=== PATIENT | female | born 1945 | race Caucasian/White ===

== ENCOUNTER 2016-03-22 19:02 | Observation (INO) ==
[2016-03-22] MEDS ORDERED: Aspirin 81 MG TAB.CHEW PO ONE (20:07)
--- NOTE | 2016-03-22 20:14 | Emergency Department Note ---
Disposition Clinical Impression: Unstable angina Disposition: Admitted As Inpatient Condition: Fair Chest Pain HPI - General Chief Complaint: ED Chest Pain Stated Complaint: CP/SOB Time Seen by Provider: 03/22/16 20:00 Source: patient Limitations: no limitations Vital Signs Reviewed: Yes Nursing Notes Reviewed: Yes - History of Present Illness HPI Narrative: Ms. Larkin, a 70yo female, presents from home by POV with chief complaint chest pain. History CAD status post PCTA with 3 stents. Onset 2 AM which woke her from sleep. Located retrosternal. Described as pressure with sharp pain radiating to her back, to her left shoulder, into her left jaw. Associated shortness of breath and nausea. Denies diaphoresis, weakness, numbness or tingling, abdominal pain. The symptoms have been intermittent throughout the day, and going. Improve not relieved with rest, worsened with light exertion. Patient states this feels very similar to her previous heart attacks which she states she has had at least 3. Patient did take 2 sublingual nitroglycerin at home, 5 minutes apart, and did not experience relief of her chest pain. PMH: CKD stage III, CAD status post stents (quantity 2 2010, quantity 1 2014), diabetes type 2, chronic hypertension, ALLISON. Tech Intern: Dr. Garcia. Severity scale (1-10): 5 - Related Data Home Medications Medication Instructions Recorded Confirmed Albuterol Sulfate [Proair 1 - 2 puff IH Q6H PRN 11/21/14 03/22/16 Respiclick] Loratadine [Claritin] 10 mg PO QAM PRN #0 11/21/14 03/22/16 Losartan [Cozaar] 25 mg PO QAM 11/21/14 03/22/16 Multivitamin [Multi-Day Vitamins] 1 tab PO QAM 11/21/14 03/22/16 Nitroglycerin [Nitrostat] 0.4 mg SL AD PRN #0 11/21/14 03/22/16 Aspirin 81 mg PO QAM 01/03/15 03/22/16 Cholecalciferol (Vitamin D3) 2,000 unit PO QAM 01/03/15 03/22/16 [Vitamin D3] Clopidogrel [Plavix] 75 mg PO QPM 01/03/15 03/22/16 Esomeprazole Magnesium [Nexium] 40 mg PO QAM 01/03/15 03/22/16 Metformin [Glucophage] 500 mg PO QAM 01/03/15 03/22/16 Vitamin E (Dl,Tocopheryl Acet) 400 unit PO QAM 01/03/15 03/22/16 [Vitamin E] Albuterol Neb [Proventil Neb] 2.5 mg IH Q4HR PRN 09/07/15 03/22/16 Isosorbide MONOnitrate [Isosorbide 120 mg PO DAILY 11/13/15 03/22/16 Mononitrate ER] Metoprolol [Lopressor] 25 mg PO BID 11/13/15 03/22/16 Fluticasone Propionate Nasal 50 mcg NS BID 12/03/15 03/22/16 [Flonase] Allergies Allergy/AdvReac Type Severity Reaction Status Date / Time acetaminophen Allergy See Verified 02/12/16 20:24 Comments clarithromycin Allergy See Verified 02/12/16 20:24 Comments Erythromycin Base Allergy See Verified 02/12/16 20:24 Comments hydrocodone [From Vicodin] Allergy See Verified 11/13/15 12:14 Comments morphine Allergy See Verified 02/12/16 20:24 Comments prednisone Allergy See Verified 02/12/16 20:24 Comments propoxyphene Allergy See Verified 02/12/16 20:24 Comments codeine AdvReac Anaphylaxis Verified 11/13/15 12:14 Sjtcmdk-Pps-Hco Reductase AdvReac Muscle Pain Verified 11/13/15 12:14 Inhibitor [Statins] All systems ED: reviewed and negative except as stated. Constitutional: Denies: fever, chills, weakness ENT ED: Reports: other (left jaw pain.) Cardiovascular: Reports: chest pain, dyspnea on exertion. Denies: palpitations , orthopnea, edema, syncope Respiratory: Denies: cough, wheezes Gastrointestinal: Reports: nausea. Denies: abdominal pain, vomiting, diarrhea, constipation, hematemesis, melena, hematochezia Musculoskeletal: Reports: back pain. Denies: neck pain Integumentary: Denies: rash Neurological: Reports: weakness. Denies: headache, numbness, paresthesias, confusion, vertigo Chest Pain PMH - Past Medical History Medical history: Reports: arthritis, asthma, coronary artery disease, diabetes, GERD, hyperlipidemia, hypertension, migraine, myocardial infarction, renal disease Surgical history: Reports: angioplasty/stent, appendectomy, cholecystectomy, hysterectomy Psychiatric history: Reports: no psych history Prior Cardiac Testing/Procedures: Stenting PRICING CLERK history: Reports: no PRICING CLERK history - Social History Smoking Status: Never smoker Alcohol use: Reports: none Drug use: Reports: none Physical Exam General: Patient is alert, oriented, and in no acute distress. HEENT: No facial asymmetry. Head is normocephalic and atraumatic. Trachea midline. Cardiovascular: Heart regular rate and rhythm without clicks, rubs, gallops, or murmurs. No JVD. PMI nondisplaced. Respiratory: Symmetric chest rise with good respiratory effort. Bilateral breath sounds are clear without wheezing, crackles, or rhonchi. Abdomen: Bowel sounds present normoactive x-4 quadrants. Abdomen is soft, nondistended, and nontender. No organomegaly noted. Neuro: Cranial nerves II through XII grossly intact.. Sensation light touch intact. Psych: Patient's affect is appropriate for situation. - General Limitations: no limitations General appearance: alert Course Course Narrative: Chart check shows cardiac history: Left heart catheter November 2015-LVEF 65%. Patent mid LAD and all my stents. Mid LAD 30% stenosis. Mid circumflex 30% stenosis. Also medical management recommended. Patient expresses mild symptom relief with sublingual nitroglycerin 3 every 5 minutes however her symptoms did persist. Laboratory unremarkable; specifically troponin negative at this time. Chest x- ray shows no acute cardiopulmonary abnormalities. We will recommend the patient be placed in observation for continued chest pain workup given her history, multiple comorbidities, and concerning story. Patient accepted to the floor on tele per Dr. Fierro. Vital Signs Temperature 98.1 F 03/22/16 19:03 Pulse Rate 83 03/22/16 19:03 Respiratory Rate 18 03/22/16 19:03 Blood Pressure 194/97 03/22/16 19:03 O2 Sat by Pulse Oximetry 95 03/22/16 19:03 Temperature 97.6 F 03/23/16 00:13 Pulse Rate 62 03/23/16 00:13 Respiratory Rate 16 03/23/16 00:13 Blood Pressure 154/85 03/23/16 00:13 O2 Sat by Pulse Oximetry 95 03/23/16 00:13 Oxygen Delivery Oxygen Delivery Room Air Chest Pain - Medical Records Medical records reviewed: Yes I reviewed the patient's medical records. - Lab Data Lab results reviewed: Yes I reviewed the patient's lab results. Result diagrams: 03/22/16 20:15 03/22/16 20:15 Lab Results 03/22/16 03/22/16 03/22/16 Range/Units 20:15 20:15 20:15 WBC 7.9 (4.3-11.1) K/mcL RBC 3.80 L (3.82-4.97) M/mcL Hgb 11.9 (11.5-15.4) g/dL Hct 36.5 (35.3-44.9) % MCV 96.1 (83.0-100.0) fL MCH 31.3 (28.0-33.3) pg MCHC 32.6 (31.6-35.5) g/dL RDW 12.5 (11.5-14.5) % Plt Count 232 (140-400) K/mcL MPV 11.5 (9.4-12.4) fL Immature Gran % 0.4 (0-4) % Seg Neutrophils % 63.1 % Lymphocytes % 23.2 % Monocytes % 8.9 % Eosinophils % 3.8 % Basophils % 0.6 % Neutrophils # 5.0 (1.6-8.9) K/mcL Lymphocytes # 1.8 (0.6-4.6) K/mcL Monocytes # 0.7 (0.0-1.3) K/mcL Eosinophils # 0.3 (0.0-0.6) K/mcL Basophils # 0.1 (0.0-0.2) K/mcL PT 11.5 (9.4-12.1) Seconds INR 1.1 APTT 33.4 (26.0-36.0) Seconds Sodium 143 (136-145) mEq/L Potassium 4.5 (3.5-4.5) mEq/L Chloride 111 H (98-109) mEq/L Carbon Dioxide 19 (19-29) mEq/L BUN 21 H (7-20) mg/dL Creatinine 1.02 (0.57-1.11) mg/dL Est GFR ( Amer) > 60 (> 60) Est GFR (Non-Af Amer) 53 L (> 60) BUN/Creatinine Ratio 21 (6-26) Glucose 134 H (70-99) mg/dL Calculated Osmolality 301 H (280-300) Calcium 9.7 (8.6-10.8) mg/dL Troponin I (0-0.03) ng/mL 03/22/16 Range/Units 20:15 WBC (4.3-11.1) K/mcL RBC (3.82-4.97) M/mcL Hgb (11.5-15.4) g/dL Hct (35.3-44.9) % MCV (83.0-100.0) fL MCH (28.0-33.3) pg MCHC (31.6-35.5) g/dL RDW (11.5-14.5) % Plt Count (140-400) K/mcL MPV (9.4-12.4) fL Immature Gran % (0-4) % Seg Neutrophils % % Lymphocytes % % Monocytes % % Eosinophils % % Basophils % % Neutrophils # (1.6-8.9) K/mcL Lymphocytes # (0.6-4.6) K/mcL Monocytes # (0.0-1.3) K/mcL Eosinophils # (0.0-0.6) K/mcL Basophils # (0.0-0.2) K/mcL PT (9.4-12.1) Seconds INR APTT (26.0-36.0) Seconds Sodium (136-145) mEq/L Potassium (3.5-4.5) mEq/L Chloride (98-109) mEq/L Carbon Dioxide (19-29) mEq/L BUN (7-20) mg/dL Creatinine (0.57-1.11) mg/dL Est GFR ( Amer) (> 60) Est GFR (Non-Af Amer) (> 60) BUN/Creatinine Ratio (6-26) Glucose (70-99) mg/dL Calculated Osmolality (280-300) Calcium (8.6-10.8) mg/dL Troponin I 0.01 (0-0.03) ng/mL - Radiology Data Radiology results reviewed: Yes I reviewed the patient's radiology results. - EKG Data EKG attestation: Yes I reviewed and interpreted this EKG. EKG results narrative: EKG dated 03/22/16 at 19:15 shows sinus rhythm with respiratory variation, rate 76. Normal intervals. Left axis. Nonspecific ST-T changes. Compared to previous dated 11/13/2015 at 10:10 showing no acute ischemic changes in comparison. Heart Score - Score History: Moderately Suspicious EKG: Normal Age: Greater than 65 Risk Factors: Equal/Greater than 3 risk factor or history of atherosclerotic disease Troponin: Less than normal limit HEART Score Total: 5 Attestation Statement - Attestation Attestation: I, Guilherme Hi MD, personally performed a history and physical exam of the patient and discussed their management with the resident. I reviewed the resident's note and agree with the documented findings, medical decision making , and plan of care. 70-year-old female with history of coronary artery disease and coronary artery stents presents to the emergency department with a complaint that she awoke at 2 AM this morning with substernal chest pain. Pain radiates to her back into the left side of her neck and her left jaw on the left shoulder and left arm. She complains of shortness of breath associated with the chest pain. Also some nausea and diaphoresis. No relief with nitroglycerin. Patient reports that she has had pain off and on all day today. On examination patient is a well-developed well-nourished elderly female in no acute distress. She is alert and oriented 3. There is no cyanosis or diaphoresis. Chest is nontender to palpation. Breath sounds clear and equal bilaterally. Heart regular rate and rhythm. Abdomen soft and nontender with normal bowel sounds. No acute changes on EKG. Chest x-ray negative. Labs reviewed. Troponin negative. The hospitalist, Dr. Fierro, was consulted and accepted admission of the patient.
[2016-03-22] MEDS: Nitroglycerin 0.4 MG TAB.SUBL SL ONE ×3 (20:18→20:41)
[2016-03-22 20:25] LABS: Basophils # 0.1 K/mcL (0.0-0.2); Basophils % 0.6 %; Eosinophils # 0.3 K/mcL (0.0-0.6); Eosinophils % 3.8 %; Hematocrit 36.5 % (35.3-44.9); Hemoglobin 11.9 g/dL (11.5-15.4); Immature Granulocytes % 0.4 % (0-4); Lymphocytes # 1.8 K/mcL (0.6-4.6); Lymphocytes % 23.2 %; Mean Corpuscular HGB Conc 32.6 g/dL (31.6-35.5); Mean Corpuscular Hemoglobin 31.3 pg (28.0-33.3); Mean Corpuscular Volume 96.1 fL (83.0-100.0); Mean Platelet Volume 11.5 fL (9.4-12.4); Monocytes # 0.7 K/mcL (0.0-1.3); Monocytes % 8.9 %; Platelet Count 232 K/mcL (140-400); Red Cell Distribution Width 12.5 % (11.5-14.5); Segmented Neutrophils % 63.1 %
[2016-03-22 20:30] LABS: INR 1.1; Prothrombin Time 11.5 Seconds (9.4-12.1)
[2016-03-22 20:32] LABS: Activated Partial Thrombo Time 33.4 Seconds (26.0-36.0)
[2016-03-22 20:37] LABS: BUN/Creatinine Ratio 21 (6-26); Blood Urea Nitrogen 21 mg/dL (7-20); Calcium 9.7 mg/dL (8.6-10.8); Carbon Dioxide 19 mEq/L (19-29); Chloride 111 mEq/L (98-109); Glucose 134 mg/dL (70-99); Osmolality,Calculated 301 (280-300); Potassium 4.5 mEq/L (3.5-4.5); Sodium 143 mEq/L (136-145); eGFR For African Americans > 60 (> 60); eGFR For Non-African Americans 53 (> 60)
[2016-03-22] MEDS ORDERED: *HR* HYDROmorphone (PF) 1 MG/ML SYRINGE IVP ONE (22:18)
[2016-03-22] MEDS ORDERED: GI Cocktail 40 ML EACH PO ONE (23:11)
[2016-03-23] MEDS ORDERED: Loratadine 10 MG TABLET PO PRN (00:30)
[2016-03-23] MEDS ORDERED: Albuterol 2.5 MG/3 ML NEBULIZER IH PRN (00:30)
[2016-03-23] MEDS ORDERED: Nitroglycerin 0.4 MG TAB.SUBL SL PRN ×2 (00:30→00:31)
[2016-03-23] MEDS ORDERED: *HR* Morphine 2 MG/ML SYRINGE IVP PRN (00:31)
[2016-03-23] MEDS ORDERED: *HR* Dextrose 50 % in Water (Syg) 50 ML SYRINGE IVP PRN (00:31)
[2016-03-23] MEDS ORDERED: Mag Hydrox/Al Hydrox/Simeth 30 ML UDC PO PRN (00:31)
[2016-03-23] MEDS ORDERED: Naloxone 0.4 MG/ML INJ IVP PRN (00:31)
[2016-03-23] MEDS ORDERED: Ibuprofen 400 MG TABLET PO PRN (00:31)
[2016-03-23] MEDS ORDERED: Dextrose Gel 15 GM PO PRN ×2 (00:31)
[2016-03-23] MEDS ORDERED: *HR* Promethazine 25 MG/ML VIAL IVP PRN (00:31)
[2016-03-23] MEDS ORDERED: D5% in Water 1,000 ML IV PRN (00:31)
[2016-03-23] MEDS ORDERED: *HR* OxyCODONE Immed Rel 5 MG TABLET PO PRN (00:31)
[2016-03-23] MEDS ORDERED: *HR* Metoprolol 5 MG/5 ML VIAL IVP PRN (00:31)
[2016-03-23] MEDS: 0.9 % Sodium Chloride 1,000 ML IVC SCH ×2 (01:06→19:47)
[2016-03-23 01:21] LABS: Chol/HDL Ratio 4.4 (0-4.9); Magnesium 1.5 mg/dL (1.6-2.6); Phosphorous 4.4 mg/dL (2.3-4.7)
--- NOTE | 2016-03-23 01:24 | Internal Med History&Physical ---
Date of Encounter: 03/23/16 Time of Encounter: 01:00 Assessment and Plan (1) Chest pain with moderate risk of acute coronary syndrome Current visit: Yes Status: Acute . (2) Acute chest wall pain Current visit: Yes Status: Acute . (3) History of PTCA Current visit: Yes Status: Chronic . (4) Type 2 diabetes mellitus Current visit: Yes Status: Chronic . 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 (6) Obesity (BMI 30-39.9) Current visit: Yes Status: Chronic . (7) Reactive airway disease Current visit: Yes Status: Chronic . Qualifiers: Asthma severity: unspecified severity Asthma complication type: uncomplicated Qualified Code(s): J45.909 - Unspecified asthma, uncomplicated (8) Chest pain, rule out acute myocardial infarction Current visit: Yes Status: Acute . (9) CAD (coronary artery disease) Current visit: Yes Status: Chronic . Qualifiers: Coronary Disease-Associated Artery/Lesion type: [place] artery [place] vs. transplanted heart: [place] heart Associated angina: angina presence unspecified Qualified Code(s): I25.10 - Atherosclerotic heart disease of [place] coronary artery without angina pectoris (10) Chronic kidney disease (CKD) stage G3a/A1, moderately decreased glomerular filtration rate (GFR) between 45-59 mL/min/1.73 square meter and albuminuria creatinine ratio less than 30 mg/g Current visit: Yes Status: Chronic . (11) GERD (gastroesophageal reflux disease) Current visit: Yes Status: Chronic . Qualifiers: Esophagitis presence: esophagitis presence not specified Qualified Code(s) : K21.9 - Gastro-esophageal reflux disease without esophagitis (12) Statin intolerance Current visit: Yes Status: Chronic . (13) Anxiety about health Current visit: Yes Status: Acute . (14) ALLISON (obstructive sleep apnea) Current visit: Yes Status: Chronic . (15) Noncompliance with CPAP treatment Current visit: Yes Status: Chronic . Internal Medicine - H&P: HPI Chief complaint: Chest pain Admitted From: Emergency Dept Plans for Post Hospital Care: Home History of present illness: Ms. Larkin is a 70 year old female with history significant for CAD/PTCAstents x3/AMI x3, reactive airway disease/asthma, ALLISON-CPAP noncompliant, hypertension, dyslipidemia, CKD III, type 2 diabetes mellitus, allergic rhinitis, GERD, osteoarthritis, osteopenia, vitamin D deficiency, migraine headaches, Raynaud's syndrome, LE venous insufficiency, psoriasis, basal cell carcinoma excisions, DM peripheral neuropathy, anemia, obesity, nonsmoker (Cardiac Catheterization Report: 12/03/2015----patent mid LAD and LEE stents. Stable coronary artery disease. Left ventricle is normal and has normal contractility with LVEF 65%. Recommendations for optimal medical therapy for patient's disease. Aggressive risk factor modification. Coronary dominance left. Lesion findings/interventions----left main coronary artery is angiographically free of disease. Left anterior descending artery notes proximal patent stents present from previous procedure. Mid LAD has patent stents present from previous procedure. 30% stenosis in the mid LAD. Lesion has a JESÚS flow of 3. Circumflex artery marginal has patent stents present from previous procedure. There is a 30% stenosis of the mid circumflex. Lesion has a JESÚS flow of 3. Right coronary artery is known to be non-dominant and occluded proximally.) The patient was visited and interviewed and examined. She is admitted to [facility] via the emergency department with reports of acute onset of chest pain and shortness of air. Patient reports awakening from a sound sleep at about 2 AM with retrosternal chest pain that she would read as a 5-6 out of 10 in severity. Sharp and pressure-like with radiation through to her back to her left shoulder or left jaw. This was associated with a feeling of shortness of air nausea. No diaphoresis no emesis. Denied any unilateral weakness physician deficit paresthesias numbness and headache. The symptoms seem to be intermittent throughout her day. Short-lived. But not completely relieved with rest. Worsened with light to moderate exertion. She recalls that this feels similar to her previous heart attacks (3). She took 2 sublingual nitroglycerin only 5 minutes apart. This did not resolve her chest discomfort. Denies any associated fevers chills or sweats. Denied any upper or lower respiratory complaints cough sputum production. Knowledge to her chronic anterior chest and abdominal tenderness residual from previous surgeries. Acknowledges well that the increased respiratory effort cough and movement would aggravate chest pain. Will audible wheezing apparent and no worse than baseline. She notes no significant change in her prescribed medications nor indiscretions. Admits to increase in personal and environmental stressors and concerns about her overall health. Due to persistent she presented to the emergency department for further evaluation. Findings in the ED: Temperature 98.1 pulse 66-83 respiration 18 BP 150-194/87- 97 O2 saturation 95-97% at room air. WBC 7.9 hemoglobin 11.9 platelets 232, 000. Differential normal. PT 11.5 INR 1.1 PTT 33.4. Metabolic panel normal except chloride 111 BUN 21 glucose 134 osmolality 301. Creatinine 1.02 GFR 53. Troponin 0.01. EKG sinus rhythm with respiratory variation. Rate 76. acute ischemic changes. Left axis deviation. Portable chest x-ray shows no acute or active cardiopulmonary process. Preliminary impression suggests acute chest pain syndrome typical and atypical features. This in the setting of a patient with known coronary artery disease status post PTCA with stent 3 and reported non-ST elevation myocardial infarctions 3. Recent left heart catheterization per 2016 was reviewed with patent stents with mild residual nonocclusive disease. Systemic inflammatory response syndrome nor sepsis criteria present at admission. No overt evidence of infection as a prelude to current symptoms. Given patient's significant comorbidities HEART score for cardiovascular risk of MACE equals 5 warranting further clinical investigation. Workup and treatments will proceed comprehensively. Cumulative laboratory and radiographic data base was reviewed, considered and discussed. Pertinent ancillary medical records including ECW and PCI documentation, when available was reviewed and considered. Given the patient's presenting concerns, past medical history, clinical findings and symptoms, she is admitted at this time will undergo further evaluation and disposition. Orders were written as per the computerized physician field recorder system.......................................................................... .................... Consultative opinions will be sought as clinical circumstances justify. Initial consultative opinion has been requested and cardiology. Pain management needs will be addressed. Laboratory and radiographic data base will be updated as appropriate. Studies include: coag profile, CPK, cardiac injury panel, BNP, metabolic and hematologic panel, magnesium, phosphorus, ionized calcium, thyroid panel, lipid profile, A1c, C-peptide, CRP, sedimentation rate, blood gas, lactic acid, UA, serologies, etc. Precautions: Aspiration, fall, delirium protocol/surveillance initiated. Telemetry with continuous hemodynamic monitoring and pulse oximetry initiated. Special studies: CT chest, chest x-ray, telemetry, EKG, echocardiogram. Pulmonary toilet: Incentive spirometry. When necessary aerosol bronchodilator, mucolytic, antitussive, Supplemental oxygen. Corticosteroid therapy when necessary. CPAP/BiPAP supplemental oxygen delivery when necessary. Aerosol Mucomyst therapy when necessary. Fluid and electrolyte repletion efforts will proceed. Careful attention to fluid balance and renal recovery will be emphasized. Avoidance of nephrotoxic exposure and adverse drug drug interaction in the setting of impaired renal function will be monitored closely. Acute coronary syndrome protocol/surveillance initiated. (Aspirin, beta yari , DMITRIY inhibitor. When necessary nitrates. When necessary morphine. Subcutaneous heparin/Lovenox. Patient reports statin intolerance. Fenofibrate will be substituted in this setting. We will also add Ranexa to current regimen. Recommendation for [place]-3 fatty acids ,as well as, consideration for Astemizole Trial to maximize lipid-lowering effort.) DVT and PUD prophylaxis initiated: PPI therapy, intermittent pneumatic cuffs/ TEDs. Subcutaneous heparin/Lovenox. Early ambulation will be encouraged. Immunization updates recommended. Influenza and pneumococcal vaccinations as part of ongoing preventative healthcare recommendations strongly recommended. Smoking cessation counseling briefly addressed. Patient is a nonsmoker. Advanced care directive discussion briefly addressed. Patient does not declare any healthcare restrictions at this time. Cardiovascular risk appraisal and cardiovascular risk reduction efforts will be emphasized. Physical and occupational therapy may be consulted to evaluate/assess patient's functional capacity and progress mobility if circumstances permit. Sliding scale and basal insulin coverage, ADA/cardiac dietary restraint and schedule an as-needed basis fingerstick glucose assessments were initiated. Oral hypoglycemic agents will be withheld during hospital course and reinstated if appropriate upon discharge. Nutrition/diabetes education counseling may be considered as circumstances permit. Outpatient medication schedules will be reviewed confirmed and facilitated as appropriate. Reconciliation of home treatments including adjustments, substitutions and reintroduction into the treatment regimen will address necessary maintenance therapies for chronic pre-existing medical conditions. Plan of care has been reviewed and discussed in detail with the patient. Questions addressed. Hospital course will depend upon collective clinical findings, treatment response and potential consultative interventions. Patient is at risk for further acute clinical decline and morbidity due to her advanced age, presenting chief complaints, clinical findings and comorbidities. Condition is serious. Prognosis is cautiously optimistic. CODE STATUS is full. Past Med Surg Social Fam HX - Past Medical History Source: old records reviewed Medical history: arthritis, asthma, cancer, COPD (ALLISON;nocturnal Cpap dependent) , coronary artery disease, diabetes, fibromyalgia, GERD, hyperlipidemia, hypertension, migraine, myocardial infarction, osteoporosis, renal disease, thyroid disease, venous stasis, other (Psoriasis. Diabetic peripheral neuropathy. Anemia. Her notes syndrome. Varicose veins. Impingement syndrome left shoulder.) Psychiatric history: no psych history - Past Surgical History Surgical History: angioplasty/stent, appendectomy, cancer surgery (Removal of several basal cell carcinomas.), cholecystectomy, hysterectomy, orthopedic, other (Ankle surgery. Left kidney cyst removal. Right carpal tunnel surgery x2.), other (Colectomy adenoidectomy.) - Social History Smoking Status: Never smoker Smokeless Tobacco Status: No Alcohol use: none Drug use: none Occupational status: retired Current living situation: Home - Independent () Activity Level: Independent ambulation, Mostly sedentary Recent Out of Country Travel Within the Last 8 Weeks: No Exposure or Possible Exposure to Illness During Travel: No - Family History Father Family Member Ethnicity: Non- Twin of Family Member: Yes, Fraternal Living Status: Hx Family Cardiac Disorders: Yes Hx Family Respiratory Disorders: No Hx Family Cancer: (Mother and father) Hx Family GI Disorders: No Hx Family Endocrine Disorder: No Hx Family Neuromuscular Disorders: No Hx Family Neurologic Disorders: No Hx Family HEENT Disorders: No Hx Family Autoimmune Disorders: No Mother Hx Family Cardiac Disorders: Yes Internal Medicine - H&P: Meds Albuterol Sulfate [Proair Respiclick] 1 - 2 puff IH Q6H PRN 11/21/14 [History] Loratadine [Claritin] 10 mg PO QAM PRN #0 11/21/14 [History] Losartan [Cozaar] 25 mg PO QAM 11/21/14 [History] Multivitamin [Multi-Day Vitamins] 1 tab PO QAM 11/21/14 [History] Nitroglycerin [Nitrostat] 0.4 mg SL AD PRN #0 11/21/14 [History] Aspirin 81 mg PO QAM 11/05/15 [History] Cholecalciferol (Vitamin D3) [Vitamin D3] 2,000 unit PO QPM 01/03/15 [History] Clopidogrel [Plavix] 75 mg PO QPM 01/03/15 [History] Esomeprazole Magnesium [Nexium] 40 mg PO QAM 01/03/15 [History] Metformin [Glucophage] 500 mg PO QPM 01/03/15 [History] Vitamin E (Dl,Tocopheryl Acet) [Vitamin E] 400 unit PO QAM 01/03/15 [History] Albuterol Neb [Proventil Neb] 2.5 mg IH Q4HR PRN 09/07/15 [History] Isosorbide MONOnitrate [Isosorbide Mononitrate ER] 120 mg PO DAILY 11/13/15 [ History] Metoprolol [Lopressor] 25 mg PO QPM 11/13/15 [History] Fluticasone Propionate Nasal [Flonase] 50 mcg NS BID 12/03/15 [History] Acetaminophen [Tylenol] 500 mg OP Q4HR PRN 03/23/16 [History] Allergies acetaminophen Allergy (Verified 02/12/16 20:24) See Comments clarithromycin Allergy (Verified 02/12/16 20:24) See Comments Erythromycin Base Allergy (Verified 02/12/16 20:24) See Comments hydrocodone [From Vicodin] Allergy (Verified 11/13/15 12:14) See Comments morphine Allergy (Verified 02/12/16 20:24) See Comments prednisone Allergy (Verified 02/12/16 20:24) See Comments propoxyphene Allergy (Verified 02/12/16 20:24) See Comments codeine Adverse Reaction (Verified 11/13/15 12:14) Anaphylaxis [id number] Reductase Inhibitor [Statins] Adverse Reaction (Verified 12:14) Muscle Pain All Systems PM: A 10-system review of systems was performed and is negative for pertinent findings except as documented above in the HPI. - Constitutional Constitutional: as per HPI, malaise, no chills, no fever(s), no night sweats - EENT Eyes: as per HPI, no change in vision, no discharge, no pain, no photophobia Ears: as per HPI, no ear discharge, no ear pain, no tinnitus Nose, mouth and throat: as per HPI, no dysphagia, no nasal discharge, no neck pain, no sore throat - Cardiovascular Cardiovascular ROS IM: as per HPI, chest pain, other, no diaphoresis, no dyspnea , no lightheadedness, no palpitations, no syncope - Respiratory Respiratory: as per HPI, no cough, no dyspnea, no wheezing, no excessive phlegm production - Gastrointestinal Gastrointestinal: as per HPI, no abdominal pain, no diarrhea, no hematemesis, no hematochezia, no melena, no nausea, no vomiting - Genitourinary Genitourinary: as per HPI, no change in urinary stream, no dysuria, no flank pain, no hematuria - Musculoskeletal Musculoskeletal ROS IM: as per HPI, no numbness, no tingling - Integumentary Integumentary IM: as per HPI, no rash, no unusual bruising - Neurological Neurological ROS: as per HPI, no confusion, no convulsions, no focal weakness, no numbness, no tingling, no tremor(s) - Psychiatric Psychiatric: as per HPI - Endocrine Endocrine IM: as per HPI - Hematologic/Lymphatic Hematologic/Lymphatic: as per HPI, no easy bruising - Allergic/Immunologic Allergic/Immunologic: as per HPI - Constitutional Vitals: Temp Pulse Resp BP Pulse Ox 97.6 F 62 16 154/85 95 03/23/16 00:13 03/23/16 00:13 03/23/16 00:13 03/23/16 00:13 03/23/16 00:13 General appearance: Present: cooperative, mild distress, A&O X 3, obese, answers questions appropriately - Head Head exam: Present: atraumatic, normal inspection, normocephalic - Eye Eye exam: Present: EOMI, PERRL, conjuntiva pink, sclera anicteric Pupils: Present: normal accommodation, PERRL - ENT ENT exam: Present: mucous membranes moist, normal external ear exam, normal oropharynx - Neck Neck exam general surgery: Present: full ROM, supple, trachea midline. Absent: lymphadenopathy, tenderness, nuchal rigidity, thyromegaly - Respiratory Respiratory exam: Present: chest wall tenderness, decreased breath sounds, CTAB. Absent: accessory muscle use, rales, rhonchi, wheezes - Cardiovascular Cardiovascular exam: Present: distant heart sounds, RRR, +S1, +S2. Absent: diastolic murmur, gallop, rubs, systolic murmur - GI/Abdominal GI/Abdominal exam: Present: diminished bowel sounds, soft, tenderness, no peritoneal signs. Absent: distended, guarding, rebound - Extremities Exam Extremities exam: Present: full ROM, warm, radial pulses palpable and symetrical. Absent: calf tenderness, cyanotic, pedal edema - Neurological Exam Neurological exam: Present: alert, CN II-XII intact, oriented X3, no focal deficits. Absent: pronater drift, facial droop, speech deficit - Psychiatric Psychiatric exam: Present: normal affect, normal mood - Skin Skin exam: Present: dry, intact, warm. Absent: petechiae, rash, urticaria, vesicles Internal Med - H&P Results - Labs CBC & Chem 7: 03/22/16 20:15 03/22/16 20:15 - Impressions Vital Signs Temp Pulse Resp BP Pulse Ox 03/23/16 00:13 97.6 F 62 16 154/85 95 03/22/16 23:48 16 156/80 03/22/16 23:42 156/80 03/22/16 23:40 64 16 95 03/22/16 23:08 66 16 156/71 95 03/22/16 22:09 66 18 151/87 97 03/22/16 21:10 66 16 147/87 96 03/22/16 20:40 88 16 137/69 98 03/22/16 20:32 76 18 152/83 96 03/22/16 20:19 86 16 136/84 98 03/22/16 19:16 79 16 141/88 96 03/22/16 19:03 98.1 F 83 18 194/97 95 Intake and Output 03/22/16 03/22/16 03/23/16 15:59 23:59 07:59 Other: Weight 82.554 kg 87.543 kg Blood Glucose* 121 Patient Weight 03/23/16 23:59 Weight 87.543 kg Short CBC 03/22/16 Range/Units 20:15 WBC 7.9 (4.3-11.1) K/mcL Hgb 11.9 (11.5-15.4) g/dL Hct 36.5 (35.3-44.9) % Plt Count 232 (140-400) K/mcL Neutrophils # 5.0 (1.6-8.9) K/mcL BMP 03/22/16 Range/Units 20:15 Sodium 143 (136-145) mEq/L Potassium 4.5 (3.5-4.5) mEq/L Chloride 111 H (98-109) mEq/L Carbon Dioxide 19 (19-29) mEq/L BUN 21 H (7-20) mg/dL Creatinine 1.02 (0.57-1.11) mg/dL Glucose 134 H (70-99) mg/dL Calcium 9.7 (8.6-10.8) mg/dL Cardiac Enzymes 03/22/16 Range/Units 20:15 Troponin I 0.01 (0-0.03) ng/mL Abnormal lab results RBC 3.80 M/mcL (3.82-4.97) L 03/22/16 20:15 Chloride 111 mEq/L (98-109) H 03/22/16 20:15 BUN 21 mg/dL (7-20) H 03/22/16 20:15 Est GFR (Non-Af Amer) 53 (> 60) L 03/22/16 20:15 Glucose 134 mg/dL (70-99) H 03/22/16 20:15 Calculated Osmolality 301 (280-300) H 03/22/16 20:15 Magnesium 1.5 mg/dL (1.6-2.6) L 03/23/16 00:58 HDL Cholesterol 27 mg/dL (40-59) L 03/23/16 00:58 Allergies Allergy/AdvReac Type Severity Reaction Status Date / Time acetaminophen Allergy See Verified 02/12/16 20:24 Comments clarithromycin Allergy See Verified 02/12/16 20:24 Comments Erythromycin Base Allergy See Verified 02/12/16 20:24 Comments hydrocodone [From Vicodin] Allergy See Verified 11/13/15 12:14 Comments morphine Allergy See Verified 02/12/16 20:24 Comments prednisone Allergy See Verified 02/12/16 20:24 Comments propoxyphene Allergy See Verified 02/12/16 20:24 Comments codeine AdvReac Anaphylaxis Verified 11/13/15 12:14 Iduxobk-Oui-Pqt Reductase AdvReac Muscle Pain Verified 11/13/15 12:14 Inhibitor [Statins] Laboratory Results WBC 7.9 K/mcL (4.3-11.1) 03/22/16 20:15 RBC 3.80 M/mcL (3.82-4.97) L 03/22/16 20:15 Hgb 11.9 g/dL (11.5-15.4) 03/22/16 20:15 Hct 36.5 % (35.3-44.9) 03/22/16 20:15 MCV 96.1 fL (83.0-100.0) 03/22/16 20:15 MCH 31.3 pg (28.0-33.3) 03/22/16 20:15 MCHC 32.6 g/dL (31.6-35.5) 03/22/16 20:15 RDW 12.5 % (11.5-14.5) 03/22/16 20:15 Plt Count 232 K/mcL (140-400) 03/22/16 20:15 MPV 11.5 fL (9.4-12.4) 03/22/16 20:15 Immature Gran % 0.4 % (0-4) 03/22/16 20:15 Seg Neutrophils % 63.1 % 03/22/16 20:15 Lymphocytes % 23.2 % 03/22/16 20:15 Monocytes % 8.9 % 03/22/16 20:15 Eosinophils % 3.8 % 03/22/16 20:15 Basophils % 0.6 % 03/22/16 20:15 Neutrophils # 5.0 K/mcL (1.6-8.9) 03/22/16 20:15 Lymphocytes # 1.8 K/mcL (0.6-4.6) 03/22/16 20:15 Monocytes # 0.7 K/mcL (0.0-1.3) 03/22/16 20:15 Eosinophils # 0.3 K/mcL (0.0-0.6) 03/22/16 20:15 Basophils # 0.1 K/mcL (0.0-0.2) 03/22/16 20:15 PT 11.5 Seconds (9.4-12.1) 03/22/16 20:15 INR 1.1 03/22/16 20:15 APTT 33.4 Seconds (26.0-36.0) 03/22/16 20:15 Sodium 143 mEq/L (136-145) 03/22/16 20:15 Potassium 4.5 mEq/L (3.5-4.5) 03/22/16 20:15 Chloride 111 mEq/L (98-109) H 03/22/16 20:15 Carbon Dioxide 19 mEq/L (19-29) 03/22/16 20:15 BUN 21 mg/dL (7-20) H 03/22/16 20:15 Creatinine 1.02 mg/dL (0.57-1.11) 03/22/16 20:15 Est GFR ( Amer) > 60 (> 60) 03/22/16 20:15 Est GFR (Non-Af Amer) 53 (> 60) L 03/22/16 20:15 BUN/Creatinine Ratio 21 (6-26) 03/22/16 20:15 Glucose 134 mg/dL (70-99) H 03/22/16 20:15 Calculated Osmolality 301 (280-300) H 03/22/16 20:15 Calcium 9.7 mg/dL (8.6-10.8) 03/22/16 20:15 Phosphorus 4.4 mg/dL (2.3-4.7) 03/23/16 00:58 Magnesium 1.5 mg/dL (1.6-2.6) L 03/23/16 00:58 Troponin I 0.01 ng/mL (0-0.03) 03/22/16 20:15 Triglycerides 119 mg/dL (< 150) 03/23/16 00:58 Cholesterol 119 mg/dL (< 200) 03/23/16 00:58 LDL Cholesterol, Calc 68 mg/dL (0-99) 03/23/16 00:58 VLDL Cholesterol, Calc 24 mg/dL (< 31) 03/23/16 00:58 HDL Cholesterol 27 mg/dL (40-59) L 03/23/16 00:58 Cholesterol/HDL Ratio 4.4 (0-4.9) 03/23/16 00:58 Impressions Chest X-Ray 03/22/16 20:08 IMPRESSION: No acute abnormality. D/ / Naga Marrufo MD / Naga Marrufo MD Interpreting Provider: Naga Marrufo MD
[2016-03-23 01:39] LABS: Hemoglobin A1C 5.6 %
[2016-03-23 01:41] LABS: Thyroid Stimulating Hormone 5.433 mcIU/mL (0.350-4.840)
[2016-03-23] MEDS ORDERED: Magnesium Sulfate 1 GM in D5% in Water 100 ML IVPB ONE (04:25)
[2016-03-23] MEDS: Ipratropium/Albuterol Neb 3 ML IH SCH ×4 (05:10→23:25)
[2016-03-23 05:20] LABS: Triiodothyronine (T3) Free 2.79 pg/mL (1.71-3.71)
--- NOTE | 2016-03-23 08:56 | Cardiology Consult Note ---
Date of Encounter: 03/23/16 Time of Encounter: 08:51 Assessment and Plan (1) Chest pain, rule out acute myocardial infarction Current Visit: Yes Status: Acute - Troponin negative (0.01, 0.00, 0.00) - Echo pending - Further recommendations following echo results - Recent [facility] 12/03/15 showed patent mid LAD/LEE stents with preserved EF of 60% - History of chronic chest pain on Imdur 120mg QD and Ranexa 500mg BID - Continue optimized medical therapy and symptomatic care with DAPT (aspirin/ plavix), Metoprolol, Cozar, Zocor, Imdur, Ranexa - Patient currently chest pain free (2) CAD (coronary artery disease) Current Visit: Yes Status: Chronic - Plan as above - Continue optimized medical therapy with DAPT (Aspirin/Plavix), BB, ARB - Continue symptomatic care with Imdur and Ranexa Qualifiers: Coronary Disease-Associated Artery/Lesion type: [place] artery [place] vs. transplanted heart: [place] heart Associated angina: angina presence unspecified Qualified Code(s): I25.10 - Atherosclerotic heart disease of [place] coronary artery without angina pectoris Discussion w patient/family: The assessment and plan as outlined above was discussed with the patient and/or family members who expressed understanding and agreement. All questions were answered. Thank you for involving us in the care of your patient. Please call with any questions. History of Present Illness Consult date: 03/23/16 Requesting physician: Raza Ling Consult reason: chest pain Chief complaint: chest pain History of present illness: Ms. Larkin is a 70 year old female who presented to the [facility] ED with the chief complaint of chest pain. She reports the pain woke up her from sleep 2 nights ago. She described it as an intermittent sharp, retrosternal pressure, radiating to her L shoulder, jaw, and back. Associated with shortness of breath , nausea. Does seem to be exertional and improves with rest. States she has a history of chronic angina and also has a h/o CAD with 3 stents with her pain feeling similar. Per ER reports, the patient took 2 SL NTG at home and it did not relive her pain. She states she also got very nauseated yesterday but could not vomit. Has a h/o reflux and states it could be related to that as well. No acute events overnight. Past Med Surg Social Fam HX - Past Medical History Medical history: arthritis, asthma, cancer, COPD ([place];nocturnal Cpap dependent) , coronary artery disease, diabetes, fibromyalgia, GERD, hyperlipidemia, hypertension, migraine, myocardial infarction, osteoporosis, renal disease, thyroid disease, venous stasis, other (Psoriasis. Diabetic peripheral neuropathy. Anemia. Her notes syndrome. Varicose veins. Impingement syndrome left shoulder.) Psychiatric history: no psych history - Past Surgical History Surgical History: angioplasty/stent, appendectomy, cancer surgery (Removal of several basal cell carcinomas.), cholecystectomy, hysterectomy, orthopedic, other (Ankle surgery. Left kidney cyst removal. Right carpal tunnel surgery x2.), other (Colectomy adenoidectomy.) - Social History Smoking Status: Never smoker Smokeless Tobacco Status: No Alcohol use: none Drug use: none - Family History Father Family Member Ethnicity: Non- Twin of Family Member: Yes, Fraternal Living Status: Hx Family Cardiac Disorders: Yes Hx Family Respiratory Disorders: No Hx Family Cancer: (Mother and father) Hx Family GI Disorders: No Hx Family Endocrine Disorder: No Hx Family Neuromuscular Disorders: No Hx Family Neurologic Disorders: No Hx Family HEENT Disorders: No Hx Family Autoimmune Disorders: No Mother Hx Family Cardiac Disorders: Yes Medications and Allergies Albuterol Sulfate [Proair Respiclick] 1 - 2 puff IH Q6H PRN 11/21/14 [History] Loratadine [Claritin] 10 mg PO QAM PRN #0 11/21/14 [History] Losartan [Cozaar] 25 mg PO QAM 11/21/14 [History] Multivitamin [Multi-Day Vitamins] 1 tab PO QAM 11/21/14 [History] Nitroglycerin [Nitrostat] 0.4 mg SL AD PRN #0 11/21/14 [History] Aspirin 81 mg PO QAM 01/03/15 [History] Cholecalciferol (Vitamin D3) [Vitamin D3] 2,000 unit PO QPM 01/03/15 [History] Clopidogrel [Plavix] 75 mg PO QPM 01/03/15 [History] Esomeprazole Magnesium [Nexium] 40 mg PO QAM 01/03/15 [History] Metformin [Glucophage] 500 mg PO QPM 01/03/15 [History] Vitamin E (Dl,Tocopheryl Acet) [Vitamin E] 400 unit PO QAM 01/03/15 [History] Albuterol Neb [Proventil Neb] 2.5 mg IH Q4HR PRN 09/07/15 [History] Isosorbide MONOnitrate [Isosorbide Mononitrate ER] 120 mg PO DAILY 11/13/15 [ History] Metoprolol [Lopressor] 25 mg PO QPM 11/13/15 [History] Fluticasone Propionate Nasal [Flonase] 50 mcg NS BID 12/03/15 [History] Acetaminophen [Tylenol] 500 mg OP Q4HR PRN 03/23/16 [History] Allergies acetaminophen Allergy (Verified 02/12/16 20:24) See Comments clarithromycin Allergy (Verified 02/12/16 20:24) See Comments Erythromycin Base Allergy (Verified 02/12/16 20:24) See Comments hydrocodone [From Vicodin] Allergy (Verified 11/13/15 12:14) See Comments morphine Allergy (Verified 02/12/16 20:24) See Comments prednisone Allergy (Verified 02/12/16 20:24) See Comments propoxyphene Allergy (Verified 02/12/16 20:24) See Comments codeine Adverse Reaction (Verified 11/13/15 12:14) Anaphylaxis Rdipuvv-Vvq-Ijb Reductase Inhibitor [Statins] Adverse Reaction (Verified 12:14) Muscle Pain All Systems Review: A 10-system review of systems was performed and is negative for pertinent findings except as documented above in the HPI. - Constitutional Constitutional: no chills, no fatigue, no fever(s), no headache(s), no malaise - EENT Eyes: no blurred vision - Cardiovascular Cardiovascular: chest pain at rest, chest pain with exertion, dyspnea on exertion, no diaphoresis, no dyspnea at rest, no irregular heart rhythm, no leg edema, no lightheadedness, no orthopnea, no palpitations, no syncope - Respiratory Respiratory: dyspnea, no cough - Gastrointestinal Gastrointestinal: nausea, no abdominal pain, no diarrhea - Genitourinary Genitourinary: no dysuria - Musculoskeletal Musculoskeletal: no abnormal gait, no back pain - Integumentary Integumentary: no rash - Neurological Neurological: no abnormal speech, no dizziness, no focal weakness, no loss of vision, no syncope - Hematological/Lymphatic Hematologic/Lymphatic: no easy bleeding, no easy bruising Physical Examination Vital Signs, Last 4 Hours Temp Pulse Resp BP Pulse Ox 03/23/16 07:11 97.9 F 65 15 133/72 92 L 03/23/16 05:10 16 98 General: Conversant, No Apparent Distress HEENT: Atraumatic, Normocephaly, Mucus Membranes Moist Neck: No JVD, Normal carotid pulses Cardiac: Reg Rate and Rhythm, Normal S1 and S2, No Murmur Lungs: Normal Breath Sounds, No Wheeze, Rales, Rhonchi Neuro: Alert and responsive, No focal deficits noted Abdomen: Soft, Non-Tender Skin: No rashes noted on visualized skin Musculoskeletal: No Chest Wall Tenderness Extremities: No Clubbing, No Cyanosis, No Edema (trace edema in LLE), Normal Pulses Results 03/22/16 20:15 03/22/16 20:15 Lab Results 03/23/16 03/23/16 03/23/16 00:58 00:58 00:58 Magnesium 1.5 L Troponin I 0.00 B-Natriuretic Peptide 125 H TSH 5.433 H 03/23/16 05:59 Magnesium Troponin I 0.00 B-Natriuretic Peptide TSH - Imaging and Cardiology Chest Xray: report reviewed, image reviewed Echo: pending - EKG Interpretation EKG results cardiology: other (unavailable) Consult Discharge Plan - Plan Referrals: Karen Perez CNP [Primary Care Provider] - 04/01/16 3:00 pm
[2016-03-23] MEDS ORDERED: Isosorbide MONOnitrate (24 HR) 60 MG TAB.ER.24H PO SCH (09:00)
[2016-03-23] MEDS ORDERED: Ranolazine 500 MG TAB.ER.12H PO SCH ×2 (09:00→21:00)
[2016-03-23] MEDS: Insulin LISPRO 300 UNITS/3 ML VIAL SQ SCH ×3 (09:41→17:56)
[2016-03-23] MEDS: Fenofibrate 54 MG TABLET PO SCH (09:41)
[2016-03-23] MEDS: Aspirin 81 MG TAB.CHEW PO SCH (09:41)
[2016-03-23] MEDS: Fluticasone Propionate Nasal 50 MCG/SPRAY BOTTLE NS SCH ×2 (09:43→19:52)
--- NOTE | 2016-03-23 13:10 | ECHO - Doppler Report ---
Echocardiogram Name: Elly Larkin Date of Study: 03/23/2016 Date: 1945 Ht: 62.0 in Medical Record#: [id number] Age: 70 Wt: 192.0 lb Gender: Female BSA: 1.88 Order #: [id number] Location: [facility] Room #: 3B55 Reading Physician: Jose Huggins DO, RAJAT, [place] Department Secretary: Melisa Jimenez RVT Ordering Physician: Raza Ling MD Primary Physician: Karen Perez CNP Indications: ACS Impressions: LVEF 60%. Normal LV chamber size, wall thickness and function. Mild left ventricular diastolic dysfunction. Normal right ventricular structure and function. Mild aortic regurgitation. No evidence of pulmonary hypertension. Left Ventricular Wall Motion: Rest Echo Findings All wall segments showed normal motion. Findings: Study Quality * Technically adequate exam. ECG Findings * Normal sinus rhythm. Left Ventricle * LVEF 60%. * Normal LV chamber size, wall thickness and function. * Mild left ventricular diastolic dysfunction. Right Ventricle * Normal right ventricular structure and function. Left Atrium * Moderately dilated left atrium. Right Atrium * Mildly dilated right atrium. Interatrial Septum * No evidence of PFO by color Doppler. Aortic Valve * Trileaflet aortic valve. * Mildly calcified aortic valve leaflets. * Mild aortic regurgitation. * No aortic stenosis. Mitral Valve * Mild mitral annular calcification * Trace mitral regurgitation. * No mitral stenosis. Tricuspid Valve * Normal tricuspid valve structure and function. * Trace tricuspid regurgitation. * No evidence of pulmonary hypertension. Pulmonic Valve * Pulmonic valve is not well visualized. * No pulmonic regurgitation. Aorta * Normally sized aortic root. Pericardium * The pericardium appears normal. IVC * Normal IVC dimensions and inspiratory collapse. Pulmonary Artery * Normal visualized portions of the main pulmonary artery. History Hypertension Diabetes Hypercholesteremia History of CAD/PTCA Myocardial Infarction Congestive Heart Failure 01/04/15 a Previous Echo was performed. Measurements: BP: 122/ 69 2D Normal Values RVIDd: 1.90 cm <2.7 cm IVSd: .90 cm 0.6 - 1.0 cm LVIDd: 5.30 cm 3.7 - 5.6 cm LVPWd: .80 cm 0.6 - 1.1 cm LVIDs: 4.20 cm 1.5 - 3.6 cm AO: 2.60 cm < 4.0 cm LA: 3.60 cm 2.0 - 4.0cm %FS: 20.80 cm >25 % LA volume: 65 Mitral Valve Peak E:.81 m/sec Peak A:.98 m/sec E/A Ratio:0.8 Peak E' Lat Asad:11 cm/s Peak E' Med Asad:7.6 cm/s E/E' Lat Ratio:7.4 E/E' Med Ratio:10.6 Aortic Valve AI pressure Half-time: 582.00 msec Tricuspid Valve TV Regurg Peak Grad: 5.00mmHg TV Regurg Peak Asad: 1.17m/sec Updated by Jose Huggins DO, FACAleah, ALETA, RO on 03/23/2016 1:03:35 PM electronically signed on 03/23/2016 1:04:24 PM with status of Final Wall Motion Sorto: 1=Normal, 2=Hypokinesis, 3=Akinesis, 4=Dyskinesis, 5=Aneurysmal, 6=Hyperkinetic, X=Not Visualized (Blank)=Missing
--- NOTE | 2016-03-23 14:07 | Event Note ---
Date of Encounter: 03/23/16 Time of Encounter: 14:04 - Cardiology Event Note Patient's echo returned. EF 60%, mild LV diastolic dysfunction, mild AR. Patient's Imdur was increased to 120mg BID from QD Patient does not take home Ranexa secondary to cost, will not Rx No significant changes on echo, no further cardiac testing necessary Should follow up with Dr. Garcia as an outpatient w/in 2 weeks of discharge Please call with any questions or concerns. Case discussed with my attending and Cardiology will sign-off
--- NOTE | 2016-03-23 14:42 | Discharge Summary ---
Date of Encounter: 03/23/16 Time of Encounter: 14:40 - Discharge Diagnosis (1) Chest pain with moderate risk of acute coronary syndrome Priority: Primary Status: Acute (2) CAD (coronary artery disease) Priority: Secondary Status: Chronic Qualifiers: Coronary Disease-Associated Artery/Lesion type: [place] artery [place] vs. transplanted heart: [place] heart Associated angina: angina presence unspecified Qualified Code(s): I25.10 - Atherosclerotic heart disease of [place] coronary artery without angina pectoris (3) Dyslipidemia Priority: Secondary Status: Chronic (4) History of PTCA Priority: Secondary Status: Chronic - Discharge Medications Prescriptions: Isosorbide MONOnitrate [Isosorbide Mononitrate ER] 120 mg PO BID #60 tab.er.24h Home Medications: Albuterol Sulfate [Proair Respiclick] 1 - 2 puff IH Q6H PRN 11/21/14 [History] Loratadine [Claritin] 10 mg PO QAM PRN #0 11/21/14 [History] Losartan [Cozaar] 25 mg PO QAM 11/21/14 [History] Multivitamin [Multi-Day Vitamins] 1 tab PO QAM 11/21/14 [History] Nitroglycerin [Nitrostat] 0.4 mg SL AD PRN #0 11/21/14 [History] Aspirin 81 mg PO QAM 01/03/15 [History] Cholecalciferol (Vitamin D3) [Vitamin D3] 2,000 unit PO QPM 01/03/15 [History] Clopidogrel [Plavix] 75 mg PO QPM 01/03/15 [History] Esomeprazole Magnesium [Nexium] 40 mg PO QAM 01/03/15 [History] Vitamin E (Dl,Tocopheryl Acet) [Vitamin E] 400 unit PO QAM 01/03/15 [History] Albuterol Neb [Proventil Neb] 2.5 mg IH Q4HR PRN 09/07/15 [History] Metoprolol [Lopressor] 25 mg PO QPM 11/13/15 [History] Fluticasone Propionate Nasal [Flonase] 50 mcg NS BID 12/03/15 [History] Acetaminophen [Tylenol] 500 mg OP Q4HR PRN 03/23/16 [History] Isosorbide MONOnitrate [Isosorbide Mononitrate ER] 120 mg PO BID #60 tab.er.24h 03/23/16 [Rx] Allergies/Adverse Reactions: Allergies acetaminophen Allergy (Verified 02/12/16 20:24) See Comments clarithromycin Allergy (Verified 02/12/16 20:24) See Comments Erythromycin Base Allergy (Verified 02/12/16 20:24) See Comments hydrocodone [From Vicodin] Allergy (Verified 11/13/15 12:14) See Comments morphine Allergy (Verified 02/12/16 20:24) See Comments prednisone Allergy (Verified 02/12/16 20:24) See Comments propoxyphene Allergy (Verified 02/12/16 20:24) See Comments codeine Adverse Reaction (Verified 11/13/15 12:14) Anaphylaxis Wukqkwk-Noa-Kfz Reductase Inhibitor [Statins] Adverse Reaction (Verified 12:14) Muscle Pain Procedures/tests Complete & Pending: Procedures Performed prior 72 hours Category Date Time Status ECG 12 lead ECG [ECG] Routine Y 03/23/16 00:34 Ordered ECG 12 lead ECG [ECG] Routine Y 03/24/16 07:00 Ordered EV echocardiogram Routine Y 03/23/16 00:34 Completed Date of admission: 03/22/16 23:28 Primary care physician: Karen Perez CNP Consults: 03/23/16 00:31 Consult to Heater Worker [CONS] Routine Comment: 03/23/16 00:34 Consult to Nurse Navigator [CONS] Routine Comment: Consult to Nurse Navigator [CONS] Routine Comment: 03/23/16 08:00 Consult to Cardiology [CONS] Routine Comment: Consulting Provider: Cardiology oRsanna Reason for Consult: ACS/unstable stable angina and with known CAD/PTCA stents 3. Cardiac catheterization early 2015 demonstrating mild residual disease. Multiple comorbidities. Please evaluate and advise. Time Notified: 04:28 Call Completed: No Discharging clinician: Gayla Rodriguez Anticipated date of discharge: 03/23/16 - Patient Status Disposition: Home, Self-Care Condition: Fair Functional capacity at discharge: independent ambulation Overall status at discharge: patient is back to baseline - Discharge Instructions Follow Up With: Karen Perez CNP [Primary Care Provider] - 04/01/16 3:00 pm - Diet and Activity Activity: resume usual activities as tolerated Diet: other (cardiac diet) Interval History: Ms. Larkin is a 70 year old female who presented to the [facility] ED with the chief complaint of chest pain. She reports the pain woke up her from sleep 2 nights ago. She described it as an intermittent sharp, retrosternal pressure, radiating to her L shoulder, jaw, and back. Associated with shortness of breath , nausea. Does seem to be exertional and improves with rest. States she has a history of chronic angina and also has a h/o CAD with 3 stents with her pain feeling similar. Per ER reports, the patient took 2 SL NTG at home and it did not relive her pain. She states she also got very nauseated yesterday but could not vomit. Has a h/o reflux and states it could be related to that as well. She was admitted for Atypical chest pain. No ECG changes. Troponins negative. EF 60%, mild LV diastolic dysfunction, mild AR. Cardiology was consulted. Patient's Imdur was increased to 120mg BID from QD Patient does not take home Ranexa secondary to cost, will not Rx No significant changes on echo, no further cardiac testing necessary Should follow up with Dr. Garcia as an outpatient w/in 2 weeks of discharge Continue aspirin, plavix, losartan, metoprolol. She cannot tolerate statins. Patient is discharged home today in stable condition. Hospital course: Ms. Larkin is a 70 year old female Time spent discussing smoking cessation with patient: more than 10 minutes - Time Spent with Patient Total time spent providing and/or coordinating discharge services: Greater than 30 minutes - Constitutional Vitals: Temp Pulse Resp BP Pulse Ox 97.6 F 86 15 149/78 91 L 03/23/16 11:48 03/23/16 11:48 03/23/16 11:48 03/23/16 11:48 03/23/16 11:48 General appearance: Present: cooperative, A&O X 3, no acute distress, obese, answers questions appropriately Exam: General: Conversant, No Apparent Distress HEENT: Atraumatic, Normocephaly, Mucus Membranes Moist Neck: No JVD, Normal carotid pulses Cardiac: Reg Rate and Rhythm, Normal S1 and S2, No Murmur Lungs: Normal Breath Sounds, No Wheeze, Rales, Rhonchi Neuro: Alert and responsive, No focal deficits noted Abdomen: Soft, Non-Tender Skin: No rashes noted on visualized skin Musculoskeletal: No Chest Wall Tenderness Extremities: No Clubbing, No Cyanosis, No Edema (trace edema in LLE), Normal Pulses
--- NOTE | 2016-03-23 17:39 | Electrocardiograph Report ---
[facility] Test Date: 2016-03-22 Pat Name: Elly Larkin Department: 105 Room: 3B55 Gender: F General Internal Medicine Doctor: PAYAM : 1945 Requested By: Frank Bertrand Order Number: [id number] Reading MD: Jose Huggins DO Measurements Intervals [place] Rate: 76 P: -5 OR: 155 QRS: -6 QRSD: 93 T: 20 QT: 351 QTc: 381 Interpretive Statements Sinus rhythm with sinus arrhythmia Electronically Signed On 03-23-16 17:38:16 EST by Jose Huggins DO
--- NOTE | 2016-03-23 17:43 | Electrocardiograph Report ---
[facility] Test Date: 2016-03-22 Pat Name: Elly Larkin Department: 103 Room: 3B55 Gender: F Pinmaker: ELIZABETH : 1945 Requested By: Guilherme Hi Order Number: [id number] Reading MD: Jose Huggins DO Measurements Intervals [place] Rate: 56 P: -3 SD: 167 QRS: -8 QRSD: 90 T: 18 QT: 389 QTc: 381 Interpretive Statements Sinus bradycardia Electronically Signed On 03-23-16 17:42:49 EST by Jose Huggins DO
[2016-03-23] MEDS ORDERED: Insulin LISPRO 300 UNITS/3 ML VIAL SQ SCH (21:00)
[2016-03-23] MEDS ORDERED: Insulin DETEMIR 100 UNIT/ML X5UNITS SQ SCH (21:00)
[2016-03-23] MEDS: Isosorbide MONOnitrate (24 HR) 60 MG TAB.ER.24H PO SCH (21:17)
[2016-03-24] MEDS: Ipratropium/Albuterol Neb 3 ML IH SCH (05:13)
[2016-03-24 07:50] VITALS: BP 154/84
[2016-03-24] MEDS: Insulin LISPRO 300 UNITS/3 ML VIAL SQ SCH (08:20)
[2016-03-24] MEDS: Fenofibrate 54 MG TABLET PO SCH (08:49)
[2016-03-24] MEDS: Aspirin 81 MG TAB.CHEW PO SCH (08:50)
[2016-03-24] MEDS: Fluticasone Propionate Nasal 50 MCG/SPRAY BOTTLE NS SCH (08:50)
[2016-03-24] MEDS: Isosorbide MONOnitrate (24 HR) 60 MG TAB.ER.24H PO SCH (08:50)
== END 2016-03-24 10:19 | disposition home or self-care (01) ==
LOC: EMEROO 19:02 → 3BNU 19:02 → SUATTDRO 23:28 → 3BNU 03-23 00:08
PROVIDERS: ADMIT Pediatrics; ATTEND Internal Medicine Endocrinology, Diabetes & Metabolism

== ENCOUNTER 2016-04-22 16:45 | Observation (INO) ==
--- NOTE | 2016-04-22 17:01 | Emergency Department Note ---
Disposition Clinical Impression: Chest pain, Syncope Disposition: Admitted As Inpatient Condition: Good Time of Disposition: 19:45 Chest Pain HPI - General Chief Complaint: ED Chest Pain Stated Complaint: chest pain Time Seen by Provider: 04/22/16 16:49 Source: patient, EMS Limitations: no limitations Vital Signs Reviewed: Yes Nursing Notes Reviewed: Yes - History of Present Illness HPI Narrative: Patient was walking around [facility] and began to have chest pain in the center of her chest. She states it radiated upper back and down to both her arms. She states she did have shortness of breath associated with this. There are no provoking or alleviating factors. She states she drove home and thinks she passed out her car while she was in her driveway. She then went inside and called 911. She states this has happened several times in her life with the last being about 2 weeks ago. Severity scale (1-10): 4 - Related Data Home Medications Medication Instructions Recorded Confirmed Albuterol Sulfate [Proair 1 - 2 puff IH Q6H PRN 11/21/14 03/23/16 Respiclick] Loratadine [Claritin] 10 mg PO QAM PRN #0 11/21/14 03/23/16 Losartan [Cozaar] 25 mg PO QAM 11/21/14 03/23/16 Multivitamin [Multi-Day Vitamins] 1 tab PO QAM 11/21/14 03/23/16 Nitroglycerin [Nitrostat] 0.4 mg SL AD PRN #0 11/21/14 03/23/16 Aspirin 81 mg PO QAM 01/03/15 03/23/16 Cholecalciferol (Vitamin D3) 2,000 unit PO QPM 01/03/15 03/23/16 [Vitamin D3] Clopidogrel [Plavix] 75 mg PO QPM 01/03/15 03/23/16 Esomeprazole Magnesium [Nexium] 40 mg PO QAM 01/03/15 03/23/16 Vitamin E (Dl,Tocopheryl Acet) 400 unit PO QAM 01/03/15 03/23/16 [Vitamin E] Albuterol Neb [Proventil Neb] 2.5 mg IH Q4HR PRN 09/07/15 03/23/16 Metoprolol [Lopressor] 25 mg PO QPM 09/14/16 01/23/17 Fluticasone Propionate Nasal 50 mcg NS BID 12/03/15 03/23/16 [Flonase] Acetaminophen [Tylenol] 500 mg OP Q4HR PRN 03/23/16 03/23/16 Isosorbide MONOnitrate [Isosorbide 120 mg PO QAM 04/22/16 04/22/16 Mononitrate ER] Metformin HCl [Metformin HCl ER] 500 mg PO QPM 04/22/16 04/22/16 Allergies Allergy/AdvReac Type Severity Reaction Status Date / Time acetaminophen Allergy See Verified 04/06/16 21:43 Comments clarithromycin Allergy See Verified 04/06/16 21:43 Comments Erythromycin Base Allergy See Verified 04/06/16 21:43 Comments hydrocodone [From Vicodin] Allergy See Verified 04/06/16 21:43 Comments morphine Allergy See Verified 04/06/16 21:43 Comments prednisone Allergy See Verified 04/06/16 21:43 Comments propoxyphene Allergy See Verified 04/06/16 21:43 Comments codeine AdvReac Anaphylaxis Verified 04/06/16 21:43 Amcjaix-Kld-Geu Reductase AdvReac Muscle Pain Verified 04/06/16 21:43 Inhibitor [Statins] Review of Systems: Patient denies any fevers or recent illnesses. She does report chest pain and shortness of breath that began today when she was walking around [facility]. She states this has eased off since then. She denies one episode of syncope while she was sitting in her car. She denies any headaches or blurry vision. She denies a cough. She denies any nausea vomiting or diarrhea. She denies any swelling or edema to her extremities. All systems ED: reviewed and negative except as stated. Chest Pain PMH - Past Medical History Medical history: Reports: arthritis, asthma, cancer, COPD, coronary artery disease, diabetes, fibromyalgia, GERD, hyperlipidemia, hypertension, migraine, myocardial infarction, osteoporosis, renal disease, thyroid disease, venous stasis, other Surgical history: Reports: angioplasty/stent, appendectomy, cancer surgery ( Removal of several basal cell carcinomas.), cholecystectomy, hysterectomy, orthopedic, other (Ankle surgery. Left kidney cyst removal. 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 Absent: scleral icterus - ENT ENT exam: normal exam, normal oropharynx, mucous membranes moist - Neck Neck exam: Present: normal inspection, full ROM, trachea midline - Chest Chest inspection: Present: normal inspection, symmetric chest wall rise. Absent : tenderness - Respiratory Respiratory exam: Present: normal lung sounds bilaterally. Absent: respiratory distress - Cardiovascular Cardiovascular exam: Present: regular rate, normal rhythm, normal heart sounds - Abdominal Exam Abdominal exam: Present: soft, Non-Tender, normal bowel sounds. Absent: tenderness, distention, guarding, rebound, rigidity, organomegaly - Extremities Exam Extremities exam: Present: normal inspection, full ROM, normal capillary refill. Absent: tenderness, pedal edema - Expanded Lower Extremity Exam Hip/Pelvis exam: Present: normal inspection, full ROM Upper leg exam: Present: normal inspection, full ROM Knee exam: Present: normal inspection, full ROM Lower leg exam: Present: normal inspection, full ROM Ankle exam: Present: normal inspection, full ROM Foot/toe exam: Present: normal inspection, full ROM Neurovascular/Tendon exam: Absent: motor deficit, sensory deficit, tendon deficit - Back Exam Back exam: Present: normal inspection, full ROM. Absent: tenderness, CVA tenderness (R), CVA tenderness (L) - Neurological Exam Neurological exam: Present: alert, oriented X3 - Psychiatric Psychiatric exam: Present: normal affect, normal mood - Skin Skin exam: Present: warm, dry, intact, normal color. Absent: rash, cyanosis Course Course Narrative: Patient was ambulating through [employer] today with her friend whenever she noticed a chest pressure. She states it radiated a bit of her neck. She had associated shortness of breath. She had to sit down. She states she then took her friend home and drove herself home. She states she passed out in her car in her driveway. After she woke up she went inside and called 911. She is complaining that the pain is pressure in the center of her chest. She denies any shortness of breath at this time. She does have a history of 2 stents placed. The last one was in 2014. She believes her last stress test was also in 2015. Labs were done and a chest x-ray was done on patient. Chest x-ray was normal. Her troponin was negative. We will admit patient due to her chest pain and syncope. - Consultations Consultation #1: Dr Monae accepted Pt in stable condition Time: 18:57 Vital Signs Temperature 98.3 F 04/22/16 16:53 Pulse Rate 90 04/22/16 16:53 Respiratory Rate 18 04/22/16 16:53 Blood Pressure 134/63 04/22/16 16:53 O2 Sat by Pulse Oximetry 94 L 04/22/16 16:53 Temperature 98.3 F 04/22/16 16:53 Pulse Rate 88 04/22/16 18:12 Respiratory Rate 16 04/22/16 18:12 Blood Pressure 142/98 04/22/16 18:12 O2 Sat by Pulse Oximetry 95 04/22/16 18:12 Oxygen Delivery Oxygen Delivery Room Air Chest Pain - Lab Data Result diagrams: 04/22/16 17:41 04/22/16 17:41 Lab Results 04/22/16 04/22/16 04/22/16 Range/Units 17:41 17:41 17:41 WBC 7.5 (4.3-11.1) K/mcL RBC 3.83 (3.82-4.97) M/mcL Hgb 11.9 (11.5-15.4) g/dL Hct 36.6 (35.3-44.9) % MCV 95.6 (83.0-100.0) fL MCH 31.1 (28.0-33.3) pg MCHC 32.5 (31.6-35.5) g/dL RDW 12.9 (11.5-14.5) % Plt Count 209 (140-400) K/mcL MPV 11.8 (9.4-12.4) fL Immature Gran % 0.1 (0-4) % Seg Neutrophils % 70.8 % Lymphocytes % 18.9 % Monocytes % 7.5 % Eosinophils % 2.3 % Basophils % 0.4 % Neutrophils # 5.3 (1.6-8.9) K/mcL Lymphocytes # 1.4 (0.6-4.6) K/mcL Monocytes # 0.6 (0.0-1.3) K/mcL Eosinophils # 0.2 (0.0-0.6) K/mcL Basophils # 0.0 (0.0-0.2) K/mcL PT 12.9 H (9.4-12.1) Seconds INR 1.2 APTT 33.2 (26.0-36.0) Seconds Sodium 142 (136-145) mEq/L Potassium 4.4 (3.5-4.5) mEq/L Chloride 111 H (98-109) mEq/L Carbon Dioxide 23 (19-29) mEq/L BUN 27 H (7-20) mg/dL Creatinine 1.38 H (0.57-1.11) mg/dL Est GFR ( Amer) 46 L (> 60) Est GFR (Non-Af Amer) 38 L (> 60) BUN/Creatinine Ratio 20 (6-26) Glucose 113 H (70-99) mg/dL Calculated Osmolality 300 (280-300) Calcium 9.5 (8.6-10.8) mg/dL Troponin I (0-0.03) ng/mL 04/22/16 Range/Units 17:41 WBC (4.3-11.1) K/mcL RBC (3.82-4.97) M/mcL Hgb (11.5-15.4) g/dL Hct (35.3-44.9) % MCV (83.0-100.0) fL MCH (28.0-33.3) pg MCHC (31.6-35.5) g/dL RDW (11.5-14.5) % Plt Count (140-400) K/mcL MPV (9.4-12.4) fL Immature Gran % (0-4) % Seg Neutrophils % % Lymphocytes % % Monocytes % % Eosinophils % % Basophils % % Neutrophils # (1.6-8.9) K/mcL Lymphocytes # (0.6-4.6) K/mcL Monocytes # (0.0-1.3) K/mcL Eosinophils # (0.0-0.6) K/mcL Basophils # (0.0-0.2) K/mcL PT (9.4-12.1) Seconds INR APTT (26.0-36.0) Seconds Sodium (136-145) mEq/L Potassium (3.5-4.5) mEq/L Chloride (98-109) mEq/L Carbon Dioxide (19-29) mEq/L BUN (7-20) mg/dL Creatinine (0.57-1.11) mg/dL Est GFR ( Amer) (> 60) Est GFR (Non-Af Amer) (> 60) BUN/Creatinine Ratio (6-26) Glucose (70-99) mg/dL Calculated Osmolality (280-300) Calcium (8.6-10.8) mg/dL Troponin I 0.00 (0-0.03) ng/mL - EKG Data EKG attestation: Yes I reviewed and interpreted this EKG. EKG results narrative: Normal sinus rhythm at a rate of 96. [place] interval is 142. Ferrous duration is 90. QT is 340. QTC is 393. No signs of acute ischemia and no significant changes from EKG dated 04/06/2016.
--- NOTE | 2016-04-22 17:26 | Emergency Department Note ---
Disposition Clinical Impression: Chest pain, Syncope Disposition: Admitted As Inpatient Condition: Good Chest Pain HPI - General Chief Complaint: ED Chest Pain Stated Complaint: chest pain Time Seen by Provider: 04/22/16 16:49 Source: patient, EMS Limitations: no limitations Vital Signs Reviewed: Yes Nursing Notes Reviewed: Yes - History of Present Illness Severity scale (1-10): 4 - Related Data Home Medications Medication Instructions Recorded Confirmed Albuterol Sulfate [Proair 1 - 2 puff IH Q6H PRN 11/21/14 04/22/16 Respiclick] Loratadine [Claritin] 10 mg PO QAM PRN #0 11/21/14 04/22/16 Losartan [Cozaar] 25 mg PO QAM 11/21/14 04/22/16 Multivitamin [Multi-Day Vitamins] 1 tab PO QAM 11/21/14 04/22/16 Nitroglycerin [Nitrostat] 0.4 mg SL Q5M PRN #0 11/21/14 04/22/16 Aspirin 81 mg PO QAM 01/03/15 04/22/16 Cholecalciferol (Vitamin D3) 2,000 unit PO QPM 01/03/15 04/22/16 [Vitamin D3] Clopidogrel [Plavix] 75 mg PO QPM 01/03/15 04/22/16 Esomeprazole Magnesium [Nexium] 40 mg PO QAM 01/03/15 04/22/16 Vitamin E (Dl,Tocopheryl Acet) 400 unit PO QAM 01/03/15 04/22/16 [Vitamin E] Albuterol Neb [Proventil Neb] 2.5 mg IH Q4HR PRN 09/07/15 04/22/16 Metoprolol [Lopressor] 25 mg PO QPM 11/13/15 04/22/16 Fluticasone Propionate Nasal 50 mcg NS BID PRN 12/03/15 04/22/16 [Flonase] Acetaminophen [Tylenol] 500 mg OP Q4HR PRN 03/23/16 04/22/16 Isosorbide MONOnitrate [Isosorbide 120 mg PO QAM 04/22/16 04/22/16 Mononitrate ER] Metformin HCl [Metformin HCl ER] 500 mg PO QPM 04/22/16 04/22/16 Allergies Allergy/AdvReac Type Severity Reaction Status Date / Time acetaminophen Allergy See Verified 04/06/16 21:43 Comments clarithromycin Allergy See Verified 04/06/16 21:43 Comments Erythromycin Base Allergy See Verified 04/06/16 21:43 Comments hydrocodone [From Vicodin] Allergy See Verified 04/06/16 21:43 Comments morphine Allergy See Verified 04/06/16 21:43 Comments prednisone Allergy See Verified 04/06/16 21:43 Comments propoxyphene Allergy See Verified 04/06/16 21:43 Comments codeine AdvReac Anaphylaxis Verified 04/06/16 21:43 Oduwqtu-Nkn-Stw Reductase AdvReac Muscle Pain Verified 04/06/16 21:43 Inhibitor [Statins] Chest Pain PMH - Past Medical History Medical history: Reports: arthritis, asthma, cancer, COPD, coronary artery disease, diabetes, fibromyalgia, GERD, hyperlipidemia, hypertension, migraine, myocardial infarction, osteoporosis, renal disease, thyroid disease, venous stasis, other Surgical history: Reports: angioplasty/stent, appendectomy, cancer surgery ( Removal of several basal cell carcinomas.), cholecystectomy, hysterectomy, orthopedic, other (Ankle surgery. Left kidney cyst removal. Right carpal tunnel surgery x2.), other (Colectomy adenoidectomy.) Psychiatric history: Reports: no psych history Prior Cardiac Testing/Procedures: Stenting VISUAL SPECIALIST history: Reports: no VISUAL SPECIALIST history - Social History Smoking Status: Never smoker Alcohol use: Reports: none Drug use: Reports: none Physical Exam - General Limitations: no limitations General appearance: alert Course Vital Signs Temperature 98.3 F 04/22/16 16:53 Pulse Rate 90 04/22/16 16:53 Respiratory Rate 18 04/22/16 16:53 Blood Pressure 134/63 04/22/16 16:53 O2 Sat by Pulse Oximetry 94 L 04/22/16 16:53 Temperature 98.1 F 04/22/16 20:29 Pulse Rate 85 04/22/16 20:29 Respiratory Rate 18 04/22/16 20:29 Blood Pressure 178/75 04/22/16 20:29 O2 Sat by Pulse Oximetry 95 04/22/16 20:29 Oxygen Delivery Oxygen Delivery Room Air Chest Pain - MDM Narrative Medical decision making narrative: I examined this patient and my medical decision-making was reviewed with the FISH LIVER SORTER/PA/Advanced Practice Nurse/Resident Physician. I agree with the documented findings, disposition and treatment plan as described except to the extent set forth below. This was evaluated by myself and by Dr. Fitzpatrick, I agree with her evaluation and management plan, supervised the care of the patient's stay. Patient was at the store today developed some chest pain. Drove her friend home than she says she passed out. She says she did not harm herself and she was sitting in her car was not running at the time. Denies any trauma should this happen to her before. Had pain in her shoulders and arms. Said a history of cardiac disease in the past with a stent. No history of aneurysm. Recommended a medical workup on her then reassess. She will most likely need admission. She is in agreement with plan. No chest pain this time. - Lab Data Result diagrams: 04/22/16 17:41 04/22/16 17:41 Lab Results 04/22/16 04/22/16 04/22/16 Range/Units 17:41 17:41 17:41 WBC 7.5 (4.3-11.1) K/mcL RBC 3.83 (3.82-4.97) M/mcL Hgb 11.9 (11.5-15.4) g/dL Hct 36.6 (35.3-44.9) % MCV 95.6 (83.0-100.0) fL MCH 31.1 (28.0-33.3) pg MCHC 32.5 (31.6-35.5) g/dL RDW 12.9 (11.5-14.5) % Plt Count 209 (140-400) K/mcL MPV 11.8 (9.4-12.4) fL Immature Gran % 0.1 (0-4) % Seg Neutrophils % 70.8 % Lymphocytes % 18.9 % Monocytes % 7.5 % Eosinophils % 2.3 % Basophils % 0.4 % Neutrophils # 5.3 (1.6-8.9) K/mcL Lymphocytes # 1.4 (0.6-4.6) K/mcL Monocytes # 0.6 (0.0-1.3) K/mcL Eosinophils # 0.2 (0.0-0.6) K/mcL Basophils # 0.0 (0.0-0.2) K/mcL PT 12.9 H (9.4-12.1) Seconds INR 1.2 APTT 33.2 (26.0-36.0) Seconds Sodium 142 (136-145) mEq/L Potassium 4.4 (3.5-4.5) mEq/L Chloride 111 H (98-109) mEq/L Carbon Dioxide 23 (19-29) mEq/L BUN 27 H (7-20) mg/dL Creatinine 1.38 H (0.57-1.11) mg/dL Est GFR ( Amer) 46 L (> 60) Est GFR (Non-Af Amer) 38 L (> 60) BUN/Creatinine Ratio 20 (6-26) Glucose 113 H (70-99) mg/dL Calculated Osmolality 300 (280-300) Calcium 9.5 (8.6-10.8) mg/dL Troponin I (0-0.03) ng/mL 04/22/16 Range/Units 17:41 WBC (4.3-11.1) K/mcL RBC (3.82-4.97) M/mcL Hgb (11.5-15.4) g/dL Hct (35.3-44.9) % MCV (83.0-100.0) fL MCH (28.0-33.3) pg MCHC (31.6-35.5) g/dL RDW (11.5-14.5) % Plt Count (140-400) K/mcL MPV (9.4-12.4) fL Immature Gran % (0-4) % Seg Neutrophils % % Lymphocytes % % Monocytes % % Eosinophils % % Basophils % % Neutrophils # (1.6-8.9) K/mcL Lymphocytes # (0.6-4.6) K/mcL Monocytes # (0.0-1.3) K/mcL Eosinophils # (0.0-0.6) K/mcL Basophils # (0.0-0.2) K/mcL PT (9.4-12.1) Seconds INR APTT (26.0-36.0) Seconds Sodium (136-145) mEq/L Potassium (3.5-4.5) mEq/L Chloride (98-109) mEq/L Carbon Dioxide (19-29) mEq/L BUN (7-20) mg/dL Creatinine (0.57-1.11) mg/dL Est GFR ( Amer) (> 60) Est GFR (Non-Af Amer) (> 60) BUN/Creatinine Ratio (6-26) Glucose (70-99) mg/dL Calculated Osmolality (280-300) Calcium (8.6-10.8) mg/dL Troponin I 0.00 (0-0.03) ng/mL
[2016-04-22] MEDS: Nitroglycerin 0.4 MG TAB.SUBL SL PRN ×3 (17:49→18:22)
[2016-04-22 18:02] LABS: Basophils % 0.4 %; Eosinophils # 0.2 K/mcL (0.0-0.6); Eosinophils % 2.3 %; Hematocrit 36.6 % (35.3-44.9); Hemoglobin 11.9 g/dL (11.5-15.4); Immature Granulocytes % 0.1 % (0-4); Lymphocytes # 1.4 K/mcL (0.6-4.6); Lymphocytes % 18.9 %; Mean Corpuscular HGB Conc 32.5 g/dL (31.6-35.5); Mean Corpuscular Hemoglobin 31.1 pg (28.0-33.3); Mean Corpuscular Volume 95.6 fL (83.0-100.0); Mean Platelet Volume 11.8 fL (9.4-12.4); Monocytes # 0.6 K/mcL (0.0-1.3); Monocytes % 7.5 %; Neutrophils # 5.3 K/mcL (1.6-8.9); Platelet Count 209 K/mcL (140-400); Red Blood Count 3.83 M/mcL (3.82-4.97); Red Cell Distribution Width 12.9 % (11.5-14.5); Segmented Neutrophils % 70.8 %
[2016-04-22 18:05] LABS: INR 1.2; Prothrombin Time 12.9 Seconds (9.4-12.1)
[2016-04-22 18:08] LABS: Activated Partial Thrombo Time 33.2 Seconds (26.0-36.0)
[2016-04-22 18:15] LABS: Calcium 9.5 mg/dL (8.6-10.8); Potassium 4.4 mEq/L (3.5-4.5)
--- NOTE | 2016-04-22 20:53 | Internal Med History&Physical ---
<Andrzej Gomez - Last Filed: 04/22/16 21:32> Date of Encounter: 04/22/16 Time of Encounter: 20:48 Assessment and Plan (1) Syncope Current visit: Yes Status: Acute This is a recurrent issue for her, and given her significant cardiac history, will need to work up cardiogenic causes She had previous Echocardiogram last month which only showed diastolic dysfunction Will obtain bilateral carotid ultrasounds and head CT as there are no studies in our system Obtain orthostatic vital signs Qualifiers: Qualified Code(s): R55 - Syncope and collapse (2) Chest pain Current visit: Yes Status: Acute She did present with chest pain that was similar to her previous NM Initial troponin negative, will trend x2 Continue on home ASA/Plavix s/p stent, and SL Nitro Qualifiers: Qualified Code(s): R07.9 - Chest pain, unspecified (3) CAD (coronary artery disease) Current visit: No Status: Chronic Will continue home ASA, Plavix, BB She has not been able to tolerate statins at home, but will obtain lipid panel in AM Qualifiers: Coronary Disease-Associated Artery/Lesion type: [place] artery [place] vs. transplanted heart: [place] heart Associated angina: angina presence unspecified Qualified Code(s): I25.10 - Atherosclerotic heart disease of [place] coronary artery without angina pectoris (4) Hypertension Current visit: No Status: Chronic Patient's blood pressure stable since admission Will continue home dose of Cozaar and Lopressor Qualifiers: Qualified Code(s): I10 - Essential (primary) hypertension (5) Non-insulin dependent type 2 diabetes mellitus Current visit: Yes Status: Chronic Hold home Metformin, A1c checked last month was 5.6 Start on low dose SSI ACHS accuchecks (6) Chronic kidney disease (CKD) stage G3a/A1, moderately decreased glomerular filtration rate (GFR) between 45-59 mL/min/1.73 square meter and albuminuria creatinine ratio less than 30 mg/g Current visit: No Status: Chronic She did present with Cr of 1.38, baseline around 1.1 Likely mild rise in Cr from dehydration/pre-renal Avoid nephrotoxic agents and monitor electrolytes (7) DVT prophylaxis Current visit: No Status: Acute Heparin 5000 units BID Internal Medicine - H&P: HPI Chief complaint: Chest pain, syncope Admitted From: Home Plans for Post Hospital Care: Home History of present illness: Ms. Larkin is a 70 year old female who presents to the emergency department after a syncopal episode along with chest pain. She states that she was at [facility] earlier today and felt chest pain in the middle of her chest that radiated to her arms and upper neck. She was with a friend and drove her home and when she arrived at her own driveway, she lost consciousness for what she thinks was 15-20 minutes. She admits being lightheaded and short of breath since she was at [facility], but denied hitting her head. When she regained consciousness, she denied any confusion, biting of tongue, incontinence. She does have a history of NM and has a history of 3 stents, last one being in 2014. She states the chest pain that she earlier was similar to when she had the NM. Patient also endorses prior syncopal episodes, last one being a month ago. Previously, she has not had any syncopal episodes for over a year , but admits to at least 10 episodes of syncope in her lifetime. She does live alone at home but states that she is independent and able to take care of herself. When she arrived at our emergency department, she received nitroglycerin which helped her headache and chest pain. She currently denies any shortness of breath, nausea, vomiting, diarrhea, constipation. Past Med Surg Social Fam HX - Past Medical History Medical history: arthritis, asthma, cancer, COPD, coronary artery disease, diabetes, fibromyalgia, GERD, hyperlipidemia, hypertension, migraine, myocardial infarction, osteoporosis, renal disease, thyroid disease, venous stasis, other Psychiatric history: no psych history - Past Surgical History Surgical History: angioplasty/stent, appendectomy, cancer surgery (Removal of several basal cell carcinomas.), cholecystectomy, hysterectomy, orthopedic, other (Ankle surgery. Left kidney cyst removal. Right carpal tunnel surgery x2.), other (Colectomy adenoidectomy.) - Social History Smoking Status: Never smoker Smokeless Tobacco Status: No Alcohol use: none Drug use: none - Family History Father Family Member Ethnicity: Non- Twin of Family Member: Yes, Fraternal Living Status: Hx Family Cardiac Disorders: Yes Hx Family Respiratory Disorders: No Hx Family Cancer: (Mother and father) Hx Family GI Disorders: No Hx Family Endocrine Disorder: No Hx Family Neuromuscular Disorders: No Hx Family Neurologic Disorders: No Hx Family HEENT Disorders: No Hx Family Autoimmune Disorders: No Mother Hx Family Cardiac Disorders: Yes Internal Medicine - H&P: Meds Albuterol Sulfate [Proair Respiclick] 1 - 2 puff IH Q6H PRN 11/21/14 [History] Loratadine [Claritin] 10 mg PO QAM PRN #0 11/21/14 [History] Losartan [Cozaar] 25 mg PO QAM 11/21/14 [History] Multivitamin [Multi-Day Vitamins] 1 tab PO QAM 11/21/14 [History] Nitroglycerin [Nitrostat] 0.4 mg SL Q5M PRN #0 11/21/14 [History] Aspirin 81 mg PO QAM 01/03/15 [History] Cholecalciferol (Vitamin D3) [Vitamin D3] 2,000 unit PO QPM 01/03/15 [History] Clopidogrel [Plavix] 75 mg PO QPM 01/03/15 [History] Esomeprazole Magnesium [Nexium] 40 mg PO QAM 01/03/15 [History] Vitamin E (Dl,Tocopheryl Acet) [Vitamin E] 400 unit PO QAM 01/03/15 [History] Albuterol Neb [Proventil Neb] 2.5 mg IH Q4HR PRN 09/07/15 [History] Metoprolol [Lopressor] 25 mg PO QPM 11/13/15 [History] Fluticasone Propionate Nasal [Flonase] 50 mcg NS BID PRN 12/03/15 [History] Acetaminophen [Tylenol] 500 mg OP Q4HR PRN 03/23/16 [History] Isosorbide MONOnitrate [Isosorbide Mononitrate ER] 120 mg PO QAM 04/22/16 [ History] Metformin HCl [Metformin HCl ER] 500 mg PO QPM 04/22/16 [History] Allergies acetaminophen Allergy (Verified 04/06/16 21:43) See Comments clarithromycin Allergy (Verified 04/06/16 21:43) See Comments Erythromycin Base Allergy (Verified 04/06/16 21:43) See Comments hydrocodone [From Vicodin] Allergy (Verified 04/06/16 21:43) See Comments morphine Allergy (Verified 04/06/16 21:43) See Comments prednisone Allergy (Verified 04/06/16 21:43) See Comments propoxyphene Allergy (Verified 04/06/16 21:43) See Comments codeine Adverse Reaction (Verified 04/06/16 21:43) Anaphylaxis Uxdsopu-Xlw-Biq Reductase Inhibitor [Statins] Adverse Reaction (Verified 21:43) Muscle Pain All Systems PM: A 10-system review of systems was performed and is negative for pertinent findings except as documented above in the HPI. - Constitutional Constitutional: falls, no chills, no fever(s), no night sweats - EENT Eyes: no change in vision, no discharge, no pain, no photophobia Ears: no ear discharge, no ear pain, no tinnitus Nose, mouth and throat: no dysphagia, no nasal discharge, no neck pain, no sore throat - Cardiovascular Cardiovascular ROS IM: chest pain, dyspnea, syncope, no diaphoresis, no lightheadedness, no palpitations - Respiratory Respiratory: cough, no dyspnea, no wheezing, no excessive phlegm production - Gastrointestinal Gastrointestinal: no abdominal pain, no diarrhea, no hematemesis, no hematochezia, no melena, no nausea, no vomiting - Genitourinary Genitourinary: no change in urinary stream, no dysuria, no flank pain, no hematuria - Musculoskeletal Musculoskeletal ROS IM: no numbness, no tingling - Integumentary Integumentary IM: no rash, no unusual bruising - Neurological Neurological ROS: headache(s), no confusion, no convulsions, no focal weakness, no numbness, no tingling, no tremor(s) - Hematologic/Lymphatic Hematologic/Lymphatic: no easy bruising - Constitutional Vitals: Temp Pulse Resp BP Pulse Ox 98.1 F 85 18 178/75 95 04/22/16 20:29 04/22/16 20:29 04/22/16 20:29 04/22/16 20:29 04/22/16 20:29 General appearance: Present: cooperative, pleasant, no acute distress, answers questions appropriately - Head Head exam: Present: atraumatic, normocephalic - Eye Eye exam: Present: PERRL, conjuntiva pink, sclera anicteric - Neck Neck exam general surgery: Present: supple, trachea midline. Absent: lymphadenopathy - Respiratory Respiratory exam: Present: CTAB. Absent: accessory muscle use, rales, rhonchi, wheezes - Cardiovascular Cardiovascular exam: Present: RRR, +S1, +S2. Absent: diastolic murmur, gallop, rubs, systolic murmur - GI/Abdominal GI/Abdominal exam: Present: normal bowel sounds, soft, no peritoneal signs. Absent: distended, tenderness - Extremities Exam Extremities exam: Present: warm, radial pulses palpable and symetrical. Absent : calf tenderness, cyanotic, pedal edema - Neurological Exam Neurological exam: Present: alert, no focal deficits. Absent: facial droop, speech deficit - Skin Skin exam: Present: dry, intact Internal Med - H&P Results - Labs CBC & Chem 7: 04/22/16 17:41 04/22/16 17:41 <GaviotaFernandodaniel Hanson - Last Filed: 04/23/16 00:53> Date of Encounter: 04/22/16 Internal Medicine - H&P: HPI History of present illness: Ms. Larkin is a 70 year old female All Systems PM: A 10-system review of systems was performed and is negative for pertinent findings except as documented above in the HPI. - Constitutional Vitals: Temp Pulse Resp BP Pulse Ox 98.1 F 85 18 178/75 95 04/22/16 20:29 04/22/16 20:29 04/22/16 20:29 04/22/16 20:29 04/22/16 20:29 Internal Med - H&P Results - Labs CBC & Chem 7: 04/22/16 17:41 04/22/16 17:41 - Attending Attestation I performed a history and physical examination of the patient and discussed his management with the resident (Dr. Gomez). I reviewed the residents note and agree with the documented findings and plan of care, with additions as below. 70 Y/F with history of coronary artery disease s/p coronary stents; cardiac catheter in November 2015 showed patent stents. Prior history of fall syncope apparently had cardiac/vascular sonographer for a month and she does not know the result of the test. She reports aching chest pain in the upper chest with radiation to the neck, while she was in the [employer]. She continued to have the pain and drove home, where she thinks she passed out for about 15-20 min. She was briefly confused afterwards. No incontinence. She was holding the keys and did not drop them. O/E: AAOx3; systolic murmur present. No gross localizing deficits. No chest wall tenderness. EKG: SR, no acute ischemic changes. Labs reviewed. CXR: No acute findings in the chest. A/P: - Syncope: Possibly cardiogenic. Unlikely vasovagal, due to the duration of LOC. However, she has some elevation of creatinine, which could indicate volume depletion. Will check orthostatic vitals, urinalysis, CT head. 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 - Chest pain: EKG is non-acute. Initial troponin is negative. monitor and storage bin tender , trend troponins. Cardiology consultation.
[2016-04-22] MEDS ORDERED: D5% in Water 1,000 ML IV PRN (21:20)
[2016-04-22] MEDS ORDERED: Ondansetron ODT 4 MG TAB.RAPDIS SL PRN (21:20)
[2016-04-22] MEDS ORDERED: Naloxone 0.4 MG/ML INJ IVP PRN (21:20)
[2016-04-22] MEDS ORDERED: Dextrose Gel 15 GM PO PRN ×2 (21:20)
[2016-04-22] MEDS ORDERED: *HR* Dextrose 50 % in Water (Syg) 50 ML SYRINGE IVP PRN (21:20)
[2016-04-22] MEDS ORDERED: Nitroglycerin 0.4 MG TAB.SUBL SL PRN (21:27)
[2016-04-22] MEDS ORDERED: Fluticasone Propionate Nasal 50 MCG/SPRAY BOTTLE NS PRN (21:27)
[2016-04-22] MEDS ORDERED: Albuterol 2.5 MG/3 ML NEBULIZER IH PRN (21:27)
[2016-04-22] MEDS: *HR* Morphine 2 MG/ML SYRINGE IVP PRN (23:28)
[2016-04-23 00:30] LABS: Bilirubin,Urine Negative (Negative); Blood,Urine Negative (Negative); Clarity,Urine Clear (Clear); Color,Urine Yellow (Yellow); Glucose,Urine (UA) Normal (Normal); Ketones,Urine Negative (Negative); Leukocyte Esterase,Urine Small (Negative); Nitrite,Urine Negative (Negative); PH,Urine 5.5 pH Units (5.0-8.0); Protein,Urine Negative (Neg-Trace); Urobilinogen,Urine Normal (Normal)
[2016-04-23 00:48] LABS: Bacteria,Urine None Seen per hpf (None-Few); Hyaline Casts,Urine None Seen per lpf (None-Few); Squamous Epithelial Cell,Urine Many per lpf (None-Few)
[2016-04-23 02:40] LABS: Albumin 3.2 g/dL (3.5-5.0); Albumin/Globulin Ratio 1.2 (1.1-2.2); Bilirubin,Total 0.3 mg/dL (0.2-1.2); Calcium 9.2 mg/dL (8.6-10.8); Chol/HDL Ratio 5.7 (0-4.9); Globulin 2.7 g/dL (2.4-3.5); Potassium 4.3 mEq/L (3.5-4.5); Total Protein 5.9 g/dL (6.0-8.3)
[2016-04-23] MEDS ORDERED: Acetaminophen 325 MG TABLET PO ONE (02:48)
[2016-04-23 05:03] LABS: Basophils % 0.5 %; Eosinophils # 0.2 K/mcL (0.0-0.6); Eosinophils % 2.8 %; Hematocrit 34.6 % (35.3-44.9); Hemoglobin 11.5 g/dL (11.5-15.4); Immature Granulocytes % 0.4 % (0-4); Immature Platelets 6.3 % (1.1-6.1); Lymphocytes % 26.9 %; Mean Corpuscular HGB Conc 33.2 g/dL (31.6-35.5); Mean Corpuscular Hemoglobin 31.6 pg (28.0-33.3); Mean Corpuscular Volume 95.1 fL (83.0-100.0); Mean Platelet Volume 11.4 fL (9.4-12.4); Monocytes # 0.8 K/mcL (0.0-1.3); Monocytes % 10.4 %; Neutrophils # 4.4 K/mcL (1.6-8.9); Platelet Count 190 K/mcL (140-400); Red Blood Count 3.64 M/mcL (3.82-4.97); Red Cell Distribution Width 12.8 % (11.5-14.5)
[2016-04-23] MEDS ORDERED: Acetaminophen 325 MG TABLET PO PRN (05:39)
[2016-04-23] MEDS ORDERED: *HR* Heparin 5,000 UNIT/ML VIAL SQ SCH (06:00)
[2016-04-23] MEDS: Insulin LISPRO 300 UNITS/3 ML VIAL SQ SCH ×3 (07:54→17:33)
[2016-04-23] MEDS ORDERED: Isosorbide MONOnitrate (24 HR) 60 MG TAB.ER.24H PO SCH (09:00)
[2016-04-23] MEDS ORDERED: Aspirin 81 MG TAB.CHEW PO SCH (09:00)
[2016-04-23] MEDS: *HR* Morphine 2 MG/ML SYRINGE IVP PRN (10:17)
[2016-04-23] MEDS: Nitroglycerin 0.4 MG TAB.SUBL SL PRN ×2 (10:34→10:40)
[2016-04-23 15:25] VITALS: BP 124/79
--- NOTE | 2016-04-23 15:42 | Discharge Summary ---
Date of Encounter: 04/23/16 Time of Encounter: 09:30 - Discharge Diagnosis (1) Chest pain Priority: Primary Status: Resolved Comments: patient initially endorsed chest pain while admitted, but denied chest pain at time of discharge. Troponins negative 3. Chest x-ray unremarkable. Pain is worsened with movement. Patient stating she had the flu last week and stated she did a lot of vomiting. Chest pain consistent with musculoskeletal etiology. ACS ruled out. (2) Syncope Priority: Primary Status: Acute Comments: likely vasovagal versus fear-medicated. Patient stating there are two pitbulls that have been loose in her neighborhood and states she is extremely afraid of them. Syncopal workup unremarkable. Follow-up outpatient Qualifiers: Qualified Code(s): R55 - Syncope and collapse (3) Anxiety about health Priority: Secondary Status: Chronic (4) CHF (congestive heart failure) Priority: Secondary Status: Chronic Comments: No acute exacerbation. Patient denied shortness of breath above her norm. Euvolemic on examination. Follow-up outpatient. Qualifiers: Congestive heart failure type: diastolic Congestive heart failure chronicity: chronic Qualified Code(s): I50.32 - Chronic diastolic (congestive ) heart failure (5) DVT prophylaxis Priority: Primary Status: Acute Comments: Subcutaneous heparin while admitted (6) CAD (coronary artery disease) Priority: Secondary Status: Chronic Qualifiers: Coronary Disease-Associated Artery/Lesion type: [place] artery [place] vs. transplanted heart: [place] heart Associated angina: angina presence unspecified Qualified Code(s): I25.10 - Atherosclerotic heart disease of [place] coronary artery without angina pectoris (7) Chronic kidney disease (CKD) stage G3a/A1, moderately decreased glomerular filtration rate (GFR) between 45-59 mL/min/1.73 square meter and albuminuria creatinine ratio less than 30 mg/g Priority: Secondary Status: Chronic Comments: Stable and consistent with her baseline (8) Dyslipidemia Priority: Secondary Status: Chronic Comments: Lipid panel unremarkable, patient has a history of intolerance to statins. Follow up outpatient. Recommended low-cholesterol diet. (9) GERD (gastroesophageal reflux disease) Priority: Secondary Status: Chronic Comments: denied current symptoms Qualifiers: Esophagitis presence: esophagitis presence not specified Qualified Code(s) : K21.9 - Gastro-esophageal reflux disease without esophagitis (10) History of PTCA Priority: Secondary Status: Chronic Comments: Continue aspirin and Plavix (11) Hypertension Priority: Secondary Status: Chronic Comments: Controlled, recommended continued follow-up outpatient. (12) ALLISON (obstructive sleep apnea) Priority: Secondary Status: Chronic (13) Noncompliance with CPAP treatment Priority: Secondary Status: Chronic (14) Obesity (BMI 30-39.9) Priority: Secondary Status: Chronic (15) Type 2 diabetes mellitus Priority: Secondary Status: Chronic Comments: Controlled, A1c last month was 5.6%. 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 terminal makeup operator insulin use: without senior care use Qualified Code( s): E11.8 - Type 2 diabetes mellitus with unspecified complications - Discharge Medications Home Medications: Albuterol Sulfate [Proair Respiclick] 1 - 2 puff IH Q6H PRN 11/21/14 [History] Loratadine [Claritin] 10 mg PO QAM PRN #0 11/21/14 [History] Losartan [Cozaar] 25 mg PO QAM 11/21/14 [History] Multivitamin [Multi-Day Vitamins] 1 tab PO QAM 11/21/14 [History] Nitroglycerin [Nitrostat] 0.4 mg SL Q5M PRN #0 11/21/14 [History] Aspirin 81 mg PO QAM 01/03/15 [History] Cholecalciferol (Vitamin D3) [Vitamin D3] 2,000 unit PO QPM 01/03/15 [History] Clopidogrel [Plavix] 75 mg PO QPM 01/03/15 [History] Esomeprazole Magnesium [Nexium] 40 mg PO QAM 01/03/15 [History] Vitamin E (Dl,Tocopheryl Acet) [Vitamin E] 400 unit PO QAM 01/03/15 [History] Albuterol Neb [Proventil Neb] 2.5 mg IH Q4HR PRN 09/07/15 [History] Metoprolol [Lopressor] 25 mg PO QPM 11/13/15 [History] Fluticasone Propionate Nasal [Flonase] 50 mcg NS BID PRN 12/03/15 [History] Acetaminophen [Tylenol] 500 mg OP Q4HR PRN 03/23/16 [History] Isosorbide MONOnitrate [Isosorbide Mononitrate ER] 120 mg PO QAM 04/22/16 [ History] Metformin HCl [Metformin HCl ER] 500 mg PO QPM 04/22/16 [History] Allergies/Adverse Reactions: Allergies acetaminophen Allergy (Verified 04/06/16 21:43) See Comments clarithromycin Allergy (Verified 04/06/16 21:43) See Comments Erythromycin Base Allergy (Verified 04/06/16 21:43) See Comments hydrocodone [From Vicodin] Allergy (Verified 04/06/16 21:43) See Comments morphine Allergy (Verified 04/06/16 21:43) See Comments prednisone Allergy (Verified 04/06/16 21:43) See Comments propoxyphene Allergy (Verified 04/06/16 21:43) See Comments codeine Adverse Reaction (Verified 04/06/16 21:43) Anaphylaxis Ivbplve-Ifm-Xwk Reductase Inhibitor [Statins] Adverse Reaction (Verified 21:43) Muscle Pain Procedures/tests Complete & Pending: Procedures Performed prior 72 hours Category Date Time Status CT head/brain wo con [CT] Routine Cat Scan 04/22/16 21:30 Completed EV carotid duplex imaging BI Routine Y 04/23/16 21:30 Completed Date of admission: 04/22/16 19:42 Primary care physician: Karen Perez CNP Consults: 04/22/16 21:24 Consult to Occupational Therapy [CONS] Routine Comment: Evaluate, develop and implement POC Consult to Physical Therapy [CONS] Routine Comment: Evaluate, develop and implement POC Consult to Striker Out [CONS] Routine Reason for SW Consult: patient lives alone, has frequent falls, possible HH/ rehab Discharging clinician: Tracy Sloan Anticipated date of discharge: 04/23/16 (no needs per OT/PT) - Patient Status Disposition: Home, Self-Care Condition: Good Functional capacity at discharge: independent ambulation Overall status at discharge: patient is back to baseline - Discharge Instructions Follow Up With: Karen Perez CNP [Primary Care Provider] - 05/01/16 3:00 pm Additional Instructions: Follow-up with primary care provider as scheduled - Diet and Activity Activity: increase activity as tolerated Diet: diabetic diet, low fat, low cholesterol, low salt diet Hospital course: Ms. Larkin is a 70 year old female with past medical history of CAD status post stent 3, COPD, diabetes, fibromyalgia, GERD, hypertension, hyperlipidemia, migraines, chronic kidney disease. Patient presented to the emergency department chief complaint syncopal episode. Patient states she was walking at [facility] when she started to feel chest pain in the middle of her chest that radiated to her arms and her upper neck. She then states she continued to shop and dropped her and her friend home. She states that when she arrived in her own driveway that when she went to get out of the car she states she lost consciousness and states she thinks that she was unconscious for 15-20 minutes. Patient endorsed lightheadedness and shortness of breath that started with the onset of her chest pain. Patient denied any injuries or hitting her head. She denied any shaking, confusion, tongue biting, incontinence. Patient stating that she has had syncopal episodes in the past with the most recent one being one month ago. Workup at that time was also reportedly negative. Workup in the emergency department unremarkable. Chest x-ray negative. Head CT negative. Patient was admitted to the hospitalist service for further evaluation and management. Echocardiogram from last month unremarkable with ejection fraction of 60% and mild diastolic dysfunction. Patient is euvolemic on examination denied shortness of breath above her normal throughout this admission. Troponin is negative. Urinalysis mildly abnormal however likely a contamination and the patient denied dysuria. Carotid ultrasound results pending at time of discharge, recommend follow-up outpatient for results. She was evaluated by occupational and physical therapy both of whom surmised she had no needs. Patient stating that she had the flu last week and stated that she was vomiting quite a bit which is consistent with musculoskeletal etiology and soreness in her chest. She states that her chest pain was worsened with movement. ACS ruled out. Patient denied chest pain at time of discharge. Patient also stating she had increased anxiety over the past week because she states that there are 2 large pitbulls loose in her neighborhood. She tolerated a regular diet while admitted. She was discharged home in stable condition with close outpatient follow-up recommended. ITS Impressions Chest X-Ray 04/22/16 16:57 IMPRESSION: No acute findings in the chest. D/ / Carlos Gutierrez MD / Carlos Gutierrez MD Interpreting Provider: Carlos Gutierrez MD Head CT 04/22/16 21:30 IMPRESSION: Small vessel chronic ischemic changes with no acute hemorrhage or definite evidence for acute ischemia. D/ / Yaakov Ambriz MD / Yaakov Ambriz MD Interpreting Provider: Yaakov Ambriz MD Echocardiogram impressions from 03/23/16: LVEF 60%. Normal LV chamber size, wall thickness and function. Mild left ventricular diastolic dysfunction. Normal right ventricular structure and function. Mild aortic regurgitation. No evidence of pulmonary hypertension. - Time Spent with Patient Total time spent providing and/or coordinating discharge services: - Constitutional Vitals: Temp Pulse Resp BP Pulse Ox 98.1 F 78 15 124/79 96 04/23/16 15:22 04/23/16 15:22 04/23/16 15:22 04/23/16 15:22 04/23/16 15:22 General appearance: Present: cooperative, A&O X 3, pleasant, no acute distress, answers questions appropriately - Head Head exam: Present: atraumatic, normocephalic - Eye Eye exam: Present: PERRL, conjuntiva pink, sclera anicteric Pupils: Present: PERRL - Neck Neck exam general surgery: Present: supple, trachea midline. Absent: lymphadenopathy - Respiratory Respiratory exam: Present: CTAB. Absent: accessory muscle use, rales, respiratory distress, rhonchi, wheezes - Cardiovascular Cardiovascular exam: Present: RRR, +S1, +S2. Absent: diastolic murmur, gallop, rubs, systolic murmur - GI/Abdominal GI/Abdominal exam: Present: normal bowel sounds, soft, no peritoneal signs. Absent: distended, tenderness - Extremities Exam Extremities exam: Present: warm, radial pulses palpable and symetrical. Absent : calf tenderness, cyanotic, pedal edema - Neurological Exam Neurological exam: Present: alert, CN II-XII intact, normal gait, oriented X3, no focal deficits, strengths equal and symetr throughout. Absent: pronater drift, facial droop, speech deficit - Skin Skin exam: Present: dry, intact, normal color, warm
--- NOTE | 2016-04-23 18:47 | Electrocardiograph Report ---
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
--- NOTE | 2016-04-23 19:02 | Electrocardiograph Report ---
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
[2016-04-23] MEDS ORDERED: Insulin LISPRO 300 UNITS/3 ML VIAL SQ SCH (21:00)
--- NOTE | 2016-04-23 22:53 | Carotid Imaging Report ---
Carotid Duplex Patient Name:Elly Larkin Order Number:[id number] Procedure Date:04/23/2016 Date:5Age:70 yrs Gender:Female Lt BP:160 / 86 mmHg Rt.BP:148 / 84 mmHgHeart Rate: Location:[facility] Room #: 3B44 Paper Machine Back Tender:Tara Tracy, RVT Referring MD:Andrzej Gomez DO single spindle screw machine operator:Karen Perez, SYSTEMS INTEGRATOR Reading MD:Mariano Valerio MD , FACS Primary Indications:Syncope Impressions: Findings: Bilateral carotid system are essentially normal. Recommendations: After imaging the patient returned to their room. Test completed on 04/23/2016 at 7:45:00 am. Findings Carotid Duplex: [place] scale imaging combined with Doppler flow analysis suggests normal findings bilaterally. Prior Study: No prior study available for comparison. Carotid Results Right PSV EDV Assessment Proximal CCA 67 11 Mid CCA 62 14 Distal CCA 46 9 Bifurcation 44 9 Proximal ICA 44 14 Mid ICA 62 22 Distal ICA 63 23 ECA 94 9 Vertebral Artery 53 16 Left PSV EDV Assessment Proximal CCA 64 15 Mid CCA 55 15 Distal CCA 57 13 Bifurcation 59 15 Proximal ICA 45 16 Mid ICA 75 20 Distal ICA 60 16 ECA 71 8 Vertebral Artery 55 20 Ratio's Right ICA/CCA Ratio: 0.70 ICA/CCA Values: 44/62 Left ICA/CCA Ratio: 0.81 ICA/CCA Values: 45/55 Updated by Mariano Valerio MD, FACS on 04/23/2016 10:46:22 PM Mariano Valerio MD electronically signed on 04/23/2016 10:47:01 PM with status of Final
--- NOTE | 2016-04-24 14:06 | Event Note ---
Date of Encounter: 04/24/16 Time of Encounter: 14:05 Carotid ultrasound unremarkable. Urine culture revealing gram-negative rods but only 50,000 CFU's which is consistent with contamination. Typically greater than 100,000 CFU's would be indicative of a UTI. No further follow-up or antibiotics are indicated at this time.
== END 2016-04-23 18:05 | disposition home or self-care (01) ==
LOC: EMEROO 16:45 → 3BNU 16:45
PROVIDERS: ADMIT Internal Medicine; ATTEND Nurse Practitioner Family

== ENCOUNTER 2016-07-05 23:12 | Observation (INO) ==
--- NOTE | 2016-07-06 00:09 | Emergency Department Note ---
Disposition Clinical Impression: Chest pain Qualifiers: Chest pain type: unspecified Qualified Code(s): R07.9 - Chest pain, unspecified Disposition: Admitted As Inpatient Condition: Good Time of Disposition: 01:11 Chest Pain HPI - General Chief Complaint: ED Chest Pain Stated Complaint: chest pain Time Seen by Provider: 07/06/16 00:04 Source: patient Mode of arrival: ambulatory Limitations: no limitations Vital Signs Reviewed: Yes Nursing Notes Reviewed: Yes - History of Present Illness HPI Narrative: 71-year-old female with past history of CHF and CAD status post stents in the remote past presents with retrosternal chest pressure that radiated to her right neck and was associated with shortness of breath. She denies associated diaphoresis or vomiting. She states that symptoms improved partially with rest. She did take 2 nitroglycerin tablets without improvement of her symptoms. She also took an extra 3 baby aspirin in addition to the 2 that she took this morning. She states that she had exactly the same symptoms yesterday , but those symptoms remitted after 2 nitroglycerin tablets that she did not come in for evaluation. Patient states that the pain is currently a 5 out of 10 and was an 8 out of 10 at its worst. Severity scale (1-10): 5 - Related Data Home Medications Medication Instructions Recorded Confirmed Albuterol Sulfate [Proair 1 - 2 puff IH Q6H PRN 11/21/14 04/22/16 Respiclick] Loratadine [Claritin] 10 mg PO QAM PRN #0 11/21/14 04/22/16 Losartan [Cozaar] 25 mg PO QAM 11/21/14 04/22/16 Multivitamin [Multi-Day Vitamins] 1 tab PO QAM 11/21/14 04/22/16 Nitroglycerin [Nitrostat] 0.4 mg SL Q5M PRN #0 11/21/14 04/22/16 Aspirin 81 mg PO QAM 01/03/15 04/22/16 Cholecalciferol (Vitamin D3) 2,000 unit PO QPM 01/03/15 04/22/16 [Vitamin D3] Clopidogrel [Plavix] 75 mg PO QPM 01/03/15 04/22/16 Esomeprazole Magnesium [Nexium] 40 mg PO QAM 01/03/15 04/22/16 Vitamin E (Dl,Tocopheryl Acet) 400 unit PO QAM 01/03/15 04/22/16 [Vitamin E] Albuterol Neb [Proventil Neb] 2.5 mg IH Q4HR PRN 09/07/15 04/22/16 Metoprolol [Lopressor] 25 mg PO QPM 11/13/15 04/22/16 Fluticasone Propionate Nasal 50 mcg NS BID PRN 12/03/15 04/22/16 [Flonase] Acetaminophen [Tylenol] 500 mg OP Q4HR PRN 03/23/16 04/22/16 Isosorbide MONOnitrate [Isosorbide 120 mg PO QAM 04/22/16 04/22/16 Mononitrate ER] Metformin HCl [Metformin HCl ER] 500 mg PO QPM 04/22/16 04/22/16 Allergies Allergy/AdvReac Type Severity Reaction Status Date / Time clarithromycin Allergy See Verified 07/06/16 00:06 Comments Erythromycin Base Allergy See Verified 07/06/16 00:06 Comments hydrocodone [From Vicodin] Allergy See Verified 07/06/16 00:06 Comments morphine Allergy See Verified 07/06/16 00:06 Comments prednisone Allergy See Verified 07/06/16 00:06 Comments propoxyphene Allergy See Verified 07/06/16 00:06 Comments codeine AdvReac Anaphylaxis Verified 07/06/16 00:06 Souaujk-Ufx-Fag Reductase AdvReac Muscle Pain Verified 07/06/16 00:06 Inhibitor [Statins] All systems ED: reviewed and negative except as stated. Chest Pain PMH - Past Medical History Medical history: Reports: arthritis, asthma, cancer, COPD, coronary artery disease, diabetes, fibromyalgia, GERD, hyperlipidemia, hypertension, migraine, myocardial infarction, osteoporosis, renal disease, thyroid disease, venous stasis, other Surgical history: Reports: angioplasty/stent, appendectomy, cancer surgery, cholecystectomy, hysterectomy, orthopedic, other, other Psychiatric history: Reports: no psych history Prior Cardiac Testing/Procedures: Stenting FISH PEDDLER history: Reports: no FISH PEDDLER history - Social History Smoking Status: Never smoker Alcohol use: Reports: none Drug use: Reports: none Physical Exam - Head Head exam: atraumatic, normocephalic, normal inspection - Eye Eye exam: Present: normal appearance, PERRL, EOMI - ENT ENT exam: normal exam, normal oropharynx, mucous membranes moist - Neck Neck exam: Present: normal inspection, full ROM, trachea midline - Chest Chest inspection: Present: normal inspection, symmetric chest wall rise. No chest wall tenderness or rash. - Respiratory Respiratory exam: Clear to auscultation bilaterally without wheezes rales or rhonchi Cardiovascular Cardiovascular exam: Present: regular rate, normal rhythm, normal heart sounds - Abdominal Exam Abdominal exam: Present: soft, Non-Tender. Absent: tenderness, distention, guarding, rebound, rigidity - Extremities Exam Extremities exam: Present: normal inspection, full ROM - Expanded Lower Extremity Exam Hip/Pelvis exam: Present: normal inspection, full ROM - Back Exam Back exam: Present: normal inspection, full ROM. Absent: tenderness, CVA tenderness (R), CVA tenderness (L) - Neurological Exam Neurological exam: Present: alert, oriented X3, CN II-XII intact - Psychiatric Psychiatric exam: Present: normal affect, normal mood - Skin Skin exam: Present: warm, dry, intact, normal color - General Limitations: no limitations General appearance: alert Course - Reevaluation(s) Reevaluation #1: He nearly resolved after additional nitroglycerin here. Troponin is negative. EKG is stable. Accepted by hospitalist Dr. Moore for repeat troponins and possible further evaluation in the morning. Time: 01:09 Vital Signs Temperature 97.9 F 07/05/16 23:23 Pulse Rate 75 07/05/16 23:23 Respiratory Rate 16 07/05/16 23:23 Blood Pressure 147/96 07/05/16 23:23 O2 Sat by Pulse Oximetry 95 07/05/16 23:23 Temperature 97.9 F 07/05/16 23:23 Pulse Rate 72 07/06/16 01:00 Respiratory Rate 20 07/06/16 01:00 Blood Pressure 134/92 07/06/16 01:00 O2 Sat by Pulse Oximetry 97 07/06/16 01:00 Oxygen Delivery Oxygen Delivery Room Air Chest Pain - Lab Data Result diagrams: 07/06/16 00:08 07/06/16 00:08 - EKG Data EKG attestation: Yes I reviewed and interpreted this EKG. EKG results narrative: Normal sinus rhythm at 67 with normal axis and intervals. No ST elevation or depression. Anterior T-wave inversions are present. No change when compared with 04/22/2016. Attestation Statement - Attestation Attestation: I, Ryan Kirby, examined this patient and my medical decision-making was reviewed with the PRODUCTION WEIGHER/PA/Advanced Practice Nurse/Resident Physician. I agree with the documented findings, disposition and treatment plan as described except to the extent set forth below. 71-year-old female presents with concerns of chest pain. Patient states that her pain has been intermittent and worsening over the past few days. Patient states that she used nitroglycerin which improved her pain yesterday however the pain did not go away completely today. Patient has a history of cardiac disease with [address] Most recent heart catheterization was within the past year and showed a partial blockage that is being medically managed. Patient follows Dr. Garcia for cardiology. Patient pain improved with administration of nitroglycerin in the emergency department. Initial troponin is negative. EKG shows sinus rhythm with rate of 67 without evidence of STEMI. Patient is comfortable with plan for admission to the hospital for further care and evaluation of her chest pain.
[2016-07-06 00:31] LABS: Basophils % 0.3 %; Eosinophils # 0.3 K/mcL (0.0-0.6); Eosinophils % 4.9 %; Hematocrit 39.8 % (35.3-44.9); Hemoglobin 12.9 g/dL (11.5-15.4); Immature Granulocytes % 0.3 % (0-4); Lymphocytes # 1.7 K/mcL (0.6-4.6); Lymphocytes % 24.2 %; Mean Corpuscular HGB Conc 32.4 g/dL (31.6-35.5); Mean Corpuscular Hemoglobin 30.4 pg (28.0-33.3); Mean Corpuscular Volume 93.6 fL (83.0-100.0); Mean Platelet Volume 11.7 fL (9.4-12.4); Monocytes # 0.7 K/mcL (0.0-1.3); Monocytes % 9.9 %; Neutrophils # 4.2 K/mcL (1.6-8.9); Platelet Count 184 K/mcL (140-400); Red Blood Count 4.25 M/mcL (3.82-4.97); Segmented Neutrophils % 60.4 %
[2016-07-06 00:37] LABS: INR 1.1; Prothrombin Time 11.5 Seconds (9.4-12.1)
[2016-07-06 00:39] LABS: Activated Partial Thrombo Time 28.3 Seconds (26.0-36.0)
[2016-07-06] MEDS: Nitroglycerin 0.4 MG TAB.SUBL SL PRN ×3 (00:42→00:54)
[2016-07-06 00:57] LABS: Calcium 9.6 mg/dL (8.6-10.8); Potassium 5.6 mEq/L (3.5-4.5)
--- NOTE | 2016-07-06 01:41 | Internal Med History&Physical ---
Date of Encounter: 07/06/16 Time of Encounter: 01:38 Assessment and Plan (1) Chest pain Current visit: Yes Status: Acute Patient has history of coronary artery disease with multiple stents in the past. Left heart catheterization in November 2015 revealed patent stents. Patient was recently in the hospital in April 2016 due to chest pain and was evaluated by cardiology. The dose of her MDR was increased and she was recommended to follow-up with her primary perinatal educator as an outpatient. However, she has not been able to follow-up with her primary perinatal educator as he is out on sick leave and hence, the patient will not be able to see her primary perinatal educator until July. Patient had an episode of chest pain Wednesday evening that resolved with nitroglycerin that happened at rest. She started having another episode Wednesday night that occurred after activity that has not resolved with nitroglycerin. Patient reports compliance with her medications. Patient will be placed under observation on telemetry. Her cardiac enzymes will be cycled. Depending on her progress, we will consider cardiology consultation in the morning. If her chest pain is resolved and cardiac enzymes are negative, likely discharge with outpatient follow-up with cardiology (however, patient cannot see her perinatal educator until July) Qualifiers: Chest pain type: precordial pain Qualified Code(s): R07.2 - Precordial pain (2) CAD (coronary artery disease) Current visit: Yes Status: Chronic Patient has coronary artery disease with patent stents on November 2015 left heart catheterization. Continue aspirin, Plavix, beta yari. Patient has allergy to statins and hence, cannot take the same. Patient unable to take ranolazine as she cannot afford it. Continue Imdur 120 mg by mouth daily Qualifiers: Coronary Disease-Associated Artery/Lesion type: [place] artery [place] vs. transplanted heart: [place] heart Associated angina: with unspecified angina Qualified Code(s): I25.119 - Atherosclerotic heart disease of [place] coronary artery with unspecified angina pectoris (3) Diabetes Current visit: Yes Status: Chronic Continue home dose of metformin. Sliding scale insulin. Stable renal function at her baseline. Qualifiers: Diabetes mellitus type: type 2 Diabetes mellitus complication status: with kidney complications Diabetes mellitus complication detail: with chronic kidney disease Diabetes mellitus long-term insulin use: without roasterman use Chronic kidney disease stage: stage 3 (moderate) Qualified Code(s): E11.22 - Type 2 diabetes mellitus with diabetic chronic kidney disease; N18.3 - Chronic kidney disease, stage 3 (moderate) (4) GERD (gastroesophageal reflux disease) Current visit: No Status: Chronic PPI at home dose Qualifiers: Esophagitis presence: esophagitis presence not specified Qualified Code(s) : K21.9 - Gastro-esophageal reflux disease without esophagitis (5) Hypertension Current visit: Yes Status: Chronic Controlled blood pressure. Continue current home medications. Qualifiers: Hypertension type: essential hypertension Qualified Code(s): I10 - Essential (primary) hypertension (6) Obesity (BMI 30-39.9) Current visit: No Status: Chronic Internal Medicine - H&P: HPI Chief complaint: Chest pain Admitted From: Emergency Dept Plans for Post Hospital Care: Home History of present illness: Ms. Larkin is a 71 year old female with a past medical history of coronary artery disease status post multiple stents who presented to the emergency room due to chest pain. Patient states that she had chest pain Wednesday night which happened at rest. She took aspirin and nitroglycerin tablets under chest pain was relieved. She went to sleep. On Wednesday evening, she states that she does a lot of physical activity that included putting out the trash, walking her dog. After she returned home, she started having chest pain which was 6/10 intensity in the middle of the chest radiating to her back which was aggravated with activity and relieved with rest. This is associated with feeling lightheaded and some nausea. She denies any shortness of breath, palpitations, vomiting, abdominal pain, diarrhea or constipation. This episode did not relieve with baby aspirin or nitroglycerin. Hence, the patient presented to the emergency department. The patient had a left heart catheterization performed in November 2015 which revealed patent stents. She presented to the emergency department in April 2016 due to chest pain and was admitted for the same. She was evaluated by cardiology and her dose of Imdur was increased. The patient is not taking Ranexa as she is not able to afford it. She was supposed to see her perinatal educator last week. However, her perinatal educator is away on sick leave and hence, the patient cannot see her perinatal educator until July. Past Med Surg Social Fam HX - Past Medical History Attestation: Yes The following information was validated with the patient. Source: patient Medical history: arthritis, asthma, cancer, COPD, coronary artery disease, diabetes, fibromyalgia, GERD, hyperlipidemia, hypertension, migraine, myocardial infarction, osteoporosis, renal disease, thyroid disease, venous stasis, other Psychiatric history: no psych history - Past Surgical History Surgical History: angioplasty/stent, appendectomy, cancer surgery, cholecystectomy, hysterectomy, orthopedic, other, other - Social History Smoking Status: Never smoker Smokeless Tobacco Status: No Alcohol use: none Drug use: none Current living situation: Home - Independent Activity Level: Independent ambulation - Family History Father Family Member Ethnicity: Non- Twin of Family Member: Yes, Fraternal Living Status: Hx Family Cardiac Disorders: Yes Hx Family Respiratory Disorders: No Hx Family Cancer: Yes (Lung) Hx Family GI Disorders: No Hx Family Endocrine Disorder: No Hx Family Neuromuscular Disorders: No Hx Family Neurologic Disorders: No Hx Family HEENT Disorders: No Hx Family Autoimmune Disorders: No Mother Living Status: Hx Family Cardiac Disorders: Yes Internal Medicine - H&P: Meds Albuterol Sulfate [Proair Respiclick] 1 - 2 puff IH Q6H PRN 11/21/14 [History] Loratadine [Claritin] 10 mg PO QAM PRN #0 11/21/14 [History] Losartan [Cozaar] 25 mg PO QAM 11/21/14 [History] Multivitamin [Multi-Day Vitamins] 1 tab PO QAM 11/21/14 [History] Nitroglycerin [Nitrostat] 0.4 mg SL Q5M PRN #0 11/21/14 [History] Aspirin 81 mg PO QAM 01/03/15 [History] Cholecalciferol (Vitamin D3) [Vitamin D3] 2,000 unit PO QPM 01/03/15 [History] Clopidogrel [Plavix] 75 mg PO QPM 01/03/15 [History] Esomeprazole Magnesium [Nexium] 40 mg PO QAM 01/03/15 [History] Vitamin E (Dl,Tocopheryl Acet) [Vitamin E] 400 unit PO QAM 01/03/15 [History] Albuterol Neb [Proventil Neb] 2.5 mg IH Q4HR PRN 09/07/15 [History] Metoprolol [Lopressor] 25 mg PO QPM 11/13/15 [History] Fluticasone Propionate Nasal [Flonase] 50 mcg NS BID PRN 12/03/15 [History] Acetaminophen [Tylenol] 500 mg OP Q4HR PRN 03/23/16 [History] Isosorbide MONOnitrate [Isosorbide Mononitrate ER] 120 mg PO QAM 04/22/16 [ History] Metformin HCl [Metformin HCl ER] 500 mg PO QPM 04/22/16 [History] Allergies clarithromycin Allergy (Verified 07/06/16 00:06) See Comments Erythromycin Base Allergy (Verified 07/06/16 00:06) See Comments hydrocodone [From Vicodin] Allergy (Verified 07/06/16 00:06) See Comments morphine Allergy (Verified 07/06/16 00:06) See Comments prednisone Allergy (Verified 07/06/16 00:06) See Comments propoxyphene Allergy (Verified 07/06/16 00:06) See Comments codeine Adverse Reaction (Verified 07/06/16 00:06) Anaphylaxis Ycvwzfb-Wnz-Loa Reductase Inhibitor [Statins] Adverse Reaction (Verified 00:06) Muscle Pain All Systems PM: A 10-system review of systems was performed and is negative for pertinent findings except as documented above in the HPI. Review of systems: 10 systems have been reviewed and are negative except as mentioned in the history of present illness - Constitutional Vitals: Temp Pulse Resp BP Pulse Ox 97.9 F 72 20 134/92 97 07/05/16 23:23 07/06/16 01:00 07/06/16 01:00 07/06/16 01:00 07/06/16 01:00 Exam: Gen.: Sitting in bed. No acute distress. Eyes: Pupils equal, round and reactive to light. Extraocular muscles intact. ENT: Moist mucous membranes. No oropharyngeal erythema or discharge. Chest: Clear to auscultation bilaterally. No adventitious sounds present. No reproducible chest wall tenderness present. CVS: First and second heart sounds present. No murmurs, rubs or gallops. Abdomen: Soft, nontender, nondistended. Bowel sounds present. No hepatosplenomegaly. Skin: No decubitus ulcers appreciated. DEVELOPING MACHINE OPERATOR: No focal neuro deficits present. Psychiatric: Alert, awake and oriented to time, place and person. Lymphatic system: No lymphadenopathy appreciated Internal Med - H&P Results - Labs CBC & Chem 7: 07/06/16 00:08 07/06/16 00:08 - EKG Data -: EKG Interpreted by Myself EKG shows normal: sinus rhythm Rate: normal - Diagnostic Studies Chest x-ray Status: image reviewed by me (No acute process identified)
[2016-07-06] MEDS: Ondansetron 4 MG/2 ML VIAL IVP PRN ×2 (03:51→14:04)
[2016-07-06] MEDS ORDERED: Loratadine 10 MG TABLET PO PRN (06:17)
[2016-07-06] MEDS ORDERED: Fluticasone Propionate Nasal 50 MCG/SPRAY BOTTLE NS PRN (06:17)
[2016-07-06] MEDS ORDERED: *HR* Metformin 500 MG TABLET PO SCH (08:00)
[2016-07-06] MEDS ORDERED: Isosorbide MONOnitrate (24 HR) 60 MG TAB.ER.24H PO SCH ×2 (09:00→12:34)
[2016-07-06] MEDS: Aspirin Enteric Coated 81 MG Tablet PO SCH (10:06)
[2016-07-06] MEDS ORDERED: Isosorbide MONOnitrate (24 HR) 30 MG TAB.ER.24H PO ONE (12:47)
--- NOTE | 2016-07-06 16:10 | Discharge Summary ---
Date of Encounter: 07/06/16 Time of Encounter: 15:00 - Discharge Medications Home Medications: Albuterol Sulfate [Proair Respiclick] 2 puff IH Q4H PRN 11/21/14 [History] Loratadine [Claritin] 10 mg PO QAM PRN #0 11/21/14 [History] Losartan [Cozaar] 25 mg PO DAILY 11/21/14 [History] Nitroglycerin [Nitrostat] 0.4 mg SL Q5M PRN #0 11/21/14 [History] Aspirin 81 mg PO QAM 01/03/15 [History] Cholecalciferol (Vitamin D3) [Vitamin D3] 2,000 unit PO QPM 01/03/15 [History] Clopidogrel [Plavix] 75 mg PO QPM 01/03/15 [History] Vitamin E (Dl,Tocopheryl Acet) [Vitamin E] 400 unit PO QAM 01/03/15 [History] Albuterol Neb [Proventil Neb] 2.5 mg IH TID PRN 09/07/15 [History] Metoprolol [Lopressor] 25 mg PO HS 11/13/15 [History] Fluticasone Propionate Nasal [Flonase] 50 mcg NS BID PRN 12/03/15 [History] Acetaminophen [Tylenol] 1,000 mg PO BID 03/23/16 [History] Isosorbide MONOnitrate [Isosorbide Mononitrate ER] 120 mg PO QAM 04/22/16 [ History] Mv, Min #36/Iron,Carbonyl/FA [Geritol Complete Tablet] 1 tab PO DAILY 07/06/16 [ History] Pantoprazole Sodium [Protonix] 40 mg PO DAILY 07/06/16 [History] Ubidecarenone [Co Q-10] 30 mg PO DAILY 07/06/16 [History] Allergies/Adverse Reactions: Allergies clarithromycin Allergy (Verified 07/06/16 00:06) See Comments Erythromycin Base Allergy (Verified 07/06/16 00:06) See Comments hydrocodone [From Vicodin] Allergy (Verified 07/06/16 00:06) See Comments morphine Allergy (Verified 07/06/16 00:06) See Comments prednisone Allergy (Verified 07/06/16 00:06) See Comments propoxyphene Allergy (Verified 07/06/16 00:06) See Comments codeine Adverse Reaction (Verified 07/06/16 00:06) Anaphylaxis Hrzfpbs-Awf-Jyk Reductase Inhibitor [Statins] Adverse Reaction (Verified 00:06) Muscle Pain Date of admission: 07/06/16 01:18 Primary care physician: Karen Perez CNP Consults: 07/06/16 08:35 Consult to Cardiology [CONS] Routine Comment: Consulting Provider: Cardiology [place] Reason for Consult: 4th visit since mar for CP. imdur increased in Apr; cannot take ranexa / cost. has not been able to followup with Dr Garcia. Please eval and advise Time Notified: 08:36 Call Completed: Yes 07/06/16 11:37 Consult to Rapid Extractor Operator [CONS] Routine Reason for SW Consult: 4th admission this year for CP. cannot afford ranexa Discharging clinician: Tracy Sloan Anticipated date of discharge: 07/06/16 - Patient Status Condition: Good - Discharge Instructions Follow Up With: Karen Perez CNP [Primary Care Provider] - Hospital course: Ms. Larkin is a 71 year old female - Time Spent with Patient Total time spent providing and/or coordinating discharge services: - Constitutional Vitals: Temp Pulse Resp BP Pulse Ox 97.6 F 66 17 115/69 97 07/06/16 14:59 07/06/16 14:59 07/06/16 14:59 07/06/16 14:59 07/06/16 14:59
--- NOTE | 2016-07-06 16:13 | Cardiology Consult Note ---
Date of Encounter: 07/07/16 Time of Encounter: 09:00 Assessment and Plan (1) Chest pain Current Visit: No Status: Acute Chest pain, somewhat atypical. NICHO negative. Would increase antianginals and can f/u as outpt. Qualifiers: Chest pain type: precordial pain Qualified Code(s): R07.2 - Precordial pain (2) CAD (coronary artery disease) Current Visit: Yes Status: Chronic Patient has coronary artery disease with patent stents on November 2015 left heart catheterization. Qualifiers: Coronary Disease-Associated Artery/Lesion type: [place] artery [place] vs. transplanted heart: [place] heart Associated angina: with unspecified angina Qualified Code(s): I25.119 - Atherosclerotic heart disease of [place] coronary artery with unspecified angina pectoris Discussion w patient/family: The assessment and plan as outlined above was discussed with the patient and/or family members who expressed understanding and agreement. All questions were answered. Thank you for involving us in the care of your patient. Please call with any questions. History of Present Illness Consult date: 07/06/16 Requesting physician: Mahin Lujan Consult reason: Chest Pain History of present illness: Ms. Larkin is a 71 year old female with a history of known CAD who present with chest pain. Pain is nonexertional, any somewhat aypical. It is however similar to previous angina. She was last admitted in Apr. and at that time her imdur was increased to twice a day although has since been decreased to once a day. Her last heart cath was Nov., at that time stents were patent, no intervention was needed. Past Med Surg Social Fam HX - Past Medical History Medical history: arthritis, asthma, cancer, CHF, COPD, coronary artery disease, diabetes, fibromyalgia, GERD, hyperlipidemia, hypertension, migraine, myocardial infarction, renal disease, thyroid disease, venous stasis, other Psychiatric history: no psych history - Past Surgical History Surgical History: angioplasty/stent, appendectomy, cancer surgery, cholecystectomy, hysterectomy, orthopedic, other, other - Social History Smoking Status: Never smoker Smokeless Tobacco Status: No Alcohol use: none Drug use: none - Family History Father Family Member Ethnicity: Non- Twin of Family Member: Yes, Fraternal Living Status: Hx Family Cardiac Disorders: Yes Hx Family Respiratory Disorders: No Hx Family Cancer: Yes (Lung) Hx Family GI Disorders: No Hx Family Endocrine Disorder: No Hx Family Neuromuscular Disorders: No Hx Family Neurologic Disorders: No Hx Family HEENT Disorders: No Hx Family Autoimmune Disorders: No Mother Living Status: Hx Family Cardiac Disorders: Yes Hx Family Cancer: Yes Medications and Allergies Albuterol Sulfate [Proair Respiclick] 2 puff IH Q4H PRN 11/21/14 [History] Loratadine [Claritin] 10 mg PO QAM PRN #0 11/21/14 [History] Losartan [Cozaar] 25 mg PO DAILY 11/21/14 [History] Nitroglycerin [Nitrostat] 0.4 mg SL Q5M PRN #0 11/21/14 [History] Aspirin 81 mg PO QAM 01/03/15 [History] Cholecalciferol (Vitamin D3) [Vitamin D3] 2,000 unit PO QPM 01/03/15 [History] Clopidogrel [Plavix] 75 mg PO QPM 01/03/15 [History] Vitamin E (Dl,Tocopheryl Acet) [Vitamin E] 400 unit PO QAM 01/03/15 [History] Albuterol Neb [Proventil Neb] 2.5 mg IH TID PRN 09/07/15 [History] Metoprolol [Lopressor] 25 mg PO HS 11/13/15 [History] Fluticasone Propionate Nasal [Flonase] 50 mcg NS BID PRN 12/03/15 [History] Acetaminophen [Tylenol] 1,000 mg PO BID 03/23/16 [History] Isosorbide MONOnitrate [Isosorbide Mononitrate ER] 120 mg PO QAM 04/22/16 [ History] Mv, Min #36/Iron,Carbonyl/FA [Geritol Complete Tablet] 1 tab PO DAILY 07/06/16 [ History] Pantoprazole Sodium [Protonix] 40 mg PO DAILY 07/06/16 [History] Ubidecarenone [Co Q-10] 30 mg PO DAILY 07/06/16 [History] Allergies clarithromycin Allergy (Verified 07/06/16 00:06) See Comments Erythromycin Base Allergy (Verified 07/06/16 00:06) See Comments hydrocodone [From Vicodin] Allergy (Verified 07/06/16 00:06) See Comments morphine Allergy (Verified 07/06/16 00:06) See Comments prednisone Allergy (Verified 07/06/16 00:06) See Comments propoxyphene Allergy (Verified 07/06/16 00:06) See Comments codeine Adverse Reaction (Verified 07/06/16 00:06) Anaphylaxis Rimsehq-Sfz-Vub Reductase Inhibitor [Statins] Adverse Reaction (Verified 00:06) Muscle Pain All Systems Review: A 10-system review of systems was performed and is negative for pertinent findings except as documented above in the HPI. Physical Examination Vital Signs, Last 4 Hours Temp Pulse Resp BP Pulse Ox 07/06/16 14:59 97.6 F 66 17 115/69 97 General: Conversant, No Apparent Distress HEENT: Atraumatic, Normocephaly, Mucus Membranes Moist Neck: No JVD, Normal carotid pulses Cardiac: Reg Rate and Rhythm, Normal S1 and S2, No Murmur Lungs: Normal Breath Sounds, No Wheeze, Rales, Rhonchi Abdomen: Soft, Non-Tender Musculoskeletal: No Chest Wall Tenderness Results 07/06/16 00:08 07/07/16 04:45 Lab Results 07/06/16 03:59 Troponin I 0.00 Consult Discharge Plan - Plan Referrals: Karen Perez, PEST CONTROL WORKER [Primary Care Provider] -
--- NOTE | 2016-07-06 16:15 | Internal Med Progress Note ---
Date of Encounter: 07/06/16 Time of Encounter: 15:00 - Assessment and plan (1) Chest pain Current Visit: Yes Status: Acute Assessment and plan: Chest x-ray negative. Troponins negative 2. Patient currently denies pain. This is her fourth admission this year for chest pain. When she was seen in April, the cardiology note recommended increasing her Imdur to 120 mg twice a day but this does not appear to have been done. Cardiology has seen the patient again on this visit and has again increased her Imdur to 240 mg per day. She states she cannot take Ranexa secondary to cost, social media specialist brought on board for possible resources. We will observe overnight on the new dose and possibly discharge tomorrow pending clinical outcomes. Cardiology is on board. Appreciate their recommendations. ITS Impressions Chest X-Ray 07/05/16 23:29 IMPRESSION: No acute cardiac or pulmonary disease. D/ / Trav Richardson MD / Trav Richardson MD Interpreting Provider: Trav Richardson MD Qualifiers: Chest pain type: precordial pain Qualified Code(s): R07.2 - Precordial pain (2) CAD (coronary artery disease) Current Visit: Yes Status: Chronic Qualifiers: Coronary Disease-Associated Artery/Lesion type: [place] artery [place] vs. transplanted heart: [place] heart Associated angina: with unspecified angina Qualified Code(s): I25.119 - Atherosclerotic heart disease of [place] coronary artery with unspecified angina pectoris (3) Hypertension Current Visit: Yes Status: Chronic Assessment and plan: Controlled, will continue to trend Qualifiers: Hypertension type: essential hypertension Qualified Code(s): I10 - Essential (primary) hypertension (4) DVT prophylaxis Current Visit: No Status: Acute Assessment and plan: Observation patient. Up ad duncan. (5) Anxiety about health Current Visit: No Status: Chronic (6) CHF (congestive heart failure) Current Visit: No Status: Chronic Assessment and plan: Euvolemic on examination. Patient denies shortness of breath above her norm. Patient had an echo in March of this year which revealed ejection fraction of 60% and mild diastolic dysfunction, mild AR. Chronic diastolic heart failure without acute exacerbation. Qualifiers: Congestive heart failure type: diastolic Congestive heart failure chronicity: chronic Qualified Code(s): I50.32 - Chronic diastolic (congestive ) heart failure (7) Chronic kidney disease (CKD) stage G3a/A1, moderately decreased glomerular filtration rate (GFR) between 45-59 mL/min/1.73 square meter and albuminuria creatinine ratio less than 30 mg/g Current Visit: No Status: Chronic Assessment and plan: Stable with her baseline, we will continue to trend (8) GERD (gastroesophageal reflux disease) Current Visit: No Status: Chronic Assessment and plan: Denies current symptoms Qualifiers: Esophagitis presence: esophagitis presence not specified Qualified Code(s) : K21.9 - Gastro-esophageal reflux disease without esophagitis (9) Non-insulin dependent type 2 diabetes mellitus Current Visit: No Status: Chronic Assessment and plan: Controlled at home with an A1c of 6.0%. Continue sliding scale while admitted. (10) ALLISON (obstructive sleep apnea) Current Visit: No Status: Chronic (11) Noncompliance with CPAP treatment Current Visit: No Status: Chronic (12) Obesity (BMI 30-39.9) Current Visit: No Status: Chronic (13) Statin intolerance Current Visit: No Status: Chronic (14) Hyperkalemia Current Visit: No Status: Acute Assessment and plan: Will trend-asymptomatic. - Subjective Interval history: Patient seen and examined. On examination, patient stating that she was nauseated but has not vomited. She states she was able to eat and became nauseated after she ate. She denies any chest pain or shortness of breath at this time but states she only gets her chest pain when she is active. - Constitutional Vitals: Temp Pulse Resp BP Pulse Ox 97.6 F 66 17 115/69 97 07/06/16 14:59 07/06/16 14:59 07/06/16 14:59 07/06/16 14:59 07/06/16 14:59 General appearance: Present: A&O X 3, pleasant, no acute distress, answers questions appropriately - Head Head exam: Present: atraumatic, normocephalic - Eye Eye exam: Present: PERRL, conjuntiva pink, sclera anicteric Pupils: Present: PERRL - Neck Neck exam general surgery: Present: supple, trachea midline. Absent: lymphadenopathy - Respiratory Respiratory exam: Present: CTAB. Absent: accessory muscle use, rales, respiratory distress, rhonchi, wheezes - Cardiovascular Cardiovascular exam: Present: RRR, +S1, +S2. Absent: diastolic murmur, gallop, rubs, systolic murmur - GI/Abdominal GI/Abdominal exam: Present: normal bowel sounds, soft, no peritoneal signs. Absent: distended, tenderness - Extremities Exam Extremities exam: Present: warm, radial pulses palpable and symetrical. Absent : calf tenderness, cyanotic, pedal edema - Neurological Exam Neurological exam: Present: alert, CN II-XII intact, oriented X3, no focal deficits, strengths equal and symetr throughout. Absent: pronater drift, facial droop, speech deficit - Skin Skin exam: Present: dry, intact, pallor, warm Internal Medicine: Result - Labs CBC & Chem 7: 07/06/16 00:08 07/06/16 00:08 Labs: Cardiac Enzymes 07/06/16 Range/Units 03:59 Troponin I 0.00 (0-0.03) ng/mL - ABG Interpretation ABG results: PT/INR, D-dimer PT 11.5 Seconds (9.4-12.1) 07/06/16 00:08 Consult Discharge Plan - Plan Referrals: Karen Perez, RISK CONTROL FIELD REPRESENTATIVE [Primary Care Provider] -
--- NOTE | 2016-07-06 17:26 | Electrocardiograph Report ---
[place] [address] Test Date: 2016-07-05 Pat Name: Elly Larkin Department: 104 Room: 3B Gender: F Manager Logistic: [facility] : 1945 Requested By: Ryan Kirby Order Number: [id number] Reading MD: Ryan Henriquez Measurements Intervals [place] Rate: 67 P: 40 NH: 155 QRS: -9 QRSD: 101 T: 31 QT: 369 QTc: 384 Interpretive Statements SINUS RHYTHM WITH OCCASIONAL SUPRAVENTRICULAR PREMATURE COMPLEXES Electronically Signed On 07-06-2016 17:24:59 EDT by Ryan Henriquez
[2016-07-06] MEDS ORDERED: Cholecalciferol (D-3) 1,000 UNIT TABLET PO SCH (18:00)
[2016-07-06] MEDS: Acetaminophen 325 MG TABLET PO PRN (22:38)
[2016-07-07 05:34] LABS: BUN/Creatinine Ratio 20 (6-26); Blood Urea Nitrogen 21 mg/dL (7-20); Calcium 8.9 mg/dL (8.6-10.8); Carbon Dioxide 25 mEq/L (19-29); Chloride 111 mEq/L (98-109); Glucose 116 mg/dL (70-99); Osmolality,Calculated 296 (280-300); Sodium 141 mEq/L (136-145); eGFR For African Americans > 60 (> 60); eGFR For Non-African Americans 50 (> 60)
[2016-07-07 05:38] LABS: Potassium 4.4 mEq/L (3.5-4.5)
--- NOTE | 2016-07-07 08:52 | Cardiology Progress Note ---
Date of Encounter: 07/07/16 Time of Encounter: 08:48 Assessment and Plan (1) CAD (coronary artery disease) Status: Chronic Patient has coronary artery disease with patent stents on November 2015 left heart catheterization. Continue aspirin, Plavix, beta yari. Patient has allergy to statins and hence, cannot take the same. Patient unable to take ranolazine as she cannot afford it. Continue Imdur 120 mg by mouth daily Qualifiers: Coronary Disease-Associated Artery/Lesion type: [place] artery [place] vs. transplanted heart: [place] heart Associated angina: with unspecified angina Qualified Code(s): I25.119 - Atherosclerotic heart disease of [place] coronary artery with unspecified angina pectoris (2) Chest pain Status: Resolved resolved atypical on presentation trop 0.00 non hypertesive, non tachycardic Qualifiers: Chest pain type: unspecified Qualified Code(s): R07.9 - Chest pain, unspecified Discussion w patient/family: The assessment and plan as outlined above was discussed with the patient and/or family members who expressed understanding and agreement. All questions were answered. Thank you for involving us in the care of your patient. Please call with any questions. Subjective Principal diagnosis: chest pain Interval history: 71 yo F with PMHx CAD presented with atypical non-exertional chest pain. Pt had heart cath in Nov showing patent stents at that time. Troponin was 0.00. Pt states original pain has subsided. Pt states that she has had no chest pain or shortness of breath since admission with exertion or rest. Objective Vital Signs, Last 4 Hours Temp Pulse Resp BP Pulse Ox 07/07/16 08:16 97.9 F 69 17 115/73 94 General: Conversant, No Apparent Distress HEENT: Atraumatic, Normocephaly, Mucus Membranes Moist Neck: No JVD Cardiac: Reg Rate and Rhythm, Normal S1 and S2, No Murmur Lungs: Normal Breath Sounds, No Wheeze, Rales, Rhonchi Neuro: Alert and responsive, No focal deficits noted Abdomen: Soft, Non-Tender Skin: No rashes noted on visualized skin Musculoskeletal: No Chest Wall Tenderness Extremities: No Edema, Normal Pulses Results 07/06/16 00:08 07/07/16 04:45 Lab Results 07/07/16 04:45 Sodium 141 Potassium 4.4 D Chloride 111 H Carbon Dioxide 25 BUN 21 H Creatinine 1.07 Glucose 116 H Calcium 8.9 Consult Discharge Plan - Plan Additional Instructions: Please start taking Imdur 240mg daily Continue taking the rest of your home medications as you normally would Follow up with your primary care doctor as scheduled or within a week to 10 days for a follow up. Follow up with cardiology as scheduled. Return to the ER as needed for any other problems or concerns or if your symptoms worsen or change. Referrals: Karen Perez CNP [Primary Care Provider] - 07/13/16 3:00 pm Prescriptions: Isosorbide MONOnitrate [Isosorbide Mononitrate ER] 120 mg PO QAM #60 tab.er.24h
[2016-07-07] MEDS: Aspirin Enteric Coated 81 MG Tablet PO SCH (09:03)
[2016-07-07] MEDS: Acetaminophen 325 MG TABLET PO PRN (11:05)
[2016-07-07 11:50] VITALS: BP 135/73
--- NOTE | 2016-07-07 13:21 | Discharge Summary ---
Date of Encounter: 07/07/16 Time of Encounter: 09:45 - Discharge Diagnosis (1) Chest pain Priority: Primary Status: Acute Comments: Patient denies chest pain or shortness of breath today. She states that she feels better and has not had chest pain since admission. Chest x-ray was negative. Troponins were negative. Patient was seen by cardiology, will increase Imdur to 240mg po daily. Pt is unable to afford Ranexa and was given a form for financial assistance with the medication by the Substation Inspector [facility] in November 2015. 30% stenosis of the mid LAD and Mid Circumflex, and LMCA is free of disease. The RCA is known to be nondominant and occluded proximally. Echocardiogram was done on 03/23/2016. LVEF is 60% mild diastolic dysfunction, mild AR, no evidence of pulmonary hypertension. Continue medical management. Follow-up with PCP. Follow-up with cardiology as scheduled. Qualifiers: Chest pain type: precordial pain Qualified Code(s): R07.2 - Precordial pain (2) CAD (coronary artery disease) Priority: Secondary Status: Chronic Comments: Chronic. Imdur increased to 240 mg by mouth daily Continue Plavix, aspirin, beta yari, ARB Qualifiers: Coronary Disease-Associated Artery/Lesion type: [place] artery [place] vs. transplanted heart: [place] heart Associated angina: with unspecified angina Qualified Code(s): I25.119 - Atherosclerotic heart disease of [place] coronary artery with unspecified angina pectoris (3) Hypertension Priority: Secondary Status: Chronic Comments: Chronic. Continue home medications. Qualifiers: Hypertension type: essential hypertension Qualified Code(s): I10 - Essential (primary) hypertension (4) Diabetes Priority: Secondary Status: Chronic Comments: A1c 6.0% in April,. Continue home medications. Qualifiers: Diabetes mellitus type: type 2 Diabetes mellitus complication status: with kidney complications Diabetes mellitus complication detail: with chronic kidney disease Diabetes mellitus rat exterminator insulin use: without rat exterminator use Chronic kidney disease stage: stage 3 (moderate) Qualified Code(s): E11.22 - Type 2 diabetes mellitus with diabetic chronic kidney disease; N18.3 - Chronic kidney disease, stage 3 (moderate) (5) GERD (gastroesophageal reflux disease) Priority: Secondary Status: Chronic Comments: Chronic. Continue home medications. Qualifiers: Esophagitis presence: esophagitis presence not specified Qualified Code(s) : K21.9 - Gastro-esophageal reflux disease without esophagitis (6) DVT prophylaxis Priority: Secondary Status: Acute Comments: Patient is on Plavix. Up ad duncan. - Discharge Medications Prescriptions: Isosorbide MONOnitrate [Isosorbide Mononitrate ER] 120 mg PO QAM #60 tab.er.24h Home Medications: Albuterol Sulfate [Proair Respiclick] 2 puff IH Q4H PRN 11/21/14 [History] Loratadine [Claritin] 10 mg PO QAM PRN #0 11/21/14 [History] Losartan [Cozaar] 25 mg PO DAILY 11/21/14 [History] Nitroglycerin [Nitrostat] 0.4 mg SL Q5M PRN #0 11/21/14 [History] Aspirin 81 mg PO QAM 01/03/15 [History] Cholecalciferol (Vitamin D3) [Vitamin D3] 2,000 unit PO QPM 01/03/15 [History] Clopidogrel [Plavix] 75 mg PO QPM 01/03/15 [History] Vitamin E (Dl,Tocopheryl Acet) [Vitamin E] 400 unit PO QAM 01/03/15 [History] Albuterol Neb [Proventil Neb] 2.5 mg IH TID PRN 09/07/15 [History] Metoprolol [Lopressor] 25 mg PO HS 11/13/15 [History] Fluticasone Propionate Nasal [Flonase] 50 mcg NS BID PRN 12/03/15 [History] Acetaminophen [Tylenol] 1,000 mg PO BID 03/23/16 [History] Mv, Min #36/Iron,Carbonyl/FA [Geritol Complete Tablet] 1 tab PO DAILY 07/06/16 [ History] Pantoprazole Sodium [Protonix] 40 mg PO DAILY 07/06/16 [History] Ubidecarenone [Co Q-10] 30 mg PO DAILY 07/06/16 [History] Clopidogrel [Plavix] 75 mg PO HS tablet 07/07/16 [Rx] Isosorbide MONOnitrate [Isosorbide Mononitrate ER] 120 mg PO QAM #60 tab.er.24h 07/07/16 [Rx] Allergies/Adverse Reactions: Allergies clarithromycin Allergy (Verified 07/06/16 00:06) See Comments Erythromycin Base Allergy (Verified 07/06/16 00:06) See Comments hydrocodone [From Vicodin] Allergy (Verified 07/06/16 00:06) See Comments morphine Allergy (Verified 07/06/16 00:06) See Comments prednisone Allergy (Verified 07/06/16 00:06) See Comments propoxyphene Allergy (Verified 07/06/16 00:06) See Comments codeine Adverse Reaction (Verified 07/06/16 00:06) Anaphylaxis Bixluhg-Tjm-Eze Reductase Inhibitor [Statins] Adverse Reaction (Verified 00:06) Muscle Pain Date of admission: 07/06/16 01:18 Primary care physician: Karen Perez CNP Consults: 07/06/16 08:35 Consult to Cardiology [CONS] Routine Comment: Consulting Provider: Cardiology Rosanna Reason for Consult: 4th visit since mar for CP. imdur increased in Apr; cannot take ranexa 2/2 cost. has not been able to followup with Dr Garcia. Please eval and advise Time Notified: 08:36 Call Completed: Yes 07/06/16 11:37 Consult to Skin Diving Teacher [CONS] Routine Reason for SW Consult: 4th admission this year for CP. cannot afford ranexa Discharging clinician: Marija Devlin Anticipated date of discharge: 07/07/16 - Patient Status Disposition: Home, Self-Care Functional capacity at discharge: uses cane/walker Overall status at discharge: patient is back to baseline - Discharge Instructions Follow Up With: Karen Perez CNP [Primary Care Provider] - Additional Instructions: Please start taking Imdur 240mg daily Continue taking the rest of your home medications as you normally would Follow up with your primary care doctor as scheduled or within a week to 10 days for a follow up. Follow up with cardiology as scheduled. Return to the ER as needed for any other problems or concerns or if your symptoms worsen or change. - Diet and Activity Activity: ambulate only with your walker Diet: advance to your usual diet Hospital course: Ms. Larkin is a 71 year old female with a history of coronary artery disease, diabetes type 2, GERD, hypertension, obesity. She presented to the emergency room yesterday with chest pain that began 2 nights prior at rest. Patient states that she took aspirin and nitroglycerin and chest pain was relieved. She said she went to sleep and remained pain-free. The next evening, she states that chest pain began again after exertion. Patient states that she was cleaning and took her dog for a walk. When she returned home she began having the pain again in mid sternal area with radiation to her back. She rates it as 6 out of 10 without shortness of breath, vomiting, abdominal pain, or diaphoresis. She said at the time she did feel dizzy and nauseated. This second episode did not relieve with baby aspirin or nitroglycerin and she went to the emergency room. Patient had an echocardiogram in March,. LVEF is 60%. Normal LV chamber size, wall thickness, and function. Mild diastolic dysfunction, normal RV structure and function. Mild AR, and no evidence of pulmonary hypertension. Patient had LHC in November,. She had patent mid LAD and OM I stents and stable coronary artery disease. EF 65% and LV is normal and normal contractility. It was recommended at that time that she continue medical therapy for the CAD. Chest x-ray was negative for any acute disease, troponins were negative. Patient has remained pain-free. Patient is independent at home, still drives herself everywhere. She has no social service needs at home and denies difficulty caring for herself. I discussed with her that she should return to the emergency room for evaluation if she has any recurrent chest pain or any concerns. Her labs are all stable. She was seen by cardiology during this visit and they have signed off. I appreciate their recommendations. Patient is stable and appropriate for discharge. - Time Spent with Patient Total time spent providing and/or coordinating discharge services: Less than 30 minutes - Constitutional Vitals: Temp Pulse Resp BP Pulse Ox 97.5 F L 71 13 135/73 96 07/07/16 11:49 07/07/16 11:49 07/07/16 11:49 07/07/16 11:49 07/07/16 11:49 General appearance: Present: cooperative, A&O X 3, pleasant, no acute distress, answers questions appropriately - Head Head exam: Present: normal inspection - Eye Eye exam: Present: normal appearance, conjuntiva pink - ENT ENT exam: Present: mucous membranes moist, normal exam - Neck Neck exam general surgery: Present: normal inspection. Absent: lymphadenopathy , tenderness - Respiratory Respiratory exam: Present: CTAB. Absent: rales, rhonchi, stridor, wheezes - Cardiovascular Cardiovascular exam: Present: RRR, +S1, +S2. Absent: diastolic murmur, systolic murmur - GI/Abdominal GI/Abdominal exam: Absent: distended, hepatomegaly, splenomegaly, tenderness - Extremities Exam Extremities exam: Present: normal inspection, warm. Absent: calf tenderness, pedal edema, tenderness - Neurological Exam Neurological exam: Present: alert, oriented X3. Absent: facial droop, speech deficit
== END 2016-07-07 14:35 | disposition home or self-care (01) ==
LOC: 3BNU 23:12 → EMEROO 23:12 → 3BNU 07-06 01:47
PROVIDERS: ADMIT Internal Medicine Sleep Medicine; ATTEND Nurse Practitioner Family

== ENCOUNTER 2016-09-17 15:31 | Observation (INO) ==
--- NOTE | 2016-09-17 16:10 | Emergency Department Note ---
Disposition Clinical Impression: Unstable angina CAD (coronary artery disease) Qualifiers: Coronary Disease-Associated Artery/Lesion type: [place] artery [place] vs. transplanted heart: [place] heart Associated angina: with unstable angina Qualified Code(s): I25.110 - Atherosclerotic heart disease of [place] coronary artery with unstable angina pectoris Disposition: Admitted As Inpatient Condition: Good Time of Disposition: 17:34 General Adult HPI - General Chief complaint: ED Chest Pain Stated complaint: Chest Pain Time Seen by Provider: 09/17/16 15:58 Source: patient Mode of arrival: ambulatory Limitations: no limitations Nursing Notes Reviewed: Yes Vital Signs Reviewed: Yes - History of Present Illness HPI Narrative: 71-year-old female presenting to the emergency department for inferior chest pain and intrascapular back pain. She states while she was cleaning her toilet today at home she had this chest pain and intrascapular pain that radiated up to her neck. She states these symptoms are very similar to symptoms she has had with her previous MIs. She has had stent placement in 2014 and 2010. She is currently taking Plavix and aspirin. She took her baby aspirin this morning around 8:30 AM. She states her pain does not radiate. And describes the eyes and aching burning. She also describes nausea and diaphoresis during this episode. She did not vomit. She tried two nitro at home with mild alleviation of symptoms but they gave her a headache. That is when she decided to come to the emergency room. Her current pain is 8/10 Pain Scale: 8 - Related Data Home Medications Medication Instructions Recorded Confirmed Albuterol Sulfate [Proair 2 puff IH Q4H PRN 11/21/14 09/17/16 Respiclick] Loratadine [Claritin] 10 mg PO QAM PRN #0 11/21/14 09/17/16 Losartan [Cozaar] 25 mg PO DAILY 11/21/14 09/17/16 Nitroglycerin [Nitrostat] 0.4 mg SL Q5M PRN #0 11/21/14 09/17/16 Aspirin 81 mg PO BID 01/03/15 09/17/16 Cholecalciferol (Vitamin D3) 2,000 unit PO QPM 01/03/15 09/17/16 [Vitamin D3] Clopidogrel [Plavix] 75 mg PO QPM 01/03/15 09/17/16 Vitamin E (Dl,Tocopheryl Acet) 400 unit PO QAM 01/03/15 09/17/16 [Vitamin E] Albuterol Neb [Proventil Neb] 2.5 mg IH TID PRN 09/07/15 09/17/16 Metoprolol [Lopressor] 25 mg PO HS 11/13/15 09/17/16 Fluticasone Propionate Nasal 50 mcg NS BID PRN 12/03/15 09/17/16 [Flonase] Acetaminophen [Tylenol] 1,000 mg PO BID PRN 03/23/16 09/17/16 Mv, Min #36/Iron,Carbonyl/FA 1 tab PO DAILY 07/06/16 09/17/16 [Geritol Complete Tablet] Pantoprazole Sodium [Protonix] 40 mg PO DAILY 07/06/16 09/17/16 Isosorbide MONOnitrate [Isosorbide 240 mg PO QAM 08/11/16 09/17/16 Mononitrate ER] Allergies Allergy/AdvReac Type Severity Reaction Status Date / Time codeine Allergy Difficulty Verified 09/17/16 15:40 Breathing prednisone Allergy Rash Verified 09/17/16 15:40 clarithromycin AdvReac Vomiting Verified 09/17/16 15:40 Erythromycin Base AdvReac Vomiting Verified 09/17/16 15:40 hydrocodone [From Vicodin] AdvReac Dizziness Verified 09/17/16 15:40 propoxyphene AdvReac Vomiting Verified 09/17/16 15:40 Dojzibc-Flp-Rdg Reductase AdvReac Muscle Pain Verified 09/17/16 15:40 Inhibitor [Statins] All systems ED: reviewed and negative except as stated. Cardiovascular: Reports: chest pain Gastrointestinal: Reports: nausea Musculoskeletal: Reports: back pain Past Medical History - Past Medical History Medical history: Reports: CHF, coronary artery disease, DVT, GERD, hypertension , myocardial infarction Surgical history: Reports: angioplasty/stent, appendectomy, cancer surgery, cholecystectomy, hysterectomy, orthopedic, other, other Psychiatric history: Reports: no psych history EMPLOYEE RELATIONS SPECIALIST history: Reports: no EMPLOYEE RELATIONS SPECIALIST history - Social History Smoking Status: Never smoker Smokeless Tobacco Status: No Alcohol use: Reports: none Drug use: Reports: none Physical Exam - General General appearance: alert, in no apparent distress - Head Head exam: atraumatic, normocephalic - Eye Eye exam: Present: normal appearance - Neck Neck exam: Present: normal inspection, full ROM - Chest Chest inspection: Present: normal inspection, symmetric chest wall rise. Absent : tenderness - Respiratory Respiratory exam: Present: normal lung sounds bilaterally. Absent: respiratory distress, wheezes - Cardiovascular Cardiovascular exam: Present: regular rate, normal rhythm, normal heart sounds. Absent: rubs, gallop - Abdominal Exam Abdominal exam: Present: soft, tenderness. Absent: guarding, rebound, rigidity Abdominal tenderness: Present: epigastrium - Extremities Exam Extremities exam: Present: normal inspection, full ROM - Neurological Exam Neurological exam: Present: alert, oriented X3 - Skin Skin exam: Present: other (multiple circular surgical sites on her left lower leg) Course Course Narrative: 71-year-old female presenting to the emergency department for her chest pain that radiates into her back. Due to her history of prior stent placement and her stating the symptoms are the exact as her previous MIs, we will do a chest pain workup. - Reevaluation(s) Reevaluation #1: Other lab work has returned and is within normal limits. Due to her strong cardiac history we will admit to the hospitalist. We put a call to the hospitalist promptly returns. The admitting physician Dr Gomez has accepted the patient. Vital Signs Temperature 97.8 F 09/17/16 15:37 Pulse Rate 96 09/17/16 15:37 Respiratory Rate 16 09/17/16 15:37 Blood Pressure 108/70 09/17/16 15:37 O2 Sat by Pulse Oximetry 95 09/17/16 15:37 Temperature 97.8 F 09/17/16 15:37 Pulse Rate 96 09/17/16 15:37 Respiratory Rate 16 09/17/16 15:37 Blood Pressure 108/70 09/17/16 15:37 O2 Sat by Pulse Oximetry 95 09/17/16 15:37 Oxygen Delivery Oxygen Delivery Room Air Medical Decision Making - Medical Records Medical records reviewed: Yes I reviewed the patient's medical records. - Lab Data Lab results reviewed: Yes I reviewed the patient's lab results. Result diagrams: 09/17/16 16:26 09/17/16 16:26 Lab Results 09/17/16 09/17/16 09/17/16 Range/Units 16:26 16:26 16:26 WBC 6.8 (4.3-11.1) K/mcL RBC 4.01 (3.82-4.97) M/mcL Hgb 12.3 (11.5-15.4) g/dL Hct 37.8 (35.3-44.9) % MCV 94.3 (83.0-100.0) fL MCH 30.7 (28.0-33.3) pg MCHC 32.5 (31.6-35.5) g/dL RDW 12.9 (11.5-14.5) % Plt Count 168 (140-400) K/mcL MPV 11.9 (9.4-12.4) fL Immature Gran % 0.3 (0-4) % Seg Neutrophils % 61.5 % Lymphocytes % 24.3 % Monocytes % 9.6 % Eosinophils % 3.9 % Basophils % 0.4 % Neutrophils # 4.2 (1.6-8.9) K/mcL Lymphocytes # 1.7 (0.6-4.6) K/mcL Monocytes # 0.7 (0.0-1.3) K/mcL Eosinophils # 0.3 (0.0-0.6) K/mcL Basophils # 0.0 (0.0-0.2) K/mcL PT 12.6 H (9.4-12.1) Seconds INR 1.2 APTT 31.5 (26.0-36.0) Seconds Sodium 143 (136-145) mEq/L Potassium 4.1 (3.5-4.5) mEq/L Chloride 112 H (98-109) mEq/L Carbon Dioxide 25 (19-29) mEq/L BUN 25 H (7-20) mg/dL Creatinine 1.13 H (0.57-1.11) mg/dL Est GFR ( Amer) 57 L (> 60) Est GFR (Non-Af Amer) 47 L (> 60) BUN/Creatinine Ratio 22 (6-26) Glucose 101 H (70-99) mg/dL Calculated Osmolality 301 H (280-300) Calcium 9.5 (8.6-10.8) mg/dL Total Bilirubin 0.4 (0.2-1.2) mg/dL Direct Bilirubin 0.2 (0.0-0.5) mg/dL Indirect Bilirubin 0.2 (0.0-1.2) mg/dL AST 25 (5-34) Units/L ALT 19 (0-55) Units/L Alkaline Phosphatase 103 (38-126) Units/L Troponin I (0-0.03) ng/mL Serum Total Protein 6.5 (6.0-8.3) g/dL Albumin 3.5 (3.5-5.0) g/dL Globulin 3.0 (2.4-3.5) g/dL Albumin/Globulin Ratio 1.2 (1.1-2.2) Lipase < 10 (8-78) Units/L 09/17/16 Range/Units 16:26 WBC (4.3-11.1) K/mcL RBC (3.82-4.97) M/mcL Hgb (11.5-15.4) g/dL Hct (35.3-44.9) % MCV (83.0-100.0) fL MCH (28.0-33.3) pg MCHC (31.6-35.5) g/dL RDW (11.5-14.5) % Plt Count (140-400) K/mcL MPV (9.4-12.4) fL Immature Gran % (0-4) % Seg Neutrophils % % Lymphocytes % % Monocytes % % Eosinophils % % Basophils % % Neutrophils # (1.6-8.9) K/mcL Lymphocytes # (0.6-4.6) K/mcL Monocytes # (0.0-1.3) K/mcL Eosinophils # (0.0-0.6) K/mcL Basophils # (0.0-0.2) K/mcL PT (9.4-12.1) Seconds INR APTT (26.0-36.0) Seconds Sodium (136-145) mEq/L Potassium (3.5-4.5) mEq/L Chloride (98-109) mEq/L Carbon Dioxide (19-29) mEq/L BUN (7-20) mg/dL Creatinine (0.57-1.11) mg/dL Est GFR ( Amer) (> 60) Est GFR (Non-Af Amer) (> 60) BUN/Creatinine Ratio (6-26) Glucose (70-99) mg/dL Calculated Osmolality (280-300) Calcium (8.6-10.8) mg/dL Total Bilirubin (0.2-1.2) mg/dL Direct Bilirubin (0.0-0.5) mg/dL Indirect Bilirubin (0.0-1.2) mg/dL AST (5-34) Units/L ALT (0-55) Units/L Alkaline Phosphatase (38-126) Units/L Troponin I 0.00 (0-0.03) ng/mL Serum Total Protein (6.0-8.3) g/dL Albumin (3.5-5.0) g/dL Globulin (2.4-3.5) g/dL Albumin/Globulin Ratio (1.1-2.2) Lipase (8-78) Units/L - Radiology Data Radiology results reviewed: Yes I reviewed the patient's radiology results. - EKG Data EKG #1 EKG attestation: Yes I reviewed and interpreted this EKG. EKG results narrative: Rate of 93 bpm, normal sinus rhythm, normal axis. ND interval 146 ms, QRS 89 ms , QTC [address] segment abnormalities noted. Compared to previous EKG done on 07/05/2016 with no significant changes. Attestation Statement - Attestation Attestation: I personally interviewed and examined this patient and my medical decision- making was reviewed with the Resident Physician, Dr. Phelps. I agree with the documented findings, disposition and treatment plan as described except to the extent set forth below. Patient is a 71-year-old white female with a history of prior NH, known coronary disease with stent placement 2 most recently in 2014, who presents to the emergency room in today with thoracic back pain that began acutely with exertion this morning at approximately 10:30 AM while she was cleaning her bathroom. Patient states "this is exactly the same pain I had when I had my heart attack", stating this was associated with diaphoresis, shortness of breath , nausea but no vomiting. Patient states she took some nitroglycerin at home and states she took 2 doses and had a bad headache but it did improve her pain temporarily. Patient states pain returned and has been constant since that time. Patient denies any lightheadedness or syncope, no abdominal pain no other associated symptoms. I agree with patient's physical exam findings as documented. Patient's initial EKG showed no acute ST or T wave changes, this was compared to a prior EKG with no significant changes seen. Patient is hemodynamically stable on arrival to the ED. Patient received aspirin and nitroglycerin which did improve her pain. Initial troponin is negative, chest x-ray is unremarkable remaining labs are unchanged from prior. Patient with significant cardiac history and concerning symptoms similar to what she is experienced in the past with her prior NH. We will admit the patient for further evaluation and management. Case was discussed with the hospitalist who accepted the patient for admission.
[2016-09-17] MEDS ORDERED: Aspirin 81 MG TAB.CHEW PO ONE (16:28)
[2016-09-17 16:40] LABS: Basophils % 0.4 %; Eosinophils # 0.3 K/mcL (0.0-0.6); Eosinophils % 3.9 %; Hematocrit 37.8 % (35.3-44.9); Hemoglobin 12.3 g/dL (11.5-15.4); Immature Granulocytes % 0.3 % (0-4); Lymphocytes # 1.7 K/mcL (0.6-4.6); Lymphocytes % 24.3 %; Mean Corpuscular HGB Conc 32.5 g/dL (31.6-35.5); Mean Corpuscular Hemoglobin 30.7 pg (28.0-33.3); Mean Corpuscular Volume 94.3 fL (83.0-100.0); Mean Platelet Volume 11.9 fL (9.4-12.4); Monocytes # 0.7 K/mcL (0.0-1.3); Monocytes % 9.6 %; Neutrophils # 4.2 K/mcL (1.6-8.9); Platelet Count 168 K/mcL (140-400); Red Blood Count 4.01 M/mcL (3.82-4.97); Red Cell Distribution Width 12.9 % (11.5-14.5); Segmented Neutrophils % 61.5 %
[2016-09-17 16:46] LABS: INR 1.2; Prothrombin Time 12.6 Seconds (9.4-12.1)
[2016-09-17 16:49] LABS: Activated Partial Thrombo Time 31.5 Seconds (26.0-36.0)
[2016-09-17 16:55] LABS: Alanine Aminotransferase 19 Units/L (0-55); Albumin 3.5 g/dL (3.5-5.0); Albumin/Globulin Ratio 1.2 (1.1-2.2); Alkaline Phosphatase 103 Units/L (38-126); Aspartate Amino Transferase 25 Units/L (5-34); BUN/Creatinine Ratio 22 (6-26); Bilirubin,Direct 0.2 mg/dL (0.0-0.5); Bilirubin,Indirect 0.2 mg/dL (0.0-1.2); Bilirubin,Total 0.4 mg/dL (0.2-1.2); Blood Urea Nitrogen 25 mg/dL (7-20); Calcium 9.5 mg/dL (8.6-10.8); Carbon Dioxide 25 mEq/L (19-29); Chloride 112 mEq/L (98-109); Glucose 101 mg/dL (70-99); Lipase < 10 Units/L (8-78); Osmolality,Calculated 301 (280-300); Potassium 4.1 mEq/L (3.5-4.5); Sodium 143 mEq/L (136-145); Total Protein 6.5 g/dL (6.0-8.3); eGFR For African Americans 57 (> 60); eGFR For Non-African Americans 47 (> 60)
[2016-09-17] MEDS: Nitroglycerin 0.4 MG TAB.SUBL SL PRN (17:05)
[2016-09-17] MEDS: 0.9 % Sodium Chloride 1,000 ML IVC SCH ×2 (17:05→22:12)
[2016-09-17] MEDS ORDERED: Naloxone 0.4 MG/ML INJ IVP PRN (20:01)
[2016-09-17] MEDS ORDERED: Loratadine 10 MG TABLET PO PRN (20:03)
[2016-09-17] MEDS ORDERED: Fluticasone Propionate Nasal 50 MCG/SPRAY BOTTLE NS PRN (20:03)
[2016-09-17] MEDS ORDERED: Nitroglycerin 0.4 MG TAB.SUBL SL PRN (20:03)
--- NOTE | 2016-09-17 20:04 | Internal Med History&Physical ---
Date of Encounter: 09/17/16 Time of Encounter: 20:04 Assessment and Plan (1) Chest pain Current visit: Yes Status: Acute patient with CAD s/p stents in both the left anterior descending-LAD and obtuse marginal, her most recent cardiac cath was in 11/2015 which reported; left main being free of disease, LAD; proximal portion with patent stents, mid LAD also with patents stents, 30% stenosis in mid LAD, circumflex with patent stents in obtuse marginal, with 30% stenosis in the mid circumflex, the right coronary was non dominant and was occluded proximally, she has had medical management in the past with increase in her long acting nitrate dose, she even had a prescription for Ranexa but has not been able to afford the co-pay, she will benefit from cardiology input, no plan for stress test Qualifiers: Chest pain type: precordial pain Qualified Code(s): R07.2 - Precordial pain (2) CAD (coronary artery disease) Current visit: Yes Status: Chronic hx of CAD s/p stent and on medications, we will manage per chest pain section Qualifiers: Coronary Disease-Associated Artery/Lesion type: [place] artery [place] vs. transplanted heart: [place] heart Associated angina: with unspecified angina Qualified Code(s): I25.119 - Atherosclerotic heart disease of [place] coronary artery with unspecified angina pectoris (3) Hypertension Current visit: Yes Status: Chronic she is on antihypertensives which we will continue with BP monitoring Qualifiers: Hypertension type: essential hypertension Qualified Code(s): I10 - Essential (primary) hypertension Internal Medicine - H&P: HPI Chief complaint: Chest pain Admitted From: Emergency Dept Plans for Post Hospital Care: Home History of present illness: Ms. Larkin is a 71 year old female with a hx of CAD s/p stents in LAD and OM with symptom limiting angina who comes in with chest pain. She reports that she always has chest pain and has been in and out of the hospital for that reason. She was doing light work today cleaning her commode and during that process she felt sharp retrosternal pain that was 8-9/10 in severity improved when she stopped and rested but never abated. When she got up and started walking again the pain got worse. She then took aspirin and nitro but the pain remained about same. It radiated to her back, was constant and associated with diaphoresis, lightheadedness, nausea but no vomiting, no palpitations was noted, she was unsure of any change in her baseline dyspnea. Of note she has had her long acting nitrate dose increased as part of her medical management by the airconditioning drafting officer and at one point was prescribed Ranexa but she was never able to afford the co-pay which is about $265.00, when she only gets $1,000.00 a month. She denies any other symptoms. Past Med Surg Social Fam HX - Past Medical History Medical history: CHF, coronary artery disease, DVT, GERD, hypertension, myocardial infarction Psychiatric history: no psych history - Past Surgical History Surgical History: angioplasty/stent, appendectomy, cancer surgery, cholecystectomy, hysterectomy, orthopedic, other, other - Social History Smoking Status: Never smoker Smokeless Tobacco Status: No Alcohol use: none Drug use: none Current living situation: Home - Independent Activity Level: Independent ambulation - Family History Father Family Member Ethnicity: Non- Twin of Family Member: Yes, Fraternal Living Status: Hx Family Cardiac Disorders: Yes Hx Family Respiratory Disorders: No Hx Family Cancer: Yes (Lung) Hx Family GI Disorders: No Hx Family Endocrine Disorder: No Hx Family Neuromuscular Disorders: No Hx Family Neurologic Disorders: No Hx Family HEENT Disorders: No Hx Family Autoimmune Disorders: No Mother Living Status: Hx Family Cardiac Disorders: Yes Hx Family Cancer: Yes - Additional Family History Additional family history: mother of non hogkins lymphoma Internal Medicine - H&P: Meds Albuterol Sulfate [Proair Respiclick] 2 puff IH Q4H PRN 11/21/14 [History] Loratadine [Claritin] 10 mg PO QAM PRN #0 11/21/14 [History] Losartan [Cozaar] 25 mg PO DAILY 11/21/14 [History] Nitroglycerin [Nitrostat] 0.4 mg SL Q5M PRN #0 11/21/14 [History] Aspirin 81 mg PO BID 01/03/15 [History] Cholecalciferol (Vitamin D3) [Vitamin D3] 2,000 unit PO QPM 01/03/15 [History] Clopidogrel [Plavix] 75 mg PO QPM 01/03/15 [History] Vitamin E (Dl,Tocopheryl Acet) [Vitamin E] 400 unit PO QAM 01/03/15 [History] Albuterol Neb [Proventil Neb] 2.5 mg IH TID PRN 09/07/15 [History] Metoprolol [Lopressor] 25 mg PO HS 11/13/15 [History] Fluticasone Propionate Nasal [Flonase] 50 mcg NS BID PRN 12/03/15 [History] Acetaminophen [Tylenol] 1,000 mg PO BID PRN 03/23/16 [History] Mv, Min #36/Iron,Carbonyl/FA [Geritol Complete Tablet] 1 tab PO DAILY 07/06/16 [ History] Pantoprazole Sodium [Protonix] 40 mg PO DAILY 07/06/16 [History] Isosorbide MONOnitrate [Isosorbide Mononitrate ER] 240 mg PO QAM 08/11/16 [ History] Allergies codeine Allergy (Verified 09/17/16 15:40) Difficulty Breathing prednisone Allergy (Verified 09/17/16 15:40) Rash clarithromycin Adverse Reaction (Verified 09/17/16 15:40) Vomiting Erythromycin Base Adverse Reaction (Verified 09/17/16 15:40) Vomiting hydrocodone [From Vicodin] Adverse Reaction (Verified 09/17/16 15:40) Dizziness propoxyphene Adverse Reaction (Verified 09/17/16 15:40) Vomiting Wrjslae-Iua-Nkp Reductase Inhibitor [Statins] Adverse Reaction (Verified 15:40) Muscle Pain All Systems PM: A 10-system review of systems was performed and is negative for pertinent findings except as documented above in the HPI. - Constitutional Vitals: Temp Pulse Resp BP Pulse Ox 97.8 F 65 18 127/84 97 09/17/16 15:37 09/17/16 18:03 09/17/16 19:32 09/17/16 19:32 09/17/16 18:03 GENERAL: Adult female, lying in bed, Alert, not in acute distress, HEENT: NC/AT, EOMI, PERRLA, anicteric sclera, normal conjunctiva, supple, clear nares, moist mucous membranes, RESP: Lungs are clear to auscultation bilaterally, good AE bilaterally, No crackles or wheeze CARDIO: Normal hearts sounds; S1 and 2, RRR with no murmurs, no JVD, no ankle edema GI: Soft, full, no tenderness, no organomegaly felt, normal bowel sounds heard MUSCULOSKELETAL: grossly normal movements bilaterally, no deformities noted, no calf tenderness NEUROLOGIC: CN 2-12 intact grossly. No gross motor/sensory deficit appreciated, PSYCHIATRY: AAO x 3. Mood is fair, SKIN: no skin rash or ulcers noted Internal Med - H&P Results - Labs CBC & Chem 7: 09/17/16 16:26 09/18/16 04:29 - EKG Data -: EKG Interpreted by Myself - Diagnostic Studies Chest x-ray Status: image reviewed by me
[2016-09-17] MEDS: Aspirin 81 MG TAB.CHEW PO SCH (21:18)
[2016-09-18 05:31] LABS: Calcium 8.6 mg/dL (8.6-10.8); Chol/HDL Ratio 5.9 (0-4.9); Magnesium 1.4 mg/dL (1.6-2.6); Potassium 4.1 mEq/L (3.5-4.5)
[2016-09-18 05:34] LABS: Hemoglobin A1C 5.7 %
[2016-09-18] MEDS ORDERED: Magnesium Sulfate 2 GM in D5% in Water 100 ML IVPB ONE (08:13)
[2016-09-18] MEDS: Isosorbide MONOnitrate (24 HR) 60 MG TAB.ER.24H PO SCH (08:49)
[2016-09-18] MEDS: Multivit/Ca/Min/Fe/FA 1 TAB TABLET PO SCH (08:50)
[2016-09-18] MEDS: Aspirin 81 MG TAB.CHEW PO SCH ×2 (08:50→21:07)
[2016-09-18] MEDS: *HR* Heparin 5,000 UNIT/ML VIAL SQ SCH ×3 (08:53→21:07)
[2016-09-18] MEDS: 0.9 % Sodium Chloride 1,000 ML IVC SCH (09:00)
--- NOTE | 2016-09-18 09:33 | Electrocardiograph Report ---
[address] [address] Test Date: 2016-09-17 Pat Name: Elly Larkin Department: 102 Room: [facility] Gender: F [employer] Clerk: : 1945 Requested By: Carlos Kessler Order Number: [id number] Reading MD: Bebeto Moya MD Measurements Intervals [place] Rate: 93 P: -13 SC: 146 QRS: 12 QRSD: 89 T: 14 QT: 333 QTc: 384 Interpretive Statements SINUS RHYTHM Electronically Signed On 09-18-2016 9:32:18 EDT by Bebeto Moya MD
[2016-09-18] MEDS: Nitroglycerin 0.4 MG TAB.SUBL SL PRN (09:47)
--- NOTE | 2016-09-18 09:48 | Cardiology Consult Note ---
Date of Encounter: 09/18/16 Time of Encounter: 09:30 Assessment and Plan (1) Chest pain Current Visit: Yes Status: Acute Per cardiology: -Patient with chronic chest pain. -Patient presents with chest pain that started while cleaning her toilet. -Patient reports pain lessened with rest. Patient took nitroglycerin at home with no change in symptoms. -Patient reports had been chest pain free since admission, until during my assessment. -Troponin negative x1. -ECG with no ishemic changes. -Cath 11/2015 with proximal LAD with patent stents, mid lad with patent stents, 30% mid LAD, OM1 with patent stents, 30% mid circumflex, RCA known to be non- dominant and occluded proximally. -Echo 03/2016 with LVEF 60%, mild diastolic dysfunction, mild AR, all wall segments with normal motion. -Patient is on imdur, had previously been on ranexa, however ranexa is unaffordable for patient. -Of note, Magnesium 1.4, replaced per primary service. -Will repeat troponin. Qualifiers: Chest pain type: unspecified Qualified Code(s): R07.9 - Chest pain, unspecified (2) CAD (coronary artery disease) Current Visit: Yes Status: Chronic Per cardiology: -[place] CAD with LHC and echo as above. -ON asa, beta yari, imdur, and ARB. -Of note, patient takes asa BID and lopressor daily. Educated on recommended schedule of medications, patient states is aware she takes her medications this way. Per review of 's last office note, medications were listed at asa 81mg daily and lopressor 25mg BID. -Patient is intolerant to statins. -BPs 100-120s systolic. -Troponin negative x1. -ECG with no ischemic changes. -Will repeat troponin. -Per discussion with , Will change lopressor to toprol 25mg daily for once daily beta yari dosing. Qualifiers: Coronary Disease-Associated Artery/Lesion type: [place] artery [place] vs. transplanted heart: [place] heart Associated angina: with unspecified angina Qualified Code(s): I25.119 - Atherosclerotic heart disease of [place] coronary artery with unspecified angina pectoris Discussion w patient/family: The assessment and plan as outlined above was discussed with the patient who expressed understanding and agreement. All questions were answered. Thank you for involving us in the care of your patient. Please call with any questions. Discussed and reviewed with . History of Present Illness Consult date: 09/18/16 Requesting physician: Duarte Escalante Consult reason: angina Chief complaint: chest pain History of present illness: Ms. Larkin is a 71 year old female with a relevant past medical history of HTN, CAD s/p stenting, hyperlipidemia, [place], chest pain, asthma, anemia, DM. Patient presented to [facility] with complaints of left sided chest pain. Patient denies radiation of pain. Patient states pain started while cleaning her toilet at home. Patient states pain was lessened by rest. Patient states she took nitroglycerin at home with no change in symptoms. Patient states she had not had chest pain since admission to her hospital room However, during my assessment, she stated she started having chest pain 3/10, mid sternal. Patient denies shortness of breath or increased fatigue. Past Med Surg Social Fam HX - Past Medical History Attestation: Yes The following information was validated with the patient. Source: patient, old records reviewed Medical history: CHF, coronary artery disease, DVT, GERD, hypertension, myocardial infarction Psychiatric history: no psych history - Past Surgical History Surgical History: angioplasty/stent, appendectomy, cancer surgery, cholecystectomy, hysterectomy, orthopedic, other, other - Social History Smoking Status: Never smoker Smokeless Tobacco Status: No Alcohol use: none Drug use: none - Family History Father Family Member Ethnicity: Non- Twin of Family Member: Yes, Fraternal Living Status: Hx Family Cardiac Disorders: Yes Hx Family Respiratory Disorders: No Hx Family Cancer: Yes (Lung) Hx Family GI Disorders: No Hx Family Endocrine Disorder: No Hx Family Neuromuscular Disorders: No Hx Family Neurologic Disorders: No Hx Family HEENT Disorders: No Hx Family Autoimmune Disorders: No Mother Living Status: Hx Family Cardiac Disorders: Yes Hx Family Cancer: Yes Medications and Allergies Albuterol Sulfate [Proair Respiclick] 2 puff IH Q4H PRN 11/21/14 [History] Loratadine [Claritin] 10 mg PO QAM PRN #0 11/21/14 [History] Losartan [Cozaar] 25 mg PO DAILY 11/21/14 [History] Nitroglycerin [Nitrostat] 0.4 mg SL Q5M PRN #0 11/21/14 [History] Aspirin 81 mg PO BID 01/03/15 [History] Cholecalciferol (Vitamin D3) [Vitamin D3] 2,000 unit PO QPM 01/03/15 [History] Clopidogrel [Plavix] 75 mg PO QPM 01/03/15 [History] Vitamin E (Dl,Tocopheryl Acet) [Vitamin E] 400 unit PO QAM 01/03/15 [History] Albuterol Neb [Proventil Neb] 2.5 mg IH TID PRN 09/07/15 [History] Metoprolol [Lopressor] 25 mg PO HS 11/13/15 [History] Fluticasone Propionate Nasal [Flonase] 50 mcg NS BID PRN 12/03/15 [History] Acetaminophen [Tylenol] 1,000 mg PO BID PRN 03/23/16 [History] Mv, Min #36/Iron,Carbonyl/FA [Geritol Complete Tablet] 1 tab PO DAILY 07/06/16 [ History] Pantoprazole Sodium [Protonix] 40 mg PO DAILY 07/06/16 [History] Isosorbide MONOnitrate [Isosorbide Mononitrate ER] 240 mg PO QAM 08/11/16 [ History] Allergies codeine Allergy (Verified 09/17/16 15:40) Difficulty Breathing prednisone Allergy (Verified 09/17/16 15:40) Rash clarithromycin Adverse Reaction (Verified 09/17/16 15:40) Vomiting Erythromycin Base Adverse Reaction (Verified 09/17/16 15:40) Vomiting hydrocodone [From Vicodin] Adverse Reaction (Verified 09/17/16 15:40) Dizziness propoxyphene Adverse Reaction (Verified 09/17/16 15:40) Vomiting Lairike-Bdz-Gwb Reductase Inhibitor [Statins] Adverse Reaction (Verified 15:40) Muscle Pain All Systems Review: A 10-system review of systems was performed and is negative for pertinent findings except as documented above in the HPI. - Cardiovascular Cardiovascular: as per HPI, chest pain at rest, chest pain with exertion Physical Examination Vital Signs, Last 4 Hours Temp Pulse Resp BP Pulse Ox 09/18/16 06:54 98.2 F 61 16 127/68 96 General: Conversant, No Apparent Distress HEENT: Atraumatic, Normocephaly, Mucus Membranes Moist Neck: No JVD, Normal carotid pulses Cardiac: Reg Rate and Rhythm, Normal S1 and S2, No Murmur Lungs: Normal Breath Sounds, No Wheeze, Rales, Rhonchi Neuro: Alert and responsive, No focal deficits noted Abdomen: Soft, Non-Tender Skin: No rashes noted on visualized skin Musculoskeletal: No Chest Wall Tenderness Extremities: No Clubbing, No Cyanosis, No Edema, Normal Pulses Results 09/17/16 16:26 09/18/16 04:29 Lab Results Impressions Chest X-Ray 09/17/16 15:36 IMPRESSION: No acute process. D/ / Juliet Lipscomb MD / Juliet Lipscomb MD Interpreting Provider: Juliet Lipscomb MD Active Medications Acetaminophen (Tylenol) 1,000 mg PO BID PRN PRN Reason: Mild Pain Stop: 03/19/17 20:04 Aspirin (Aspirin) [address] [facility] Stop: 03/19/17 21:01 Last Admin: 09/18/16 08:50 Dose: 81 mg Clopidogrel Bisulfate (Plavix) [address] [facility] Stop: 03/20/17 18:01 Fluticasone Propionate (Flonase) 50 mcg NS BID PRN; Protocol PRN Reason: Allergy Symptoms Stop: 03/19/17 20:04 Heparin Sodium (Porcine) (Heparin) 5,[address] [facility] Stop: 03/20/17 07:01 Last Admin: 09/18/16 08:53 Dose: 5,000 unit Sodium Chloride (0.9 % Sodium Chloride) 1,000 mls @ 100 mls/hr IVC .Q10H [facility] Stop: 03/19/17 16:31 Last Admin: 09/18/16 09:00 Dose: 100 mls/hr Isosorbide Mononitrate (Imdur) [address] [facility] Stop: 03/20/17 09:01 Last Admin: 09/18/16 08:49 Dose: 240 mg Loratadine (Claritin) 10 mg PO QAM PRN; Protocol PRN Reason: Allergy Symptoms Stop: 03/19/17 20:04 Losartan Potassium (Cozaar) [address] [facility] PRN Reason: Protocol Stop: 01/20/18 09:01 Last Admin: 09/18/16 08:50 Dose: 25 mg Metoprolol Tartrate (Lopressor) 25 mg PO HS PRASANNA Stop: 03/19/17 21:01 Last Admin: 09/17/16 21:18 Dose: 25 mg Multivitamins/Calcium (Thera M Plus) 1 tab PO DAILY PRASANNA Stop: 03/20/17 09:01 Last Admin: 09/18/16 08:50 Dose: 1 tab Naloxone HCl (Narcan) 0.4 mg IVP Q2MIN PRN PRN Reason: Opioid Reversal Stop: 03/19/17 20:02 Nitroglycerin (Nitroglycerin) 0.4 mg SL Q5MIN PRN PRN Reason: Chest Pain Stop: 03/19/17 16:29 Last Admin: 09/18/16 09:47 Dose: 0.4 mg Nitroglycerin (Nitroglycerin) 0.4 mg SL Q5M PRN PRN Reason: Chest Pain Stop: 03/19/17 20:04 Omeprazole (Prilosec) 20 mg PO DAILY PRASANNA Stop: 03/20/17 09:01 Last Admin: 09/18/16 08:50 Dose: 20 mg Vitamin D (Vitamin D) 1,000 unit PO QPM PRASANNA Stop: 03/20/17 18:01 Vitamin E (Vitamin E) 400 unit PO QAM PRASANNA Stop: 03/20/17 09:01 Last Admin: 09/18/16 08:50 Dose: 400 unit Laboratory Tests 07/06/16 07/16/16 09/07/16 00:08 11:17 10:36 Hgb Creatinine 1.13 H 1.14 H 1.10 Magnesium Triglycerides Cholesterol LDL Cholesterol, Calc HDL Cholesterol 09/17/16 09/18/16 16:26 04:29 Hgb 12.3 Creatinine 1.16 H Magnesium 1.4 L Triglycerides 127 Cholesterol 89 LDL Cholesterol, Calc 49 HDL Cholesterol 15 L - Imaging and Cardiology Chest Xray: report reviewed Echo: report reviewed Cardiac cath: report reviewed - EKG Interpretation EKG results cardiology: personally reviewed (ECG with Sinus rhythm, HR 93.), other (Telemetry reviewed with average HR 64, sinus rhythm. PVCs and PACs noted. ) Consult Discharge Plan - Plan Referrals: NO,PCP [Non-Partnered Physician] -
--- NOTE | 2016-09-18 14:22 | Internal Med Progress Note ---
<Carlos Salcedo - Last Filed: 09/18/16 14:23> Date of Encounter: 09/18/16 Time of Encounter: 09:15 - Assessment and plan (1) Chest pain Current Visit: Yes Status: Acute Assessment and plan: -The patient experienced Chest pain on exertion which was resolved by rest, and initially unresponsive to NTG -History of 3-4 CA, 3 stents. Patient is at significant risk for ACS, so we cardiology was consulted -Initial troponins 0.0 --> 0.01. Will continue to trend. -CXR negative for acute process. EKG similar to previous. -Last C 12/14 demonstrated Patent stents to the LAD, proximal stenosis of non- dominant RCA, no othr significant disease. -Echo 03/2016 with LVEF 60%, mild diastolic dysfunction, mild AR, all wall segments with normal motion. -Patient is on imdur, had previously been on ranexa, however ranexa is unaffordable for patient. -Patient is on cardiac rehab nurse, and we will continue to watch. -Patient experienced worsening chest pain while I was examining her. I got a stat 12-Lead EKG and administered SL NTG, which relieved the pain. The EKG was unchanged from previous, and the patient said the pain dissipated. Qualifiers: Chest pain type: unspecified Qualified Code(s): R07.9 - Chest pain, unspecified (2) CAD (coronary artery disease) Current Visit: Yes Status: Acute Assessment and plan: -The patient has known CAD with LHC and echo as above. -Patient is on aspirin, beta yari, Imdur, and arb. She is intolerant of statins. -Patient has been taking medications inappropriately. She says that she is taking aspirin 81 mg twice a day and Lopressor daily. We will educate the patient and change Lopressor to Toprol 25 mg 4 once daily beta yari dosing per cardiology. -Patient should follow up with Dr. Garcia as scheduled. Qualifiers: Coronary Disease-Associated Artery/Lesion type: [place] artery [place] vs. transplanted heart: [place] heart Associated angina: with unstable angina Qualified Code(s): I25.110 - Atherosclerotic heart disease of [place] coronary artery with unstable angina pectoris (3) Hypertension Current Visit: Yes Status: Chronic Assessment and plan: Well-controlled on current medications, however we will switch metoprolol tartrate to metoprolol succinate as per cardiology recommendations. Qualifiers: Hypertension type: essential hypertension Qualified Code(s): I10 - Essential (primary) hypertension (4) DVT prophylaxis Current Visit: No Status: Acute Assessment and plan: SQ Heparin - Subjective Interval history: The patient is resting comfortably in bed initially at the time of examination. She says that she has started having some acute chest pain again, however it is not severe, and feels different than the chest pain she was having previously. - Constitutional Vitals: Temp Pulse Resp BP Pulse Ox 98.1 F 68 16 140/74 97 09/18/16 11:38 09/18/16 11:38 09/18/16 11:38 09/18/16 11:38 09/18/16 11:38 General appearance: Present: cooperative, A&O X 2, obese, answers questions appropriately - Head Head exam: Present: atraumatic, normocephalic - Eye Eye exam: Present: PERRL, conjuntiva pink, sclera anicteric Pupils: Present: PERRL - Neck Neck exam general surgery: Present: supple, trachea midline. Absent: lymphadenopathy - Respiratory Respiratory exam: Present: CTAB. Absent: accessory muscle use, rales, rhonchi, wheezes - Cardiovascular Cardiovascular exam: Present: RRR, +S1, +S2. Absent: diastolic murmur, gallop, rubs, systolic murmur - GI/Abdominal GI/Abdominal exam: Present: normal bowel sounds, soft, no peritoneal signs. Absent: distended, tenderness - Extremities Exam Extremities exam: Present: warm, radial pulses palpable and symetrical. Absent : calf tenderness, cyanotic, pedal edema - Neurological Exam Neurological exam: Present: alert, no focal deficits, strengths equal and symetr throughout. Absent: pronater drift, facial droop, speech deficit - Skin Skin exam: Present: dry, intact Internal Medicine: Result - Labs CBC & Chem 7: 09/17/16 16:26 09/18/16 04:29 Labs: BMP 09/18/16 04:29 Sodium 142 Potassium 4.1 Chloride 116 H Carbon Dioxide 21 BUN 23 H Creatinine 1.16 H Glucose 108 H Calcium 8.6 Cardiac Enzymes 09/18/16 Range/Units 09:53 Troponin I 0.01 (0-0.03) ng/mL - ABG Interpretation ABG results: PT/INR, D-dimer PT 12.6 Seconds (9.4-12.1) H 09/17/16 16:26 Consult Discharge Plan - Plan Referrals: NO,PCP [Non-Partnered Physician] - <Edmundo Suazo - Last Filed: 09/18/16 17:28> Date of Encounter: 09/18/16 - Constitutional Vitals: Temp Pulse Resp BP Pulse Ox 98.5 F 74 16 160/92 94 09/18/16 16:02 09/18/16 16:02 09/18/16 16:02 09/18/16 16:02 09/18/16 16:02 Internal Medicine: Result - Labs CBC & Chem 7: 09/17/16 16:26 09/18/16 04:29 Labs: BMP 09/18/16 04:29 Sodium 142 Potassium 4.1 Chloride 116 H Carbon Dioxide 21 BUN 23 H Creatinine 1.16 H Glucose 108 H Calcium 8.6 Cardiac Enzymes 09/18/16 Range/Units 09:53 Troponin I 0.01 (0-0.03) ng/mL - ABG Interpretation ABG results: PT/INR, D-dimer PT 12.6 Seconds (9.4-12.1) H 09/17/16 16:26 - Attending Attestation I examined this patient and my medical decision-making was reviewed with the Resident Physician. I agree with the documented findings, disposition and treatment plan as described except to the extent set forth below. will follow recommendations from cardiology
[2016-09-18] MEDS: Cholecalciferol (D-3) 1,000 UNIT TABLET PO SCH (17:56)
[2016-09-18] MEDS: Metoprolol XL (24 HR) Succ 25 MG TAB.ER.24H PO SCH (21:07)
[2016-09-19 01:30] LABS: Calcium 8.5 mg/dL (8.6-10.8); Magnesium 1.7 mg/dL (1.6-2.6); Potassium 4.7 mEq/L (3.5-4.5)
[2016-09-19] MEDS: 0.9 % Sodium Chloride 1,000 ML IVC SCH ×5 (04:15→21:30)
[2016-09-19] MEDS ORDERED: Ondansetron 4 MG/2 ML VIAL IVP PRN (05:56)
[2016-09-19] MEDS: *HR* Heparin 5,000 UNIT/ML VIAL SQ SCH ×3 (06:31→21:36)
[2016-09-19] MEDS: Aspirin 81 MG TAB.CHEW PO SCH ×2 (08:44→21:36)
[2016-09-19] MEDS: Multivit/Ca/Min/Fe/FA 1 TAB TABLET PO SCH (08:45)
[2016-09-19] MEDS: Isosorbide MONOnitrate (24 HR) 60 MG TAB.ER.24H PO SCH (08:45)
[2016-09-19] MEDS ORDERED: Ondansetron 4 MG/2 ML VIAL IVP ONE (11:01)
--- NOTE | 2016-09-19 17:16 | Internal Med Progress Note ---
Date of Encounter: 09/19/16 Time of Encounter: 17:12 - Assessment and plan (1) Chest pain Current Visit: Yes Status: Acute Assessment and plan: -The patient experienced Chest pain on exertion which was resolved by rest, and initially unresponsive to NTG -History of 3-4 [place], 3 stents. Patient is at significant risk for ACS, so we cardiology was consulted -Initial troponins 0.0 --> 0.01. Will continue to trend. -CXR negative for acute process. EKG similar to previous. -Last [facility] 12/14 demonstrated Patent stents to the LAD, proximal stenosis of non- dominant RCA, no othr significant disease. -Echo 03/2016 with LVEF 60%, mild diastolic dysfunction, mild AR, all wall segments with normal motion. -Patient is on imdur, had previously been on ranexa, however ranexa is unaffordable for patient. -Patient is on director cardiac, and we will continue to watch. -Patient experienced worsening chest pain while I was examining her. I got a stat 12-Lead EKG and administered SL NTG, which relieved the pain. The EKG was unchanged from previous, and the patient said the pain dissipated. 09/19/2016 Patient has persistent nausea. Patient denies chest pain, abdominal pain or vomiting. Patient was evaluated by cardiology and recommended medical management. Plan: Symptomatic treatment. Likely home tomorrow tomorrow. Qualifiers: Chest pain type: unspecified Qualified Code(s): R07.9 - Chest pain, unspecified (2) CAD (coronary artery disease) Current Visit: Yes Status: Chronic Assessment and plan: Evaluated by cardiology and we will follow the recommendation Qualifiers: Coronary Disease-Associated Artery/Lesion type: [place] artery [place] vs. transplanted heart: [place] heart Associated angina: with unspecified angina Qualified Code(s): I25.119 - Atherosclerotic heart disease of [place] coronary artery with unspecified angina pectoris (3) Hypertension Current Visit: Yes Status: Chronic Assessment and plan: We will continue home medication as the blood pressure is very well controlled with the same. Qualifiers: Hypertension type: essential hypertension Qualified Code(s): I10 - Essential (primary) hypertension (4) DVT prophylaxis Current Visit: No Status: Acute Assessment and plan: heparin Medical decision making: This patient has a moderate to severe risk of worsening in spite of being on appropriate medication in view of underlying multiple comorbidities - Subjective Interval history: Seen and examined. Chart reviewed. Patient complains of persistent nausea. Patient denies chest pain, shortness of breath, abdominal pain, vomiting or diarrhea. - Constitutional Vitals: Temp Pulse Resp BP Pulse Ox 97.8 F 58 16 127/64 96 09/19/16 15:33 09/19/16 15:33 09/19/16 15:33 09/19/16 15:33 09/19/16 15:33 General appearance: Present: cooperative, A&O X 2, obese, answers questions appropriately - Head Head exam: Present: atraumatic, normocephalic - Eye Eye exam: Present: PERRL, conjuntiva pink, sclera anicteric Pupils: Present: PERRL - Neck Neck exam general surgery: Present: supple, trachea midline. Absent: lymphadenopathy - Respiratory Respiratory exam: Present: CTAB. Absent: accessory muscle use, rales, rhonchi, wheezes - Cardiovascular Cardiovascular exam: Present: RRR, +S1, +S2. Absent: diastolic murmur, gallop, rubs, systolic murmur - GI/Abdominal GI/Abdominal exam: Present: normal bowel sounds, soft, no peritoneal signs. Absent: distended, tenderness - Extremities Exam Extremities exam: Present: warm, radial pulses palpable and symetrical. Absent : calf tenderness, cyanotic, pedal edema - Neurological Exam Neurological exam: Present: CN II-XII intact, oriented X3, no focal deficits. Absent: pronater drift, facial droop, speech deficit - Skin Skin exam: Present: dry, intact Internal Medicine: Result - Labs CBC & Chem 7: 09/17/16 16:26 09/19/16 00:57 Labs: BMP 09/19/16 00:57 Sodium 140 Potassium 4.7 H Chloride 114 H Carbon Dioxide 23 BUN 18 Creatinine 1.15 H Glucose 146 H Calcium 8.5 L - ABG Interpretation ABG results: PT/INR, D-dimer PT 12.6 Seconds (9.4-12.1) H 09/17/16 16:26 Consult Discharge Plan - Plan Referrals: NO,PCP [Non-Partnered Physician] -
[2016-09-19] MEDS: Cholecalciferol (D-3) 1,000 UNIT TABLET PO SCH (17:32)
[2016-09-19] MEDS: Metoprolol XL (24 HR) Succ 25 MG TAB.ER.24H PO SCH (21:36)
[2016-09-20 01:28] LABS: Basophils % 0.4 %; Eosinophils # 0.2 K/mcL (0.0-0.6); Eosinophils % 4.8 %; Hematocrit 31.5 % (35.3-44.9); Immature Granulocytes % 0.4 % (0-4); Lymphocytes # 1.2 K/mcL (0.6-4.6); Lymphocytes % 25.3 %; Mean Corpuscular HGB Conc 32.7 g/dL (31.6-35.5); Mean Corpuscular Hemoglobin 31.4 pg (28.0-33.3); Mean Platelet Volume 12.4 fL (9.4-12.4); Monocytes # 0.6 K/mcL (0.0-1.3); Monocytes % 12.8 %; Neutrophils # 2.7 K/mcL (1.6-8.9); Platelet Count 115 K/mcL (140-400); Red Blood Count 3.28 M/mcL (3.82-4.97); Segmented Neutrophils % 56.3 %
[2016-09-20 01:33] LABS: Hemoglobin 10.3 g/dL (11.5-15.4)
[2016-09-20 01:44] LABS: Albumin 2.8 g/dL (3.5-5.0); Albumin/Globulin Ratio 1.1 (1.1-2.2); Bilirubin,Total 0.4 mg/dL (0.2-1.2); Calcium 8.6 mg/dL (8.6-10.8); Globulin 2.6 g/dL (2.4-3.5); Potassium 4.6 mEq/L (3.5-4.5); Total Protein 5.4 g/dL (6.0-8.3)
[2016-09-20] MEDS: 0.9 % Sodium Chloride 1,000 ML IVC SCH (03:23)
[2016-09-20] MEDS: *HR* Heparin 5,000 UNIT/ML VIAL SQ SCH (05:35)
[2016-09-20] MEDS: Multivit/Ca/Min/Fe/FA 1 TAB TABLET PO SCH (09:09)
[2016-09-20] MEDS: Isosorbide MONOnitrate (24 HR) 60 MG TAB.ER.24H PO SCH (09:09)
[2016-09-20] MEDS: Aspirin 81 MG TAB.CHEW PO SCH (09:09)
--- NOTE | 2016-09-20 11:12 | Discharge Summary ---
Date of Encounter: 09/20/16 Time of Encounter: 11:10 - Discharge Diagnosis (1) Chest pain Priority: Primary Status: Acute Qualifiers: Chest pain type: unspecified Qualified Code(s): R07.9 - Chest pain, unspecified (2) CAD (coronary artery disease) Priority: Primary Status: Chronic Qualifiers: Coronary Disease-Associated Artery/Lesion type: [place] artery [place] vs. transplanted heart: [place] heart Associated angina: with unspecified angina Qualified Code(s): I25.119 - Atherosclerotic heart disease of [place] coronary artery with unspecified angina pectoris (3) Hypertension Priority: Secondary Status: Chronic Qualifiers: Hypertension type: essential hypertension Qualified Code(s): I10 - Essential (primary) hypertension (4) DVT prophylaxis Priority: Secondary Status: Acute - Discharge Medications Home Medications: Albuterol Sulfate [Proair Respiclick] 2 puff IH Q4H PRN 11/21/14 [History] Loratadine [Claritin] 10 mg PO QAM PRN #0 11/21/14 [History] Losartan [Cozaar] 25 mg PO DAILY 11/21/14 [History] Nitroglycerin [Nitrostat] 0.4 mg SL Q5M PRN #0 11/21/14 [History] Aspirin 81 mg PO BID 01/03/15 [History] Cholecalciferol (Vitamin D3) [Vitamin D3] 2,000 unit PO QPM 01/03/15 [History] Clopidogrel [Plavix] 75 mg PO QPM 01/03/15 [History] Vitamin E (Dl,Tocopheryl Acet) [Vitamin E] 400 unit PO QAM 01/03/15 [History] Albuterol Neb [Proventil Neb] 2.5 mg IH TID PRN 09/07/15 [History] Metoprolol [Lopressor] 25 mg PO HS 11/13/15 [History] Fluticasone Propionate Nasal [Flonase] 50 mcg NS BID PRN 12/03/15 [History] Acetaminophen [Tylenol] 1,000 mg PO BID PRN 03/23/16 [History] Mv, Min #36/Iron,Carbonyl/FA [Geritol Complete Tablet] 1 tab PO DAILY 07/06/16 [ History] Pantoprazole Sodium [Protonix] 40 mg PO DAILY 07/06/16 [History] Isosorbide MONOnitrate [Isosorbide Mononitrate ER] 240 mg PO QAM 08/11/16 [ History] Allergies/Adverse Reactions: Allergies codeine Allergy (Verified 09/17/16 15:40) Difficulty Breathing prednisone Allergy (Verified 09/17/16 15:40) Rash clarithromycin Adverse Reaction (Verified 09/17/16 15:40) Vomiting Erythromycin Base Adverse Reaction (Verified 09/17/16 15:40) Vomiting hydrocodone [From Vicodin] Adverse Reaction (Verified 09/17/16 15:40) Dizziness propoxyphene Adverse Reaction (Verified 09/17/16 15:40) Vomiting Nzkiqkv-Yfi-Xxr Reductase Inhibitor [Statins] Adverse Reaction (Verified 15:40) Muscle Pain Date of admission: 09/17/16 17:41 Primary care physician: Karen Perez CNP Consults: 09/17/16 20:55 Consult to Nutrition [CONS] Routine Comment: Consulting Provider: NUTRITION Reason for Dietary Consult: MST Score 09/18/16 04:23 Consult to Cardiology [CONS] Routine Comment: Consulting Provider: Cardiology Rosanna Reason for Consult: pls assist in managing this pt with symptom limiting angina, thanks Call Completed: No Discharging clinician: Edmundo Suazo - Patient Status Disposition: Home, Self-Care Condition: Good Functional capacity at discharge: independent ambulation Overall status at discharge: patient is progressing back to baseline - Discharge Instructions Follow Up With: NO,PCP [Non-Partnered Physician] - - Diet and Activity Activity: increase activity as tolerated Diet: low fat, low cholesterol, low salt diet Interval History: Ms. Larkin is a 71 year old female with a hx of CAD s/p stents in LAD and OM with symptom limiting angina who comes in with chest pain. She reports that she always has chest pain and has been in and out of the hospital for that reason. She was doing light work today cleaning her commode and during that process she felt sharp retrosternal pain that was 8-9/10 in severity improved when she stopped and rested but never abated. When she got up and started walking again the pain got worse. She then took aspirin and nitro but the pain remained about same. It radiated to her back, was constant and associated with diaphoresis, lightheadedness, nausea but no vomiting, no palpitations was noted, she was unsure of any change in her baseline dyspnea. Of note she has had her long acting nitrate dose increased as part of her medical management by the loss prevention coordinator and at one point was prescribed Ranexa but she was never able to afford the co-pay which is about $265.00, when she only gets $1,000.00 a month. She denies any other symptoms. Hospital course: Patient was hospitalized. Cardiology was consulted. Cardiology recommended no new medications. Cardiology recommended to follow-up with her primary loss prevention coordinator and appointment is on 10/28/2016. Patient has enough for medication. Plan: Home today. Follow-up with PCP in 1-2 weeks. Follow up with cardiology as scheduled. - Time Spent with Patient Total time spent providing and/or coordinating discharge services: - Constitutional Vitals: Temp Pulse Resp BP Pulse Ox 98.6 F 63 16 113/61 95 09/20/16 06:28 09/20/16 06:28 09/20/16 06:28 09/20/16 06:28 09/20/16 06:28 General appearance: Present: cooperative, A&O X 2, obese, answers questions appropriately - Head Head exam: Present: atraumatic, normocephalic - Eye Eye exam: Present: PERRL, conjuntiva pink, sclera anicteric Pupils: Present: PERRL - Neck Neck exam general surgery: Present: supple, trachea midline. Absent: lymphadenopathy - Respiratory Respiratory exam: Present: CTAB. Absent: accessory muscle use, rales, rhonchi, wheezes - Cardiovascular Cardiovascular exam: Present: RRR, +S1, +S2. Absent: diastolic murmur, gallop, rubs, systolic murmur - GI/Abdominal GI/Abdominal exam: Present: normal bowel sounds, soft, no peritoneal signs. Absent: distended, tenderness - Extremities Exam Extremities exam: Present: warm, radial pulses palpable and symetrical. Absent : calf tenderness, cyanotic, pedal edema - Neurological Exam Neurological exam: Present: CN II-XII intact, oriented X3, no focal deficits. Absent: pronater drift, facial droop, speech deficit - Skin Skin exam: Present: dry, intact
[2016-09-20 11:24] VITALS: BP 134/73
--- NOTE | 2016-09-21 12:42 | Electrocardiograph Report ---
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
== END 2016-09-20 13:30 | disposition home or self-care (01) ==
LOC: 3NENU 15:31 → EMEROO 15:31 → 3NENU 19:47
PROVIDERS: ADMIT Internal Medicine; ATTEND Internal Medicine

== ENCOUNTER 2017-05-25 15:18 | Observation (INO) ==
--- NOTE | 2017-05-25 15:34 | Emergency Department Note ---
Disposition Clinical Impression: Chest pain, rule out acute myocardial infarction Disposition: Admitted As Inpatient Condition: Fair General Adult HPI - General Chief complaint: ED Chest Pain Stated complaint: CP since 2Am Time Seen by Provider: 05/25/17 15:28 Source: patient - History of Present Illness Pain Scale: 8 - Related Data Home Medications Medication Instructions Recorded Confirmed Loratadine [Claritin] 10 mg PO QAM PRN #0 11/21/14 05/25/17 Losartan [Cozaar] 25 mg PO DAILY 11/21/14 05/25/17 Nitroglycerin [Nitrostat] 0.4 mg SL Q5M PRN #0 11/21/14 05/25/17 Cholecalciferol (Vitamin D3) 2,000 unit PO QPM 01/03/15 05/25/17 [Vitamin D3] Clopidogrel [Plavix] 75 mg PO QPM 01/03/15 05/25/17 Albuterol Neb [Proventil Neb] 2.5 mg IH TID PRN 09/07/15 05/25/17 Metoprolol [Lopressor] 25 mg PO HS 11/13/15 05/25/17 Fluticasone Propionate Nasal 50 mcg NS BID PRN 12/03/15 05/25/17 [Flonase] Acetaminophen [Tylenol] 1,000 mg PO BID PRN 03/23/16 05/25/17 Mv, Min #36/Iron,Carbonyl/FA 1 tab PO DAILY 07/06/16 05/25/17 [Geritol Complete Tablet] Pantoprazole Sodium [Protonix] 40 mg PO DAILY 07/06/16 05/25/17 Isosorbide MONOnitrate [Isosorbide 240 mg PO QAM 08/11/16 05/25/17 Mononitrate ER] Albuterol Sulfate [Ventolin Hfa] 2 puff IH Q4H PRN 05/25/17 05/25/17 Saccharomyces Boulardii [Florastor] 250 mg PO BID 05/25/17 05/25/17 Vitamin E Acid Succinate [Vitamin 400 unit PO DAILY 05/25/17 05/25/17 E] Allergies Allergy/AdvReac Type Severity Reaction Status Date / Time codeine Allergy Difficulty Verified 05/25/17 15:23 Breathing prednisone Allergy Rash Verified 05/25/17 15:23 clarithromycin AdvReac Vomiting Verified 05/25/17 15:23 Erythromycin Base AdvReac Vomiting Verified 05/25/17 15:23 hydrocodone [From Vicodin] AdvReac Dizziness Verified 05/25/17 15:23 propoxyphene AdvReac Vomiting Verified 05/25/17 15:23 Sdvfloc-Wyf-Lug Reductase AdvReac Muscle Pain Verified 05/25/17 15:23 Inhibitor [Statins] Past Medical History - Past Medical History Medical history: Reports: arthritis, cancer, CHF, coronary artery disease, DVT, GERD, hypertension, myocardial infarction Surgical history: Reports: angioplasty/stent, appendectomy, cancer surgery, cholecystectomy, hysterectomy, orthopedic, other, other Psychiatric history: Reports: no psych history NOCTURNIST PHYSICIAN history: Reports: no NOCTURNIST PHYSICIAN history - Social History Smoking Status: Never smoker Smokeless Tobacco Status: No Alcohol use: Reports: none Drug use: Reports: none Physical Exam - General General appearance: alert, in no apparent distress Course Vital Signs Temperature 97.9 F 05/25/17 15:20 Pulse Rate 73 05/25/17 15:20 Respiratory Rate 16 05/25/17 15:20 Blood Pressure 153/89 05/25/17 15:20 O2 Sat by Pulse Oximetry 96 05/25/17 15:20 Temperature 98.2 F 05/25/17 19:02 Pulse Rate 80 05/25/17 19:02 Respiratory Rate 16 05/25/17 19:02 Blood Pressure 134/84 05/25/17 19:02 O2 Sat by Pulse Oximetry 96 05/25/17 19:02 Oxygen Delivery Oxygen Delivery Room Air Medical Decision Making - Lab Data Result diagrams: 05/25/17 15:34 05/25/17 15:34 Lab Results 05/25/17 05/25/17 Range/Units 15:34 15:34 WBC 7.5 (4.3-11.1) K/mcL RBC 4.03 (3.82-4.97) M/mcL Hgb 12.6 (11.5-15.4) g/dL Hct 38.3 (35.3-44.9) % MCV 95.0 (83.0-100.0) fL MCH 31.3 (28.0-33.3) pg MCHC 32.9 (31.6-35.5) g/dL RDW 13.4 (11.5-14.5) % Plt Count 200 (140-400) K/mcL MPV 11.1 (9.4-12.4) fL Immature Gran % 0.4 (0-4) % Seg Neutrophils % 52.1 % Lymphocytes % 30.6 % Monocytes % 10.5 % Eosinophils % 5.7 % Basophils % 0.7 % Neutrophils # 3.9 (1.6-8.9) K/mcL Lymphocytes # 2.3 (0.6-4.6) K/mcL Monocytes # 0.8 (0.0-1.3) K/mcL Eosinophils # 0.4 (0.0-0.6) K/mcL Basophils # 0.1 (0.0-0.2) K/mcL Sodium 140 (136-145) mEq/L Potassium 4.0 (3.5-5.1) mEq/L Chloride 108 H (98-107) mEq/L Carbon Dioxide 25 (23-29) mEq/L BUN 27 H (8-23) mg/dL Creatinine 1.04 (0.60-1.20) mg/dL Est GFR ( Amer) > 60 (> 60) Est GFR (Non-Af Amer) 52 L (> 60) BUN/Creatinine Ratio 26 (6-26) Glucose 93 (70-105) mg/dL Calculated Osmolality 295 (280-300) Calcium 9.7 (8.6-10.3) mg/dL Troponin I < 0.03 (< 0.04) ng/mL Attestation Statement - Attestation Attestation: I examined this patient and my medical decision-making was reviewed with the Resident Physician. I agree with the documented findings, disposition and treatment plan as described except to the extent set forth below. [id number] time provided Patient arrives complaining of chest discomfort. She has a history of coronary artery disease with 3 stents deployed previously. ECG reviewed by me upon arrival. Patient evaluated in conjunction with the resident physician Dr. Chakraborty
[2017-05-25 15:42] LABS: Basophils # 0.1 K/mcL (0.0-0.2); Basophils % 0.7 %; Eosinophils # 0.4 K/mcL (0.0-0.6); Eosinophils % 5.7 %; Hematocrit 38.3 % (35.3-44.9); Hemoglobin 12.6 g/dL (11.5-15.4); Immature Granulocytes % 0.4 % (0-4); Lymphocytes # 2.3 K/mcL (0.6-4.6); Lymphocytes % 30.6 %; Mean Corpuscular HGB Conc 32.9 g/dL (31.6-35.5); Mean Corpuscular Hemoglobin 31.3 pg (28.0-33.3); Mean Platelet Volume 11.1 fL (9.4-12.4); Monocytes # 0.8 K/mcL (0.0-1.3); Monocytes % 10.5 %; Neutrophils # 3.9 K/mcL (1.6-8.9); Platelet Count 200 K/mcL (140-400); Red Blood Count 4.03 M/mcL (3.82-4.97); Red Cell Distribution Width 13.4 % (11.5-14.5); Segmented Neutrophils % 52.1 %
--- NOTE | 2017-05-25 16:00 | Emergency Department Note ---
Disposition Clinical Impression: Chest pain, rule out acute myocardial infarction Disposition: Admitted As Inpatient Time of Disposition: 16:42 Chest Pain HPI - General Chief Complaint: ED Chest Pain Stated Complaint: CP since 2Am Time Seen by Provider: 05/25/17 15:28 Source: patient - History of Present Illness HPI Narrative: Elly Larkin is a 72 year old female with history of OK x3 (all in 2014) and cardiac stent x3 (2 in LAD placed 2010, 1 in OM) who presents with chest pain. The chest pain started at 2 am this morning, waking her from sleep, and has been constant since then. She describes it as "an annoying, sharp pain" with radiation into her neck. Intensity is 7-8/10 and is slightly worse with activity. It has been unrelieved by nitro x3. She does repot increased episodes of chest pain around the diagnosis of flu approximately 2 months ago. This episode is different in that it has not resolved. She additionally complains of nausea, exertional shortness of breath, and a short period of diaphoresis when the pain started. Severity scale (1-10): 8 - Related Data Home Medications Medication Instructions Recorded Confirmed Loratadine [Claritin] 10 mg PO QAM PRN #0 11/21/14 01/04/17 Losartan [Cozaar] 25 mg PO DAILY 11/21/14 01/04/17 Nitroglycerin [Nitrostat] 0.4 mg SL Q5M PRN #0 11/21/14 01/04/17 Cholecalciferol (Vitamin D3) 2,000 unit PO QPM 01/03/15 01/04/17 [Vitamin D3] Clopidogrel [Plavix] 75 mg PO QPM 01/03/15 01/04/17 Albuterol Neb [Proventil Neb] 2.5 mg IH TID PRN 09/07/15 01/04/17 Metoprolol [Lopressor] 25 mg PO HS 11/13/15 01/04/17 Fluticasone Propionate Nasal 50 mcg NS BID PRN 12/03/15 01/04/17 [Flonase] Acetaminophen [Tylenol] 1,000 mg PO BID PRN 03/23/16 01/04/17 Mv, Min #36/Iron,Carbonyl/FA 1 tab PO DAILY 07/06/16 01/04/17 [Geritol Complete Tablet] Pantoprazole Sodium [Protonix] 40 mg PO DAILY 07/06/16 01/04/17 Isosorbide MONOnitrate [Isosorbide 240 mg PO QAM 08/11/16 01/04/17 Mononitrate ER] Albuterol Sulfate [Ventolin Hfa] 2 puff IH Q4H PRN 05/25/17 05/25/17 Saccharomyces Boulardii [Florastor] 250 mg PO BID 05/25/17 05/25/17 Vitamin E Acid Succinate [Vitamin 400 unit PO DAILY 05/25/17 05/25/17 E] Allergies Allergy/AdvReac Type Severity Reaction Status Date / Time codeine Allergy Difficulty Verified 05/25/17 15:23 Breathing prednisone Allergy Rash Verified 05/25/17 15:23 clarithromycin AdvReac Vomiting Verified 05/25/17 15:23 Erythromycin Base AdvReac Vomiting Verified 05/25/17 15:23 hydrocodone [From Vicodin] AdvReac Dizziness Verified 05/25/17 15:23 propoxyphene AdvReac Vomiting Verified 05/25/17 15:23 Yozhpsl-Spj-Mgo Reductase AdvReac Muscle Pain Verified 05/25/17 15:23 Inhibitor [Statins] Constitutional: Denies: fever, chills Cardiovascular: Reports: chest pain, dyspnea on exertion. Denies: palpitations Respiratory: Reports: cough Gastrointestinal: Reports: nausea. 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 Absent: respiratory distress, accessory muscle use - Cardiovascular Cardiovascular exam: Present: regular rate, normal rhythm, normal heart sounds, +S1, +S2 - Neurological Exam Neurological exam: Present: alert, oriented X3 - Psychiatric Psychiatric exam: Present: normal affect, normal mood - Skin Skin exam: Present: warm, dry Course Course Narrative: Patient with significant cardiac history, including OK x 3 and cardiac stent x3 , presents with approximately 12 hours of chest pain. History suggestive of cardiac etiology, so work up was initiated with EKG, CXR, troponin, BMP, and CBC. EKG showed NSR without ST changes. CXR without acute process. BMP and CBC without significant finding. Troponin <0.03. HEART Score of 5. With suspicious history and strong CAD history, patient should be admitted for further work up. Patient was discussed with admitting hospitalist, Dr. Jolly, who accepted the patient. Vital Signs Temperature 97.9 F 05/25/17 15:20 Pulse Rate 73 05/25/17 15:20 Respiratory Rate 16 05/25/17 15:20 Blood Pressure 153/89 05/25/17 15:20 O2 Sat by Pulse Oximetry 96 05/25/17 15:20 Temperature 97.9 F 05/25/17 15:20 Pulse Rate 73 05/25/17 15:20 Respiratory Rate 16 05/25/17 15:20 Blood Pressure 153/89 05/25/17 15:20 O2 Sat by Pulse Oximetry 96 05/25/17 15:20 Oxygen Delivery Oxygen Delivery Room Air Chest Pain - Medical Records Medical records reviewed: Yes I reviewed the patient's medical records. - Lab Data Lab results reviewed: Yes I reviewed the patient's lab results. Result diagrams: 05/25/17 15:34 05/25/17 15:34 Lab Results 05/25/17 05/25/17 Range/Units 15:34 15:34 WBC 7.5 (4.3-11.1) K/mcL RBC 4.03 (3.82-4.97) M/mcL Hgb 12.6 (11.5-15.4) g/dL Hct 38.3 (35.3-44.9) % MCV 95.0 (83.0-100.0) fL MCH 31.3 (28.0-33.3) pg MCHC 32.9 (31.6-35.5) g/dL RDW 13.4 (11.5-14.5) % Plt Count 200 (140-400) K/mcL MPV 11.1 (9.4-12.4) fL Immature Gran % 0.4 (0-4) % Seg Neutrophils % 52.1 % Lymphocytes % 30.6 % Monocytes % 10.5 % Eosinophils % 5.7 % Basophils % 0.7 % Neutrophils # 3.9 (1.6-8.9) K/mcL Lymphocytes # 2.3 (0.6-4.6) K/mcL Monocytes # 0.8 (0.0-1.3) K/mcL Eosinophils # 0.4 (0.0-0.6) K/mcL Basophils # 0.1 (0.0-0.2) K/mcL Sodium 140 (136-145) mEq/L Potassium 4.0 (3.5-5.1) mEq/L Chloride 108 H (98-107) mEq/L Carbon Dioxide 25 (23-29) mEq/L BUN 27 H (8-23) mg/dL Creatinine 1.04 (0.60-1.20) mg/dL Est GFR ( Amer) > 60 (> 60) Est GFR (Non-Af Amer) 52 L (> 60) BUN/Creatinine Ratio 26 (6-26) Glucose 93 (70-105) mg/dL Calculated Osmolality 295 (280-300) Calcium 9.7 (8.6-10.3) mg/dL Troponin I < 0.03 (< 0.04) ng/mL - Radiology Data Radiology results reviewed: Yes I reviewed the patient's radiology results. Chest X-Ray 05/25/17 15:23 IMPRESSION: No acute process. D/ / Carlos Mena MD / Carlos Mena MD Interpreting Provider: Carlos Mena MD - EKG Data EKG attestation: Yes I reviewed and interpreted this EKG. EKG results narrative: Vent Rate 73 MS 144 QRS 94 QT/QTc 348/373 Rhythm: NSR Heart Score - Score History: Moderately Suspicious EKG: Normal Age: Greater than 65 Risk Factors: Equal/Greater than 3 risk factor or history of atherosclerotic disease Troponin: Less than normal limit HEART Score Total: 5 S.B.A.R. - S.B.A.R. Situation: Demographics Background: Presenting Complaint Assessment: Vital Signs, Course and respsone to treatment, Pertinant Lab Results Recommendation: Recommendation based on pending studies, treatments, or consults Jyothi Report Given to: Dr. Shanae Roe Repor Time: 16:59
[2017-05-25 16:11] LABS: BUN/Creatinine Ratio 26 (6-26); Blood Urea Nitrogen 27 mg/dL (8-23); Calcium 9.7 mg/dL (8.6-10.3); Carbon Dioxide 25 mEq/L (23-29); Chloride 108 mEq/L (98-107); Glucose 93 mg/dL (70-105); Osmolality,Calculated 295 (280-300); Sodium 140 mEq/L (136-145); Troponin I < 0.03 ng/mL (< 0.04); eGFR For African Americans > 60 (> 60); eGFR For Non-African Americans 52 (> 60)
[2017-05-25] MEDS ORDERED: Aspirin 81 MG TAB.CHEW PO ONE (16:40)
[2017-05-25] MEDS ORDERED: Adenosine 90 MG/30 ML MLS IV ONE (16:53)
[2017-05-25] MEDS ORDERED: Nitroglycerin 0.4 MG TAB.SUBL SL PRN (17:19)
[2017-05-25] MEDS ORDERED: Albuterol 2.5 MG/3 ML NEBULIZER IH PRN (17:19)
[2017-05-25] MEDS ORDERED: Fluticasone Propionate Nasal 50 MCG/SPRAY BOTTLE NS PRN (17:19)
[2017-05-25] MEDS ORDERED: Loratadine 10 MG TABLET PO PRN (17:19)
[2017-05-25] MEDS ORDERED: Naloxone 0.4 MG/ML INJ IVP PRN (17:20)
--- NOTE | 2017-05-25 17:26 | Internal Med History&Physical ---
Date of Encounter: 05/25/17 Time of Encounter: 18:06 Assessment and Plan (1) Chest pain Current visit: Yes Status: Acute Patient with multiple cardiac stents and hx of CAD with no compliance with ASA Continue ASA, Plavix, BB Obtain ECHO Cath 11/2015 with proximal LAD with patent stents, mid lad with patent stents, 30% mid LAD, OM1 with patent stents, 30% mid circumflex, RCA known to be non- dominant and occluded proximally. Stress test 10/2016 unremarkable for ischemia Will not repeat stress test at this time Consider cardiology eval if any of the work up is positive Consider increasing her home dose of Omeprazole if cardiac work up remains negative She is currently chest pain free and hemodynamically stable Qualifiers: Chest pain type: unspecified Qualified Code(s): R07.9 - Chest pain, unspecified (2) CAD (coronary artery disease) Current visit: Yes Status: Chronic as above Qualifiers: Coronary Disease-Associated Artery/Lesion type: [place] artery [place] vs. transplanted heart: [place] heart Associated angina: without angina Qualified Code(s): I25.10 - Atherosclerotic heart disease of [place] coronary artery without angina pectoris (3) DVT prophylaxis Current visit: Yes Status: Acute heaprin SQ (4) Hypertension Current visit: Yes Status: Chronic Qualifiers: Hypertension type: essential hypertension Qualified Code(s): I10 - Essential (primary) hypertension Internal Medicine - H&P: HPI Chief complaint: Chest pain Admitted From: Home Plans for Post Hospital Care: Home History of present illness: Ms. Larkin is a 72 year old female with hx of CAD not on statin due to allergy, and not taking DaPT as prescribed due to bruises She is s/p PCI 5, last one in 2014 She presented with chest pain, epigastric in location and radiating into her chest wall, she stated it begun 2 a.m this morning, woke her up from sleep and associated with nasuea, no vomitign, no SOB, no dizziness, no diaphoresis. She believes its similar to her prior [place] chest pain. Pain was unrelieved by nitro and exacerbated by mild exertion and not related to meals. However, she has a hx of GERD and is not compliant. She is not in any form of distress, and she is comfortable and chest pain free a time of eval Work up has been negative. EKG is unremarkable. Troponin is negative Her most recent stress test 10/2016 was unremarkable for ischemia Past Med Surg Social Fam HX - Past Medical History Medical history: arthritis, cancer, CHF, coronary artery disease, DVT, GERD, hypertension, myocardial infarction Psychiatric history: no psych history - Past Surgical History Surgical History: angioplasty/stent, appendectomy, cancer surgery, cholecystectomy, hysterectomy, orthopedic, other, other - Social History Smoking Status: Never smoker Smokeless Tobacco Status: No Alcohol use: none Drug use: none - Family History Father Family Member Ethnicity: Non- Twin of Family Member: Yes, Fraternal Living Status: Hx Family Cardiac Disorders: Yes Hx Family Respiratory Disorders: No Hx Family Cancer: Yes (Lung) Hx Family GI Disorders: No Hx Family Endocrine Disorder: No Hx Family Neuromuscular Disorders: No Hx Family Neurologic Disorders: No Hx Family HEENT Disorders: No Hx Family Autoimmune Disorders: No Mother Living Status: Hx Family Cardiac Disorders: Yes Hx Family Cancer: Yes Internal Medicine - H&P: Meds Loratadine [Claritin] 10 mg PO QAM PRN #0 11/21/14 [History] Losartan [Cozaar] 25 mg PO DAILY 11/21/14 [History] Nitroglycerin [Nitrostat] 0.4 mg SL Q5M PRN #0 11/21/14 [History] Cholecalciferol (Vitamin D3) [Vitamin D3] 2,000 unit PO QPM 01/03/15 [History] Clopidogrel [Plavix] 75 mg PO QPM 01/03/15 [History] Albuterol Neb [Proventil Neb] 2.5 mg IH TID PRN 09/07/15 [History] Metoprolol [Lopressor] 25 mg PO HS 11/13/15 [History] Fluticasone Propionate Nasal [Flonase] 50 mcg NS BID PRN 12/03/15 [History] Acetaminophen [Tylenol] 1,000 mg PO BID PRN 03/23/16 [History] Mv, Min #36/Iron,Carbonyl/FA [Geritol Complete Tablet] 1 tab PO DAILY 07/06/16 [ History] Pantoprazole Sodium [Protonix] 40 mg PO DAILY 07/06/16 [History] Isosorbide MONOnitrate [Isosorbide Mononitrate ER] 240 mg PO QAM 08/11/16 [ History] Albuterol Sulfate [Ventolin Hfa] 2 puff IH Q4H PRN 05/25/17 [History] Saccharomyces Boulardii [Florastor] 250 mg PO BID 05/25/17 [History] Vitamin E Acid Succinate [Vitamin E] 400 unit PO DAILY 05/25/17 [History] 3 Allergy/AdvReac Type Severity Reaction Status Date / Time codeine Allergy Difficulty Verified 05/25/17 15:23 Breathing prednisone Allergy Rash Verified 05/25/17 15:23 clarithromycin AdvReac Vomiting Verified 05/25/17 15:23 Erythromycin Base AdvReac Vomiting Verified 05/25/17 15:23 hydrocodone [From Vicodin] AdvReac Dizziness Verified 05/25/17 15:23 propoxyphene AdvReac Vomiting Verified 05/25/17 15:23 Gesmtby-Jhg-Hoj Reductase AdvReac Muscle Pain Verified 05/25/17 15:23 Inhibitor [Statins] All Systems PM: A 10-system review of systems was performed and is negative for pertinent findings except as documented above in the HPI. - Constitutional Constitutional: no chills, no fever(s), no night sweats - EENT Eyes: no change in vision, no discharge, no pain, no photophobia Ears: no ear discharge, no ear pain, no tinnitus Nose, mouth and throat: no dysphagia, no nasal discharge, no neck pain, no sore throat - Cardiovascular Cardiovascular ROS IM: as per HPI - Respiratory Respiratory: as per HPI - Gastrointestinal Gastrointestinal: no abdominal pain, no diarrhea, no hematemesis, no hematochezia, no melena, no nausea, no vomiting - Genitourinary Genitourinary: no change in urinary stream, no dysuria, no flank pain, no hematuria - Musculoskeletal Musculoskeletal ROS IM: no numbness, no tingling - Integumentary Integumentary IM: no rash, no unusual bruising - Neurological Neurological ROS: no confusion, no convulsions, no focal weakness, no numbness, no tingling, no tremor(s) - Hematologic/Lymphatic Hematologic/Lymphatic: no easy bruising - Constitutional Vitals: Temp Pulse Resp BP Pulse Ox 97.9 F 72 16 132/75 97 05/25/17 15:20 05/25/17 15:23 05/25/17 17:15 05/25/17 17:15 05/25/17 15:23 General appearance: Present: A&O X 3, pleasant, no acute distress - Head Head exam: Present: atraumatic, normocephalic - Eye Eye exam: Present: PERRL, conjuntiva pink, sclera anicteric Pupils: Present: PERRL - Neck Neck exam general surgery: Present: supple, trachea midline. Absent: lymphadenopathy - Respiratory Respiratory exam: Present: CTAB. Absent: accessory muscle use, rales, rhonchi, wheezes - Cardiovascular Cardiovascular exam: Present: RRR, +S1, +S2. Absent: diastolic murmur, gallop, rubs, systolic murmur - GI/Abdominal GI/Abdominal exam: Present: normal bowel sounds, soft, no peritoneal signs. Absent: distended, tenderness - Extremities Exam Extremities exam: Present: warm, radial pulses palpable and symmetrical. Absent : calf tenderness, cyanotic, pedal edema - Neurological Exam Neurological exam: Present: alert, CN II-XII intact, oriented X3, no focal deficits. Absent: pronater drift, facial droop, speech deficit - Skin Skin exam: Present: dry, intact Internal Med - H&P Results - Labs CBC & Chem 7: 05/25/17 15:34 05/25/17 15:34
[2017-05-25] MEDS: Cholecalciferol (D-3) 1,000 UNIT TABLET PO SCH (18:00)
[2017-05-26 04:50] LABS: Chol/HDL Ratio 4.4 (0-4.9)
[2017-05-26] MEDS ORDERED: GI Cocktail 40 ML EACH PO ONE (05:07)
[2017-05-26] MEDS: *HR* Enoxaparin 40 MG/0.4 ML SYRINGE SQ SCH (05:50)
[2017-05-26] MEDS: Lactobacillus 1 EACH CAP.SPRINK PO SCH (09:19)
[2017-05-26] MEDS: Isosorbide MONOnitrate (24 HR) 60 MG TAB.ER.24H PO SCH (09:19)
[2017-05-26] MEDS: [UNRECOGNIZED DRUG - OTHER] PO SCH (09:20)
[2017-05-26] MEDS: IRON CARBONYL PO SCH (09:20)
[2017-05-26] MEDS: MV MIN PO SCH (09:20)
--- NOTE | 2017-05-26 13:09 | Cardiology Consult Note ---
Date of Encounter: 05/26/17 Time of Encounter: 13:08 Assessment and Plan (1) Unstable angina Current Visit: No Status: Acute Symptoms concerning for unstable angina--similar to prior anginal equivalent. Reports midsternal chest pain with radiation to neck waking her from sleep, unrelieved with nitro. Troponins negative. Negative stress test 10/2016. Reports daily chest pain that is life limiting. On max dose of Imdur 240mg daily. Reports being unable to afford Ranexa-->$200/ month. Continue Plavix, BB. Not on statin due to intolerance. Not on ASA due to bruising when on DAPT. Aware that if PCI is performed, will need to be on DAPT. TTE 05/26/17: EF 60-65%, mild LVDD, mild AR TR MR, mild phtn. Seen by Dr. Garcia earlier this month with similar complaints and at that time declined any further ischemic evaluation. She is now willing. Recommend [facility] given concern for unstable angina. R/B/A discussed. Pt agrees to proceed. Will discuss with Dr. Huggins as well. (2) CAD (coronary artery disease) Current Visit: Yes Status: Chronic C 11/2015: Patent mid LAD and LEE stents. Stable coronary artery disease. The left ventricle is normal and has normal contractility EF 65%. Currently on Plavix, BB. Intolerant to statin drugs. Not on ASA currently due to bruising on DAPT. Aware that if she has PCI, will need to be on DAPT. Qualifiers: Coronary Disease-Associated Artery/Lesion type: [place] artery [place] vs. transplanted heart: [place] heart Associated angina: without angina Qualified Code(s): I25.10 - Atherosclerotic heart disease of [place] coronary artery without angina pectoris Discussion w patient/family: The assessment and plan as outlined above was discussed with the patient and/or family members who expressed understanding and agreement. All questions were answered. Thank you for involving us in the care of your patient. Please call with any questions. I will discuss all the above with Dr. Huggins and make changes as necessary. History of Present Illness Consult date: 05/26/17 Requesting physician: Marija Devlin Consult reason: chest pain Chief complaint: chest pain History of present illness: Ms. Larkin is a 72 year old female with PMH of CAD with previous stenting of mid LAD as well as obtuse marginal branch. Stress test done in October 2016 was negative for myocardial ischemia or prior infarct. She does have prior history of prior non-STEMI, hypertension, hypercholesterolemia, and statin intolerance. She has type 2 diabetes mellitus. Pt reports chest pain that woke her at 0230, midsternal sharp, radiated to neck, similar to prior anginal equivalent. She took nitro without relief, prompting ED evaluation. Troponins negative x 3. Cardiology consulted for further recommendations given recent negative stress test. Pt further reports chest pain on a daily basis worse on exertion. She states it is lifestyle limiting. She lives alone, is independent, does her own housework. Of note, she saw Dr. Garcia 05/05/17 and complained of chest pain similar to prior anginal equivalent at that time, but declined further evaluation. She is now willing to proceed with further work-up. TTE completed--EF 60-65%, mild LVDD, mild AR TR MR and mild phtn. CV testing: TTE 05/26/17: EF 60-65%, mild LVDD, mild AR TR MR, mild phtn. Nuclear stress test 10/2016 negative for ischemia or infarct. LHC 11/2015: Patent mid LAD and LEE stents. Stable coronary artery disease. The left ventricle is normal and has normal contractility EF 65%. Past Med Surg Social Fam HX - Past Medical History Medical history: arthritis, cancer, CHF, coronary artery disease, DVT, GERD, hypertension, myocardial infarction Psychiatric history: no psych history - Past Surgical History Surgical History: angioplasty/stent, appendectomy, cancer surgery, cholecystectomy, hysterectomy, orthopedic, other, other - Social History Smoking Status: Never smoker Smokeless Tobacco Status: No Alcohol use: none Drug use: none - Family History Father Family Member Ethnicity: Non- Twin of Family Member: Yes, Fraternal Living Status: Hx Family Cardiac Disorders: Yes Hx Family Respiratory Disorders: No Hx Family Cancer: Yes (Lung) Hx Family GI Disorders: No Hx Family Endocrine Disorder: No Hx Family Neuromuscular Disorders: No Hx Family Neurologic Disorders: No Hx Family HEENT Disorders: No Hx Family Autoimmune Disorders: No Mother Living Status: Hx Family Cardiac Disorders: Yes Hx Family Cancer: Yes Medications and Allergies Loratadine [Claritin] 10 mg PO QAM PRN #0 11/21/14 [History] Losartan [Cozaar] 25 mg PO DAILY 11/21/14 [History] Nitroglycerin [Nitrostat] 0.4 mg SL Q5M PRN #0 11/21/14 [History] Cholecalciferol (Vitamin D3) [Vitamin D3] 2,000 unit PO QPM 01/03/15 [History] Clopidogrel [Plavix] 75 mg PO QPM 01/03/15 [History] Albuterol Neb [Proventil Neb] 2.5 mg IH TID PRN 09/07/15 [History] Metoprolol [Lopressor] 25 mg PO HS 11/13/15 [History] Fluticasone Propionate Nasal [Flonase] 50 mcg NS BID PRN 12/03/15 [History] Acetaminophen [Tylenol] 1,000 mg PO BID PRN 03/23/16 [History] Mv, Min #36/Iron,Carbonyl/FA [Geritol Complete Tablet] 1 tab PO DAILY 07/06/16 [ History] Pantoprazole Sodium [Protonix] 40 mg PO DAILY 07/06/16 [History] Isosorbide MONOnitrate [Isosorbide Mononitrate ER] 240 mg PO QAM 08/11/16 [ History] Albuterol Sulfate [Ventolin Hfa] 2 puff IH Q4H PRN 05/25/17 [History] Saccharomyces Boulardii [Florastor] 250 mg PO BID 05/25/17 [History] Vitamin E Acid Succinate [Vitamin E] 400 unit PO DAILY 05/25/17 [History] 3 Allergy/AdvReac Type Severity Reaction Status Date / Time codeine Allergy Difficulty Verified 05/25/17 15:23 Breathing prednisone Allergy Rash Verified 05/25/17 15:23 clarithromycin AdvReac Vomiting Verified 05/25/17 15:23 Erythromycin Base AdvReac Vomiting Verified 05/25/17 15:23 hydrocodone [From Vicodin] AdvReac Dizziness Verified 05/25/17 15:23 propoxyphene AdvReac Vomiting Verified 05/25/17 15:23 Laizvhy-Xsv-Uhs Reductase AdvReac Muscle Pain Verified 05/25/17 15:23 Inhibitor [Statins] All Systems Review: The remainder of the systems were reviewed and are negative - Cardiovascular Cardiovascular: as per HPI, chest pain at rest, chest pain with exertion, radiating jaw, neck or arm pain Physical Examination Vital Signs, Last 4 Hours Temp Pulse Resp BP Pulse Ox 05/26/17 11:18 97.7 F 65 14 125/74 94 05/26/17 09:15 94 Vital Signs Temp Pulse Resp BP Pulse Ox 05/26/17 11:18 97.7 F 65 14 125/74 94 18 09:15 94 05/26/17 07:34 98.1 F 69 14 124/72 94 05/26/17 05:16 98.2 F 62 16 121/79 95 05/26/17 04:02 98.0 F 79 16 112/69 97 05/25/17 23:10 98.4 F 62 16 115/74 96 05/25/17 19:02 98.2 F 80 16 134/84 96 05/25/17 17:15 16 132/75 05/25/17 15:23 72 18 134/73 97 05/25/17 15:20 97.9 F 73 16 153/89 96 Intake and Output 05/25/17 05/26/17 05/26/17 23:59 07:59 15:59 Output Total 600 / 600 Balance -600 / -600 Output: Urine 600 / 600 Other: Meal NPO Weight 84.096 kg Patient Weight 05/26/17 23:59 Weight 84.096 kg General: Conversant, No Apparent Distress HEENT: Atraumatic, Normocephaly, Mucus Membranes Moist Neck: No JVD, Normal carotid pulses Cardiac: Reg Rate and Rhythm, Normal S1 and S2, No Murmur Lungs: Normal Breath Sounds, No Wheeze, Rales, Rhonchi Neuro: Alert and responsive, No focal deficits noted Abdomen: Soft, Non-Tender Skin: No rashes noted on visualized skin Musculoskeletal: No Chest Wall Tenderness Extremities: No Clubbing, No Cyanosis, No Edema, Normal Pulses Results 05/25/17 15:34 05/25/17 15:34 Lab Results 05/25/17 05/26/17 21:00 03:41 Troponin I < 0.03 < 0.03 Short CBC 05/25/17 Range/Units 15:34 WBC 7.5 (4.3-11.1) K/mcL Hgb 12.6 (11.5-15.4) g/dL Hct 38.3 (35.3-44.9) % Plt Count 200 (140-400) K/mcL Neutrophils # 3.9 (1.6-8.9) K/mcL BMP 05/25/17 Range/Units 15:34 Sodium 140 (136-145) mEq/L Potassium 4.0 (3.5-5.1) mEq/L Chloride 108 H (98-107) mEq/L Carbon Dioxide 25 (23-29) mEq/L BUN 27 H (8-23) mg/dL Creatinine 1.04 (0.60-1.20) mg/dL Glucose 93 (70-105) mg/dL Calcium 9.7 (8.6-10.3) mg/dL Cardiac Enzymes 05/26/17 05/25/17 05/25/17 Range/Units 03:41 21:00 15:34 Troponin I < 0.03 < 0.03 < 0.03 (< 0.04) ng/mL Impressions Chest X-Ray 05/25/17 15:23 IMPRESSION: No acute process. D/ / Carlos Mena MD / Carlos Mena MD Interpreting Provider: Carlos Mena MD Echocardiogram 05/26/17 17:23 Impressions: LVEF 60-65%. Mild left ventricular diastolic dysfunction. Normal right ventricular structure and function. Mild aortic regurgitation. Mild mitral regurgitation. Mild tricuspid regurgitation. Mild pulmonary hypertension. Left Ventricular Wall Motion: Rest Echo Findings All wall segments showed normal motion. Findings: Study Quality * Technically adequate exam. ECG Findings * Normal sinus rhythm. Left Ventricle * LVEF 60-65%. * Normal LV chamber size, wall thickness and function. * Mild left ventricular diastolic dysfunction. Right Ventricle * Normal right ventricular structure and function. Left Atrium * Normal left atrial size. Right Atrium * Normal right atrial size. Aortic Valve * No aortic stenosis. * Mild aortic regurgitation. * Trileaflet aortic valve. * Mildly thickened aortic valve leaflets. Mitral Valve * Normal mitral valve structure. * No mitral stenosis. * Mild mitral annular calcification * Mild mitral regurgitation. Tricuspid Valve * Tricuspid valve not well visualized. * Mild tricuspid regurgitation. * Estimated RA pressure is 3 mmHg. * Estimated RVSP is 38 mmHg. * Mild pulmonary hypertension. Pulmonic Valve * Pulmonic valve is not well visualized. * No pulmonic stenosis. * No pulmonic regurgitation. Pulmonary Artery * Pulmonary artery not well visualized. Aorta * Normally sized aortic root. Pericardium * There is no pericardial effusion present. Interatrial Septum * No evidence of PFO by color Doppler. IVC * Normal IVC dimensions and inspiratory collapse. Active Medications Acetaminophen (Tylenol) 1,000 mg PO BID PRN PRN Reason: Mild Pain Stop: 11/24/17 17:20 Albuterol Sulfate (Proventil Neb) 2.5 mg IH TID PRN; Protocol PRN Reason: Shortness Of Breath Stop: 11/24/17 17:20 Albuterol Sulfate (Albuterol Inhaler) 2 puff IH Q4H PRN PRN Reason: Shortness Of Breath Stop: 11/24/17 17:20 Clopidogrel Bisulfate (Plavix) 75 mg PO QPM [facility] Stop: 11/24/17 18:01 Last Admin: 05/25/17 18:00 Dose: 75 mg Enoxaparin Sodium (Lovenox) 40 mg SQ 0600 PRASANNA PRN Reason: Protocol Stop: 11/25/17 06:01 Last Admin: 05/26/17 05:50 Dose: 40 mg Fluticasone Propionate (Flonase) 50 mcg NS BID PRN; Protocol PRN Reason: Allergy Symptoms Stop: 11/24/17 17:20 Isosorbide Mononitrate (Imdur) 240 mg PO QAM [facility] Stop: 11/25/17 09:01 Last Admin: 05/26/17 09:19 Dose: 240 mg Lactobacillus Acidophilus/Rhamnosus (Culturelle) 1 each PO DAILY [facility] Stop: 11/25/17 09:01 Last Admin: 05/26/17 09:19 Dose: 1 each Loratadine (Claritin) 10 mg PO QAM PRN; Protocol PRN Reason: Allergy Symptoms Stop: 11/24/17 17:20 Losartan Potassium (Cozaar) 25 mg PO DAILY [facility] PRN Reason: Protocol Stop: 11/25/17 09:01 Last Admin: 05/26/17 09:19 Dose: 25 mg Metoprolol Tartrate (Lopressor) 25 mg PO HS [facility] Stop: 11/24/17 21:01 Last Admin: 05/25/17 20:41 Dose: 25 mg Naloxone HCl (Narcan) 0.4 mg IVP Q2MIN PRN PRN Reason: SEE COMMENTS Stop: 11/24/17 17:21 Nitroglycerin (Nitroglycerin) 0.4 mg SL Q5M PRN PRN Reason: Chest Pain Stop: 11/24/17 17:20 Omeprazole (Prilosec) 20 mg PO 0630 [facility] Stop: 11/25/17 06:31 Last Admin: 05/26/17 05:51 Dose: 20 mg Pharmacy Profile Note (Patient Taking Own Medication) 0 each PO DAILY PR[facility] Stop: 11/25/17 09:01 Last Admin: 05/26/17 09:20 Dose: Not Given Vitamin D (Vitamin D) 1,000 unit PO QPM [facility] Stop: 11/24/17 18:01 Last Admin: 05/25/17 18:00 Dose: 1,000 unit Vitamin E (Vitamin E) 400 unit PO DAILY [facility] Stop: 11/25/17 09:01 Last Admin: 05/26/17 09:19 Dose: 400 unit - Imaging and Cardiology Stress Test: report reviewed Echo: report reviewed Cardiac cath: report reviewed - EKG Interpretation EKG results cardiology: personally reviewed (SR), other (12 hr tele AVG HR 67, SR, no significant pauses or arrhythmias) Consult Discharge Plan - Plan Referrals: Karen Perez CNP [Primary Care Provider] - 06/03/17 9:00 am
--- NOTE | 2017-05-26 14:53 | Pre-Sedation Evaluation ---
Pre-sedation evaluation - Pre-sedation checklist Date of procedure: 05/26/17 Procedure: [facility] Recent Vitals: Last Vital Signs Temp 97.7 F 05/26/17 11:18 Pulse 65 05/26/17 11:18 Resp 14 05/26/17 11:18 BP 125/74 05/26/17 11:18 Pulse Ox 94 05/26/17 11:18 H&P (including ROS) documented in medical record: Yes Previous reaction to sedatives/anesthetics: No Dietary Status: NPO after Midnight Dentition: No loose teeth or bridges ASA Classification *see protocol: CLASS II-Mild systemic disease Plan of Care: Pt appropriate candidate for procedure/moderate/conscious sedation , Risks/benefits of procedure/sedation discussed w/ patient/family
[2017-05-26] MEDS ORDERED: 0.9 % Sodium Chloride 1,000 ML ONE ×2 (15:11→16:46)
[2017-05-26] MEDS ORDERED: *HR* Midazolam HCl 2 MG/2 ML VIAL ONE ×2 (15:57→16:07)
[2017-05-26] MEDS ORDERED: *HR* FentaNYL (PF) 100 MCG/2 ML VIAL ONE (15:57)
[2017-05-26] MEDS ORDERED: Heparin 1,000 UNITS/500 mL 500 ML ONE (16:46)
[2017-05-26] MEDS ORDERED: ISOVUE-370 200 ML INFUS..BTL IV ONE (16:46)
[2017-05-26] MEDS ORDERED: Nitroglycerin 1,000 MCG/10 ML VIAL IV ONE (16:46)
[2017-05-26] MEDS ORDERED: *HR* Heparin 10,000 UNIT/10 ML VIAL ONE (16:46)
--- NOTE | 2017-05-26 16:52 | Invasive Diagnostic Lab Proc ---
Name: Elly Larkin Date of Study: 05/26/2017 Date: 1945 Ht: 61.8in Medical Record#: [id number] Age: 72 Wt: 185.19lb Gender: Female BSA: 1.85 Order #: [id number] BMI: 34.08 Physicians Procedure Physician: Bebeto Moya MD, FACC Referring MD: Referring MD: Staff Name Position Time In BreannvaleriaCamille fan RN Monitor 03:54 PM Juliet Steele RN Bladder Trimmer 03:54 PM González Rosen RN Bladder Trimmer 03:54 PM Robert Hdez RT (R) Scrub 03:54 PM Indications Indication Unstable Angina Procedures Performed Procedure L HRT ARTERY/VENTRICLE ANGIO IVUS CORONARY EA AD'L VES S&I Pre-Procedure Checklist Informed consent is complete signed and on chart. H&P is on chart. ID band is on and ID verified with patient. Patient NPO for procedure The procedure was described for the patient and questions were answered. Blood Pressure: 125/74 ECG is on chart. Rhythm: NSR Plan of Care Patient will tolerate the procedure without complications. Adequate level of comfort will be maintained. Hemodynamics will remain stable Patient will recover from procedure without complications. Respiratory function will be maintained. Cardiac rhythm will remain stable. Patient temperature will be maintained. Patient and/or family have verbalized understanding of the procedure. Patient Education Chief Complaint/Reason for Test: Cardiac Cath Developmental Category: Geriatric (65+ years) Developmentally Appropriate for Age: Yes Learning Barriers: None Education Needs: Procedure Education Method: Verbal Information Taught: Cardiac Cath Educational Evaluation: Able to repeat information Intravenous Access Time IV Size Location DC'd Fluid/Drip Rate Units RN 02:55 PM 18g 1 1/" Patent On Arrival Lt Antecubital 0.9NaCl 25 ml/hr González Rosen RN Allergies acetaminophen hydrocodone TAPE Statins Llszaxw-Rhk-Cfr Reductase Inhibitor codeine morphine propoxyphene Erythromycin prednisone CODEINE DARVOCET Vital Signs Time BP (mmHg) HR (bpm) O2 Sat. RR (bpm) LOC 02:55 PM 125 / 74 65 94 % 16 5 = Fully awake and oriented or at pre-proc level 03:54 PM / % 5 = Fully awake and oriented or at pre-proc level 04:02 PM 164 / 79 81 100 % 12 Procedural Medications Time Medication Dose Units Method Given By 03:54 PM Oxygen 2 L/min nasal cannula González Rosen RN 03:59 PM Versed 2 mg Intravenous González Rosen RN 03:59 PM Fentanyl 50 mcg Intravenous González Rosen RN 04:07 PM Versed 1 mg Intravenous González Rosen RN 04:07 PM Fentanyl 50 mcg Intravenous González Rosen RN 04:17 PM Heparin 4000 units Intravenous González Rosen RN 04:22 PM Adenosine 706 ml/hr Intravenous González Rosen RN 04:33 PM Hydralazine 10 mg Intravenous González Rosen RN ASA Classification: CLASS II- Mild systemic disease (i.e. well-controlled diabetes, hypertension, asthma, cigarette smoking) Rhett Score Preprocedure Postprocedure Activity 2- Moves 4 extremities sustained head lift Activity 2- Moves 4 extremities sustained head lift Circulation 2- SBP +/= 20 points of pre-anesthetic level Circulation 2- SBP +/= 20 points of pre-anesthetic level Consciousness 2- Awake and alert oriented x 3 Consciousness 2- Awake and alert oriented x 3 O2 Saturation 2- Able to maintain O2 satruation of 92% on room air O2 Saturation 2- Able to maintain O2 satruation of 92% on room air Respiratory 2- Able to deep breathe and cough well Respiratory 2- Able to deep breathe and cough well Total Score 10 Total Score 10 Contrast Agent: Isovue Diagnostic Contrast: 97 ml Total Contrast: 97 ml Fluoro Dose: 370 mGy Activated Clotting Time Time Seconds to Clot 04:36 PM 263 Procedure Log Time Note Enter By 02:57 PM CathStat 03:17 PM Pt arrived to label pinker 2 at 15:17 yajaira 03:54 PM Camille Mattson RN Position: Monitor Time in: 15:54 yajaira 03:54 PM Juliet Steele RN Position: Bladder Trimmer Time in: 15:54 yajaira 03:54 PM González Rosen RN Position: Bladder Trimmer Time in: 15:54 yajaira 03:54 PM Robert Hdez RT (R) Position: Scrub Time in: 15:54 yajaira 03:54 PM Patient charges- Angio tray pack, Navilyst 3mm J, Pulse Oximetry and ACIST tubing and transducer lpadavie 03:54 PM Case Delayed No [facility] 03[facility] PM Hair removed from procedure site in procedure lab using clippers. Bilateral groin prepped with Chloraprep by Juliet Steele RN, then patient was draped. Skin intact. [facility] 03:54 PM Physiccamilla paged/called 15:54. [facility] 03:54 PM Physiccamilla responded and notified patient is ready 15:54 [facility] 03[facility] PM Physician arrived 15:54 [facility] 03:54 PM Meet and greet completed [facility] 03:54 PM Sign in performed according to hospital policy. [facility] 03:54 PM Procedure start 15:54 [facility] :54 PM Time: 15:54 Oxygen on at 2 L/min per nasal cannula by González Rosen RN [facility] :[facility] PM Time: 15:54 Patient comfortable and pain free: Yes [facility] :54 PM Time: 15:54LOC: 5 = Fully awake and oriented or at pre-proc level [facility] 03:55 PM Case Start 03:55 PM Clinical Presentation: [facility] 03:57 PM ASA Class CLASS II- Mild systemic disease (i.e. well-controlled diabetes, hypertension, asthma, cigarette smoking) [facility] 03:58 PM Reference ECG taken 03:59 PM Time: 15:59 Versed 2 mg Intravenous Given by González Rosen RN 03:59 PM Time: 15:59 Fentanyl 50 mcg Intravenous Given by González Rosen RN 04:00 PM Vitals capture started with the following parameters, Patient=Adult, Interval=5 min, Initial Ibrleqvg=964 mmHg, Deflation Rate=3 mmHg, Cuff placed on Right Arm 04:01 PM NIBP STAT measurement started. 04:02 PM HR=81 bpm, BGAW=826/79 mmhg, QgV5=758.0 %, Resp=12 B/min 04:02 PM Pressure channel 1 zeroed. 04:02 PM Recorded ECG: HR=69 Condition=Condition 1 04:07 PM Time out performed according to hospital policy [facility] 04:07 PM Time: 16:07 Versed 1 mg Intravenous Given by González Rosen RN 04:07 PM Time: 16:07 Fentanyl 50 mcg Intravenous Given by González Rosen RN 04:09 PM Micro-Introducer Kit utilized for sheath placement [facility] 04:10 PM Access obtained by percutaneous puncture. 5Fr 10cm Terumo [place] sheath placed in right Femoral artery. [id number] tsoummers 04:10 PM 0.035 145cm Navilyst 3mmJ wire [id number] tsoummers 04:10 PM 5Fr FL 4 catheter inserted over the wire [facility] tsoummers 04:10 PM LCA angiography performed in multiple views. tsoummers 04:11 PM Recorded Pressure: Ao, HR=74, Condition=Condition 1 (Aorta) Ao 125/77/99 04:12 PM Catheter removed tsoummers 04:13 PM 5Fr FR 4 catheter inserted over the wire [facility] tsoummers 04:13 PM RCA angiography performed in multiple views. tsoummers 04:13 PM Recorded Pressure: Ao, HR=74, Condition=Condition 1 (Aorta) Ao 88/39/64 04:14 PM Catheter removed tsoummers 04:14 PM 5Fr Pigtail catheter inserted over the wire [facility] tsoummers 04:15 PM Catheter selectively placed in left ventricle tsoummers 04:17 PM Recorded Pressure: LV, HR=74, Condition=Condition 1 (Left Ventricle) LV 168/0/16 04:17 PM Time: 16:17 Heparin 4000 units Intravenous Given by González Rosen RN [email or web address] 04:18 PM Recorded Pressure: LV, Ao, HR=70, Condition=Condition 1 (Left Ventricle) LV 150/2/18, (Aorta) Ao 141/67/97 04:19 PM Bolus angiogram of left Ventricle complete: 10 ml/sec for a total of 20 mls tsoummers 04:19 PM Catheter removed tsoummers 04:19 PM Inflation device was opened. tsoummers 04:19 PM 5Fr JL4 Convey guide catheter was used to cannulate the PCI vessel successfully. reused? No tsoummers 04:20 PM [employer] FFR Wire advanced to target lesion. tsoummers 04:20 PM Pressure channel 3 equalized to channel 1. 04:20 PM Pressure channel 3 zeroed. 04:20 PM Pressure channel 1 zero failed. 04:20 PM Pressure channel 1 zeroed. 04:22 PM Time: 16:22 Adenosine 706 ml/hr administered Intravenous by González Rosen RNmmmeng 04:23 PM FFR: Value=0.93, Condition=Condition 1, Device=[employer] PRIME WIRE 04:23 PM Recorded Pressure: Ao, Ao, FFR=0.93, HR=92, Condition=Condition 1 (Aorta) Ao ?/?/?, (Aorta) Ao ?/?/? 04:23 PM Pressure channel 3 equalization failed. 04:24 PM Pressure channel 3 equalized to channel 1. 04:24 PM FFR: Condition=Condition 1, Device=[employer] PRIME WIRE 04:24 PM Recorded Pressure: Ao, Ao, WO=320, Condition=Condition 1 (Aorta) Ao ?/?/?, (Aorta) Ao ?/?/? 04:27 PM [ Start FFR sample ] 04:28 PM Flow Wire/Catheter removed intact tsoummers 04:28 PM FFR Measurement: 0.81 tsoummers 04:30 PM Guide catheter removed intact. tsoummers 04:30 PM Bolus angiogram of right Femoral complete: 2 ml/sec for a total of 4 mls tsoummers 04:31 PM Procedure completed at 16:31 tsmmers 04:31 PM Did you address JESÚS flow and Dominance? Yes tsoummers 04:31 PM Sign out completed: Radiation Dose 369.66 mGy Fluoro Time: 5.3 Isovue 370 - 200ml contrast 97 ml given by Bebeto Moya MD, [facility]. Complications: NoneCardiac Rehab Consult needed: NoConfirmed administered medications: Yes tsmmers 04:31 PM Isovue 370 - 200ml,1 Bottle(s) used. tsoummers 04:32 PM Estimated Blood Loss: less than 20cc tsoummers 04:32 PM Post ECG NSR tsoummers 04:32 PM Post Blood Pressure 164/79 tsoummers 04:32 PM Information taught Cardiac Cath and IVUS/Flowire tsoummers 04:32 PM Education needs Procedure, Plan of Care, and Responsibilities of Patient in Care tsoummers 04:32 PM Learning barriers :None tsoummers 04:32 PM Education Methods Verbal tsoummers 04:32 PM Education evaluation Able to repeat information tsoummers 04:32 PM Site status No bleeding/hematoma - Rt Groin as reported by Robert Hdez RT (R) at 16:32 tsoummers 04:32 PM Arterial sheath pulled, Mynx closure device used and was Successful [id number] S/N. tsoummers 04:32 PM Opsite applied tsoummers 04:32 PM Plavix, Effient or Brilinta given No 04:32 PM Delay to floor No 04:33 PM Complications: None 04:33 PM Fluoro Time: 5.3 04:33 PM Isovue 370 - 200ml contrast [address] Moya. 04:33 PM Radiation Dose 369.66 mGy 04:33 PM Time: 16:33 Hydralazine 10 mg Intravenous Given by González Rosen RN 04:36 PM Report given to Sarai BLEVINS Pt taken to Room #63. 16:36 mm 04:36 PM At 16:36 the ACT was 263 seconds. 04:36 PM Coronary Dominance: Left mm 04:37 PM Lesion found in Proximal LAD. Pre Stenosis: 50 Pre JESÚS Flow: mm 04:37 PM Lesion found in Distal LAD. Pre Stenosis: 60 Pre JESÚS Flow: 3: Complete and Brisk Flow/Perfusion 04:37 PM Proximal Left Anterior Descending Coronary Artery with 50% stenosis. If graft is supplying this territory, 0 % stenosis. 04:37 PM Mid/Distal Left Anterior Descending Coronary Artery and diagonal branches with 60% stenosis. If graft is supplying this area, 0 % stenosis mm 04:45 PM No family present at this time. mm 04:45 PM Patient out of room: 16:45 [facility] Complications Complication None Hemodynamics Pressures Site Systolic/A Wave Diastolic/V Wave Mean AO 125 77 99 AO 88 39 64 LV 168 0 16 LV 150 2 18 AO 141 67 97 AO AO AO AO Post Procedure Information Blood Pressure: 164/79 mmHg Rhythm: NSR Post procedural instructions were given Closure Device Time Device Success/Fail 05/26/2017 4:34:00 PM MynxGrip Successful Site Checks Time Location Status Staff Sheath In? Note 04:32 PM Rt Groin No bleeding/hematoma Robert Hdez RT (R) Pulses Time Site Pre-Procedure Post-Procedure Note 05/26/2017 2:55:00 PM Bilateral DP & PT 2+ 05/26/2017 2:55:00 PM Bilateral radial 2+ Updated by Camille Mattson RN on 05/26/2017 4:46:26 PM electronically signed on 05/26/2017 4:47:16 PM with status of Final
[2017-05-26] MEDS: Cholecalciferol (D-3) 1,000 UNIT TABLET PO SCH (17:45)
--- NOTE | 2017-05-26 18:15 | Electrocardiograph Report ---
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
--- NOTE | 2017-05-26 18:57 | Internal Med Progress Note ---
Date of Encounter: 05/26/17 Time of Encounter: 09:55 - Assessment and plan (1) Chest pain Current Visit: Yes Status: Acute Assessment and plan: Patient with extensive past cardiac history. Patient reports multiple stents, history of CAD. She has been noncompliant with taking aspirin, though she does take her Plavix. Patient reports cardiac catheter in November, with proximal LAD with patent stent, mid LAD with patent stents, 30% mid LAD, OM 1 with patent stents, 30% mid circumflex, RCA occluded proximally. Patient has stress test in October, that was negative for ischemia or infarct. Cardiology was consulted, patient had an LHC today. Left ventricle is normal, EF 65%. Recommendations included optimal medical therapy, DC losartan, start Norvasc. Add Ranexa, if patient continues having pain, we will have distal LAD PCI. Continue telemetry Patient will most likely discharge in the morning. Qualifiers: Chest pain type: unspecified Qualified Code(s): R07.9 - Chest pain, unspecified (2) DVT prophylaxis Current Visit: Yes Status: Acute Assessment and plan: Patient has been ambulatory, NIRAV summers ordered. (3) CAD (coronary artery disease) Current Visit: Yes Status: Chronic Assessment and plan: Plan as above. Qualifiers: Coronary Disease-Associated Artery/Lesion type: [place] artery [place] vs. transplanted heart: [place] heart Associated angina: without angina Qualified Code(s): I25.10 - Atherosclerotic heart disease of [place] coronary artery without angina pectoris (4) Hypertension Current Visit: Yes Status: Chronic Assessment and plan: Chronic. Well controlled. Continue home medication. Qualifiers: Hypertension type: essential hypertension Qualified Code(s): I10 - Essential (primary) hypertension - Time Spent With Patient less than 15 minutes - Subjective Interval history: Patient was seen and assessed the bedside at 9:55 AM. Patient has been ambulatory in the room, she states that she feels well. Patient was at Dr. Garcia's office approximately one month ago for routine checkup. She is nonadherent with taking aspirin due to bruising, she does take her Plavix. Patient denies any chest pain at all. She did report midsternal chest pain radiated up into bilateral neck lasting all day 2 days ago. She reports it as sharp and stabbing, constant without relief reading from anywhere from 5-9/10. She currently denies chest pain, nausea, vomiting, abdominal pain, shortness of breath, diaphoresis. - Constitutional Vitals: Temp Pulse Resp BP Pulse Ox 97.7 F 82 18 123/77 98 05/26/17 11:18 05/26/17 18:30 05/26/17 18:30 05/26/17 18:30 05/26/17 18:30 General appearance: Present: cooperative, A&O X 3, pleasant, no acute distress, answers questions appropriately - Head Head exam: Present: atraumatic, normal inspection, normocephalic - Eye Eye exam: Present: normal appearance, conjuntiva pink, sclera anicteric - Neck Neck exam general surgery: Present: supple, trachea midline. Absent: lymphadenopathy - Respiratory Respiratory exam: Present: CTAB. Absent: accessory muscle use, chest wall tenderness, rales, respiratory distress, rhonchi, wheezes - Cardiovascular Cardiovascular exam: Present: RRR, +S1, +S2. Absent: diastolic murmur, gallop, rubs, systolic murmur - GI/Abdominal GI/Abdominal exam: Present: normal bowel sounds, soft. Absent: distended, hepatomegaly, tenderness - Extremities Exam Extremities exam: Present: normal capillary refill, normal inspection, warm, radial pulses palpable and symmetrical. Absent: calf tenderness, cyanotic, pedal edema, tenderness - Neurological Exam Neurological exam: Present: alert, oriented X3, no focal deficits. Absent: facial droop, speech deficit - Skin Skin exam: Present: dry, intact, normal color, warm. Absent: rash Internal Medicine: Result - Labs CBC & Chem 7: 05/25/17 15:34 05/25/17 15:34 Labs: Cardiac Enzymes 05/25/17 05/26/17 Range/Units 21:00 03:41 Troponin I < 0.03 < 0.03 (< 0.04) ng/mL - Impressions Impressions Echocardiogram 05/26/17 17:23 Impressions: LVEF 60-65%. Mild left ventricular diastolic dysfunction. Normal right ventricular structure and function. Mild aortic regurgitation. Mild mitral regurgitation. Mild tricuspid regurgitation. Mild pulmonary hypertension. Left Ventricular Wall Motion: Rest Echo Findings All wall segments showed normal motion. Findings: Study Quality * Technically adequate exam. ECG Findings * Normal sinus rhythm. Left Ventricle * LVEF 60-65%. * Normal LV chamber size, wall thickness and function. * Mild left ventricular diastolic dysfunction. Right Ventricle * Normal right ventricular structure and function. Left Atrium * Normal left atrial size. Right Atrium * Normal right atrial size. Aortic Valve * No aortic stenosis. * Mild aortic regurgitation. * Trileaflet aortic valve. * Mildly thickened aortic valve leaflets. Mitral Valve * Normal mitral valve structure. * No mitral stenosis. * Mild mitral annular calcification * Mild mitral regurgitation. Tricuspid Valve * Tricuspid valve not well visualized. * Mild tricuspid regurgitation. * Estimated RA pressure is 3 mmHg. * Estimated RVSP is 38 mmHg. * Mild pulmonary hypertension. Pulmonic Valve * Pulmonic valve is not well visualized. * No pulmonic stenosis. * No pulmonic regurgitation. Pulmonary Artery * Pulmonary artery not well visualized. Aorta * Normally sized aortic root. Pericardium * There is no pericardial effusion present. Interatrial Septum * No evidence of PFO by color Doppler. IVC * Normal IVC dimensions and inspiratory collapse. Consult Discharge Plan - Plan Referrals: Karen Perez CNP [Primary Care Provider] - 06/03/17 9:00 am
[2017-05-27] MEDS: *HR* Enoxaparin 40 MG/0.4 ML SYRINGE SQ SCH (06:10)
--- NOTE | 2017-05-27 06:29 | Electrocardiograph Report ---
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
[2017-05-27 08:56] LABS: Basophils % 0.5 %; Eosinophils # 0.3 K/mcL (0.0-0.6); Eosinophils % 5.7 %; Hematocrit 35.2 % (35.3-44.9); Hemoglobin 11.7 g/dL (11.5-15.4); Immature Granulocytes % 0.3 % (0-4); Lymphocytes # 1.7 K/mcL (0.6-4.6); Lymphocytes % 29.6 %; Mean Corpuscular HGB Conc 33.2 g/dL (31.6-35.5); Mean Corpuscular Hemoglobin 30.8 pg (28.0-33.3); Mean Corpuscular Volume 92.6 fL (83.0-100.0); Mean Platelet Volume 11.6 fL (9.4-12.4); Monocytes # 0.7 K/mcL (0.0-1.3); Monocytes % 11.5 %; Neutrophils # 3.1 K/mcL (1.6-8.9); Platelet Count 176 K/mcL (140-400); Red Cell Distribution Width 13.5 % (11.5-14.5); Segmented Neutrophils % 52.4 %
[2017-05-27] MEDS ORDERED: amLODIPine 5 MG TABLET PO SCH (09:00)
[2017-05-27 09:14] LABS: BUN/Creatinine Ratio 22 (6-26); Blood Urea Nitrogen 22 mg/dL (8-23); Calcium 9.4 mg/dL (8.6-10.3); Carbon Dioxide 25 mEq/L (23-29); Chloride 109 mEq/L (98-107); Glucose 103 mg/dL (70-105); Osmolality,Calculated 292 (280-300); Potassium 4.6 mEq/L (3.5-5.1); Sodium 139 mEq/L (136-145); eGFR For African Americans > 60 (> 60); eGFR For Non-African Americans 55 (> 60)
[2017-05-27] MEDS: [UNRECOGNIZED DRUG - OTHER] PO SCH (10:06)
[2017-05-27] MEDS: Isosorbide MONOnitrate (24 HR) 60 MG TAB.ER.24H PO SCH (10:06)
[2017-05-27] MEDS: MV MIN PO SCH (10:06)
[2017-05-27] MEDS: IRON CARBONYL PO SCH (10:06)
[2017-05-27] MEDS: Lactobacillus 1 EACH CAP.SPRINK PO SCH (10:06)
--- NOTE | 2017-05-27 11:11 | Cardiology Progress Note ---
Date of Encounter: 05/27/17 Time of Encounter: 11:09 Assessment and Plan (1) Unstable angina Current Visit: Yes Status: Acute Symptoms concerning for unstable angina--similar to prior anginal equivalent. Troponins negative. Negative stress test 10/2016. On max dose of Imdur 240mg daily. Reports being unable to afford Ranexa-->$200/ month. Continue Plavix, BB. Not on statin due to intolerance. Not on ASA due to bruising when on DAPT. TTE 05/26/17: EF 60-65%, mild LVDD, mild AR TR MR, mild phtn. [facility] yesterday--pLAD has patent stents present from a previous procedure. The Mid LAD has patent stents present from a previous procedure. There is a 50% stenosis in the Proximal LAD - FFR not significant here (0.91) There is a long 60-70% stenosis in the Distal LAD. The lesion has a JESÚS flow of 3. Recommendations were for optimal medical therapy of patient's disease - dc losartan, started Norvasc. Recommended to add Ranexa if continued symptoms--not affordable. Will coordinate with office to see if financial assistance can be provided. If despite maximal treatment continues having angina, distal LAD PCI could be attempted. Right femoral access site healing well. No bleeding, hematoma or ecchymosis noted. Labs and vitals stable. Cardiology signing off. Reconsult PRN. Will coordinate outpt follow-up in 3-4 weeks. (2) CAD (coronary artery disease) Current Visit: Yes Status: Chronic As above If despite maximal treatment continues having angina, distal LAD PCI. Continue Plavix, BB. Intolerant to statin drugs. Not on DAPT due to bruising. Qualifiers: Coronary Disease-Associated Artery/Lesion type: [place] artery [place] vs. transplanted heart: [place] heart Associated angina: without angina Qualified Code(s): I25.10 - Atherosclerotic heart disease of [place] coronary artery without angina pectoris Discussion w patient/family: The assessment and plan as outlined above was discussed with the patient and/or family members who expressed understanding and agreement. All questions were answered. Thank you for involving us in the care of your patient. Please call with any questions. I will discuss all the above with Dr. Geronimo and make changes as necessary. Subjective Principal diagnosis: Unstable angina Interval history: S/P [facility] yesterday for unstable angina--The LMCA is angiographically free of disease. The Proximal LAD has patent stents present from a previous procedure. The Mid LAD has patent stents present from a previous procedure. There is a 50% stenosis in the Proximal LAD - FFR not significant here (0.91) There is a long 60-70% stenosis in the Distal LAD. The lesion has a JESÚS flow of 3. Recommendations were for optimal medical therapy of patient's disease - dc losartan, start Norvasc. Add Ranexa if continued symptoms. If despite maximal treatment continues having angina, distal LAD PCI. Aggressive risk factor modification. Labs stable this AM. Pt denies chest pain currently. Resting comfortably. Objective Vital Signs, Last 4 Hours Pulse Ox 05/27/17 10:00 95 Vital Signs Temp Pulse Resp BP Pulse Ox 05/27/17 10:00 95 05/27/17 07:08 98.1 F 72 14 111/71 95 05/27/17 03:36 98.1 F 68 15 100/61 95 05/26/17 23:23 98.0 F 74 121/76 96 05/26/17 20:30 98.0 F 85 16 131/78 99 05/26/17 18:30 82 18 123/77 98 05/26/17 18:00 79 18 142/82 99 05/26/17 17:45 77 16 144/78 98 05/26/17 17:30 76 16 126/62 100 05/26/17 17:15 74 17 118/63 100 05/26/17 17:00 77 16 134/73 100 05/26/17 11:18 97.7 F 65 14 125/74 94 Intake and Output 05/26/17 05/27/17 05/27/17 23:59 07:59 15:59 Intake Total 680 / 680 Output Total 500 / 500 400 / 400 Balance -500 / -500 -400 / -400 680 / 680 Intake: Oral 680 / 680 Output: Urine 500 / 500 400 / 400 Other: Meal Breakfast Percent of Meal Consumed 100% Stool Consistency soft Stool Color Brown # Bowel Movements 1 General: Conversant, No Apparent Distress HEENT: Atraumatic, Normocephaly, Mucus Membranes Moist Neck: No JVD, Normal carotid pulses Cardiac: Reg Rate and Rhythm, Normal S1 and S2, No Murmur Lungs: Normal Breath Sounds, No Wheeze, Rales, Rhonchi Neuro: Alert and responsive, No focal deficits noted Abdomen: Soft, Non-Tender Skin: Other (right femoral access site healing well. No bleeding, hematoma or ecchymosis noted.) Musculoskeletal: No Chest Wall Tenderness Extremities: No Clubbing, No Cyanosis, No Edema, Normal Pulses Results 05/27/17 08:39 05/27/17 08:39 Lab Results 05/27/17 05/27/17 08:39 08:39 WBC 5.8 Hgb 11.7 Hct 35.2 L Plt Count 176 Sodium 139 Potassium 4.6 Chloride 109 H Carbon Dioxide 25 BUN 22 Creatinine 0.99 Glucose 103 Calcium 9.4 Short CBC 05/27/17 Range/Units 08:39 WBC 5.8 (4.3-11.1) K/mcL Hgb 11.7 (11.5-15.4) g/dL Hct 35.2 L (35.3-44.9) % Plt Count 176 (140-400) K/mcL Neutrophils # 3.1 (1.6-8.9) K/mcL BMP 05/27/17 Range/Units 08:39 Sodium 139 (136-145) mEq/L Potassium 4.6 (3.5-5.1) mEq/L Chloride 109 H (98-107) mEq/L Carbon Dioxide 25 (23-29) mEq/L BUN 22 (8-23) mg/dL Creatinine 0.99 (0.60-1.20) mg/dL Glucose 103 (70-105) mg/dL Calcium 9.4 (8.6-10.3) mg/dL Active Medications Acetaminophen (Tylenol) 1,000 mg PO BID PRN PRN Reason: Mild Pain Stop: 11/24/17 17:20 Last Admin: 05/26/17 21:16 Dose: 1,000 mg Albuterol Sulfate (Proventil Neb) 2.5 mg IH TID PRN; Protocol PRN Reason: Shortness Of Breath Stop: 11/24/17 17:20 Albuterol Sulfate (Albuterol Inhaler) 2 puff IH Q4H PRN PRN Reason: Shortness Of Breath Stop: 11/24/17 17:20 Amlodipine Besylate (Norvasc) 2.5 mg PO DAILY PRASANNA PRN Reason: Protocol Stop: 11/26/17 09:01 Last Admin: 05/27/17 10:06 Dose: 2.5 mg Clopidogrel Bisulfate (Plavix) 75 mg PO QPM PRASANNA Stop: 11/24/17 18:01 Last Admin: 05/26/17 17:45 Dose: 75 mg Enoxaparin Sodium (Lovenox) 40 mg SQ 0600 PRASANNA PRN Reason: Protocol Stop: 11/25/17 06:01 Last Admin: 05/27/17 06:10 Dose: 40 mg Fluticasone Propionate (Flonase) 50 mcg NS BID PRN; Protocol PRN Reason: Allergy Symptoms Stop: 11/24/17 17:20 Isosorbide Mononitrate (Imdur) 240 mg PO QAM PRASANNA Stop: 11/25/17 09:01 Last Admin: 05/27/17 10:06 Dose: 240 mg Lactobacillus Acidophilus/Rhamnosus (Culturelle) 1 each PO DAILY PRASANNA Stop: 11/25/17 09:01 Last Admin: 05/27/17 10:06 Dose: 1 each Loratadine (Claritin) 10 mg PO QAM PRN; Protocol PRN Reason: Allergy Symptoms Stop: 11/24/17 17:20 Metoprolol Tartrate (Lopressor) 25 mg PO HS [facility] Stop: 11/24/17 21:01 Last Admin: 05/26/17 21:11 Dose: 25 mg Naloxone HCl (Narcan) 0.4 mg IVP Q2MIN PRN PRN Reason: SEE COMMENTS Stop: 11/24/17 17:21 Nitroglycerin (Nitroglycerin) 0.4 mg SL Q5M PRN PRN Reason: Chest Pain Stop: 11/24/17 17:20 Omeprazole (Prilosec) 20 mg PO 0630 PRASANNA Stop: 11/25/17 06:31 Last Admin: 05/27/17 06:10 Dose: 20 mg Pharmacy Profile Note (Patient Taking Own Medication) 0 each PO DAILY [facility] Stop: 11/25/17 09:01 Last Admin: 05/27/17 10:06 Dose: Not Given Vitamin D (Vitamin D) 1,000 unit PO QPM PRASANNA Stop: 11/24/17 18:01 Last Admin: 05/26/17 17:45 Dose: 1,000 unit Vitamin E (Vitamin E) 400 unit PO DAILY PRASANNA Stop: 11/25/17 09:01 Last Admin: 05/27/17 10:06 Dose: 400 unit - Imaging and Cardiology Echo: report reviewed Cardiac cath: report reviewed - EKG Interpretation EKG results cardiology: other (12 hr tele AVG HR 72, SR, no significant pauses or arrhythmias.) Consult Discharge Plan - Plan Additional Instructions: RISK FACTORS: STOP SMOKING: If you smoke, STOP. Smoking or tobacco use significantly increases your risk of heart disease because nicotine causes the arteries to narrow or constrict. It also causes fats to stick to the artery. Your chances of having a heart attack are greatly increased if you continue to smoke. For more information, call the education line for smoking cessation 4-171-CZCBWRC EAT A LOW FAT/CHOLESTEROL/SODIUM DIET: This diet may help reduce your chances of having a heart attack. LIFTING: Avoid lifting anything more than 10 pounds for 5-7 days Prior to straining, laughing, sneezing and/or coughing, apply manual pressure directly over insertion site. ACTIVITY: You may walk or climb stairs as tolerated You can resume sexual activity as tolerated In general, you are encouraged to engage in a minimum of 30 minutes or more of moderate intensity physical activity, such as brisk walking, daily or at least 3 -4 times weekly BATHING Do not submerge the site into water (bath tub, hot tub, swimming pool) for 1 week. This can be a source for infection into the blood stream. You may shower after 24 hours SITE CARE: After 24 hours, you may remove the dressing and leave the site open to air. Keep the site clean and dry. Clean gently and pat dry. You can expect bruising and tenderness that gradually resolve within a week or two. Return to work as instructed per your physician Resume driving as instructed per physician Keep all scheduled follow up appointments Resume medications as instructed IMPORTANT: If prescribed a Platelet Aggregation Inhibitor such as, Plavix, Brilinta or Effient: Duration of therapy is minimum one year These medications are often used in combination with Aspirin in prevention of future heart attacks Never discontinue unless consult with your Director Of Corporate Sponsorships STROKE (CVA) Risk factors for a stroke are: Age, cigarette smoking, diabetes, excessive alcohol consumption, family history, high blood pressure, overweight, physical inactivity, prior stroke, heart attack, diagnosis of carotid artery stenosis or other artery disease. Warning signs: Sudden numbness or weakness of the face, arm or leg; especially on one side of the body, sudden confusion, trouble speaking or understanding, sudden trouble seeing in one or both eyes, sudden trouble walking, dizziness, loss of balance or coordination, sudden severe headache with no cause. Call 911 or go to the Emergency Room. CONGESTIVE HEART FAILURE: If you have been diagnosed with Congestive Heart Failure (CHF) and your symptoms return, make an appointment with your physician Weigh yourself daily. Notify your physician if you have a weight gain of two or more pounds in one day or five or more pounds in one week. If you experience any difficulty breathing, please call 911 BLEEDING: Although the risk of bleeding is minimal, it can happen. If you have any bleeding from the site, apply firm pressure above the puncture site for 10-15 minutes. If the bleeding does not stop, continue manual pressure and call 911 Contact your physician if: You develop a fever greater than 101 degrees Fahrenheit Your site becomes reddened or has any drainage You have an increase in pain or burning at the site or if a large knot forms at the site. If you experience chest pain, shortness of breath, dizziness, or extreme tiredness, stop the activity and rest. Please notify your physicians office if you experience any of these symptoms and they are not relieved by rest please call 911! Referrals: Karen Perez CNP [Primary Care Provider] - 06/03/17 9:00 am
[2017-05-27 11:28] VITALS: BP 153/80
--- NOTE | 2017-05-27 13:22 | Discharge Summary ---
- NOTES TO OUTPATIENT PROVIDER Notes to Outpatient Provider: Pt had C 05/26, prior stents patent. Long 60-70% stenosis in distal LAD with JESÚS flow of 3. Pt has stopped Losartan and started Norvasc, office is attempting to add Ranexa but difficult due to cost. Pt may need distal LAD PCI if she continues to have pain. Date of Encounter: 05/27/17 Time of Encounter: 10:45 - Discharge Diagnosis (1) Chest pain Priority: Primary Status: Acute Comments: Pt has been encouraged to continue both ASA and Plavix. LHC yesterday, stents patent. 60-70% stenosis in distal LAD. If pt continues to have pain, may need PCI. Pt denies chest pain currently and states that she has had none since arrival. Losartan has been d/c'd, Norvasc has been started. Cardiology office is attempting to obtain Ranexa, pt with financial constraints at this time. Follow with cardiology and PCP. Qualifiers: Chest pain type: unspecified Qualified Code(s): R07.9 - Chest pain, unspecified (2) DVT prophylaxis Priority: Secondary Status: Acute Comments: Ambulatory in the room. NIRAV hose were ordered. (3) CAD (coronary artery disease) Priority: Secondary Status: Chronic Comments: Plan as above. Pt denies chest pain. Qualifiers: Coronary Disease-Associated Artery/Lesion type: [place] artery [place] vs. transplanted heart: [place] heart Associated angina: without angina Qualified Code(s): I25.10 - Atherosclerotic heart disease of [place] coronary artery without angina pectoris (4) Hypertension Priority: Secondary Status: Chronic Comments: Chronic. Continue home medications. Stop Losartan, start Norvasc. Qualifiers: Hypertension type: essential hypertension Qualified Code(s): I10 - Essential (primary) hypertension Hospital course: Ms. Larkin is a 72 year old female with PMH of CAD, cardiac stents, GERD, DMII, CKD III, CHF. Pt presented to the ED with midsternal/epigastric chest pain radiating into left upper chest that began at 2 AM on the morning of admission. She reports that her every week and for from sleep and she had associated nausea. She denies any vomiting, shortness of breath, dizziness, diaphoresis. The pain was relieved by nitroglycerin in the emergency room, exacerbated by mild exertion, no relation to meals. Patient is nonadherent with taking her aspirin, she does take Plavix. Troponins were negative, echocardiogram showed LVEF of 60-65%, mild LV DD, mild AR, mild MR, mild TR. Chest x-ray was negative. LHC yesterday showed patent stents, as well as a 60-70% stenosis of distal LAD. Per cardiology, if pain continues, she will need PCI of distal LAD. Patient' s losartan has been stopped, she will start Norvasc instead. Cardiology is attempting to obtain some sort of financial assistance for Ranexa, patient is unable to afford it at this time. Patient denies any chest pain. She states that she feels well and is ready for discharge. Labs and vitals are stable. Patient is ready for discharge. Discharge discussed with: patient - Time Spent with Patient Total time spent providing and/or coordinating discharge services: Less than 30 minutes - Discharge Medications Prescriptions: amLODIPine [Norvasc] 2.5 mg PO DAILY #30 tablet Home Medications: Loratadine [Claritin] 10 mg PO QAM PRN #0 11/21/14 [History] Nitroglycerin [Nitrostat] 0.4 mg SL Q5M PRN #0 11/21/14 [History] Cholecalciferol (Vitamin D3) [Vitamin D3] 2,000 unit PO QPM 01/03/15 [History] Clopidogrel [Plavix] 75 mg PO QPM 01/03/15 [History] Albuterol Neb [Proventil Neb] 2.5 mg IH TID PRN 09/07/15 [History] Metoprolol [Lopressor] 25 mg PO HS 11/13/15 [History] Fluticasone Propionate Nasal [Flonase] 50 mcg NS BID PRN 12/03/15 [History] Acetaminophen [Tylenol] 1,000 mg PO BID PRN 03/23/16 [History] Mv, Min #36/Iron,Carbonyl/FA [Geritol Complete Tablet] 1 tab PO DAILY 07/06/16 [ History] Pantoprazole Sodium [Protonix] 40 mg PO DAILY 07/06/16 [History] Isosorbide MONOnitrate [Isosorbide Mononitrate ER] 240 mg PO QAM 08/11/16 [ History] Albuterol Sulfate [Ventolin Hfa] 2 puff IH Q4H PRN 05/25/17 [History] Saccharomyces Boulardii [Florastor] 250 mg PO BID 05/25/17 [History] Vitamin E Acid Succinate [Vitamin E] 400 unit PO DAILY 05/25/17 [History] amLODIPine [Norvasc] 2.5 mg PO DAILY #30 tablet 05/27/17 [Rx] Allergies/Adverse Reactions: 3 Allergy/AdvReac Type Severity Reaction Status Date / Time codeine Allergy Difficulty Verified 05/25/17 15:23 Breathing prednisone Allergy Rash Verified 05/25/17 15:23 clarithromycin AdvReac Vomiting Verified 05/25/17 15:23 Erythromycin Base AdvReac Vomiting Verified 05/25/17 15:23 hydrocodone [From Vicodin] AdvReac Dizziness Verified 05/25/17 15:23 propoxyphene AdvReac Vomiting Verified 05/25/17 15:23 Ybeltla-Zix-Epe Reductase AdvReac Muscle Pain Verified 05/25/17 15:23 Inhibitor [Statins] Date of admission: 05/25/17 16:52 Primary care physician: Karen Perez CNP Consults: 05/26/17 10:22 Consult to Cardiology [CONS] Routine Comment: Consulting Provider: Cardiology [place] Reason for Consult: chest pain, significant history. Pt is established with Dr. Garcia. [facility] 1016, stress negative 11/15. Time Notified: 10:23 Call Completed: Yes Discharging clinician: Marija Devlin Anticipated date of discharge: 05/27/17 - Constitutional Vitals: Temp Pulse Resp BP Pulse Ox 98.0 F 73 14 153/80 97 05/27/17 11:27 05/27/17 11:27 05/27/17 11:27 05/27/17 11:27 05/27/17 11:27 General appearance: Present: cooperative, A&O X 3, pleasant, no acute distress, answers questions appropriately - Head Head exam: Present: atraumatic, normal inspection, normocephalic - Eye Eye exam: Present: conjuntiva pink, sclera anicteric - Neck Neck exam general surgery: Present: supple, trachea midline. Absent: lymphadenopathy, tenderness - Respiratory Respiratory exam: Present: CTAB. Absent: accessory muscle use, chest wall tenderness, rales, rhonchi, stridor, wheezes - Cardiovascular Cardiovascular exam: Present: RRR, +S1, +S2. Absent: diastolic murmur, gallop, rubs, systolic murmur - GI/Abdominal GI/Abdominal exam: Present: normal bowel sounds, soft. Absent: distended, hepatomegaly, tenderness - Extremities Exam Extremities exam: Present: normal capillary refill, normal inspection, warm, radial pulses palpable and symmetrical. Absent: calf tenderness, cyanotic, pedal edema, tenderness - Neurological Exam Neurological exam: Present: alert, oriented X3, no focal deficits. Absent: motor sensory deficit, facial droop, speech deficit - Skin Skin exam: Present: dry, intact, normal color, warm. Absent: rash - Patient Status Disposition: Home, Self-Care Condition: Good Functional capacity at discharge: independent ambulation Overall status at discharge: patient is back to baseline - Discharge Instructions Follow Up With: Karen Perez CNP [Primary Care Provider] - 06/03/17 9:00 am Additional Instructions: RISK FACTORS: STOP SMOKING: If you smoke, STOP. Smoking or tobacco use significantly increases your risk of heart disease because nicotine causes the arteries to narrow or constrict. It also causes fats to stick to the artery. Your chances of having a heart attack are greatly increased if you continue to smoke. For more information, call the education line for smoking cessation 6-987-JBFFUCS EAT A LOW FAT/CHOLESTEROL/SODIUM DIET: This diet may help reduce your chances of having a heart attack. LIFTING: Avoid lifting anything more than 10 pounds for 5-7 days Prior to straining, laughing, sneezing and/or coughing, apply manual pressure directly over insertion site. ACTIVITY: You may walk or climb stairs as tolerated You can resume sexual activity as tolerated In general, you are encouraged to engage in a minimum of 30 minutes or more of moderate intensity physical activity, such as brisk walking, daily or at least 3 -4 times weekly BATHING Do not submerge the site into water (bath tub, hot tub, swimming pool) for 1 week. This can be a source for infection into the blood stream. You may shower after 24 hours SITE CARE: After 24 hours, you may remove the dressing and leave the site open to air. Keep the site clean and dry. Clean gently and pat dry. You can expect bruising and tenderness that gradually resolve within a week or two. Return to work as instructed per your physician Resume driving as instructed per physician Keep all scheduled follow up appointments Resume medications as instructed IMPORTANT: If prescribed a Platelet Aggregation Inhibitor such as, Plavix, Brilinta or Effient: Duration of therapy is minimum one year These medications are often used in combination with Aspirin in prevention of future heart attacks Never discontinue unless consult with your Office Technology Professor STROKE (CVA) Risk factors for a stroke are: Age, cigarette smoking, diabetes, excessive alcohol consumption, family history, high blood pressure, overweight, physical inactivity, prior stroke, heart attack, diagnosis of carotid artery stenosis or other artery disease. Warning signs: Sudden numbness or weakness of the face, arm or leg; especially on one side of the body, sudden confusion, trouble speaking or understanding, sudden trouble seeing in one or both eyes, sudden trouble walking, dizziness, loss of balance or coordination, sudden severe headache with no cause. Call 911 or go to the Emergency Room. CONGESTIVE HEART FAILURE: If you have been diagnosed with Congestive Heart Failure (CHF) and your symptoms return, make an appointment with your physician Weigh yourself daily. Notify your physician if you have a weight gain of two or more pounds in one day or five or more pounds in one week. If you experience any difficulty breathing, please call 911 BLEEDING: Although the risk of bleeding is minimal, it can happen. If you have any bleeding from the site, apply firm pressure above the puncture site for 10-15 minutes. If the bleeding does not stop, continue manual pressure and call 911 Contact your physician if: You develop a fever greater than 101 degrees Fahrenheit Your site becomes reddened or has any drainage You have an increase in pain or burning at the site or if a large knot forms at the site. If you experience chest pain, shortness of breath, dizziness, or extreme tiredness, stop the activity and rest. Please notify your physicians office if you experience any of these symptoms and they are not relieved by rest please call 911! Please follow up with your PCP in the next 7-10 days Follow up with cardiology as scheduled. Return to the ER as needed for any other problems or concerns, or if your symptoms return or worsen. Please take your aspirin and your Plavix Your new BP medication prescription is at [facility] REturn to your normal diet and activities as tolerated. - Diet and Activity Activity: increase activity as tolerated Diet: advance to your usual diet
== END 2017-05-27 16:00 | disposition home or self-care (01) ==
LOC: 3BNU 15:18 → EMEROO 15:18 → 3BNU 17:12
PROVIDERS: ADMIT Hospitalist; ATTEND Registered Nurse

== ENCOUNTER 2017-06-08 18:41 | Observation (INO) ==
[2017-06-08] MEDS ORDERED: Aspirin 81 MG TAB.CHEW PO ONE (19:09)
[2017-06-08] MEDS ORDERED: Nitroglycerin 0.4 MG TAB.SUBL SL ONE (19:09)
--- NOTE | 2017-06-08 19:11 | Emergency Department Note ---
Disposition Clinical Impression: Unstable angina Chest pain Qualifiers: Chest pain type: unspecified Qualified Code(s): R07.9 - Chest pain, unspecified Disposition: Admitted As Inpatient Condition: Good Referrals: Karen Perez CNP [Primary Care Provider] - Forms: ED Satisfaction Letter Time of Disposition: 21:31 Chest Pain HPI - General Chief Complaint: ED Chest Pain Stated Complaint: CP Time Seen by Provider: 06/08/17 19:09 Source: patient Limitations: no limitations Vital Signs Reviewed: Yes Nursing Notes Reviewed: Yes - History of Present Illness HPI Narrative: 72-year-old female history of CAD x3 stents, hypertension, reported resolved diabetes presents an emergency department for chest pain. Symptoms started at 430 while making supper. She describes a sharp midsternal sensation with radiation up to the right jaw. Reports associated nausea and diaphoresis. Denies any shortness of breath or vomiting. She took a total of 3 nitro I brought her pain from the 8 down to a 5. Since the pain persisted she presented to the emergency department for further evaluation. Patient reports prior history of this including 2 weeks ago. She was admitted for similar symptoms were a heart catheterization was performed 05/26. Patient's environmental compliance officer is Dr. Garcia. She does admit to not taken her aspirin as she bruises easily. She does continue Plavix. She denies any bloody stool black tarry stool hematemesis or hemoptysis. Denies any recent trauma, recent illness , cough or congestion. Denies any history of blood clots. Reports she recently had her Cozaar changed but then had allergic reaction to that medication and was switched back to Cozaar. Heart Cath 05/26 Impressions: The left ventricle is normal and has normal contractility EF 65% Recommendations: Optimal medical therapy of patient's disease - dc losartan, start Norvasc. Add Ranexa if continued symptoms. If despite maximal treatment continues having angina, distal LAD PCI Aggressive risk factor modification. * Left Anterior Descending The Proximal LAD has patent stents present from a previous procedure. The Mid LAD has patent stents present from a previous procedure. There is a 50% stenosis in the Proximal LAD - FFR not significant here (0.91) There is a long 60-70% stenosis in the Distal LAD. The lesion has a JESÚS flow of 3. Pt complaint: chest pain Severity scale (1-10): 5 - Related Data Home Medications Medication Instructions Recorded Confirmed Loratadine [Claritin] 10 mg PO QAM PRN #0 11/21/14 06/08/17 Nitroglycerin [Nitrostat] 0.4 mg SL Q5M PRN #0 11/21/14 06/08/17 Cholecalciferol (Vitamin D3) 2,000 unit PO QPM 01/03/15 06/08/17 [Vitamin D3] Clopidogrel [Plavix] 75 mg PO QPM 01/03/15 06/08/17 Albuterol Neb [Proventil Neb] 2.5 mg IH TID PRN 09/07/15 06/08/17 Metoprolol [Lopressor] 25 mg PO HS 11/13/15 06/08/17 Fluticasone Propionate Nasal 50 mcg NS BID PRN 12/03/15 06/08/17 [Flonase] Acetaminophen [Tylenol] 1,000 mg PO BID PRN 03/23/16 06/08/17 Mv, Min #36/Iron,Carbonyl/FA 1 tab PO DAILY 07/06/16 06/08/17 [Geritol Complete Tablet] Pantoprazole Sodium [Protonix] 40 mg PO DAILY 07/06/16 06/08/17 Isosorbide MONOnitrate [Isosorbide 240 mg PO QAM 08/11/16 06/08/17 Mononitrate ER] Albuterol Sulfate [Ventolin Hfa] 2 puff IH Q4H PRN 05/25/17 06/08/17 Saccharomyces Boulardii [Florastor] 250 mg PO BID 05/25/17 06/08/17 Vitamin E Acid Succinate [Vitamin 400 unit PO DAILY 05/25/17 06/08/17 E] Losartan [Cozaar] 25 mg PO DAILY 06/08/17 06/08/17 Allergies Allergy/AdvReac Type Severity Reaction Status Date / Time codeine Allergy Difficulty Verified 05/25/17 15:23 Breathing prednisone Allergy Rash Verified 05/25/17 15:23 amlodipine AdvReac Swelling Verified 06/08/17 20:42 of the Eye clarithromycin AdvReac Vomiting Verified 05/25/17 15:23 Erythromycin Base AdvReac Vomiting Verified 05/25/17 15:23 hydrocodone [From Vicodin] AdvReac Dizziness Verified 05/25/17 15:23 propoxyphene AdvReac Vomiting Verified 05/25/17 15:23 [id number] Reductase AdvReac Muscle Pain Verified 05/25/17 15:23 Inhibitor [Statins] All systems ED: reviewed and negative except as stated. Review of Systems: As Per HPI Constitutional: Denies: fever, chills, weakness Cardiovascular: Reports: chest pain. Denies: palpitations, dyspnea on exertion Respiratory: Denies: cough, dyspnea Gastrointestinal: Reports: nausea. Denies: abdominal pain, vomiting, diarrhea, constipation Genitourinary: Denies: urgency, dysuria Musculoskeletal: Denies: back pain, neck pain Integumentary: Denies: rash, abrasion Neurological: Denies: headache Chest Pain PMH - Past Medical History Medical history: Reports: arthritis, cancer, CHF, coronary artery disease, DVT, GERD, hypertension, myocardial infarction Surgical history: Reports: angioplasty/stent, appendectomy, cancer surgery, cholecystectomy, hysterectomy, orthopedic, other, other Psychiatric history: Reports: no psych history Prior Cardiac Testing/Procedures: Stenting CLOTH BIN PACKER history: Reports: no CLOTH BIN PACKER history - Social History Smoking Status: Never smoker Alcohol use: Reports: none Drug use: Reports: none Physical Exam - General Limitations: no limitations General appearance: alert, in no apparent distress - Head Head exam: atraumatic, normocephalic, normal inspection - Eye Eye exam: Present: normal appearance, PERRL, EOMI - ENT ENT exam: normal exam, normal oropharynx, mucous membranes moist - Neck Neck exam: Present: normal inspection, full ROM, trachea midline - Chest Chest inspection: Present: normal inspection, symmetric chest wall rise. Absent : tenderness - Respiratory Respiratory exam: Present: normal lung sounds bilaterally. Absent: respiratory distress, wheezes - Cardiovascular Cardiovascular exam: Present: regular rate, normal rhythm, normal heart sounds - Expanded Cardiovascular Exam Peripheral pulses: 2+: radial (R), radial (L) - Abdominal Exam Abdominal exam: Present: soft, Non-Tender. Absent: tenderness, distention, guarding, rebound, rigidity - Extremities Exam Extremities exam: Present: normal inspection, full ROM, normal capillary refill. Absent: tenderness, pedal edema, calf tenderness - Neurological Exam Neurological exam: Present: alert, oriented X3, normal gait - Psychiatric Psychiatric exam: Present: normal affect, normal mood - Skin Skin exam: Present: warm, dry, intact, normal color. Absent: rash, cyanosis Course Course Narrative: Patient presents with chest pain started at 430. This is of similar nature to prior 2 weeks ago. Due to the recurrent of her heart catheterization recommendation was for possible stent placement to the LAD where she had stenosis. Patient did take 3 nitro with minimal relief. She continues to have 5 of 10 pain. EKG does not show any ST elevation or findings consistent with acute ischemia. Chest pain workup initiated. Patient will require admission. - Reevaluation(s) Reevaluation #1: Patient continues to have 5 of 10 pain. Nitro gtt ordered. Tropon <0.03 Time: 20:30 Reevaluation #2: On reevaluation patient states she is pain free. She would be admitted for unstable angina. Of note laboratory states her chemistry is hemolyzed and will redraw. Her current labs are unremarkable. Time: 21:29 - Consultations Consultation #1: Spoke with on-call hospitalist harvey Mar to admit for unstable angina. Requests to contact the stone lathe operator. Patient denies any symptoms of active gi bleeding. Heparin gtt started. Time: 21:40 Consultation #2: Spoke with Dr. Meeta Henriquez. Will be happy to see the patient on the floor. Agree with management, no emergent intervention necessary at this time. Time: 21:51 Vital Signs Temperature 97.4 F L 06/08/17 18:57 Pulse Rate 90 06/08/17 18:57 Respiratory Rate 16 06/08/17 18:57 Blood Pressure 143/80 06/08/17 18:57 O2 Sat by Pulse Oximetry 99 06/08/17 18:57 Temperature 97.4 F L 06/08/17 18:57 Pulse Rate 74 06/08/17 21:41 Respiratory Rate 20 06/08/17 21:41 Blood Pressure 138/81 06/08/17 21:41 O2 Sat by Pulse Oximetry 95 06/08/17 21:41 Oxygen Delivery Oxygen Delivery Room Air Chest Pain - MDM Narrative Medical decision making narrative: Patient was discussed with my attending physician who agrees with ED management and final disposition. They independently evaluated the patient. Please refer to their attestation to this encounter for additional information. This note was generated by [employer] voice recognition software and as a result grammatical or spelling errors may occur using this program. - Medical Records Medical records reviewed: Yes I reviewed the patient's medical records. - Lab Data Lab results reviewed: Yes I reviewed the patient's lab results. Result diagrams: 06/08/17 19:20 06/08/17 19:20 Lab Results 06/08/17 06/08/17 06/08/17 Range/Units 19:20 19:20 19:20 WBC 9.2 (4.3-11.1) K/mcL RBC 4.16 (3.82-4.97) M/mcL Hgb 12.9 (11.5-15.4) g/dL Hct 38.8 (35.3-44.9) % MCV 93.3 (83.0-100.0) fL MCH 31.0 (28.0-33.3) pg MCHC 33.2 (31.6-35.5) g/dL RDW 13.5 (11.5-14.5) % Plt Count 232 (140-400) K/mcL MPV 11.9 (9.4-12.4) fL Immature Gran % 0.3 (0-4) % Seg Neutrophils % 66.0 % Lymphocytes % 20.8 % Monocytes % 8.3 % Eosinophils % 4.3 % Basophils % 0.3 % Neutrophils # 6.1 (1.6-8.9) K/mcL Lymphocytes # 1.9 (0.6-4.6) K/mcL Monocytes # 0.8 (0.0-1.3) K/mcL Eosinophils # 0.4 (0.0-0.6) K/mcL Basophils # 0.0 (0.0-0.2) K/mcL PT 11.2 (9.4-12.1) Seconds INR 1.0 APTT 31.2 (26.0-36.0) Seconds Sodium Cancelled Potassium Cancelled Chloride Cancelled Carbon Dioxide Cancelled BUN Cancelled Creatinine Cancelled Est GFR ( Amer) Cancelled Est GFR (Non-Af Amer) Cancelled BUN/Creatinine Ratio Cancelled Glucose Cancelled Calculated Osmolality Cancelled Calcium Cancelled Troponin I < 0.03 (< 0.04) ng/mL Specimen Rejected 06/08/17 Range/Units 19:20 WBC (4.3-11.1) K/mcL RBC (3.82-4.97) M/mcL Hgb (11.5-15.4) g/dL Hct (35.3-44.9) % MCV (83.0-100.0) fL MCH (28.0-33.3) pg MCHC (31.6-35.5) g/dL RDW (11.5-14.5) % Plt Count (140-400) K/mcL MPV (9.4-12.4) fL Immature Gran % (0-4) % Seg Neutrophils % % Lymphocytes % % Monocytes % % Eosinophils % % Basophils % % Neutrophils # (1.6-8.9) K/mcL Lymphocytes # (0.6-4.6) K/mcL Monocytes # (0.0-1.3) K/mcL Eosinophils # (0.0-0.6) K/mcL Basophils # (0.0-0.2) K/mcL PT (9.4-12.1) Seconds INR APTT (26.0-36.0) Seconds Sodium Potassium Chloride Carbon Dioxide BUN Creatinine Est GFR ( Amer) Est GFR (Non-Af Amer) BUN/Creatinine Ratio Glucose Calculated Osmolality Calcium Troponin I (< 0.04) ng/mL Specimen Rejected Hemolyzed - Radiology Data Radiology results reviewed: Yes I reviewed the patient's radiology results. Chest X-Ray 06/08/17 19:09 IMPRESSION: Stable chest without acute cardiopulmonary process. D/ / Reinier Pineda MD / Reinier Pineda MD Interpreting Provider: Reinier Pineda MD - EKG Data EKG attestation: Yes I reviewed and interpreted this EKG. EKG results narrative: EKG performed 1849 normal sinus rhythm normal axis LXXX beats per minute, good R wave progression, no ST elevation or depression, no T-wave inversion, intervals within normal limits UT interval 157 QRS 94 QT QTC 346 381. Compared to old EKG 05/26/2017 with similar consistent findings. No acute ischemic changes. Heart Score - Score History: Moderately Suspicious EKG: Normal Age: Greater than 65 Risk Factors: Equal/Greater than 3 risk factor or history of atherosclerotic disease Troponin: Less than normal limit HEART Score Total: 5
[2017-06-08] MEDS ORDERED: *HR* FentaNYL (PF) 100 MCG/2 ML VIAL IVP ONE (19:20)
[2017-06-08 19:47] LABS: Basophils % 0.3 %; Eosinophils # 0.4 K/mcL (0.0-0.6); Eosinophils % 4.3 %; Hematocrit 38.8 % (35.3-44.9); Hemoglobin 12.9 g/dL (11.5-15.4); Immature Granulocytes % 0.3 % (0-4); Lymphocytes # 1.9 K/mcL (0.6-4.6); Lymphocytes % 20.8 %; Mean Corpuscular HGB Conc 33.2 g/dL (31.6-35.5); Mean Corpuscular Volume 93.3 fL (83.0-100.0); Mean Platelet Volume 11.9 fL (9.4-12.4); Monocytes # 0.8 K/mcL (0.0-1.3); Monocytes % 8.3 %; Neutrophils # 6.1 K/mcL (1.6-8.9); Platelet Count 232 K/mcL (140-400); Red Blood Count 4.16 M/mcL (3.82-4.97); Red Cell Distribution Width 13.5 % (11.5-14.5)
[2017-06-08 19:57] LABS: Prothrombin Time 11.2 Seconds (9.4-12.1)
[2017-06-08 20:00] LABS: Activated Partial Thrombo Time 31.2 Seconds (26.0-36.0)
[2017-06-08] MEDS ORDERED: Nitroglycerin 25 MG/250 ML INFUS..BTL IVC SCH (20:30)
--- NOTE | 2017-06-08 20:33 | Emergency Department Note ---
Disposition Clinical Impression: Chest pain, Unstable angina Disposition: Admitted As Inpatient Condition: Good General Adult HPI - General Chief complaint: ED Chest Pain Stated complaint: CP Time Seen by Provider: 06/08/17 19:09 Source: patient Limitations: no limitations Nursing Notes Reviewed: Yes Vital Signs Reviewed: Yes - History of Present Illness Pain Scale: 5 - Related Data Home Medications Medication Instructions Recorded Confirmed Loratadine [Claritin] 10 mg PO QAM PRN #0 11/21/14 06/08/17 Nitroglycerin [Nitrostat] 0.4 mg SL Q5M PRN #0 11/21/14 06/08/17 Cholecalciferol (Vitamin D3) 2,000 unit PO QPM 01/03/15 06/08/17 [Vitamin D3] Clopidogrel [Plavix] 75 mg PO QPM 01/03/15 06/08/17 Albuterol Neb [Proventil Neb] 2.5 mg IH TID PRN 09/07/15 06/08/17 Metoprolol [Lopressor] 25 mg PO HS 11/13/15 06/08/17 Fluticasone Propionate Nasal 50 mcg NS BID PRN 12/03/15 06/08/17 [Flonase] Acetaminophen [Tylenol] 1,000 mg PO BID PRN 03/23/16 06/08/17 Mv, Min #36/Iron,Carbonyl/FA 1 tab PO DAILY 07/06/16 06/08/17 [Geritol Complete Tablet] Pantoprazole Sodium [Protonix] 40 mg PO DAILY 07/06/16 06/08/17 Isosorbide MONOnitrate [Isosorbide 240 mg PO QAM 08/11/16 06/08/17 Mononitrate ER] Albuterol Sulfate [Ventolin Hfa] 2 puff IH Q4H PRN 05/25/17 06/08/17 Saccharomyces Boulardii [Florastor] 250 mg PO BID 05/25/17 06/08/17 Vitamin E Acid Succinate [Vitamin 400 unit PO DAILY 05/25/17 06/08/17 E] Losartan [Cozaar] 25 mg PO DAILY 06/08/17 06/08/17 Allergies Allergy/AdvReac Type Severity Reaction Status Date / Time codeine Allergy Difficulty Verified 05/25/17 15:23 Breathing prednisone Allergy Rash Verified 05/25/17 15:23 amlodipine AdvReac Swelling Verified 06/08/17 20:42 of the Eye clarithromycin AdvReac Vomiting Verified 05/25/17 15:23 Erythromycin Base AdvReac Vomiting Verified 05/25/17 15:23 hydrocodone [From Vicodin] AdvReac Dizziness Verified 05/25/17 15:23 propoxyphene AdvReac Vomiting Verified 05/25/17 15:23 Hirfpfy-Edp-Xhz Reductase AdvReac Muscle Pain Verified 05/25/17 15:23 Inhibitor [Statins] Constitutional: Denies: fever, chills, weakness Cardiovascular: Reports: chest pain. Denies: palpitations, dyspnea on exertion Respiratory: Denies: cough, dyspnea Gastrointestinal: Reports: nausea. Denies: abdominal pain, vomiting, diarrhea, constipation Genitourinary: Denies: urgency, dysuria Musculoskeletal: Denies: back pain, neck pain Integumentary: Denies: rash, abrasion Neurological: Denies: headache Past Medical History - Past Medical History Medical history: Reports: arthritis, cancer, CHF, coronary artery disease, DVT, GERD, hypertension, myocardial infarction Surgical history: Reports: angioplasty/stent, appendectomy, cancer surgery, cholecystectomy, hysterectomy, orthopedic, other, other Psychiatric history: Reports: no psych history GEOLOGY SCIENTIST history: Reports: no GEOLOGY SCIENTIST history - Social History Smoking Status: Never smoker Smokeless Tobacco Status: No Alcohol use: Reports: none Drug use: Reports: none Physical Exam - General Limitations: no limitations General appearance: alert, in no apparent distress Course Vital Signs Temperature 97.4 F L 06/08/17 18:57 Pulse Rate 90 06/08/17 18:57 Respiratory Rate 16 06/08/17 18:57 Blood Pressure 143/80 06/08/17 18:57 O2 Sat by Pulse Oximetry 99 06/08/17 18:57 Temperature 97.4 F L 06/08/17 18:57 Pulse Rate 74 06/08/17 21:41 Respiratory Rate 20 06/08/17 21:41 Blood Pressure 138/81 06/08/17 21:41 O2 Sat by Pulse Oximetry 95 06/08/17 21:41 Oxygen Delivery Oxygen Delivery Room Air Medical Decision Making - Lab Data Result diagrams: 06/08/17 19:20 06/08/17 21:29 Lab Results 06/08/17 06/08/17 06/08/17 Range/Units 19:20 19:20 19:20 WBC 9.2 (4.3-11.1) K/mcL RBC 4.16 (3.82-4.97) M/mcL Hgb 12.9 (11.5-15.4) g/dL Hct 38.8 (35.3-44.9) % MCV 93.3 (83.0-100.0) fL MCH 31.0 (28.0-33.3) pg MCHC 33.2 (31.6-35.5) g/dL RDW 13.5 (11.5-14.5) % Plt Count 232 (140-400) K/mcL MPV 11.9 (9.4-12.4) fL Immature Gran % 0.3 (0-4) % Seg Neutrophils % 66.0 % Lymphocytes % 20.8 % Monocytes % 8.3 % Eosinophils % 4.3 % Basophils % 0.3 % Neutrophils # 6.1 (1.6-8.9) K/mcL Lymphocytes # 1.9 (0.6-4.6) K/mcL Monocytes # 0.8 (0.0-1.3) K/mcL Eosinophils # 0.4 (0.0-0.6) K/mcL Basophils # 0.0 (0.0-0.2) K/mcL PT 11.2 (9.4-12.1) Seconds INR 1.0 APTT 31.2 (26.0-36.0) Seconds Sodium Cancelled Potassium Cancelled Chloride Cancelled Carbon Dioxide Cancelled BUN Cancelled Creatinine Cancelled Est GFR ( Amer) Cancelled Est GFR (Non-Af Amer) Cancelled BUN/Creatinine Ratio Cancelled Glucose Cancelled Calculated Osmolality Cancelled Calcium Cancelled Troponin I < 0.03 (< 0.04) ng/mL Specimen Rejected 06/08/17 06/08/17 Range/Units 19:20 21:29 WBC (4.3-11.1) K/mcL RBC (3.82-4.97) M/mcL Hgb (11.5-15.4) g/dL Hct (35.3-44.9) % MCV (83.0-100.0) fL MCH (28.0-33.3) pg MCHC (31.6-35.5) g/dL RDW (11.5-14.5) % Plt Count (140-400) K/mcL MPV (9.4-12.4) fL Immature Gran % (0-4) % Seg Neutrophils % % Lymphocytes % % Monocytes % % Eosinophils % % Basophils % % Neutrophils # (1.6-8.9) K/mcL Lymphocytes # (0.6-4.6) K/mcL Monocytes # (0.0-1.3) K/mcL Eosinophils # (0.0-0.6) K/mcL Basophils # (0.0-0.2) K/mcL PT (9.4-12.1) Seconds INR APTT (26.0-36.0) Seconds Sodium 139 Potassium 4.2 Chloride 109 H Carbon Dioxide 24 BUN 21 Creatinine 0.88 Est GFR ( Amer) > 60 Est GFR (Non-Af Amer) > 60 BUN/Creatinine Ratio 24 Glucose 150 H Calculated Osmolality 294 Calcium 9.3 Troponin I (< 0.04) ng/mL Specimen Rejected Hemolyzed Critical Care Time Critical Care Time: Yes Total Critical Care Time: 40 Attestation: Critical care performed: Time is exclusive of separately billable procedures. Time includes: direct patient care, patient reassessment, coordination of patient care, interpretation of data (laboratory data, radiology data, and respiratory data), review of patient's medical records, medical consultation and documentation of patient care. Procedures included in critical care time: Procedures excluded from critical care time: Attestation Statement - Attestation Attestation: IGuilherme MD, personally evaluated this patient and discussed their management with the resident physician. I reviewed the resident's note and agree with the documented findings, medical decision making, and plan of care. 72-year-old female presented to the emergency department with a complaint of substernal chest pain which started about 4:30 this afternoon. Pain started while she was sitting watching television. The pain radiated to the right side of the neck and right shoulder area. She states this feels like her typical chest pain. There was some nausea with the chest pain. Also some diaphoresis. She denies any shortness of breath. No dizziness or syncope. She did take nitroglycerin with improvement in her chest pain. Patient was just here in the hospital about 2 weeks ago and had a cardiac catheter which revealed coronary artery disease but she did not receive any stents at that time. On examination patient is a well-developed well-nourished elderly female in no acute distress. She is alert and oriented 3. There is no cyanosis or diaphoresis. Chest is nontender to palpation. Breath sounds are clear and equal bilaterally. Heart regular rate and rhythm with a 2/6 systolic murmur. Abdomen is soft and nontender with normal bowel sounds. EKG shows a normal sinus rhythm. Heart rate 80. No acute ST segment elevations or depressions. No change from prior EKG dated 05/26/2017. Chest x- ray negative. Labs reviewed. Troponin normal. Patient received an additional sublingual nitroglycerin here in the emergency department and also some IV fentanyl with continued chest pain. She was started on a nitroglycerin infusion and had control of her chest pain. Dr. Rea and discussed the case with the graphic manager financial foundations associate, Dr. Trixie Henriquez, and she recommended admission by the hospitalist with cardiology consultation. The hospitalist, Dr. Fierro, was consulted and accepted admission of the patient.
[2017-06-08] MEDS ORDERED: *HR* Heparin 5,000 UNIT/ML VIAL IVP PRN ×2 (21:39)
[2017-06-08] MEDS ORDERED: *HR* Heparin 5,000 UNIT/ML VIAL IVP ONE (21:39)
[2017-06-08] MEDS ORDERED: Heparin 25,000 UNIT/500 ML D5W 25,000 UNIT/500 ML BAG IVC SCH (21:45)
[2017-06-08 22:00] LABS: BUN/Creatinine Ratio 24 (6-26); Blood Urea Nitrogen 21 mg/dL (8-23); Calcium 9.3 mg/dL (8.6-10.3); Carbon Dioxide 24 mEq/L (23-29); Chloride 109 mEq/L (98-107); Glucose 150 mg/dL (70-105); Osmolality,Calculated 294 (280-300); Potassium 4.2 mEq/L (3.5-5.1); Sodium 139 mEq/L (136-145); eGFR For African Americans > 60 (> 60); eGFR For Non-African Americans > 60 (> 60)
--- NOTE | 2017-06-08 23:09 | Internal Med History&Physical ---
<Nancy Rodriguez H - Last Filed: 06/09/17 01:36> Date of Encounter: 06/09/17 Time of Encounter: 23:08 Internal Medicine - H&P: HPI Chief complaint: chest pain Admitted From: Emergency Dept Plans for Post Hospital Care: Home History of present illness: Ms. Larkin is a 72 year old female with past medical history of CAD s/p 3 stents , HTN, DVT, diastolic CHF, skin cancer, arthritis, GERD, and RI. She presented to [facility] on 06/08/2017 with complaints of chest pain. Per patient, she was cooking dinner around 4:30 when she noticed an abrupt onset of sharp substernal chest pain that radiated to her right shoulder. She also complained of some nausea at the same time. She denied any shortness of breath, however, she does report diaphoresis. She states the qualitative nature of her pain feels similar to her anginal pain in the past, however, it normally radiates to her left side and jaw. The pain she experienced this evening did not radiate to her jaw or left side. She does describe her chest pain is exertional in nature. She took 3 nitros at home, none of which relieved her pain. She decided to call her friend bring her to the emergency department. In the emergency department, patient's EKG did not indicate any ischemic changes from prior EKG evaluation. Her troponins were negative. Because of her extensive cardiac history, patient was admitted to the hospitalist and cardiology was consulted. Patient was started on heparin drip in the emergency department as well as a nitro drip. Ms. Larkin underwent LHC 2 weeks ago. There is noted to be 60-70% stenosis in the distal LAD at that time with a JESÚS flow of 3. It was recommended to optimize medical therapy of patient's disease including discontinue losartan and starting Norvasc. If patient with persistent angina, distal LAD PCI was recommended. Upon evaluation, patient is resting comfortably. She denies current chest pain , palpitations, shortness of breath, diaphoresis, or nausea. She does report some mild abdominal discomfort which she states due to her multiple ventral hernias which are inoperable. She denies any melena, hematochezia, hematemesis , diarrhea, or constipation. She denies any dysuria or hematuria. She does report urinary frequency and incontinence which is chronic and stable. She denies any recent sick contacts, fevers, chills, or night sweats. Past Med Surg Social Fam HX - Past Medical History Attestation: Yes The following information was validated with the patient. Source: patient, old records reviewed Medical history: arthritis, cancer, CHF, coronary artery disease, DVT, GERD, hypertension, myocardial infarction Psychiatric history: no psych history - Past Surgical History Surgical History: angioplasty/stent, appendectomy, cancer surgery, cholecystectomy, hysterectomy, orthopedic, other, other - Social History Smoking Status: Never smoker Smokeless Tobacco Status: No Alcohol use: none Drug use: none - Family History Father Family Member Ethnicity: Non- Twin of Family Member: Yes, Fraternal Living Status: Hx Family Cardiac Disorders: Yes Hx Family Respiratory Disorders: No Hx Family Cancer: Yes (Lung) Hx Family GI Disorders: No Hx Family Endocrine Disorder: No Hx Family Neuromuscular Disorders: No Hx Family Neurologic Disorders: No Hx Family HEENT Disorders: No Hx Family Autoimmune Disorders: No Mother Living Status: Hx Family Cardiac Disorders: Yes Hx Family Cancer: Yes Internal Medicine - H&P: Meds Loratadine [Claritin] 10 mg PO QAM PRN #0 11/21/14 [History] Nitroglycerin [Nitrostat] 0.4 mg SL Q5M PRN #0 11/21/14 [History] Cholecalciferol (Vitamin D3) [Vitamin D3] 2,000 unit PO QPM 01/03/15 [History] Clopidogrel [Plavix] 75 mg PO QPM 01/03/15 [History] Albuterol Neb [Proventil Neb] 2.5 mg IH TID PRN 09/07/15 [History] Metoprolol [Lopressor] 25 mg PO HS 11/13/15 [History] Fluticasone Propionate Nasal [Flonase] 50 mcg NS BID PRN 12/03/15 [History] Acetaminophen [Tylenol] 1,000 mg PO BID PRN 03/23/16 [History] Mv, Min #36/Iron,Carbonyl/FA [Geritol Complete Tablet] 1 tab PO DAILY 07/06/16 [ History] Pantoprazole Sodium [Protonix] 40 mg PO DAILY 07/06/16 [History] Isosorbide MONOnitrate [Isosorbide Mononitrate ER] 240 mg PO QAM 08/11/16 [ History] Albuterol Sulfate [Ventolin Hfa] 2 puff IH Q4H PRN 05/25/17 [History] Saccharomyces Boulardii [Florastor] 250 mg PO BID 05/25/17 [History] Vitamin E Acid Succinate [Vitamin E] 400 unit PO DAILY 05/25/17 [History] Losartan [Cozaar] 25 mg PO DAILY 06/08/17 [History] 3 Allergy/AdvReac Type Severity Reaction Status Date / Time codeine Allergy Difficulty Verified 05/25/17 15:23 Breathing prednisone Allergy Rash Verified 05/25/17 15:23 amlodipine AdvReac Swelling Verified 06/08/17 20:42 of the Eye clarithromycin AdvReac Vomiting Verified 05/25/17 15:23 Erythromycin Base AdvReac Vomiting Verified 05/25/17 15:23 hydrocodone [From Vicodin] AdvReac Dizziness Verified 05/25/17 15:23 propoxyphene AdvReac Vomiting Verified 05/25/17 15:23 Kxmvogp-Xao-Yea Reductase AdvReac Muscle Pain Verified 05/25/17 15:23 Inhibitor [Statins] All Systems PM: A 10-system review of systems was performed and is negative for pertinent findings except as documented above in the HPI. - Constitutional Constitutional: no chills, no fever(s), no night sweats - EENT Nose, mouth and throat: no dry mouth, no sore throat, no throat swelling - Cardiovascular Cardiovascular ROS IM: as per HPI, chest pain, diaphoresis, no claudication, no dyspnea, no dyspnea on exertion, no lightheadedness, no palpitations, no paroxysmal nocturnal dyspnea, no syncope - Respiratory Respiratory: no cough, no dyspnea, no dyspnea on exertion, no chest congestion - Gastrointestinal Gastrointestinal: abdominal pain (mild diffuse), no diarrhea, no loose stools, no melena, no nausea, no vomiting - Genitourinary Genitourinary: urinary incontinence, no difficulty urinating, no dysuria, no urinary urgency - Integumentary Integumentary IM: no pruritus, no rash - Neurological Neurological ROS: no focal weakness, no loss of vision, no memory loss, no numbness, no paresthesias - Psychiatric Psychiatric: no abnormal sleep pattern - Endocrine Endocrine IM: no cold intolerance, no flushing, no polydipsia - Constitutional Vitals: Temp Pulse Resp BP Pulse Ox 98 F 82 16 137/87 96 06/08/17 22:28 06/08/17 22:28 06/08/17 22:28 06/08/17 22:28 06/08/17 22:28 General appearance: Present: A&O X 3, pleasant, no acute distress, answers questions appropriately - Head Head exam: Present: atraumatic, normocephalic - Eye Eye exam: Present: PERRL, conjuntiva pink, sclera anicteric Pupils: Present: PERRL - Neck Neck exam general surgery: Present: supple, trachea midline. Absent: lymphadenopathy - Respiratory Respiratory exam: Present: CTAB. Absent: accessory muscle use, rales, rhonchi, wheezes - Cardiovascular Cardiovascular exam: Present: RRR, +S1, +S2. Absent: diastolic murmur, gallop, rubs, systolic murmur - GI/Abdominal GI/Abdominal exam: Present: hernia, normal bowel sounds, soft, no peritoneal signs. Absent: distended, firm, guarding, tenderness - Extremities Exam Extremities exam: Present: warm, radial pulses palpable and symmetrical. Absent : calf tenderness, cyanotic, pedal edema Additional comments: Patient with surgical scar over anterior right thigh from recent vein surgery. - Neurological Exam Neurological exam: Present: CN II-XII intact, oriented X3, no focal deficits. Absent: pronater drift, facial droop, speech deficit - Skin Skin exam: Present: dry, intact Internal Med - H&P Results - Labs CBC & Chem 7: 06/08/17 19:20 06/08/17 21:29 - Assessment and plan (1) Unstable angina Current Visit: No Status: Acute Assessment and plan: 72 yo female with PMHx CAD s/p 3 stents, most recent [facility] 05/26/2017 with no PCI- recommendations for medical management including medication switch from losartan to norvasc which patient did not tolerate secondary to an allergic reaction. Pain relieved by nitro drip. -Troponins negative, EKG suggest against any ischemic changes. -Heparin drip. -nitro drip -cardiology consultation from ED -NPO at midnight -trend troponins x3q6hr (2) CAD (coronary artery disease) Current Visit: No Status: Chronic Assessment and plan: see management as outlined above. Qualifiers: Coronary Disease-Associated Artery/Lesion type: [place] artery [place] vs. transplanted heart: [place] heart Associated angina: with unspecified angina Qualified Code(s): I25.119 - Atherosclerotic heart disease of [place] coronary artery with unspecified angina pectoris (3) Hypertension Current Visit: No Status: Chronic Assessment and plan: resume losartan and metoprolol. Qualifiers: Hypertension type: essential hypertension Qualified Code(s): I10 - Essential (primary) hypertension (4) Dyslipidemia Current Visit: No Status: Chronic Assessment and plan: unable to tolerate statin - Time Spent With Patient Total time spent is greater than 50% in coordination of care (as documented) at patient's floor/unit and/or counseling patient: <Hussain Fierro - Last Filed: 06/09/17 03:17> Date of Encounter: 06/09/17 Time of Encounter: 01:20 - Cardiovascular Cardiovascular ROS IM: chest pain, dyspnea, dyspnea on exertion, no lightheadedness, no orthopnea, no palpitations, no syncope - Respiratory Respiratory: no cough, no wheezing, no chest congestion - Constitutional Vitals: Temp Pulse Resp BP Pulse Ox 98 F 82 16 137/87 96 06/08/17 22:28 06/08/17 22:28 06/08/17 22:28 06/08/17 22:28 06/08/17 22:28 General appearance: Present: cooperative, A&O X 3, pleasant, no acute distress, answers questions appropriately - Eye Eye exam: Present: PERRL. Absent: scleral icterus - ENT ENT exam: Present: mucous membranes dry, normal exam - Neck Neck exam general surgery: Present: full ROM, supple. Absent: tenderness, thyromegaly - Expanded Neck Exam Neck exam: Absent: carotid bruit - Respiratory Respiratory exam: Present: CTAB. Absent: chest wall tenderness, rales, rhonchi , wheezes - Cardiovascular Cardiovascular exam: Present: RRR, +S1, +S2. Absent: diastolic murmur, systolic murmur - GI/Abdominal GI/Abdominal exam: Present: normal bowel sounds, soft. Absent: hepatomegaly, mass, splenomegaly, tenderness - Extremities Exam Extremities exam: Present: normal capillary refill, warm, radial pulses palpable and symmetrical. Absent: calf tenderness, cyanotic, joint swelling - Back Exam Back exam: Absent: CVA tenderness (L), CVA tenderness (R) - Neurological Exam Neurological exam: Present: no focal deficits - Psychiatric Psychiatric exam: Present: normal affect, normal mood - Skin Skin exam: Present: dry, warm. Absent: rash Internal Med - H&P Results - Labs CBC & Chem 7: 06/09/17 01:55 06/09/17 01:55 Labs: Short CBC 06/09/17 Range/Units 01:55 WBC 6.8 (4.3-11.1) K/mcL Hgb 10.8 L D (11.5-15.4) g/dL Hct 32.8 L (35.3-44.9) % Plt Count 187 (140-400) K/mcL Neutrophils # 3.6 (1.6-8.9) K/mcL BMP 06/09/17 01:55 Sodium 140 Potassium 4.0 Chloride 109 H Carbon Dioxide 23 BUN 22 Creatinine 0.95 Glucose 189 H Calcium 9.3 Cardiac Enzymes 06/09/17 Range/Units 01:55 Troponin I < 0.03 (< 0.04) ng/mL - EKG Data -: EKG Interpreted by Myself - EKG Data Prior EKG available for review: yes When compared to previous EKG: there is no significant change EKG comments: 06/09/17 03:10 NSR; no acute ST-T changes - Diagnostic Studies Chest x-ray Status: image reviewed by me (negative) - Attending Attestation I discussed the patient [place], PMH,ROS, lab data, and exam findings with Dr. Rodriguez. I then saw and evaluated patient independently as well. Patient is now pain free. She describes the same kind of chest pain she had with her prior angina/RI pain. She took SL NTG at home prior to arrival to ER without relief. She had another NTG in ER without relief. She finally had chest pain relief after NTG gtt was started and dose was increased. Given her history of CAD, recent LHC documenting 70% stenosis, and her current presenting symptoms, I strongly suspect she has unstable angina. As such, I requested ER place her on a heparin drip, we will continue NTG gtt, and cardiology has already been consulted. We will keep her npo for probable LHC with intervention later today. Patient remains chest pain free for now. Other than my comments above and noted exam findings, I agree with Dr. Rodriguez' s assessment and plan.
[2017-06-09] MEDS ORDERED: Naloxone 0.4 MG/ML INJ IVP PRN (01:30)
[2017-06-09 02:17] LABS: Basophils % 0.4 %; Eosinophils # 0.4 K/mcL (0.0-0.6); Eosinophils % 5.3 %; Hematocrit 32.8 % (35.3-44.9); Immature Granulocytes % 0.1 % (0-4); Lymphocytes # 2.2 K/mcL (0.6-4.6); Lymphocytes % 31.9 %; Mean Corpuscular HGB Conc 32.9 g/dL (31.6-35.5); Mean Corpuscular Hemoglobin 30.6 pg (28.0-33.3); Mean Corpuscular Volume 92.9 fL (83.0-100.0); Mean Platelet Volume 11.9 fL (9.4-12.4); Monocytes # 0.6 K/mcL (0.0-1.3); Monocytes % 9.3 %; Neutrophils # 3.6 K/mcL (1.6-8.9); Platelet Count 187 K/mcL (140-400); Red Blood Count 3.53 M/mcL (3.82-4.97); Red Cell Distribution Width 13.5 % (11.5-14.5)
[2017-06-09 02:20] LABS: Hemoglobin 10.8 g/dL (11.5-15.4)
[2017-06-09 02:35] LABS: Troponin I < 0.03 ng/mL (< 0.04)
[2017-06-09 02:39] LABS: BUN/Creatinine Ratio 23 (6-26); Blood Urea Nitrogen 22 mg/dL (8-23); Calcium 9.3 mg/dL (8.6-10.3); Carbon Dioxide 23 mEq/L (23-29); Chloride 109 mEq/L (98-107); Chol/HDL Ratio 4.3 (0-4.9); Cholesterol 108 mg/dL (< 200); Glucose 189 mg/dL (70-105); HDL Cholesterol 25 mg/dL (40-59); LDL Cholesterol,Calculated 55 mg/dL (0-99); Magnesium 1.6 mg/dL (1.6-2.6); Osmolality,Calculated 298 (280-300); Phosphorous 4.1 mg/dL (2.7-4.5); Sodium 140 mEq/L (136-145); Triglycerides 139 mg/dL (< 150); eGFR For African Americans > 60 (> 60); eGFR For Non-African Americans 58 (> 60)
--- NOTE | 2017-06-09 08:49 | Internal Med Progress Note ---
<Zaire Gaspar - Last Filed: 06/09/17 10:12> Date of Encounter: 06/09/17 Time of Encounter: 08:47 - Assessment and plan (1) Unstable angina Current Visit: No Status: Acute Assessment and plan: Patient presents with unstable angina, chest pain at rest. Currently stable and asymptomatic - Recent [facility] 2 weeks ago with noted distal 70% stenosis but no stents placed at that time. - History of DEBI 3 in 2014 - Currently taking Plavix only at home - Last echocardiogram had an LVEF of 60-65%, mild diastolic dysfunction - EKG demonstrates normal sinus rhythm with appropriate rate and rhythm no ST elevations or depressions - Troponin 3 less than 0.03 Plan: - Cardiology consult, evaluation given her unstable angina and known CAD - Discontinue heparin drip, no findings of an study - Continue nitroglycerin ggt with unstable angina improvement of symptoms until further evaluation cardiology - Nothing by mouth - Continue to maximize cardiac medications, start long-acting beta yari, noted allergy to statins - Continue cardiac monitoring (2) CAD (coronary artery disease) Current Visit: No Status: Chronic Assessment and plan: Known history of CAD, stents 3 in 2014, [facility] 2 weeks ago with 70% stenosis of LAD - Continue cardiac medications as listed above. Qualifiers: Coronary Disease-Associated Artery/Lesion type: [place] artery [place] vs. transplanted heart: r[place] heart Associated angina: with unspecified angina Qualified Code(s): I25.119 - Atherosclerotic heart disease of [place] coronary artery with unspecified angina pectoris (3) Hypertension Current Visit: No Status: Chronic Assessment and plan: Blood pressure stable, continue current antihypertensive regimen Qualifiers: Hypertension type: essential hypertension Qualified Code(s): I10 - Essential (primary) hypertension (4) DVT prophylaxis Current Visit: No Status: Acute Assessment and plan: Discontinue heparin GGT Start subcutaneous heparin every 8 hours (5) Hyperglycemia Current Visit: Yes Status: Acute Assessment and plan: Patient has elevated glucoses, medical problem list his diabetes but she is currently not on the diabetic medications at home. - We will start low-dose sliding scale insulin for glucose control. - Time Spent With Patient Total time spent is greater than 50% in coordination of care (as documented) at patient's floor/unit and/or counseling patient: - Subjective Interval history: Miss Larkin 72-year-old female has been seen and evaluated patient bedside this morning. She is alert awake interactive no acute distress. She states that her chest pain is now relieved while on nitroglycerin drip she has not had any chest pain since admission. Denies any pain radiation currently denies any nausea, vomiting, diarrhea or constipation. Review of her present symptoms she had sharp shooting pain substernally with radiation to her right shoulder at rest. It did not relieve after 3 nitroglycerin. She waited 2 hours prior to presentation to the emergency department after which she is provided oral medications with relief of her pain. She mentions that she stopped taking aspirin because she was bruising but continued her Plavix. She states she talked about this with her process consultant and he did not see anything about it so she discontinued with only Plavix and not aspirin. She has no further questions at this time, she is awaiting cardiology's follow-up. - Constitutional Vitals: Temp Pulse Resp BP Pulse Ox 98 F 60 20 111/62 96 06/09/17 07:23 06/09/17 07:23 06/09/17 07:23 06/09/17 07:23 06/09/17 04:22 General appearance: Present: cooperative, A&O X 3, pleasant, no acute distress, answers questions appropriately Exam: General: Patient alert, awake, oriented 3, interactive, in no acute distress HEENT: Normocephalic, atraumatic, pupils equal reactive to light, nasal cavity patent and open septum median position, oral mucosa moist, uvula midline, neck supple trachea midline no palpable lymphadenopathy, no thyromegaly. Chest: Symmetric bilateral correlating with respiratory effort, effort nonlabored. Cardiac: Regular rate and rhythm, positive S1 and S2. no bruits appreciated bilateral carotids, Radial pulses 2+ bilateral, posterior tibial and dorsal pedal pulses 2+ bilateral. Respiratory: Clear to auscultation all lung [place] Abdomen: Soft, nontender, positive bowel sounds, no palpable masses appreciated on examination Extremities: Symmetric bilateral, bilateral lower extremities without erythema or edema patient moving all 4 extremities spontaneously. Neurologic: No focal deficits appreciated on examination. Face symmetric, muscle strength symmetric bilateral upper and lower extremities. Internal Medicine: Result - Labs CBC & Chem 7: 06/09/17 01:55 06/09/17 01:55 Labs: Short CBC 06/09/17 Range/Units 01:55 WBC 6.8 (4.3-11.1) K/mcL Hgb 10.8 L D (11.5-15.4) g/dL Hct 32.8 L (35.3-44.9) % Plt Count 187 (140-400) K/mcL Neutrophils # 3.6 (1.6-8.9) K/mcL BMP 06/09/17 01:55 Sodium 140 Potassium 4.0 Chloride 109 H Carbon Dioxide 23 BUN 22 Creatinine 0.95 Glucose 189 H Calcium 9.3 Cardiac Enzymes 06/09/17 06/09/17 Range/Units 01:55 08:10 Troponin I < 0.03 < 0.03 (< 0.04) ng/mL - ABG Interpretation ABG results: PT/INR, D-dimer PT 11.2 Seconds (9.4-12.1) 06/08/17 19:20 - VTE Reasons for not Prescribing Prophylaxis: Not indicated-Anticoagulated or INR therapeutic Consult Discharge Plan - Plan Referrals: Karen Perez LIVING MANAGER [Primary Care Provider] - (web request sent on 06/09/17) <Talib Maldonado - Last Filed: 06/09/17 12:55> Date of Encounter: 06/09/17 - Assessment and plan (1) CAD (coronary artery disease) Current Visit: Yes Status: Chronic Qualifiers: Coronary Disease-Associated Artery/Lesion type: r[place] artery [place] vs. transplanted heart: r[place]con heart Associated angina: with unspecified angina Qualified Code(s): I25.119 - Atherosclerotic heart disease of [place] coronary artery with unspecified angina pectoris (2) Hypertension Current Visit: No Status: Chronic Qualifiers: Hypertension type: essential hypertension Qualified Code(s): I10 - Essential (primary) hypertension (3) DVT prophylaxis Current Visit: No Status: Acute (4) Unstable angina Current Visit: Yes Status: Acute (5) Hyperglycemia Current Visit: Yes Status: Acute - Time Spent With Patient Total time spent is greater than 50% in coordination of care (as documented) at patient's floor/unit and/or counseling patient: - Constitutional Vitals: Temp Pulse Resp BP Pulse Ox 98.1 F 64 18 140/69 95 06/09/17 10:40 06/09/17 10:40 06/09/17 10:40 06/09/17 10:40 06/09/17 10:40 Internal Medicine: Result - Labs CBC & Chem 7: 06/09/17 01:55 06/09/17 01:55 Labs: Short CBC 06/09/17 Range/Units 01:55 WBC 6.8 (4.3-11.1) K/mcL Hgb 10.8 L D (11.5-15.4) g/dL Hct 32.8 L (35.3-44.9) % Plt Count 187 (140-400) K/mcL Neutrophils # 3.6 (1.6-8.9) K/mcL BMP 06/09/17 01:55 Sodium 140 Potassium 4.0 Chloride 109 H Carbon Dioxide 23 BUN 22 Creatinine 0.95 Glucose 189 H Calcium 9.3 Cardiac Enzymes 06/09/17 06/09/17 Range/Units 01:55 08:10 Troponin I < 0.03 < 0.03 (< 0.04) ng/mL - ABG Interpretation ABG results: PT/INR, D-dimer PT 11.2 Seconds (9.4-12.1) 06/08/17 19:20 - Attending Attestation Stress test recommended by cardiology I examined this patient and my medical decision-making was reviewed with the Resident Physician. I agree with the documented findings, disposition and treatment plan as described except to the extent set forth below.
[2017-06-09 08:57] LABS: Activated Partial Thrombo Time 125.1 Seconds (26.0-36.0)
[2017-06-09 08:59] LABS: Heparin anti-factor XA UFH 0.58 IU/mL (0.30-0.70)
[2017-06-09] MEDS ORDERED: *HR* Dextrose 50 % in Water (Syg) 50 ML SYRINGE IVP PRN (10:18)
[2017-06-09] MEDS ORDERED: D5% in Water 1,000 ML IVC PRN (10:18)
[2017-06-09] MEDS ORDERED: Dextrose Gel 15 GM/37.5 ML TUBE PO PRN ×2 (10:18)
--- NOTE | 2017-06-09 10:47 | Cardiology Consult Note ---
<Nav Ruiz - Last Filed: 06/09/17 10:59> Date of Encounter: 06/09/17 Time of Encounter: 10:37 Assessment and Plan (1) Unstable angina Status: Acute Symptoms concerning for anginal equivalent. Midsternal chest pain with radiation to right jaw. She states previously her pain would radiate to left side. Intermittent chest pain since Wednesday, worse on exertion, relieved with rest and nitro. Currently chest pain free on nitro gtt. Recent LHC 05/26/17-There is a 50% stenosis in the Proximal LAD - FFR not significant here (0.91). There is a long 60-70% stenosis in the Distal LAD. The lesion has a JESÚS flow of 3. Optimal medical therapy of patient's disease was recommeded - dc losartan, start Norvasc. Add Ranexa if continued symptoms. If despite maximal treatment continues having angina, distal LAD PCI was recommended. Pt had allergic reaction to norvasc--eye swelling and blisters. It was discontinued. Has been unable to afford Ranexa. Have been trying to obtain financial assistance for Ranexa through our office. On maximum Imdur dose of 240mg daily. TTE 05/26/17 preserved EF. Troponins negative x 3. No ischemic EKG changes. Cath films reviewed with both Dr. Ruth and Dr. Cain. LAD is tortuous. She had a negative stress test 10/2016. Discussed with Dr. Ruth. He recommends stress test tomorrow morning to see if this territory is ischemic on stress test. Unable to complete stress test today due to nitro gtt. Further recommendations to follow after stress test results. Will also follow-up with our office regarding Ranexa assistance. Hold nitrates currently given stress test in AM. Will wean off nitro gtt today. Continue to follow. Continue Plavix, BB. Not on statin due to intolerance. Not on ASA due to bruising when on DAPT, but would be agreeable to DAPT if PCI is necessary. (2) CAD (coronary artery disease) Status: Chronic As above, prior PCI. Known remaining lesions. Continue Plavix, BB. Not on statin due to intolerance. Not on ASA due to bruising when on DAPT. Qualifiers: Coronary Disease-Associated Artery/Lesion type: [place] artery [place] vs. transplanted heart: [place] heart Associated angina: with unspecified angina Qualified Code(s): I25.119 - Atherosclerotic heart disease of [place] coronary artery with unspecified angina pectoris Discussion w patient/family: The assessment and plan as outlined above was discussed with the patient and/or family members who expressed understanding and agreement. All questions were answered. Thank you for involving us in the care of your patient. Please call with any questions. I will discuss all the above with Dr. Ruth and make changes as necessary. History of Present Illness Consult date: 06/09/17 Requesting physician: Zaire Gaspar Consult reason: Unstable angina Chief complaint: chest pain History of present illness: Ms. Larkin is a 72 year old female with PMH of CAD, prior NSTEMI with previous stenting of mid LAD as well as obtuse marginal branch, HTN, HLD with statin intolerance, DM. Stress test done in October 2016 was negative for myocardial ischemia or prior infarct. She underwent a recent C 05/26/17. Optimal medical therapy of patient's disease was recommeded - dc losartan, start Norvasc. Add Ranexa if continued symptoms. If despite maximal treatment continues having angina, distal LAD PCI was recommended. She was started on Norvasc, had an allergic reaction with eye swelling and blisters and it had to be discontinued. She has been unable to afford Ranexa. She reports she has been having intermittent midsternal chest pain since Wednesday, worse on exertion, radiating to right side of neck, relieved with 3 nitro yesterday. She is currently on nitro gtt and chest pain free. Troponin negative x 3. No acute EKG changes. Cardiology consulted for further recommendations. CV testing: [facility] 05/26/17: The Proximal LAD has patent stents present from a previous procedure. The Mid LAD has patent stents present from a previous procedure. There is a 50% stenosis in the Proximal LAD - FFR not significant here (0.91). There is a long 60-70% stenosis in the Distal LAD. The lesion has a JESÚS flow of 3. Optimal medical therapy of patient's disease was recommeded - dc losartan , start Norvasc. Add Ranexa if continued symptoms. If despite maximal treatment continues having angina, distal LAD PCI was recommended. TTE 05/26/17: EF 60-65%, mild LVDD, mild AR TR MR, mild phtn. Nuclear stress test 10/2016 negative for ischemia or infarct. [facility] 11/2015: Patent mid LAD and LEE stents. Stable coronary artery disease. The left ventricle is normal and has normal contractility EF 65%. Past Med Surg Social Fam HX - Past Medical History Medical history: arthritis, cancer, CHF, coronary artery disease, DVT, GERD, hypertension, myocardial infarction Psychiatric history: no psych history - Past Surgical History Surgical History: angioplasty/stent, appendectomy, cancer surgery, cholecystectomy, hysterectomy, orthopedic, other, other - Social History Smoking Status: Never smoker Smokeless Tobacco Status: No Alcohol use: none Drug use: none - Family History Father Family Member Ethnicity: Non- Twin of Family Member: Yes, Fraternal Living Status: Hx Family Cardiac Disorders: Yes Hx Family Respiratory Disorders: No Hx Family Cancer: Yes (Lung) Hx Family GI Disorders: No Hx Family Endocrine Disorder: No Hx Family Neuromuscular Disorders: No Hx Family Neurologic Disorders: No Hx Family HEENT Disorders: No Hx Family Autoimmune Disorders: No Mother Living Status: Hx Family Cardiac Disorders: Yes Hx Family Cancer: Yes Medications and Allergies Loratadine [Claritin] 10 mg PO QAM PRN #0 11/21/14 [History] Nitroglycerin [Nitrostat] 0.4 mg SL Q5M PRN #0 11/21/14 [History] Cholecalciferol (Vitamin D3) [Vitamin D3] 2,000 unit PO QPM 01/03/15 [History] Clopidogrel [Plavix] 75 mg PO QPM 01/03/15 [History] Albuterol Neb [Proventil Neb] 2.5 mg IH TID PRN 09/07/15 [History] Fluticasone Propionate Nasal [Flonase] 50 mcg NS BID PRN 12/03/15 [History] Acetaminophen [Tylenol] 1,000 mg PO BID PRN 03/23/16 [History] Mv, Min #36/Iron,Carbonyl/FA [Geritol Complete Tablet] 1 tab PO DAILY 07/06/16 [ History] Pantoprazole Sodium [Protonix] 40 mg PO DAILY 07/06/16 [History] Isosorbide MONOnitrate [Isosorbide Mononitrate ER] 240 mg PO QAM 08/11/16 [ History] Albuterol Sulfate [Ventolin Hfa] 2 puff IH Q4H PRN 05/25/17 [History] Saccharomyces Boulardii [Florastor] 250 mg PO BID 05/25/17 [History] Vitamin E Acid Succinate [Vitamin E] 400 unit PO DAILY 05/25/17 [History] Losartan [Cozaar] 25 mg PO DAILY 06/08/17 [History] Metoprolol [Lopressor] 12.5 mg PO BID 30 Days #60 tablet 06/10/17 [Rx] Ranolazine [Ranexa] 500 mg PO BID 30 Days #60 tab.er.12h 06/10/17 [Rx] 3 Allergy/AdvReac Type Severity Reaction Status Date / Time codeine Allergy Difficulty Verified 05/25/17 15:23 Breathing prednisone Allergy Rash Verified 05/25/17 15:23 amlodipine AdvReac Swelling Verified 06/08/17 20:42 of the Eye clarithromycin AdvReac Vomiting Verified 05/25/17 15:23 Erythromycin Base AdvReac Vomiting Verified 05/25/17 15:23 hydrocodone [From Vicodin] AdvReac Dizziness Verified 05/25/17 15:23 propoxyphene AdvReac Vomiting Verified 05/25/17 15:23 Fmohviy-[id number]-[id number] Reductase AdvReac Muscle Pain Verified 05/25/17 15:23 Inhibitor [Statins] All Systems Review: The remainder of the systems were reviewed and are negative - Cardiovascular Cardiovascular: as per HPI, chest pain at rest, chest pain with exertion, dyspnea on exertion, radiating jaw, neck or arm pain Physical Examination Vital Signs, Last 4 Hours Temp Pulse Resp BP 06/09/17 07:23 98 F 60 20 111/62 Vital Signs Temp Pulse Resp BP Pulse Ox 06/09/17 10:40 98.1 F 64 18 140/69 95 06/09/17 07:23 98 F 60 20 111/62 06/09/17 04:22 97.8 F 71 14 114/61 96 06/08/17 22:28 98 F 82 16 137/87 96 06/08/17 22:14 78 18 145/82 98 06/08/17 21:41 74 20 138/81 95 06/08/17 21:06 74 18 134/82 95 06/08/17 20:50 78 18 133/96 97 06/08/17 20:11 74 20 143/81 97 06/08/17 18:57 97.4 F L 90 16 143/80 99 Intake and Output 06/08/17 06/09/17 06/09/17 23:59 07:59 15:59 Intake Total 480 / 480 Balance 480 / 480 Intake: Oral 480 / 480 Other: Meal Breakfast Percent of Meal Consumed 100% # Voids 1 Weight 84.005 kg Blood Glucose* 189 102 General: Conversant, No Apparent Distress HEENT: Atraumatic, Normocephaly, Mucus Membranes Moist Neck: No JVD, Normal carotid pulses Cardiac: Reg Rate and Rhythm, Normal S1 and S2, No Murmur Lungs: Normal Breath Sounds, No Wheeze, Rales, Rhonchi Neuro: Alert and responsive, No focal deficits noted Abdomen: Soft, Non-Tender Skin: No rashes noted on visualized skin Musculoskeletal: No Chest Wall Tenderness Extremities: No Clubbing, No Cyanosis, No Edema, Normal Pulses Results 06/09/17 01:55 06/09/17 01:55 Lab Results 06/09/17 06/09/17 06/09/17 01:55 01:55 08:10 WBC 6.8 Hgb 10.8 L D Hct 32.8 L Plt Count 187 APTT Sodium 140 Potassium 4.0 Chloride 109 H Carbon Dioxide 23 BUN 22 Creatinine 0.95 Glucose 189 H Calcium 9.3 Magnesium 1.6 Troponin I < 0.03 < 0.03 06/09/17 08:10 WBC Hgb Hct Plt Count APTT 125.1 H* D Sodium Potassium Chloride Carbon Dioxide BUN Creatinine Glucose Calcium Magnesium Troponin I Short CBC 06/09/17 06/09/17 06/09/17 Range/Units 08:10 08:10 07:39 WBC (4.3-11.1) K/mcL RBC (3.82-4.97) M/mcL Hgb (11.5-15.4) g/dL Hct (35.3-44.9) % MCV (83.0-100.0) fL MCH (28.0-33.3) pg MCHC (31.6-35.5) g/dL RDW (11.5-14.5) % Plt Count (140-400) K/mcL MPV (9.4-12.4) fL Immature Gran % (0-4) % Seg Neutrophils % % Lymphocytes % % Monocytes % % Eosinophils % % Basophils % % Neutrophils # (1.6-8.9) K/mcL Lymphocytes # (0.6-4.6) K/mcL Monocytes # (0.0-1.3) K/mcL Eosinophils # (0.0-0.6) K/mcL Basophils # (0.0-0.2) K/mcL PT (9.4-12.1) Seconds INR APTT 125.1 H* D (26.0-36.0) Seconds Heparin Anti-Xa, Unfract 0.58 (0.30-0.70) IU/mL Sodium Potassium Chloride Carbon Dioxide BUN Creatinine Est GFR ( Amer) Est GFR (Non-Af Amer) BUN/Creatinine Ratio Glucose POC Glucose (70-99) mg/dL Calculated Osmolality Calcium Phosphorus (2.7-4.5) mg/dL Magnesium (1.6-2.6) mg/dL Troponin I < 0.03 (< 0.04) ng/mL Triglycerides (< 150) mg/dL Cholesterol (< 200) mg/dL LDL Cholesterol, Calc (0-99) mg/dL VLDL Cholesterol, Calc (< 31) mg/dL HDL Cholesterol (40-59) mg/dL Cholesterol/HDL Ratio (0-4.9) Specimen Rejected Contaminated 06/09/17 06/09/17 06/08/17 Range/Units 01:55 01:55 22:35 WBC 6.8 (4.3-11.1) K/mcL RBC 3.53 L (3.82-4.97) M/mcL Hgb 10.8 L D (11.5-15.4) g/dL Hct 32.8 L (35.3-44.9) % MCV 92.9 (83.0-100.0) fL MCH 30.6 (28.0-33.3) pg MCHC 32.9 (31.6-35.5) g/dL RDW 13.5 (11.5-14.5) % Plt Count 187 (140-400) K/mcL MPV 11.9 (9.4-12.4) fL Immature Gran % 0.1 (0-4) % Seg Neutrophils % 53.0 % Lymphocytes % 31.9 % Monocytes % 9.3 % Eosinophils % 5.3 % Basophils % 0.4 % Neutrophils # 3.6 (1.6-8.9) K/mcL Lymphocytes # 2.2 (0.6-4.6) K/mcL Monocytes # 0.6 (0.0-1.3) K/mcL Eosinophils # 0.4 (0.0-0.6) K/mcL Basophils # 0.0 (0.0-0.2) K/mcL PT (9.4-12.1) Seconds INR APTT (26.0-36.0) Seconds Heparin Anti-Xa, Unfract (0.30-0.70) IU/mL Sodium 140 Potassium 4.0 Chloride 109 H Carbon Dioxide 23 BUN 22 Creatinine 0.95 Est GFR ( Amer) > 60 Est GFR (Non-Af Amer) 58 L BUN/Creatinine Ratio 23 Glucose 189 H POC Glucose 189 H (70-99) mg/dL Calculated Osmolality 298 Calcium 9.3 Phosphorus 4.1 (2.7-4.5) mg/dL Magnesium 1.6 (1.6-2.6) mg/dL Troponin I < 0.03 (< 0.04) ng/mL Triglycerides 139 (< 150) mg/dL Cholesterol 108 (< 200) mg/dL LDL Cholesterol, Calc 55 (0-99) mg/dL VLDL Cholesterol, Calc 28 (< 31) mg/dL HDL Cholesterol 25 L (40-59) mg/dL Cholesterol/HDL Ratio 4.3 (0-4.9) Specimen Rejected 06/08/17 06/08/17 06/08/17 Range/Units 21:29 19:20 19:20 WBC (4.3-11.1) K/mcL RBC (3.82-4.97) M/mcL Hgb (11.5-15.4) g/dL Hct (35.3-44.9) % MCV (83.0-100.0) fL MCH (28.0-33.3) pg MCHC (31.6-35.5) g/dL RDW (11.5-14.5) % Plt Count (140-400) K/mcL MPV (9.4-12.4) fL Immature Gran % (0-4) % Seg Neutrophils % % Lymphocytes % % Monocytes % % Eosinophils % % Basophils % % Neutrophils # (1.6-8.9) K/mcL Lymphocytes # (0.6-4.6) K/mcL Monocytes # (0.0-1.3) K/mcL Eosinophils # (0.0-0.6) K/mcL Basophils # (0.0-0.2) K/mcL PT (9.4-12.1) Seconds INR APTT (26.0-36.0) Seconds Heparin Anti-Xa, Unfract (0.30-0.70) IU/mL Sodium 139 Cancelled Potassium 4.2 Cancelled Chloride 109 H Cancelled Carbon Dioxide 24 Cancelled BUN 21 Cancelled Creatinine 0.88 Cancelled Est GFR ( Amer) > 60 Cancelled Est GFR (Non-Af Amer) > 60 Cancelled BUN/Creatinine Ratio 24 Cancelled Glucose 150 H Cancelled POC Glucose (70-99) mg/dL Calculated Osmolality 294 Cancelled Calcium 9.3 Cancelled Phosphorus (2.7-4.5) mg/dL Magnesium (1.6-2.6) mg/dL Troponin I < 0.03 (< 0.04) ng/mL Triglycerides (< 150) mg/dL Cholesterol (< 200) mg/dL LDL Cholesterol, Calc (0-99) mg/dL VLDL Cholesterol, Calc (< 31) mg/dL HDL Cholesterol (40-59) mg/dL Cholesterol/HDL Ratio (0-4.9) Specimen Rejected Hemolyzed 06/08/17 06/08/17 Range/Units 19:20 19:20 WBC 9.2 (4.3-11.1) K/mcL RBC 4.16 (3.82-4.97) M/mcL Hgb 12.9 (11.5-15.4) g/dL Hct 38.8 (35.3-44.9) % MCV 93.3 (83.0-100.0) fL MCH 31.0 (28.0-33.3) pg MCHC 33.2 (31.6-35.5) g/dL RDW 13.5 (11.5-14.5) % Plt Count 232 (140-400) K/mcL MPV 11.9 (9.4-12.4) fL Immature Gran % 0.3 (0-4) % Seg Neutrophils % 66.0 % Lymphocytes % 20.8 % Monocytes % 8.3 % Eosinophils % 4.3 % Basophils % 0.3 % Neutrophils # 6.1 (1.6-8.9) K/mcL Lymphocytes # 1.9 (0.6-4.6) K/mcL Monocytes # 0.8 (0.0-1.3) K/mcL Eosinophils # 0.4 (0.0-0.6) K/mcL Basophils # 0.0 (0.0-0.2) K/mcL PT 11.2 (9.4-12.1) Seconds INR 1.0 APTT 31.2 (26.0-36.0) Seconds Heparin Anti-Xa, Unfract (0.30-0.70) IU/mL Sodium Potassium Chloride Carbon Dioxide BUN Creatinine Est GFR ( Amer) Est GFR (Non-Af Amer) BUN/Creatinine Ratio Glucose POC Glucose (70-99) mg/dL Calculated Osmolality Calcium Phosphorus (2.7-4.5) mg/dL Magnesium (1.6-2.6) mg/dL Troponin I (< 0.04) ng/mL Triglycerides (< 150) mg/dL Cholesterol (< 200) mg/dL LDL Cholesterol, Calc (0-99) mg/dL VLDL Cholesterol, Calc (< 31) mg/dL HDL Cholesterol (40-59) mg/dL Cholesterol/HDL Ratio (0-4.9) Specimen Rejected BMP 06/09/17 06/08/17 06/08/17 Range/Units 01:55 21:29 19:20 Sodium 140 139 Cancelled Potassium 4.0 4.2 Cancelled Chloride 109 H 109 H Cancelled Carbon Dioxide 23 24 Cancelled BUN 22 21 Cancelled Creatinine 0.95 0.88 Cancelled Glucose 189 H 150 H Cancelled Calcium 9.3 9.3 Cancelled Cardiac Enzymes 06/09/17 06/09/17 06/08/17 Range/Units 08:10 01:55 19:20 Troponin I < 0.03 < 0.03 < 0.03 (< 0.04) ng/mL Impressions Chest X-Ray 06/08/17 19:09 IMPRESSION: Stable chest without acute cardiopulmonary process. D/ / Reinier Pineda MD / Reinier Pineda MD Interpreting Provider: Reinier Pineda MD Active Medications Dextrose/Water (Dextrose 50% (Syg)) 25 ml IVP AD PRN PRN Reason: Hypoglycemia Stop: 12/09/17 10:19 Glucagon (Glucagen) 1 mg IM ONCE PRN PRN Reason: Hypoglycemia Stop: 12/09/17 10:19 Glucose (Gluctose) 15 gm PO ONCE PRN PRN Reason: Hypoglycemia Stop: 12/09/17 10:19 Glucose (Gluctose) 30 gm PO ONCE PRN PRN Reason: Hypoglycemia Stop: 12/09/17 10:19 Heparin Sodium (Porcine) (Heparin) 5,000 unit SQ Q8HCO PRASANNA Stop: 12/09/17 14:01 Nitroglycerin (Nitroglycerin Premix 25 Mg/250 Ml) 25 mg in 250 mls @ 3 mls/hr IVC .Q24H PRASANNA; 5 MCG/MIN PRN Reason: Protocol Stop: 12/08/17 20:31 Last Admin: 06/08/17 20:50 Dose: 5 mcg/min, 3 mls/hr Dextrose (Dextrose 5%) 1,000 mls @ 100 mls/hr IVC .Q10H PRN PRN Reason: HYPOGLYCEMIA Stop: 12/09/17 10:19 Insulin Human Lispro (Humalog) 0 units SQ TIDAC PRASANNA PRN Reason: Protocol Stop: 12/09/17 11:31 Insulin Human Lispro (Humalog) 0 units SQ HS PRASANNA PRN Reason: Protocol Stop: 12/09/17 21:01 Losartan Potassium (Cozaar) 25 mg PO DAILY PRASANNA PRN Reason: Protocol Stop: 12/09/17 09:01 Last Admin: 06/09/17 09:47 Dose: Not Given Metoprolol Tartrate (Lopressor) 12.5 mg PO BID [facility] Stop: 12/10/17 09:01 Naloxone HCl (Narcan) 0.4 mg IVP Q2MIN PRN PRN Reason: SEE COMMENTS Stop: 12/09/17 01:31 Omeprazole (Prilosec) 20 mg PO 0630 [facility] Stop: 12/09/17 06:31 Last Admin: 06/09/17 05:13 Dose: 20 mg - Imaging and Cardiology Stress Test: report reviewed Echo: report reviewed Cardiac cath: report reviewed - EKG Interpretation EKG results cardiology: personally reviewed (SR), other (12 hr tele AVG HR 67) Consult Discharge Plan - Plan Instructions: Metoprolol (By mouth), Ranolazine (By mouth), Chest Pain (DC) Additional Instructions: 1. Follow-up with your primary care provider in the next 3-5 days 2. Take all prescriptions as prescribed, any concerns or questions contact her primary care provider. 3. Return to the emergency department if: Recurrence of chest pain, dizziness, lightheadedness, new concerning medical symptoms or signs. Referrals: Karen Perez, RAYMUNDO [Primary Care Provider] - 06/16/17 3:00 pm () Prescriptions: Metoprolol [Lopressor] 12.5 mg PO BID 30 Days #60 tablet Ranolazine [Ranexa] 500 mg PO BID 30 Days #60 tab.er.12h <Chito Ruth - Last Filed: 06/14/17 22:02> Date of Encounter: 06/09/17 Time of Encounter: 14:00 - Attending Attestation I have personally performed a face to face evaluation on this patient. I have reviewed and agree with the care plan. History and Exam by me shows: CC: Chest pain Pt complains of mid sternal chest pain, radiates into right jaw, 6/10 at most severe, comes and goes spontaneously, associated with mild shortness of breath, relieved with sl ntg x 1. Pt underwent recent LHC, with severe disease, not a candidate for revascularization with non flow limiting lesion in proximal LAD, and small vessel with distal tortuosity, not likely to significantly affect symptoms. She presents today with similar sympotoms. PMHX: chart reviewed, old records, cath films reviewedl PE : pt seen and examined, agree with findings as documented. IMP 1. Chest pain, best option medical management, will order stress imaging to rule out progression of disease in proximal LAD. She will need financial hep to obrain Ranexa for recurretn chest pain. Further recs pending stress result. Assessment and Plan Discussion w patient/family: The assessment and plan as outlined above was discussed with the patient and/or family members who expressed understanding and agreement. All questions were answered. Thank you for involving us in the care of your patient. Please call with any questions. History of Present Illness History of present illness: Ms. Larkin is a 72 year old female All Systems Review: The remainder of the systems were reviewed and are negative Results 06/10/17 04:40 06/10/17 04:40
[2017-06-09 10:48] LABS: Estimated Average Glucose 134 mg/dl; Hemoglobin A1C 6.3 %
[2017-06-09] MEDS: Insulin LISPRO 300 UNITS/3 ML VIAL SQ SCH ×2 (12:14→17:03)
[2017-06-09] MEDS: *HR* Heparin 5,000 UNIT/ML VIAL SQ SCH ×2 (14:07→21:47)
[2017-06-09] MEDS ORDERED: Ondansetron 4 MG/2 ML VIAL IVP PRN (20:03)
[2017-06-09] MEDS ORDERED: Insulin LISPRO 300 UNITS/3 ML VIAL SQ SCH (21:00)
[2017-06-10] MEDS: Acetaminophen 325 MG TABLET PO PRN ×2 (01:12→09:31)
[2017-06-10] MEDS: *HR* Heparin 5,000 UNIT/ML VIAL SQ SCH (05:26)
[2017-06-10 05:31] LABS: Basophils % 0.7 %; Eosinophils # 0.4 K/mcL (0.0-0.6); Eosinophils % 6.1 %; Hemoglobin 11.5 g/dL (11.5-15.4); Immature Granulocytes % 0.3 % (0-4); Lymphocytes # 1.7 K/mcL (0.6-4.6); Lymphocytes % 28.5 %; Mean Corpuscular HGB Conc 32.9 g/dL (31.6-35.5); Mean Corpuscular Hemoglobin 30.8 pg (28.0-33.3); Mean Corpuscular Volume 93.8 fL (83.0-100.0); Monocytes # 0.7 K/mcL (0.0-1.3); Monocytes % 12.2 %; Neutrophils # 3.1 K/mcL (1.6-8.9); Platelet Count 176 K/mcL (140-400); Red Blood Count 3.73 M/mcL (3.82-4.97); Red Cell Distribution Width 13.3 % (11.5-14.5); Segmented Neutrophils % 52.2 %
[2017-06-10 05:44] LABS: Alanine Aminotransferase 11 Units/L (7-52); Albumin 3.4 g/dL (3.5-5.7); Albumin/Globulin Ratio 1.5 (1.1-2.2); Alkaline Phosphatase 78 Units/L (34-104); Aspartate Amino Transferase 16 Units/L (13-39); BUN/Creatinine Ratio 20 (6-26); Bilirubin,Total 0.3 mg/dL (0.3-1.0); Blood Urea Nitrogen 21 mg/dL (8-23); Calcium 9.3 mg/dL (8.6-10.3); Carbon Dioxide 27 mEq/L (23-29); Chloride 108 mEq/L (98-107); Globulin 2.2 g/dL (2.4-3.5); Glucose 126 mg/dL (70-105); Osmolality,Calculated 295 (280-300); Potassium 4.4 mEq/L (3.5-5.1); Sodium 140 mEq/L (136-145); Total Protein 5.6 g/dL (6.4-8.9); eGFR For African Americans > 60 (> 60); eGFR For Non-African Americans 52 (> 60)
[2017-06-10] MEDS ORDERED: Regadenoson 0.4 MG/5 ML SYRINGE IVP ONE (05:50)
--- NOTE | 2017-06-10 08:04 | Cardiology Progress Note ---
Date of Encounter: 06/10/17 Time of Encounter: 08:00 Assessment and Plan (1) Unstable angina Current Visit: Yes Status: Acute Per Cardiology: Symptoms concerning for anginal equivalent. Midsternal chest pain with radiation to right jaw. She states previously her pain would radiate to left side. Intermittent chest pain since Wednesday, worse on exertion, relieved with rest and nitro. Recent [facility] 05/26/17-There is a 50% stenosis in the Proximal LAD - FFR not significant here (0.91). There is a long 60-70% stenosis in the Distal LAD. The lesion has a JESÚS flow of 3. Optimal medical therapy of patient's disease was recommeded - dc losartan, start Norvasc. Add Ranexa if continued symptoms. If despite maximal treatment continues having angina, distal LAD PCI was recommended. Pt had allergic reaction to norvasc--eye swelling and blisters. It was discontinued. Has been unable to afford Ranexa. Have been trying to obtain financial assistance for Ranexa through our office. On maximum Imdur dose of 240mg daily. TTE 05/26/17 preserved EF. Troponins negative x 4. Cath films reviewed with both Dr. Ruth and Dr. Cain. LAD is tortuous. She had a negative stress test 2016. Discussed with Dr. Ruth, further recommendations to follow after stress test results. Will also follow-up with our office regarding Ranexa assistance. Continue Plavix, BB. Not on statin due to intolerance. Not on ASA due to bruising when on DAPT, but would be agreeable to DAPT if PCI is necessary. Discussion w patient/family: The assessment and plan as outlined above was discussed with the patient who expressed understanding and agreement. All questions were answered. Thank you for involving us in the care of your patient. Please call with any questions. Subjective Principal diagnosis: CP, CAD Interval history: Patient denies any concerns over night. Denies any chest pain, shortness of breath, palpitations. Seen today during stress test. Objective Vital Signs, Last 4 Hours Temp Pulse Resp BP Pulse Ox 06/10/17 04:55 97.6 F 69 18 112/58 94 General: Conversant, No Apparent Distress HEENT: Atraumatic, Normocephaly, Mucus Membranes Moist Cardiac: Reg Rate and Rhythm, Normal S1 and S2, No Murmur Lungs: Normal Breath Sounds, No Wheeze, Rales, Rhonchi Neuro: Alert and responsive, No focal deficits noted Skin: No rashes noted on visualized skin Extremities: Other (Trace pitting edema bilateral LE) Results 06/10/17 04:40 06/10/17 04:40 Lab Results Laboratory Tests 06/08/17 06/09/17 06/09/17 19:20 01:55 08:10 Hemoglobin A1c AST ALT Troponin I < 0.03 < 0.03 < 0.03 06/09/17 06/09/17 06/10/17 08:10 14:16 04:40 Hemoglobin A1c 6.3 H AST 16 ALT 11 Troponin I < 0.03 ITS Impressions Chest X-Ray 06/08/17 19:09 IMPRESSION: Stable chest without acute cardiopulmonary process. D/ / Reinier Pineda MD / Reinier Pineda MD Interpreting Provider: Reniier Pineda MD Active Medications Acetaminophen (Tylenol) 650 mg PO Q6H PRN PRN Reason: Pain Stop: 12/10/17 00:50 Last Admin: 06/10/17 01:12 Dose: 650 mg Clopidogrel Bisulfate (Plavix) 75 mg PO DAILY [facility] Stop: 12/09/17 11:16 Last Admin: 06/09/17 12:13 Dose: 75 mg Dextrose/Water (Dextrose 50% (Syg)) 25 ml IVP AD PRN PRN Reason: Hypoglycemia Stop: 12/09/17 10:19 Glucagon (Glucagen) 1 mg IM ONCE PRN PRN Reason: Hypoglycemia Stop: 12/09/17 10:19 Glucose (Gluctose) 15 gm PO ONCE PRN PRN Reason: Hypoglycemia Stop: 12/09/17 10:19 Glucose (Gluctose) 30 gm PO ONCE PRN PRN Reason: Hypoglycemia Stop: 12/09/17 10:19 Heparin Sodium (Porcine) (Heparin) 5,000 unit SQ Q8HCO PRASANNA Stop: 12/09/17 14:01 Last Admin: 06/10/17 05:26 Dose: 5,000 unit Dextrose (Dextrose 5%) 1,000 mls @ 100 mls/hr IVC .Q10H PRN PRN Reason: HYPOGLYCEMIA Stop: 12/09/17 10:19 Insulin Human Lispro (Humalog) 0 units SQ TIDAC PRASANNA PRN Reason: Protocol Stop: 12/09/17 11:31 Last Admin: 06/09/17 17:03 Dose: Not Given Insulin Human Lispro (Humalog) 0 units SQ HS PRASANNA PRN Reason: Protocol Stop: 12/09/17 21:01 Last Admin: 06/09/17 20:21 Dose: Not Given Losartan Potassium (Cozaar) 25 mg PO DAILY PRASANNA PRN Reason: Protocol Stop: 12/09/17 09:01 Last Admin: 06/09/17 12:13 Dose: 25 mg Metoprolol Tartrate (Lopressor) 12.5 mg PO BID [facility] Stop: 12/10/17 09:01 Naloxone HCl (Narcan) 0.4 mg IVP Q2MIN PRN PRN Reason: SEE COMMENTS Stop: 12/09/17 01:31 Omeprazole (Prilosec) 20 mg PO 0630 [facility] Stop: 12/09/17 06:31 Last Admin: 06/10/17 05:27 Dose: 20 mg Ondansetron HCl (Zofran) 4 mg IVP Q6HR PRN; Protocol PRN Reason: Nausea And Vomiting Stop: 12/09/17 20:04 Last Admin: 06/09/17 20:15 Dose: 4 mg - Imaging and Cardiology Stress Test: pending Echo: report reviewed (Impressions: LVEF 60-65%. Mild left ventricular diastolic dysfunction. Normal right ventricular structure and function. Mild aortic regurgitation. Mild mitral regurgitation. Mild tricuspid regurgitation. Mild pulmonary hypertension. Left Ventricular Wall Motion: Rest Echo Findings All wall segments showed normal motion.) - EKG Interpretation EKG results cardiology: other (SR on tele) - VTE Reasons for not Prescribing Prophylaxis: Not indicated-Anticoagulated or INR therapeutic Consult Discharge Plan - Plan Referrals: Karen Perez CNP [Primary Care Provider] - 06/16/17 3:00 pm ()
[2017-06-10] MEDS ORDERED: Ranolazine 500 MG TAB.ER.12H PO SCH (09:00)
[2017-06-10] MEDS: Insulin LISPRO 300 UNITS/3 ML VIAL SQ SCH ×2 (09:23→11:33)
--- NOTE | 2017-06-10 10:11 | Discharge Summary ---
<Zaire Gaspar David - Last Filed: 06/10/17 13:23> Orders not resulted at time of discharge: Pending orders 06/09/17 11:04 NM rafi perf SPECT multi [NM] Routine Date of Encounter: 06/10/17 Time of Encounter: 10:08 - Discharge Diagnosis (1) Unstable angina Priority: Primary Status: Acute (2) CAD (coronary artery disease) Priority: Secondary Status: Chronic Qualifiers: Coronary Disease-Associated Artery/Lesion type: yuhaaviatam artery [place] vs. transplanted heart: yuhaaviatam heart Associated angina: with unspecified angina Qualified Code(s): I25.119 - Atherosclerotic heart disease of yuhaaviatam coronary artery with unspecified angina pectoris (3) Hypertension Priority: Secondary Status: Chronic Qualifiers: Hypertension type: essential hypertension Qualified Code(s): I10 - Essential (primary) hypertension (4) DVT prophylaxis Priority: Secondary Status: Acute (5) Hyperglycemia Priority: Secondary Status: Acute Hospital course: Ms. Larkin is a 72 year old female with significant past oral history of stents 3, CAD with 70% stenosis of LAD, recent LHC 2 weeks prior to this admission, hypertension, hyperlipidemia, diabetes type 2 admitted with chest pain for 2 and half hours prior to arrival to the emergency department. Symptoms were concerning for unstable angina, recent echo with LVEF of 60-65% mild diastolic dysfunction, EKG demonstrating normal sinus rhythm with appropriate rate and rhythm no ST elevations or depressions. Troponins 3 less than 0.03. Patient admitted to general medical floor started on heparin drip which was discontinued within 24 hours after negative troponins. Nitro drip was continued until evaluation by cardiology with weaning of nitro drip. Patient underwent nuclear stress test which was negative for ischemia. She was seen and evaluated post stress test and is clinically stable for discharge and follow up with Cardiology as recommended. Patient started on Ranexa 500 mg by mouth twice a day per cardiology with follow-up in the outpatient setting. - Time Spent with Patient Total time spent providing and/or coordinating discharge services: - Discharge Medications Prescriptions: Metoprolol [Lopressor] 12.5 mg PO BID 30 Days #60 tablet Ranolazine [Ranexa] 500 mg PO BID 30 Days #60 tab.er.12h Home Medications: Loratadine [Claritin] 10 mg PO QAM PRN #0 11/21/14 [History] Nitroglycerin [Nitrostat] 0.4 mg SL Q5M PRN #0 11/21/14 [History] Cholecalciferol (Vitamin D3) [Vitamin D3] 2,000 unit PO QPM 01/03/15 [History] Clopidogrel [Plavix] 75 mg PO QPM 01/03/15 [History] Albuterol Neb [Proventil Neb] 2.5 mg IH TID PRN 09/07/15 [History] Fluticasone Propionate Nasal [Flonase] 50 mcg NS BID PRN 12/03/15 [History] Acetaminophen [Tylenol] 1,000 mg PO BID PRN 03/23/16 [History] Mv, Min #36/Iron,Carbonyl/FA [Geritol Complete Tablet] 1 tab PO DAILY 07/06/16 [ History] Pantoprazole Sodium [Protonix] 40 mg PO DAILY 07/06/16 [History] Isosorbide MONOnitrate [Isosorbide Mononitrate ER] 240 mg PO QAM 08/11/16 [ History] Albuterol Sulfate [Ventolin Hfa] 2 puff IH Q4H PRN 05/25/17 [History] Saccharomyces Boulardii [Florastor] 250 mg PO BID 05/25/17 [History] Vitamin E Acid Succinate [Vitamin E] 400 unit PO DAILY 05/25/17 [History] Losartan [Cozaar] 25 mg PO DAILY 06/08/17 [History] Metoprolol [Lopressor] 12.5 mg PO BID 30 Days #60 tablet 06/10/17 [Rx] Ranolazine [Ranexa] 500 mg PO BID 30 Days #60 tab.er.12h 06/10/17 [Rx] Allergies/Adverse Reactions: 3 Allergy/AdvReac Type Severity Reaction Status Date / Time codeine Allergy Difficulty Verified 05/25/17 15:23 Breathing prednisone Allergy Rash Verified 05/25/17 15:23 amlodipine AdvReac Swelling Verified 06/08/17 20:42 of the Eye clarithromycin AdvReac Vomiting Verified 05/25/17 15:23 Erythromycin Base AdvReac Vomiting Verified 05/25/17 15:23 hydrocodone [From Vicodin] AdvReac Dizziness Verified 05/25/17 15:23 propoxyphene AdvReac Vomiting Verified 05/25/17 15:23 [id number] Reductase AdvReac Muscle Pain Verified 05/25/17 15:23 Inhibitor [Statins] Date of admission: 06/08/17 22:03 Primary care physician: Karen Perez CNP Discharging clinician: Zaire Gaspar Anticipated date of discharge: 06/10/17 - Constitutional Vitals: Temp Pulse Resp BP Pulse Ox 97.8 F 77 17 118/60 98 06/10/17 09:31 06/10/17 09:31 06/10/17 09:31 06/10/17 09:31 06/10/17 09:31 General appearance: Present: cooperative, A&O X 3, pleasant, no acute distress, answers questions appropriately Exam: General: Patient alert, awake, oriented 3, interactive, in no acute distress HEENT: Normocephalic, atraumatic, pupils equal reactive to light, nasal cavity patent and open septum median position, oral mucosa moist, uvula midline, neck supple trachea midline no palpable lymphadenopathy, no thyromegaly. Chest: Symmetric bilateral correlating with respiratory effort, effort nonlabored. Cardiac: Regular rate and rhythm, positive S1 and S2. no bruits appreciated bilateral carotids, Radial pulses 2+ bilateral, posterior tibial and dorsal pedal pulses 2+ bilateral. Respiratory: Clear to auscultation all lung [place] Abdomen: Soft, nontender, positive bowel sounds, no palpable masses appreciated on examination Extremities: Symmetric bilateral, bilateral lower extremities without erythema or edema patient moving all 4 extremities spontaneously. Neurologic: No focal deficits appreciated on examination. Face symmetric, muscle strength symmetric bilateral upper and lower extremities. - Patient Status Disposition: Home, Self-Care Condition: Good Overall status at discharge: patient is back to baseline - Discharge Instructions Instructions: Metoprolol (By mouth), Ranolazine (By mouth), Chest Pain (DC) Follow Up With: Karen Perez CNP [Primary Care Provider] - 06/16/17 3:00 pm () Additional Instructions: 1. Follow-up with your primary care provider in the next 3-5 days 2. Take all prescriptions as prescribed, any concerns or questions contact her primary care provider. 3. Return to the emergency department if: Recurrence of chest pain, dizziness, lightheadedness, new concerning medical symptoms or signs. - Diet and Activity Activity: increase activity as tolerated Diet: diabetic diet, low fat, low cholesterol, low salt diet - VTE Reasons for not Prescribing Prophylaxis: Not indicated-Anticoagulated or INR therapeutic <Talib Maldonado H - Last Filed: 06/10/17 15:42> Orders not resulted at time of discharge: Pending orders 06/09/17 11:04 NM rafi perf SPECT multi [NM] Routine Date of Encounter: 06/10/17 - Discharge Diagnosis (1) CAD (coronary artery disease) Status: Chronic Qualifiers: Coronary Disease-Associated Artery/Lesion type: yuhaaviatam artery [place] vs. transplanted heart: yuhaaviatam heart Associated angina: with unspecified angina Qualified Code(s): I25.119 - Atherosclerotic heart disease of yuhaaviatam coronary artery with unspecified angina pectoris (2) Hypertension Status: Chronic Qualifiers: Hypertension type: essential hypertension Qualified Code(s): I10 - Essential (primary) hypertension (3) DVT prophylaxis Status: Acute (4) Unstable angina Status: Acute (5) Hyperglycemia Status: Acute Hospital course: Ms. Larkin is a 72 year old female - Time Spent with Patient Total time spent providing and/or coordinating discharge services: Date of admission: 06/08/17 22:03 Primary care physician: Karen Perez CNP - Constitutional Vitals: Temp Pulse Resp BP Pulse Ox 97.9 F 59 16 109/68 98 06/10/17 11:42 06/10/17 11:42 06/10/17 11:42 06/10/17 11:42 06/10/17 11:42 - Attending Attestation stable to be discharged continue Ranexa and Imdur per Cardiology time spent : 40 min I examined this patient and my medical decision-making was reviewed with the Resident Physician. I agree with the documented findings, disposition and treatment plan as described except to the extent set forth below.
[2017-06-10 11:47] VITALS: BP 109/68
--- NOTE | 2017-06-10 13:01 | Event Note ---
Date of Encounter: 06/10/17 Time of Encounter: 13:00 - Cardiology Event Note Stress test showed perfusion imaging negative for ischemia or infarct. Cardiology will sign off, reconsult as needed, follow-up arranged. Continue long-acting nitrate and discharge home on Ranexa. Discussed with primary service and Dr. Ruth.
--- NOTE | 2017-06-10 17:05 | Electrocardiograph Report ---
[address] [address] Test Date: 2017-06-08 Pat Name: Elly Larkin Department: 103 Room: 2A23 Gender: F Banquet Lead: : 1945 Requested By: Nicolas Rea Order Number: [id number] Reading MD: Ryan Henriquez Measurements Intervals [place] Rate: 80 P: -5 MT: 157 QRS: -16 QRSD: 94 T: 13 QT: 346 QTc: 381 Interpretive Statements SINUS RHYTHM Electronically Signed On 06-10-2017 17:03:19 EDT by Ryan Henriquez
== END 2017-06-10 16:46 | disposition home or self-care (01) ==
LOC: 2ANU 18:41 → EMEROO 18:41 → 2ANU 22:26
PROVIDERS: ADMIT Pediatrics; ATTEND Internal Medicine

== ENCOUNTER 2017-07-01 19:19 | Observation (INO) ==
--- NOTE | 2017-07-01 19:47 | Emergency Department Note ---
Disposition Clinical Impression: Unstable angina, Acute kidney injury, Chest pain Disposition: Admitted As Inpatient Condition: Fair Referrals: Karen Perez, HUMAN RESOURCES REPRESENTATIVE [Advanced Practice Nurse] - Forms: ED Satisfaction Letter Time of Disposition: 20:56 Chest Pain HPI - General Chief Complaint: ED Chest Pain Stated Complaint: chest pain sonali Time Seen by Provider: 07/01/17 19:24 Source: patient Limitations: no limitations Vital Signs Reviewed: Yes Nursing Notes Reviewed: Yes - History of Present Illness HPI Narrative: Mrs. Larkin, 72yo female, presents from home for evaluation of chest pain. Onset 5 PM today while patient was getting ready for shower. Described as midsternal sharp stabbing with radiation to her left shoulder. Associated dyspnea. Not improved with rest or with sublingual nitroglycerin times one of her own prescription. Spontaneously resolved on its own just prior to arrival ( approximately 2.5 hours in duration). She is chest pain-free at this time. Patient has a cardiac history and notes her symptoms are similar to prior [place] PMH: CAD with ACS status post stent 3 (LAD 2, OM 1). Hypertension, hyperlipidemia. Current medications include aspirin, Plavix, Ranexa, Cozaar, Imdur, metoprolol ROS: Positive: As above Negative: Fever, chills, vomiting, unusual back pains, weakness/numbness/ tingling, abdominal pain. Severity scale (1-10): 9 - Related Data Home Medications Medication Instructions Recorded Confirmed Loratadine [Claritin] 10 mg PO QAM PRN #0 11/21/14 07/01/17 Nitroglycerin [Nitrostat] 0.4 mg SL Q5M PRN #0 11/21/14 07/01/17 Cholecalciferol (Vitamin D3) 2,000 unit PO QPM 01/03/15 07/01/17 [Vitamin D3] Clopidogrel [Plavix] 75 mg PO QPM 01/03/15 07/01/17 Albuterol Neb [Proventil Neb] 2.5 mg IH TID PRN 09/07/15 07/01/17 Fluticasone Propionate Nasal 50 mcg NS BID PRN 12/03/15 07/01/17 [Flonase] Acetaminophen [Tylenol] 1,000 mg PO BID PRN 03/23/16 07/01/17 Mv, Min #36/Iron,Carbonyl/FA 1 tab PO DAILY 07/06/16 07/01/17 [Geritol Complete Tablet] Pantoprazole Sodium [Protonix] 40 mg PO DAILY 07/06/16 07/01/17 Isosorbide MONOnitrate [Isosorbide 240 mg PO QAM 08/11/16 07/01/17 Mononitrate ER] Albuterol Sulfate [Ventolin Hfa] 2 puff IH Q4H PRN 05/25/17 07/01/17 Vitamin E Acid Succinate [Vitamin 400 unit PO DAILY 05/25/17 07/01/17 E] Losartan [Cozaar] 25 mg PO DAILY 06/08/17 07/01/17 Previous Rx's Medication Instructions Recorded Metoprolol [Lopressor] 12.5 mg PO BID 30 Days #60 tablet 06/10/17 Ranolazine [Ranexa] 500 mg PO BID 30 Days #60 06/10/17 tab.er.12h Allergies Allergy/AdvReac Type Severity Reaction Status Date / Time codeine Allergy Difficulty Verified 05/25/17 15:23 Breathing prednisone Allergy Rash Verified 05/25/17 15:23 amlodipine AdvReac Swelling Verified 06/08/17 20:42 of the Eye clarithromycin AdvReac Vomiting Verified 05/25/17 15:23 Erythromycin Base AdvReac Vomiting Verified 05/25/17 15:23 hydrocodone [From Vicodin] AdvReac Dizziness Verified 05/25/17 15:23 propoxyphene AdvReac Vomiting Verified 05/25/17 15:23 [id number] Reductase AdvReac Muscle Pain Verified 05/25/17 15:23 Inhibitor [Statins] All systems ED: reviewed and negative except as stated. 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 Head: atraumatic, normocephalic Eye: normal appearance, no scleral icterus, no conjunctival injection ENT: mucous membranes moist, normal external ear exam Neck: normal inspection, trachea midline, full ROM Chest: normal inspection, symmetric chest rise. No tenderness to palpation. Respiratory: Good respiratory effort. Bilateral breath sounds are clear without wheezing, crackles, or rhonchi. Cardiovascular: Regular rate and rhythm. No clicks, rubs, gallops, or murmors. Normal heart sounds. Bilateral radial and posterior tibial pulses 2/4 and equal. No pedal edema. Abdomen: Bowel sounds present normoactive x-4 quadrants. Abdomen is soft, nondistended, and nontender. No guarding or rebound. Musculoskeletal: Spontaneously moving all extremities. Skin: warm, dry, intact. Neuro: Alert and oriented x4. Sensation light touch intact. Psych: Patient's affect is appropriate for situation. - General Limitations: no limitations General appearance: alert, in no apparent distress Course Course Narrative: Chart check: -Recent [facility] 05/26/1849% stenosis in the Proximal LAD - FFR not significant here ( 0.91). Long 60-70% stenosis in the Distal LAD. The lesion has a JESÚS flow of 3. If despite maximal treatment continues having angina, distal LAD PCI was recommended. Pt had allergic reaction to norvasc--eye swelling and blisters. It was discontinued. Has been unable to afford Ranexa. On maximum Imdur dose of 240mg daily. -TTE 05/26/17 preserved EF. EKG dated 07/01/17 and 19:38 interpreted as sinus rhythm with rate of 69. Respiratory variation. Normal axis. Normal intervals. Right bundle branch block. Nonspecific ST-T changes. Compared to previous dated 06/08/2017 showing no acute ischemic changes comparison. Patient's symptoms are concerning for unstable angina that wwa resistant to her ; nitroglycerin; it did occur with mild exertion however persisted with rest. This did spontaneously resolve just before arrival to the emergency department. Her chest pain did, however, reemerge approximately 45 minutes after presentation to the emergency department. We will begin nitroglycerin drip while workup is pending. Serum hematology shows mild anemia; will monitor. This does not properly expand the patient's symptoms in the context of her cardiac history. Serum chemistry shows mild acute kidney injury, troponin less than 0.03. Chest x-ray is unremarkable. Chest X-Ray 07/01/17 19:30 IMPRESSION: No acute finding D/ / Maribel Aguilar MD / Maribel Aguilar MD Interpreting Provider: Maribel Aguilar MD Vital Signs Temperature 98.2 F 07/01/17 19:21 Pulse Rate 74 07/01/17 19:21 Respiratory Rate 14 07/01/17 19:21 Blood Pressure 132/85 07/01/17 19:21 O2 Sat by Pulse Oximetry 96 07/01/17 19:21 Temperature 98.2 F 07/01/17 19:38 Pulse Rate 74 07/01/17 19:38 Respiratory Rate 14 07/01/17 19:38 Blood Pressure 132/85 07/01/17 19:38 O2 Sat by Pulse Oximetry 96 07/01/17 19:38 Oxygen Delivery Oxygen Delivery Room Air Chest Pain - Lab Data Result diagrams: 07/01/17 19:45 07/01/17 19:45 Lab Results 07/01/17 07/01/17 07/01/17 Range/Units 19:45 19:45 19:45 WBC 6.7 (4.3-11.1) K/mcL RBC 3.70 L (3.82-4.97) M/mcL Hgb 11.4 L (11.5-15.4) g/dL Hct 34.8 L (35.3-44.9) % MCV 94.1 (83.0-100.0) fL MCH 30.8 (28.0-33.3) pg MCHC 32.8 (31.6-35.5) g/dL RDW 13.8 (11.5-14.5) % Plt Count 200 (140-400) K/mcL MPV 11.7 (9.4-12.4) fL Immature Gran % 0.1 (0-4) % Seg Neutrophils % 53.8 % Lymphocytes % 28.5 % Monocytes % 10.5 % Eosinophils % 6.7 % Basophils % 0.4 % Neutrophils # 3.6 (1.6-8.9) K/mcL Lymphocytes # 1.9 (0.6-4.6) K/mcL Monocytes # 0.7 (0.0-1.3) K/mcL Eosinophils # 0.5 (0.0-0.6) K/mcL Basophils # 0.0 (0.0-0.2) K/mcL PT 11.1 (9.4-12.1) Seconds INR 1.0 APTT 27.8 (26.0-36.0) Seconds Sodium 139 (136-145) mEq/L Potassium 4.9 (3.5-5.1) mEq/L Chloride 110 H (98-107) mEq/L Carbon Dioxide 21 L (23-29) mEq/L BUN 30 H (8-23) mg/dL Creatinine 1.24 H (0.60-1.20) mg/dL Est GFR ( Amer) 51 L (> 60) Est GFR (Non-Af Amer) 42 L (> 60) BUN/Creatinine Ratio 24 (6-26) Glucose 110 H (70-105) mg/dL Calculated Osmolality 295 (280-300) Calcium 9.3 (8.6-10.3) mg/dL Troponin I < 0.03 (< 0.04) ng/mL Heart Score - Score History: Highly Suspicious EKG: Non Specific repolarisation Disturbance Age: Greater than 65 Risk Factors: Equal/Greater than 3 risk factor or history of atherosclerotic disease Troponin: Less than normal limit HEART Score Total: 7 Attestation Statement - Attestation Attestation: I, Neftali Babcock DO, examined this patient [id number] and my medical decision-making was reviewed with Dr. Frank Bertrand, Resident Physician. I agree with the documented findings, disposition and treatment plan as described except to the extent set forth below. Please see my progress notes for details. 72-year-old female presents to emergency room complaining of chest pain. She has been seen and evaluated multiple times for this in the past on a recent echo stress and catheterization completed. Patient said that she has symptoms that are concerning or the same as when she has had heart but issues. She has 3 stents. Patient denies any trauma or injury. She has not fallen. She is currently on aspirin and Plavix at home. She also takes other medications of the symptoms. Patient is currently denying chest pain on arrival. She did take 3 nitroglycerin glycerin Coming in and do resolve the symptoms. She denies any recent fevers chills nausea vomiting or diarrhea. Denies any headache or vision changes. No other complaints or issues at this time. Vital signs remain stable. On my evaluation the bedside the patient did describe some intermittent twinges of chest discomfort and pain. Nitroglycerin drip was ordered. If she has reemergence of the symptoms will start on the nitroglycerin glycerin drip at this point. Detailed review of the echo stress and cardiac catheterization will be completed. Patient is otherwise resting comfortably in the bed. We will continue to monitor. Rest x-ray EKG and labs are ordered at this time. CBC chemistry and evaluation otherwise started. Disposition pending the full workup and treatment course. Lungs are clear heart is regular abdomen is soft. No visible signs of bleeding or trauma noted at this point. Definitive management will be established. See detailed documentation of the physical exam , medical intervention, medical decision-making and disposition in the resident physician's note. [id number] Patient's labs are unremarkable. Symptoms have been gone here in the emergency room. Patient has not required any intervention at this point. She will be admitted for angina. Patient does have a recent catheterization the did say that she had a lesion in the distal LAD that would require stenting if she continued to persist anginal-like presentation. Patient will be admitted at this time. Hospitalist was contacted and no other recommendations. Patient has been asymptomatic for the treatment course. Disposition will be admission to hospital for definitive management.
[2017-07-01 19:58] LABS: Basophils % 0.4 %; Eosinophils # 0.5 K/mcL (0.0-0.6); Eosinophils % 6.7 %; Hematocrit 34.8 % (35.3-44.9); Hemoglobin 11.4 g/dL (11.5-15.4); Immature Granulocytes % 0.1 % (0-4); Lymphocytes # 1.9 K/mcL (0.6-4.6); Lymphocytes % 28.5 %; Mean Corpuscular HGB Conc 32.8 g/dL (31.6-35.5); Mean Corpuscular Hemoglobin 30.8 pg (28.0-33.3); Mean Corpuscular Volume 94.1 fL (83.0-100.0); Mean Platelet Volume 11.7 fL (9.4-12.4); Monocytes # 0.7 K/mcL (0.0-1.3); Monocytes % 10.5 %; Neutrophils # 3.6 K/mcL (1.6-8.9); Platelet Count 200 K/mcL (140-400); Red Cell Distribution Width 13.8 % (11.5-14.5); Segmented Neutrophils % 53.8 %
[2017-07-01 20:05] LABS: Prothrombin Time 11.1 Seconds (9.4-12.1)
[2017-07-01 20:08] LABS: Activated Partial Thrombo Time 27.8 Seconds (26.0-36.0)
[2017-07-01 20:20] LABS: BUN/Creatinine Ratio 24 (6-26); Blood Urea Nitrogen 30 mg/dL (8-23); Calcium 9.3 mg/dL (8.6-10.3); Carbon Dioxide 21 mEq/L (23-29); Chloride 110 mEq/L (98-107); Glucose 110 mg/dL (70-105); Osmolality,Calculated 295 (280-300); Potassium 4.9 mEq/L (3.5-5.1); Sodium 139 mEq/L (136-145); Troponin I < 0.03 ng/mL (< 0.04); eGFR For African Americans 51 (> 60); eGFR For Non-African Americans 42 (> 60)
[2017-07-01] MEDS: Nitroglycerin 25 MG/250 ML INFUS..BTL IVC SCH (21:08)
[2017-07-01] MEDS ORDERED: 0.9 % Sodium Chloride 500 ML ONE ×2 (21:23→23:47)
[2017-07-02] MEDS ORDERED: Acetaminophen 325 MG TABLET PO PRN (00:48)
[2017-07-02] MEDS ORDERED: Naloxone 0.4 MG/ML INJ IVP PRN (00:48)
[2017-07-02] MEDS ORDERED: Fluticasone Propionate Nasal 50 MCG/SPRAY BOTTLE NS PRN (00:49)
--- NOTE | 2017-07-02 00:53 | Internal Med History&Physical ---
Date of Encounter: 07/02/17 Time of Encounter: 00:52 Internal Medicine - H&P: HPI Chief complaint: Chest pain Admitted From: Emergency Dept Plans for Post Hospital Care: Home History of present illness: Ms. Larkin is a 72 year old female with h/o- CAD s/p stents, presents with c/o- retrosternal chest pain. SHe reports having anginal pains that are usually relieved with sublingual nitroglycerine. Her pain started at rest, around 5PM last evening, was not relieved by 2 NTGs, fairly constant pain; moderate intensity, pressure-like pain, radiating to her left shoulder and arm. She was started on Nitroglycerine drip in the ER and her pain is currently relieved. She has chronic intermittent cough and dyspnea and left leg swelling. Patient had a recent LHC showing single vessel disease, with plan for stent placement for persistent symptoms. Past Med Surg Social Fam HX - Past Medical History Source: patient Medical history: arthritis, cancer, CHF, coronary artery disease, DVT, GERD, hyperlipidemia, hypertension, myocardial infarction, renal disease Psychiatric history: no psych history - Past Surgical History Surgical History: angioplasty/stent, appendectomy, cancer surgery, cholecystectomy, hysterectomy, orthopedic, other, other (tonsillectomy, left leg varicose vein stripping) - Social History Smoking Status: Never smoker Smokeless Tobacco Status: No Alcohol use: none Drug use: none Current living situation: Home - Independent, Home Activity Level: Independent ambulation Recent Out of Country Travel Within the Last 8 Weeks: No Exposure or Possible Exposure to Illness During Travel: No - Family History Father Family Member Ethnicity: Non- Twin of Family Member: Yes, Fraternal Living Status: Hx Family Cardiac Disorders: Yes Hx Family Respiratory Disorders: No Hx Family Cancer: Yes (Lung) Hx Family GI Disorders: No Hx Family Endocrine Disorder: No Hx Family Neuromuscular Disorders: No Hx Family Neurologic Disorders: No Hx Family HEENT Disorders: No Hx Family Autoimmune Disorders: No Mother Living Status: Hx Family Cardiac Disorders: Yes Hx Family Cancer: Yes Internal Medicine - H&P: Meds Loratadine [Claritin] 10 mg PO QAM PRN #0 11/21/14 [History] Nitroglycerin [Nitrostat] 0.4 mg SL Q5M PRN #0 11/21/14 [History] Cholecalciferol (Vitamin D3) [Vitamin D3] 2,000 unit PO QPM 01/03/15 [History] Clopidogrel [Plavix] 75 mg PO QPM 01/03/15 [History] Albuterol Neb [Proventil Neb] 2.5 mg IH TID PRN 09/07/15 [History] Fluticasone Propionate Nasal [Flonase] 50 mcg NS BID PRN 12/03/15 [History] Acetaminophen [Tylenol] 1,000 mg PO BID PRN 03/23/16 [History] Mv, Min #36/Iron,Carbonyl/FA [Geritol Complete Tablet] 1 tab PO DAILY 07/06/16 [ History] Pantoprazole Sodium [Protonix] 40 mg PO DAILY 07/06/16 [History] Isosorbide MONOnitrate [Isosorbide Mononitrate ER] 240 mg PO QAM 08/11/16 [ History] Albuterol Sulfate [Ventolin Hfa] 2 puff IH Q4H PRN 05/25/17 [History] Vitamin E Acid Succinate [Vitamin E] 400 unit PO DAILY 05/25/17 [History] Losartan [Cozaar] 25 mg PO DAILY 06/08/17 [History] Metoprolol [Lopressor] 12.5 mg PO BID 30 Days #60 tablet 06/10/17 [Rx] Ranolazine [Ranexa] 500 mg PO BID 30 Days #60 tab.er.12h 06/10/17 [Rx] 3 Allergy/AdvReac Type Severity Reaction Status Date / Time codeine Allergy Difficulty Verified 05/25/17 15:23 Breathing prednisone Allergy Rash Verified 05/25/17 15:23 amlodipine AdvReac Swelling Verified 06/08/17 20:42 of the Eye clarithromycin AdvReac Vomiting Verified 05/25/17 15:23 Erythromycin Base AdvReac Vomiting Verified 05/25/17 15:23 hydrocodone [From Vicodin] AdvReac Dizziness Verified 05/25/17 15:23 propoxyphene AdvReac Vomiting Verified 05/25/17 15:23 [id number] Reductase AdvReac Muscle Pain Verified 05/25/17 15:23 Inhibitor [Statins] All Systems PM: A 10-system review of systems was performed and is negative for pertinent findings except as documented above in the HPI. - Constitutional Constitutional: no chills, no fever(s), no night sweats - EENT Eyes: no change in vision, no discharge, no pain, no photophobia Ears: no ear discharge, no ear pain, no tinnitus Nose, mouth and throat: no dysphagia, no nasal discharge, no neck pain, no sore throat - Cardiovascular Cardiovascular ROS IM: chest pain, dyspnea, edema - Respiratory Respiratory: cough, no dyspnea, no wheezing, no excessive phlegm production - Gastrointestinal Gastrointestinal: no abdominal pain, no diarrhea, no hematemesis, no hematochezia, no melena, no nausea, no vomiting - Genitourinary Genitourinary: no change in urinary stream, no dysuria, no flank pain, no hematuria - Musculoskeletal Musculoskeletal ROS IM: no numbness, no tingling - Integumentary Integumentary IM: no rash, no unusual bruising - Neurological Neurological ROS: no confusion, no convulsions, no focal weakness, no numbness, no tingling, no tremor(s) - Hematologic/Lymphatic Hematologic/Lymphatic: no easy bruising - Constitutional Vitals: Temp Pulse Resp BP Pulse Ox 97.7 F 53 19 151/77 100 07/02/17 00:02 07/02/17 00:02 07/02/17 00:02 07/02/17 00:02 07/02/17 00:02 General appearance: Present: A&O X 3, obese, answers questions appropriately - Respiratory Respiratory exam: Present: CTAB. Absent: accessory muscle use, rales, rhonchi, wheezes - Cardiovascular Cardiovascular exam: Present: RRR, +S1, +S2. Absent: diastolic murmur, gallop, rubs, systolic murmur - GI/Abdominal GI/Abdominal exam: Present: normal bowel sounds, soft (obese), no peritoneal signs. Absent: distended, tenderness - Extremities Exam Extremities exam: Present: full ROM, pedal edema (left>right), warm, radial pulses palpable and symmetrical. Absent: calf tenderness, cyanotic - Neurological Exam Neurological exam: Present: CN II-XII intact, oriented X3, no focal deficits. Absent: pronater drift, facial droop, speech deficit - Skin Skin exam: Present: dry, intact Internal Med - H&P Results - Labs CBC & Chem 7: 07/02/17 03:00 07/01/17 19:45 - EKG Data -: EKG Interpreted by Myself EKG shows normal: sinus rhythm Rate: normal (sinus arrhythmia) - Assessment and plan (1) Chest pain Current Visit: Yes Status: Acute Assessment and plan: Recurrent chest pains, on NTG, Imdur and Ranexa at home, cannot afford Ranexa. EKG shows no acute ischemic changes, first set of Troponin negative. Continue Telemetry, trend Troponins; Cardiology consult; normal nuclear stress test last month. [facility] in April 2017 recommended If despite maximal treatment continues having angina, distal LAD PCI; Qualifiers: Chest pain type: unspecified Qualified Code(s): R07.9 - Chest pain, unspecified (2) CKD (chronic kidney disease) Current Visit: Yes Status: Chronic Assessment and plan: serum creatinine at 1.24, noted to have several episodes of STAR; continue to monitor; Qualifiers: Chronic kidney disease stage: stage 3 (moderate) Qualified Code(s): N18.3 - Chronic kidney disease, stage 3 (moderate) (3) CAD (coronary artery disease) Current Visit: Yes Status: Chronic Assessment and plan: continue Plavix, beta yari, statin; Qualifiers: Coronary Disease-Associated Artery/Lesion type: [place] artery [place] vs. transplanted heart: [place] heart Associated angina: with unspecified angina Qualified Code(s): I25.119 - Atherosclerotic heart disease of [place] coronary artery with unspecified angina pectoris (4) CHF (congestive heart failure) Current Visit: Yes Status: Chronic Qualifiers: Qualified Code(s): I50.32 - Chronic diastolic (congestive) heart failure (5) Hypertension Current Visit: Yes Status: Chronic Qualifiers: Hypertension type: essential hypertension Qualified Code(s): I10 - Essential (primary) hypertension (6) Diabetes Current Visit: Yes Status: Chronic Assessment and plan: Accucheck blood glucose monitoring with sliding scale insulin; diabetic diet; Qualifiers: Diabetes mellitus type: 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
[2017-07-02] MEDS: Cholecalciferol (D-3) 1,000 UNIT TABLET PO SCH ×2 (01:32→17:38)
[2017-07-02 02:55] LABS: Troponin I < 0.03 ng/mL (< 0.04)
[2017-07-02 02:59] LABS: Basophils % 0.4 %; Eosinophils # 0.5 K/mcL (0.0-0.6); Eosinophils % 6.4 %; Hematocrit 33.4 % (35.3-44.9); Hemoglobin 10.9 g/dL (11.5-15.4); Immature Granulocytes % 0.3 % (0-4); Lymphocytes # 2.1 K/mcL (0.6-4.6); Lymphocytes % 30.3 %; Mean Corpuscular HGB Conc 32.6 g/dL (31.6-35.5); Mean Corpuscular Hemoglobin 30.8 pg (28.0-33.3); Mean Corpuscular Volume 94.4 fL (83.0-100.0); Mean Platelet Volume 11.8 fL (9.4-12.4); Monocytes # 0.8 K/mcL (0.0-1.3); Monocytes % 11.4 %; Neutrophils # 3.6 K/mcL (1.6-8.9); Platelet Count 163 K/mcL (140-400); Red Blood Count 3.54 M/mcL (3.82-4.97); Red Cell Distribution Width 13.6 % (11.5-14.5); Segmented Neutrophils % 51.2 %
[2017-07-02] MEDS: *HR* Heparin 5,000 UNIT/ML VIAL SQ SCH ×3 (05:03→22:30)
[2017-07-02 05:28] LABS: BUN/Creatinine Ratio 24 (6-26); Blood Urea Nitrogen 28 mg/dL (8-23); Carbon Dioxide 21 mEq/L (23-29); Chloride 111 mEq/L (98-107); Chol/HDL Ratio 4.2 (0-4.9); Cholesterol 140 mg/dL (< 200); Glucose 145 mg/dL (70-105); HDL Cholesterol 33 mg/dL (40-59); LDL Cholesterol,Calculated 85 mg/dL (0-99); Osmolality,Calculated 296 (280-300); Potassium 4.3 mEq/L (3.5-5.1); Sodium 139 mEq/L (136-145); Triglycerides 111 mg/dL (< 150); eGFR For African Americans 56 (> 60); eGFR For Non-African Americans 46 (> 60)
[2017-07-02] MEDS: Multivit/Ca/Min/Fe/FA 1 TAB TABLET PO SCH (08:20)
[2017-07-02] MEDS: Isosorbide MONOnitrate (24 HR) 60 MG TAB.ER.24H PO SCH (08:21)
[2017-07-02] MEDS ORDERED: Ranolazine 500 MG TAB.ER.12H PO SCH (09:00)
--- NOTE | 2017-07-02 09:16 | Event Note ---
<Reinier Beltran - Last Filed: 07/02/17 11:00> Date of Encounter: 07/02/17 Time of Encounter: 08:58 Subjective: Patient seen and examined resting comfortably in bedside chair after eating breakfast. Patient reports recurrent CP overnight requiring Nitro drip. She denies any new c/o and reports last stress test 2 weeks ago. Objective: Last Vital Signs Temp 97.7 F 07/02/17 06:28 Pulse 57 07/02/17 06:28 Resp 15 07/02/17 06:28 BP 113/62 07/02/17 06:28 Pulse Ox 97 07/02/17 06:28 - Constitutional General appearance: Present: A&O X 3, obese, answers questions appropriately - Respiratory Respiratory exam: Present: CTAB. Absent: accessory muscle use, rales, rhonchi, wheezes - Cardiovascular Cardiovascular exam: Present: RRR, +S1, +S2. Absent: diastolic murmur, gallop, rubs, systolic murmur - GI/Abdominal GI/Abdominal exam: Present: normal bowel sounds, soft (obese), no peritoneal signs. Absent: distended, tenderness - Extremities Exam Extremities exam: Present: full ROM, pedal edema (left>right), warm, radial pulses palpable and symmetrical. Absent: calf tenderness, cyanotic - Neurological Exam Neurological exam: Present: CN II-XII intact, oriented X3, no focal deficits. Absent: pronater drift, facial droop, speech deficit - Skin Skin exam: Present: dry, intact - Assessment and plan (1) Chest pain Current Visit: Yes Status: Acute Assessment and plan: Recurrent chest pains, on NTG, Imdur and Ranexa at home, cannot afford Ranexa. EKG shows no acute ischemic changes, first set of Troponin negative. serial Troponins negative; Continue Telemetry, Cardiology consulted; normal nuclear stress test last month. [facility] in April 2017 recommended If despite maximal treatment continues having angina, distal LAD PCI; Qualifiers: Chest pain type: unspecified Qualified Code(s): R07.9 - Chest pain, unspecified (2) CKD (chronic kidney disease) Current Visit: Yes Status: Chronic Assessment and plan: serum creatinine at 1.24, noted to have several episodes of STAR; continue to monitor; Qualifiers: Chronic kidney disease stage: stage 3 (moderate) Qualified Code(s): N18.3 - Chronic kidney disease, stage 3 (moderate) (3) CAD (coronary artery disease) Current Visit: Yes Status: Chronic Assessment and plan: continue Plavix, beta yari, statin; Qualifiers: Coronary Disease-Associated Artery/Lesion type: [place] artery [place] vs. transplanted heart: [place] heart Associated angina: with unspecified angina Qualified Code(s): I25.119 - Atherosclerotic heart disease of [place] coronary artery with unspecified angina pectoris (4) CHF (congestive heart failure) Current Visit: Yes Status: Chronic Qualifiers: Qualified Code(s): I50.32 - Chronic diastolic (congestive) heart failure Last Echo 05/26/17 revealed LVEF 60-65% (5) Hypertension Current Visit: Yes Status: Chronic Qualifiers: Hypertension type: essential hypertension Qualified Code(s): I10 - Essential (primary) hypertension (6) Diabetes Current Visit: Yes Status: Chronic Assessment and plan: Accucheck blood glucose monitoring with sliding scale insulin; diabetic diet; Qualifiers: Diabetes mellitus type: 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 Jolly. <Temo Jolly T - Last Filed: 07/02/17 17:32> Date of Encounter: 07/02/17 Seen and examined at the bedside. 73-year-old female with coronary artery disease , chronic kidney disease stage III, CHF, hypertension, diabetes mellitus. Presented with chest pain. She recently had a left heart catheter and stress tests last month. She has not been able to take Ranexa as prescribed by cardiology due to no authorization by her insurance. She has no new complaints. Chest pain has resolved on nitro drip has been discontinued at this time. Physical examination is unremarkable. Labs and imaging reviewed: Unremarkable-chronic anemia. Plan is to consult cardiology for possible left heart catheter with PCI. Continue current management. Rest of details is as in the resident physicians documentation as above.
--- NOTE | 2017-07-02 15:41 | Cardiology Consult Note ---
<Nav Ruiz R - Last Filed: 07/02/17 15:38> Date of Encounter: 07/02/17 Time of Encounter: 15:38 Assessment and Plan (1) Unstable angina Current Visit: Yes Status: Acute Symptoms concerning for anginal equivalent. Midsternal chest pain with radiation to left jaw and shoulder, worse on exertion but also occurring at rest. Not relieved by SL nitro at home, improves with nitro gtt inpatient. Chest pain has recurred as inpt, on nitro gtt intermittently. Currently chest pain free. [facility] 05/26/17- long 60-70% stenosis in the Distal LAD. Medical management was recommeded. If despite maximal treatment continues having angina, distal LAD PCI . Pt had allergic reaction to norvasc--eye swelling and blisters. It was discontinued. Has been taking Ranexa 500mg BID, on maximum Imdur dose of 240mg daily. Increase Ranexa to 1000mg BID. TTE 05/26/17 preserved EF. Troponins negative x 3. No ischemic EKG changes. Stress test 05/2017 negative for ischemia or infarct. Reviewed cath films with Dr. Moya. Given recurrence on angina despite attempts at medical management, plan for [facility] tomorrow and possible PCI. R/B/A discussed, pt agrees to proceed. Continue to follow. Continue Plavix, BB. Not on statin due to intolerance. Not on ASA due to bruising when on DAPT, but would be agreeable to DAPT if she receives PCI. Will discuss with Dr. Geronimo and make changes as necessary. (2) CAD (coronary artery disease) Current Visit: Yes Status: Chronic As above, prior PCI. Known remaining lesions. Continue Plavix, BB. Not on statin due to intolerance. Not on ASA due to bruising when on DAPT, but willing to take DAPT if PCI is warranted on [facility] tomorrow. Qualifiers: Coronary Disease-Associated Artery/Lesion type: [place] artery [place] vs. transplanted heart: [place] heart Associated angina: with unspecified angina Qualified Code(s): I25.119 - Atherosclerotic heart disease of [place] coronary artery with unspecified angina pectoris Discussion w patient/family: The assessment and plan as outlined above was discussed with the patient and/or family members who expressed understanding and agreement. All questions were answered. Thank you for involving us in the care of your patient. Please call with any questions. I will discuss all the above with Dr. Geronimo and make changes as necessary. History of Present Illness Consult date: 07/02/17 Requesting physician: Reinier Beltran Consult reason: chest pain Chief complaint: chest pain History of present illness: Ms. Larkin is a 72 year old female with PMH of CAD, prior NSTEMI with previous stenting of mid LAD as well as obtuse marginal branch, HTN, HLD with statin intolerance, DM. Recent C 05/26/17. Optimal medical therapy of patient's disease was recommeded - dc'd losartan, started Norvasc. Added Ranexa. If despite maximal treatment continues having angina, distal LAD PCI was recommended. She was started on Norvasc, had an allergic reaction with eye swelling and blisters and it had to be discontinued. She is on Ranexa. She was hospitalized last month for recurrent angina, stress test was completed that was negative for ischemia or infarct, continued medical management recommended. She now presents for recurrent chest pain, intermittent midsternal since Wednesday , worse on exertion, radiating to her left neck and shoulder, not relieved with SL nitro. Symptoms similar to prior anginal equivalent. She was started on nitro gtt, which relieved her pain, but has since recurred warranting intermittent nitro gtt. Troponin negative x 3. No acute EKG changes. Cardiology consulted for further recommendations. CV testing: Nuclear stress test 06/10/17: Perfusion imaging negative for ischemia or infarct. C 05/26/17: The Proximal LAD has patent stents present from a previous procedure. The Mid LAD has patent stents present from a previous procedure. There is a 50% stenosis in the Proximal LAD - FFR not significant here (0.91). There is a long 60-70% stenosis in the Distal LAD. The lesion has a JESÚS flow of 3. Optimal medical therapy of patient's disease was recommeded - dc losartan , start Norvasc. Add Ranexa if continued symptoms. If despite maximal treatment continues having angina, distal LAD PCI was recommended. TTE 05/26/17: EF 60-65%, mild LVDD, mild AR TR MR, mild phtn. Nuclear stress test 10/2016 negative for ischemia or infarct. C 11/2015: Patent mid LAD and LEE stents. Stable coronary artery disease. The left ventricle is normal and has normal contractility EF 65%. Past Med Surg Social Fam HX - Past Medical History Medical history: arthritis, cancer, CHF, coronary artery disease, DVT, GERD, hyperlipidemia, hypertension, myocardial infarction, renal disease Psychiatric history: no psych history - Past Surgical History Surgical History: angioplasty/stent, appendectomy, cancer surgery, cholecystectomy, hysterectomy, orthopedic, other, other (tonsillectomy, left leg varicose vein stripping) - Social History Smoking Status: Never smoker Smokeless Tobacco Status: No Alcohol use: none Drug use: none - Family History Father Family Member Ethnicity: Non- Twin of Family Member: Yes, Fraternal Living Status: Hx Family Cardiac Disorders: Yes Hx Family Respiratory Disorders: No Hx Family Cancer: Yes (Lung) Hx Family GI Disorders: No Hx Family Endocrine Disorder: No Hx Family Neuromuscular Disorders: No Hx Family Neurologic Disorders: No Hx Family HEENT Disorders: No Hx Family Autoimmune Disorders: No Mother Living Status: Hx Family Cardiac Disorders: Yes Hx Family Cancer: Yes Medications and Allergies Loratadine [Claritin] 10 mg PO QAM PRN #0 11/21/14 [History] Nitroglycerin [Nitrostat] 0.4 mg SL Q5M PRN #0 11/21/14 [History] Cholecalciferol (Vitamin D3) [Vitamin D3] 2,000 unit PO QPM 01/03/15 [History] Clopidogrel [Plavix] 75 mg PO QPM 01/03/15 [History] Albuterol Neb [Proventil Neb] 2.5 mg IH TID PRN 09/07/15 [History] Fluticasone Propionate Nasal [Flonase] 50 mcg NS BID PRN 12/03/15 [History] Acetaminophen [Tylenol] 1,000 mg PO BID PRN 03/23/16 [History] Mv, Min #36/Iron,Carbonyl/FA [Geritol Complete Tablet] 1 tab PO DAILY 07/06/16 [ History] Pantoprazole Sodium [Protonix] 40 mg PO DAILY 07/06/16 [History] Isosorbide MONOnitrate [Isosorbide Mononitrate ER] 240 mg PO QAM 08/11/16 [ History] Albuterol Sulfate [Ventolin Hfa] 2 puff IH Q4H PRN 05/25/17 [History] Vitamin E Acid Succinate [Vitamin E] 400 unit PO DAILY 05/25/17 [History] Losartan [Cozaar] 25 mg PO DAILY 06/08/17 [History] Metoprolol [Lopressor] 12.5 mg PO BID 30 Days #60 tablet 06/10/17 [Rx] Ranolazine [Ranexa] 500 mg PO BID 30 Days #60 tab.er.12h 06/10/17 [Rx] 3 Allergy/AdvReac Type Severity Reaction Status Date / Time codeine Allergy Difficulty Verified 05/25/17 15:23 Breathing prednisone Allergy Rash Verified 05/25/17 15:23 amlodipine AdvReac Swelling Verified 06/08/17 20:42 of the Eye clarithromycin AdvReac Vomiting Verified 05/25/17 15:23 Erythromycin Base AdvReac Vomiting Verified 05/25/17 15:23 hydrocodone [From Vicodin] AdvReac Dizziness Verified 05/25/17 15:23 propoxyphene AdvReac Vomiting Verified 05/25/17 15:23 Oeizais-Hmf-Qtp Reductase AdvReac Muscle Pain Verified 05/25/17 15:23 Inhibitor [Statins] All Systems Review: The remainder of the systems were reviewed and are negative - Cardiovascular Cardiovascular: as per HPI, chest pain at rest, chest pain with exertion, radiating jaw, neck or arm pain - Respiratory Respiratory: cough Physical Examination Vital Signs, Last 4 Hours Temp Pulse Resp BP Pulse Ox 07/02/17 15:37 97.7 F 72 15 113/75 100 Vital Signs Temp Pulse Resp BP Pulse Ox 07/02/17 15:37 97.7 F 72 15 113/75 100 07/02/17 11:12 97.7 F 76 15 110/74 96 07/02/17 06:28 97.7 F 57 15 113/62 97 07/02/17 04:49 97.7 F 79 18 108/59 97 07/02/17 00:02 97.7 F 53 19 151/77 100 07/01/17 23:04 14 127/94 07/01/17 19:38 98.2 F 74 14 132/85 96 07/01/17 19:21 98.2 F 74 14 132/85 96 Intake and Output 07/01/17 07/02/17 07/02/17 23:59 07:59 15:59 Intake Total 220 / 220 1130 / 1130 Output Total 1000 / 1000 500 / 500 Balance -780 / -780 630 / 630 Intake: IV Fluids 20 / 20 10 / 10 Nitroglycerin Premix 25 MG/250 20 / 20 10 / 10 ML 25 mg In 250 ml @ 5 MCG/MIN 3 mls/hr IVC .Q24H [facility] Rx#: [id number] Oral 200 / 200 1120 / 1120 Output: Urine 1000 / 1000 500 / 500 Other: Meal Lunch Percent of Meal Consumed 25% Stool Size Small Stool Consistency soft Stool Color Ko Colored # Voids 1 # Bowel Movements 1 Weight 82.554 kg 86.3 kg Blood Glucose* 85 Patient Weight 07/02/17 23:59 Weight 86.3 kg General: Conversant, No Apparent Distress HEENT: Atraumatic, Normocephaly, Mucus Membranes Moist Neck: No JVD, Normal carotid pulses Cardiac: Reg Rate and Rhythm, Normal S1 and S2, No Murmur Lungs: Normal Breath Sounds, No Wheeze, Rales, Rhonchi Neuro: Alert and responsive, No focal deficits noted Abdomen: Soft, Non-Tender Skin: No rashes noted on visualized skin Musculoskeletal: No Chest Wall Tenderness Extremities: No Clubbing, No Cyanosis, No Edema, Normal Pulses Results 07/02/17 03:00 07/02/17 01:00 Lab Results 07/02/17 07/02/17 07/02/17 01:00 03:00 06:41 WBC 7.0 Hgb 10.9 L Hct 33.4 L Plt Count 163 Sodium 139 Potassium 4.3 Chloride 111 H Carbon Dioxide 21 L BUN 28 H Creatinine 1.16 Glucose 145 H Calcium 9.0 Troponin I < 0.03 < 0.03 07/02/17 13:02 WBC Hgb Hct Plt Count Sodium Potassium Chloride Carbon Dioxide BUN Creatinine Glucose Calcium Troponin I < 0.03 Short CBC 07/02/17 07/01/17 Range/Units 03:00 19:45 WBC 7.0 6.7 (4.3-11.1) K/mcL Hgb 10.9 L 11.4 L (11.5-15.4) g/dL Hct 33.4 L 34.8 L (35.3-44.9) % Plt Count 163 200 (140-400) K/mcL Neutrophils # 3.6 3.6 (1.6-8.9) K/mcL BMP 07/02/17 07/01/17 Range/Units 01:00 19:45 Sodium 139 139 (136-145) mEq/L Potassium 4.3 4.9 (3.5-5.1) mEq/L Chloride 111 H 110 H (98-107) mEq/L Carbon Dioxide 21 L 21 L (23-29) mEq/L BUN 28 H 30 H (8-23) mg/dL Creatinine 1.16 1.24 H (0.60-1.20) mg/dL Glucose 145 H 110 H (70-105) mg/dL Calcium 9.0 9.3 (8.6-10.3) mg/dL Cardiac Enzymes 07/02/17 07/02/17 07/02/17 Range/Units 13:02 06:41 01:00 Troponin I < 0.03 < 0.03 < 0.03 (< 0.04) ng/mL 07/01/17 Range/Units 19:45 Troponin I < 0.03 (< 0.04) ng/mL Impressions Chest X-Ray 07/01/17 19:30 IMPRESSION: No acute finding D/ / Maribel Aguilar MD / Maribel Aguilar MD Interpreting Provider: Maribel Aguilar MD Active Medications Acetaminophen (Tylenol) 650 mg PO Q6HR PRN PRN Reason: Mild Pain/Fever Stop: 01/01/18 00:49 Clopidogrel Bisulfate (Plavix) 75 mg PO QPM PRASANNA Stop: 01/01/18 01:01 Last Admin: 07/02/17 01:32 Dose: 75 mg Fluticasone Propionate (Flonase) 50 mcg NS BID PRN; Protocol PRN Reason: Allergy Symptoms Stop: 01/01/18 00:50 Heparin Sodium (Porcine) (Heparin) 5,000 unit SQ Q8HCO PRASANNA Stop: 01/01/18 06:01 Last Admin: 07/02/17 05:03 Dose: 5,000 unit Nitroglycerin (Nitroglycerin Premix 25 Mg/250 Ml) 25 mg in 250 mls @ 3 mls/hr IVC .Q24H PRASANNA; 5 MCG/MIN PRN Reason: Protocol Stop: 12/31/17 20:16 Last Titration: 05/04/18 08:21 Dose: 0 mcg/min, 0 mls/hr Isosorbide Mononitrate (Imdur) 240 mg PO QAM PRASANNA Stop: 01/01/18 09:01 Last Admin: 07/02/17 08:21 Dose: 240 mg Metoprolol Tartrate (Lopressor) 12.5 mg PO BID PRASANNA Stop: 01/01/18 01:01 Last Admin: 07/02/17 08:20 Dose: 12.5 mg Multivitamins/Calcium (Thera M Plus) 1 tab PO DAILY PRASANNA Stop: 01/01/18 09:01 Last Admin: 07/02/17 08:20 Dose: 1 tab Naloxone HCl (Narcan) 0.4 mg IVP Q2MIN PRN PRN Reason: SEE COMMENTS Stop: 01/01/18 00:49 Omeprazole (Prilosec) 20 mg PO 0630 PRASANNA Stop: 01/01/18 06:31 Last Admin: 07/02/17 05:03 Dose: 20 mg Ranolazine (Ranexa) 500 mg PO BID PRASANNA Stop: 01/01/18 09:01 Last Admin: 07/02/17 08:21 Dose: 500 mg Vitamin D (Vitamin D) 1,000 unit PO QPM PRASANNA Stop: 01/01/18 01:01 Last Admin: 07/02/17 01:32 Dose: 1,000 unit Vitamin E (Vitamin E) 400 unit PO DAILY PRASANNA Stop: 01/01/18 09:01 Last Admin: 07/02/17 08:21 Dose: 400 unit - Imaging and Cardiology Stress Test: report reviewed Echo: report reviewed Cardiac cath: report reviewed - EKG Interpretation EKG results cardiology: personally reviewed (SR) Consult Discharge Plan - Plan Referrals: Karen Perez CNP [Primary Care Provider] - <Brook Geronimo - Last Filed: 07/02/17 16:53> Date of Encounter: 07/02/17 - Attending Attestation I examined this patient and my medical decision-making was reviewed with the CONDUIT WORKER. I agree with the documented findings, disposition and treatment plan as described. Patient returning for symptoms similar to her anginal equivalent. Recent LHC demonstrated distal LAD 60-70% stenosis. At the time medical management was recommended. Given returning symptoms despite maximal medical management, discussed consideration for high risk PCI. The R/B/A of proceeding were discussed with the patient in detail. Case also discussed with Dr. Nita Mina CNP. Will plan on proceeding tomorrow AM. Assessment and Plan Discussion w patient/family: The assessment and plan as outlined above was discussed with the patient and/or family members who expressed understanding and agreement. All questions were answered. Thank you for involving us in the care of your patient. Please call with any questions. History of Present Illness History of present illness: Ms. Larkin is a 72 year old female All Systems Review: The remainder of the systems were reviewed and are negative Physical Examination Vital Signs, Last 4 Hours Temp Pulse Resp BP Pulse Ox 07/02/17 15:37 97.7 F 72 15 113/75 100 Results 07/02/17 03:00 07/02/17 01:00 Lab Results 07/02/17 07/02/17 07/02/17 01:00 03:00 06:41 WBC 7.0 Hgb 10.9 L Hct 33.4 L Plt Count 163 Sodium 139 Potassium 4.3 Chloride 111 H Carbon Dioxide 21 L BUN 28 H Creatinine 1.16 Glucose 145 H Calcium 9.0 Troponin I < 0.03 < 0.03 07/02/17 13:02 WBC Hgb Hct Plt Count Sodium Potassium Chloride Carbon Dioxide BUN Creatinine Glucose Calcium Troponin I < 0.03
[2017-07-02] MEDS ORDERED: Menthol 9.1 MG LOZENGE PO PRN (20:18)
[2017-07-02] MEDS ORDERED: Benzonatate 100 MG CAPSULE PO PRN (22:03)
[2017-07-02] MEDS: Ranolazine 500 MG TAB.ER.12H PO SCH (22:30)
[2017-07-03 05:02] LABS: Hematocrit 33.2 % (35.3-44.9); Hemoglobin 11.1 g/dL (11.5-15.4); Mean Corpuscular HGB Conc 33.4 g/dL (31.6-35.5); Mean Corpuscular Hemoglobin 31.1 pg (28.0-33.3); Mean Platelet Volume 11.7 fL (9.4-12.4); Platelet Count 157 K/mcL (140-400); Red Blood Count 3.57 M/mcL (3.82-4.97); Red Cell Distribution Width 13.4 % (11.5-14.5)
[2017-07-03 05:07] LABS: INR 1.1; Prothrombin Time 11.6 Seconds (9.4-12.1)
[2017-07-03 05:24] LABS: Calcium 9.2 mg/dL (8.6-10.3); Potassium 4.7 mEq/L (3.5-5.1)
[2017-07-03] MEDS: *HR* Heparin 5,000 UNIT/ML VIAL SQ SCH ×3 (05:26→21:28)
--- NOTE | 2017-07-03 06:21 | Electrocardiograph Report ---
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
--- NOTE | 2017-07-03 07:46 | Event Note ---
Date of Encounter: 07/03/17 Time of Encounter: 07:45 - Cardiology Event Note Laboratory Tests 07/01/17 07/02/17 07/02/17 19:45 01:00 06:41 Hgb Hct INR Creatinine Est GFR (Non-Af Amer) Troponin I < 0.03 < 0.03 < 0.03 LDL Cholesterol, Calc 85 07/02/17 07/03/17 07/03/17 13:02 04:51 04:51 Hgb 11.1 L Hct 33.2 L INR 1.1 Creatinine Est GFR (Non-Af Amer) Troponin I < 0.03 LDL Cholesterol, Calc 07/03/17 04:51 Hgb Hct INR Creatinine 1.13 Est GFR (Non-Af Amer) 47 L Troponin I LDL Cholesterol, Calc Currently chest pain-free and off nitroglycerin drip. Plan for [facility] today. All questions answered.
[2017-07-03] MEDS: Isosorbide MONOnitrate (24 HR) 60 MG TAB.ER.24H PO SCH (08:13)
[2017-07-03] MEDS: Ranolazine 500 MG TAB.ER.12H PO SCH ×2 (08:13→21:27)
[2017-07-03] MEDS: Multivit/Ca/Min/Fe/FA 1 TAB TABLET PO SCH (08:13)
[2017-07-03] MEDS ORDERED: 0.9 % Sodium Chloride 1,000 ML ONE ×2 (09:01→10:01)
[2017-07-03] MEDS ORDERED: Heparin 1,000 UNITS/500 mL 500 ML ONE (09:01)
[2017-07-03] MEDS ORDERED: *HR* Heparin 10,000 UNIT/10 ML VIAL ONE (09:01)
[2017-07-03] MEDS ORDERED: ISOVUE-370 200 ML INFUS..BTL IV ONE (09:01)
--- NOTE | 2017-07-03 10:28 | Pre-Sedation Evaluation ---
Pre-sedation evaluation - Pre-sedation checklist Date of procedure: 07/03/17 Procedure: [facility] Recent Vitals: Last Vital Signs Temp 97.7 F 07/03/17 07:25 Pulse 65 07/03/17 07:25 Resp 17 07/03/17 07:25 BP 115/57 07/03/17 07:25 Pulse Ox 97 07/03/17 04:00 H&P (including ROS) documented in medical record: Yes Previous reaction to sedatives/anesthetics: No Dietary Status: NPO after Midnight Dentition: No loose teeth or bridges ASA Classification *see protocol: CLASS II-Mild systemic disease Plan of Care: Pt appropriate candidate for procedure/moderate/conscious sedation , Risks/benefits of procedure/sedation discussed w/ patient/family
[2017-07-03] MEDS ORDERED: Nitroglycerin 1,000 MCG/10 ML VIAL IV ONE (10:33)
[2017-07-03] MEDS ORDERED: *HR* Midazolam HCl 2 MG/2 ML VIAL ONE (10:36)
[2017-07-03] MEDS ORDERED: *HR* FentaNYL (PF) 100 MCG/2 ML VIAL ONE (10:36)
--- NOTE | 2017-07-03 10:43 | Internal Med Progress Note ---
Date of Encounter: 07/03/17 Time of Encounter: 09:20 - Assessment and plan (1) Diabetes Current Visit: Yes Status: Chronic Assessment and plan: Accucheck blood glucose monitoring with sliding scale insulin; diabetic diet; Qualifiers: Diabetes mellitus type: type 2 Diabetes mellitus hooker laster insulin use: without residential use Diabetes mellitus complication status: with kidney complications Diabetes mellitus complication detail: with chronic kidney disease Chronic kidney disease stage: stage 3 (moderate) Qualified Code(s): E11.22 - Type 2 diabetes mellitus with diabetic chronic kidney disease; N18.3 - Chronic kidney disease, stage 3 (moderate); N18.3 - Chronic kidney disease, stage 3 (moderate) (2) CAD (coronary artery disease) Current Visit: Yes Status: Chronic Assessment and plan: continue Plavix, beta yari, statin; [facility] this a.m Add ASA if patient received stent Qualifiers: Coronary Disease-Associated Artery/Lesion type: [place] artery [place] vs. transplanted heart: [place] heart Associated angina: with unspecified angina Qualified Code(s): I25.119 - Atherosclerotic heart disease of [place] coronary artery with unspecified angina pectoris (3) Hypertension Current Visit: Yes Status: Chronic Assessment and plan: Controlled, continue current meds Qualifiers: Hypertension type: essential hypertension Qualified Code(s): I10 - Essential (primary) hypertension (4) CHF (congestive heart failure) Current Visit: Yes Status: Chronic Assessment and plan: euvolemic, continue current meds Qualifiers: Qualified Code(s): I50.32 - Chronic diastolic (congestive) heart failure (5) Chest pain Current Visit: Yes Status: Acute Assessment and plan: Recurrent chest pains, on NTG, Imdur and Ranexa at home, could not afford Ranexa. Not taking ASA due to "bruises" EKG shows no acute ischemic changes, trops negative [facility] in April 2017 recommended If despite maximal treatment continues having angina, distal LAD PCI; For [facility] this a.m, cardio following, appreciate input Qualifiers: Chest pain type: unspecified Qualified Code(s): R07.9 - Chest pain, unspecified (6) CKD (chronic kidney disease) Current Visit: Yes Status: Chronic Assessment and plan: renal function is at baseline Qualifiers: Chronic kidney disease stage: stage 3 (moderate) Qualified Code(s): N18.3 - Chronic kidney disease, stage 3 (moderate) - Time Spent With Patient Total time spent is greater than 50% in coordination of care (as documented) at patient's floor/unit and/or counseling patient: - Subjective Interval history: Seen and evaluated at bedside. She is chest pain-free and preparing to go to left heart catheterization. No new complaints. - Constitutional Vitals: Temp Pulse Resp BP Pulse Ox 97.7 F 65 17 115/57 97 07/03/17 07:25 07/03/17 07:25 07/03/17 07:25 07/03/17 07:25 07/03/17 04:00 General appearance: Present: A&O X 3, obese, answers questions appropriately - Head Head exam: Present: atraumatic, normocephalic - Eye Eye exam: Present: PERRL, conjuntiva pink, sclera anicteric Pupils: Present: PERRL - Neck Neck exam general surgery: Present: supple, trachea midline. Absent: lymphadenopathy - Respiratory Respiratory exam: Present: CTAB. Absent: accessory muscle use, rales, rhonchi, wheezes - Cardiovascular Cardiovascular exam: Present: RRR, +S1, +S2. Absent: diastolic murmur, gallop, rubs, systolic murmur - GI/Abdominal GI/Abdominal exam: Present: normal bowel sounds, soft, no peritoneal signs. Absent: distended, tenderness - Extremities Exam Extremities exam: Present: warm, radial pulses palpable and symmetrical. Absent : calf tenderness, cyanotic, pedal edema - Neurological Exam Neurological exam: Present: alert, CN II-XII intact, oriented X3, no focal deficits. Absent: pronater drift, facial droop, speech deficit - Skin Skin exam: Present: dry, intact Internal Medicine: Result - Labs CBC & Chem 7: 07/03/17 04:51 07/03/17 04:51 Labs: Short CBC 07/03/17 Range/Units 04:51 WBC 6.0 (4.3-11.1) K/mcL Hgb 11.1 L (11.5-15.4) g/dL Hct 33.2 L (35.3-44.9) % Plt Count 157 (140-400) K/mcL BMP 07/03/17 04:51 Sodium 138 Potassium 4.7 Chloride 110 H Carbon Dioxide 22 L BUN 25 H Creatinine 1.13 Glucose 149 H Calcium 9.2 Cardiac Enzymes 05/04/18 Range/Units 13:02 Troponin I < 0.03 (< 0.04) ng/mL - ABG Interpretation ABG results: PT/INR, D-dimer PT 11.6 Seconds (9.4-12.1) 07/03/17 04:51 Consult Discharge Plan - Plan Referrals: Karen Perez, JAVA SOFTWARE ARCHITECT [Primary Care Provider] -
[2017-07-03] MEDS ORDERED: Ondansetron 4 MG/2 ML VIAL IVP PRN (11:34)
--- NOTE | 2017-07-03 12:04 | Invasive Diagnostic Lab Proc ---
Name: Elly Larkin Date of Study: 07/03/2017 Date: 1945 Ht: 61.8in Medical Record#: [id number] Age: 72 Wt: 191.80lb Gender: Female BSA: 1.87 Order #: [id number] BMI: 35.3 Physicians Procedure Physician: Bebeto Moya MD, FACC Referring MD: Referring MD: Staff Name Position Time In Kaitlin Hdez RT (R) Monitor 10:40 AM TahiraSherrill velásquez RT (R) Scrub 10:40 AM Camille Mattson RN Office Receptionist 10:40 AM Indications Indication Unstable Angina Procedures Performed Procedure L HRT ARTERY/VENTRICLE ANGIO PRQ CARD DEBI STENT W/ANGIO 1 VSL Pre-Procedure Checklist Informed consent is complete signed and on chart. H&P is on chart. ID band is on and ID verified with patient. Patient NPO for procedure The procedure was described for the patient and questions were answered. Blood Pressure: 155/87 ECG is on chart. Rhythm: NSR Plan of Care Patient will tolerate the procedure without complications. Adequate level of comfort will be maintained. Hemodynamics will remain stable Patient will recover from procedure without complications. Respiratory function will be maintained. Cardiac rhythm will remain stable. Patient temperature will be maintained. Patient and/or family have verbalized understanding of the procedure. Patient Education Chief Complaint/Reason for Test: Cardiac Cath Developmental Category: Geriatric (65+ years) Developmentally Appropriate for Age: Yes Learning Barriers: None Education Needs: Procedure Education Method: Verbal Information Taught: Cardiac Cath Educational Evaluation: Able to repeat information Intravenous Access Time IV Size Location DC'd Fluid/Drip Rate Units RN 10:46 AM Started with 20g 1 1/4" Rt Antecubital 0.9NaCl 25 ml/hr Camille Mattson RN 10:46 AM 20g 1 1/4" Patent On Arrival Lt Hand Camille Mattson RN Allergies acetaminophen hydrocodone TAPE Statins Rbhrtoc-Upo-Yxq Reductase Inhibitor codeine morphine propoxyphene Erythromycin prednisone CODEINE DARVOCET Vital Signs Time BP (mmHg) HR (bpm) O2 Sat. RR (bpm) LOC 10:45 AM / % 5 = Fully awake and oriented or at pre-proc level 10:45 AM / % 4 = Oriented but drowsy 10:36 AM 155 / 87 67 100 % 10:48 AM 107 / 60 79 97 % 10:53 AM 98 / 66 76 94 % 10:58 AM 107 / 63 62 96 % 11:03 AM 122 / 71 70 96 % 11:08 AM 125 / 67 69 97 % 11:13 AM 123 / 71 67 98 % 11:18 AM 115 / 70 69 99 % 11:24 AM 139 / 76 70 99 % 11:28 AM 126 / 75 69 98 % 11:33 AM 131 / 68 66 100 % 11:38 AM 132 / 73 60 100 % Procedural Medications Time Medication Dose Units Method Given By 10:45 AM Oxygen 2 L/min nasal cannula Camille Mattson RN 10:45 AM Versed 2 mg Intravenous Camille Mattson RN 10:45 AM Fentanyl 50 mcg Intravenous Camille Mattson RN 10:56 AM Lidocaine 2% 18 ml Subcutaneous Bebeto Moya MD, FACC 10:59 AM Heparin 4000 units Intravenous Camille Mattson RN 11:01 AM Nitroglycerin 200 mcg Intracoronary Bebeto Moya MD 11:13 AM Nitroglycerin 200 mcg Intracoronary Bebeto Moya MD 11:25 AM Nitroglycerin 200 mcg Intracoronary Bebeto Moya MD 11:30 AM Plavix 300 mg Orally Camille Mattson RN ASA Classification: CLASS II- Mild systemic disease (i.e. well-controlled diabetes, hypertension, asthma, cigarette smoking) Rhett Score Preprocedure Postprocedure Activity 2- Moves 4 extremities sustained head lift Activity 2- Moves 4 extremities sustained head lift Circulation 2- SBP +/= 20 points of pre-anesthetic level Circulation 2- SBP +/= 20 points of pre-anesthetic level Consciousness 2- Awake and alert oriented x 3 Consciousness 2- Awake and alert oriented x 3 O2 Saturation 2- Able to maintain O2 satruation of 92% on room air O2 Saturation 2- Able to maintain O2 satruation of 92% on room air Respiratory 2- Able to deep breathe and cough well Respiratory 2- Able to deep breathe and cough well Total Score 10 Total Score 10 Contrast Agent: Isovue Diagnostic Contrast: 175 ml Total Contrast: 175 ml Fluoro Dose: 648 mGy Activated Clotting Time Time Seconds to Clot 11:34 AM 229 Procedure Log Time Note Enter By 10:34 AM CathStat 10:35 AM Vitals capture started with the following parameters, Patient=Adult, Interval=5 min, Initial Zkxzufye=240 mmHg, Deflation Rate=5 mmHg, Cuff placed on Right Arm 10:36 AM HR=67 bpm, LLPF=787/87 mmhg, SsV4=907.0 % 10:40 AM Pt arrived to labor economics professor 2 at 10:40 twilson 10:40 AM Kaitlin Hdez RT (R) Position: Monitor Time in: 10:40 twilson 10:40 AM Sherrill Hoffmann RT (R) Position: Scrub Time in: 10:40 twilson 10:40 AM Camille Mattson RN Position: Office Receptionist Time in: 10:40 twilson 10:40 AM Patient charges- Angio tray pack, Navilyst 3mm J, Pulse Oximetry and ACIST tubing and transducer twilson 10:40 AM IV Supplies used: J loop Angio Cath. twilson 10:41 AM Case Delayed no twilson 10:44 AM Physician arrived 10:44 twilson 10:44 AM Meet and greet completed twilson 10:44 AM Sign in performed according to hospital policy. twilson 10:44 AM Procedure start 10:44 twilson 10:44 AM Hair removed from procedure site in procedure lab using clippers. Bilateral groin prepped with Chloraprep by Kaitlin Hdez (R), then patient was draped. Skin intact. twilson 10:45 AM Time: 10:45 Versed 2 mg Intravenous Given by Camille Mattson RN twilson 10:45 AM Time: 10:45 Oxygen on at 2 L/min per nasal cannula by Camille Mattson RN twilson 10:45 AM Time: 10:45 Fentanyl 50 mcg Intravenous Given by Camille Mattson RN twilson 10:45 AM Time: 10:45 Patient comfortable and pain free: Yes twilson 10:45 AM Time: 10:45LOC: 5 = Fully awake and oriented or at pre-proc level twilson 10:45 AM Clinical Presentation: Unstable angina twilson 10:47 AM Vitals capture started with the following parameters, Patient=Adult, Interval=5 min, Initial Zoqojazm=375 mmHg, Deflation Rate=5 mmHg, Cuff placed on Right Arm 10:48 AM HR=79 bpm, ZJHZ=000/60 mmhg, SpO2=97.0 % 10:50 AM Pressure channel 1 zeroed. 10:52 AM ASA Class CLASS II- Mild systemic disease (i.e. well-controlled diabetes, hypertension, asthma, cigarette smoking) twilson 10:53 AM HR=76 bpm, NIBP=98/66 mmhg, SpO2=94.0 % 10:56 AM Time out performed according to hospital policy twilson 10:56 AM Time: 10:56 18 ml Lidocaine 2% to right groin Subcutaneous Given by Bebeto Moya MD, [facility] twilson 10:56 AM Recorded ECG: HR=61 Condition=Condition 1 10:57 AM Access obtained by percutaneous puncture. 7Fr 10cm Terumo [place] sheath placed in right Femoral artery. [id number] twilson 10:57 AM 5Fr FR 4 catheter inserted over the wire [facility] twilson 10:58 AM HR=62 bpm, GMWE=209/63 mmhg, SpO2=96.0 % 10:58 AM 0.035 260cm Navilyst 3mmJ wire [id number] twilson 10:58 AM Wire removed, intact. RCA angiography performed in multiple views. twilson 10:59 AM Wire reinserted. twilson 10:59 AM Catheter removed, intact. twilson 10:59 AM Time: 10:59 Heparin 4000 units Intravenous Given by Camille Mattson RN twilson 11:00 AM PCI Indication: Staged PCI twilson 11:00 AM Inflation device was opened. twilson 11:00 AM 7Fr CLS 4 Mach 1 guide catheter was used to cannulate the PCI vessel successfully. reused? No twilson 11:00 AM Wire removed intact. twilson 11:01 AM Recorded Pressure: Ao, HR=75, Condition=Condition 1 (Aorta) Ao 94/53/71 11:01 AM Time: 11:01 Nitroglycerin 200 mcg Intracoronary Given by Bebeto Moya MD twilson 11:03 AM .014 Stephens 190cm guide wire across target lesion- successful. reused? No twilson 11:03 AM HR=70 bpm, NKIA=460/71 mmhg, SpO2=96.0 % 11:08 AM HR=69 bpm, GSQK=944/67 mmhg, SpO2=97.0 % 11:09 AM 2.0 mm x 8 mm Emerge Monorail balloon across target lesion- successful. reused? No twilson 11:09 AM Recorded Pressure: Ao, HR=76, Condition=Condition 1 (Aorta) Ao 106/56/79 11:10 AM Balloon inflated @ 8 emerald for 17 seconds twilson 11:11 AM PCI lesion in Distal LAD. Pre Stenosis: 70 Pre JESÚS Flow: 3: Complete and Brisk Flow/Perfusion twilson 11:11 AM Mid/Distal Left Anterior Descending Coronary Artery and diagonal branches with 70% stenosis. If graft is supplying this area, 0 % stenosis twilson 11:12 AM Balloon catheter removed intact. twilson 11:13 AM Time: 11:13 Nitroglycerin 200 mcg Intracoronary Given by Bebeto Moya MD twilson 11:13 AM HR=67 bpm, KWWB=940/71 mmhg, SpO2=98.0 % 11:13 AM 2.5mm x 16mm Synergy drug-eluting stent across target lesion- successful Lot #[id number] twilson 11:16 AM Patient will go to [facility] when procedure is finished. twilson 11:16 AM Stent deployed @ 11 emerald for 19 seconds twilson 11:17 AM Stent delivery system removed intact. twilson 11:18 AM PCI lesion in Mid LAD. Pre Stenosis: 70 Pre JESÚS Flow: 3: Complete and Brisk Flow/Perfusion twilson 11:18 AM HR=69 bpm, ZHCG=141/70 mmhg, SpO2=99.0 % 11:18 AM Recorded Pressure: Ao, HR=69, Condition=Condition 1 (Aorta) Ao 128/62/89 11:20 AM 2.25mm x 20mm Synergy drug-eluting stent across target lesion- successful Lot #[id number] twilson 11:22 AM Stent deployed @ 11 emerald for 19 seconds twilson 11:22 AM Stent delivery system removed intact. twilson 11: AM 2.25 mm x 12mm NC Emerge balloon across target lesion- successful. reused? No twilson 11:24 AM HR=70 bpm, LKBB=450/76 mmhg, SpO2=99.0 % 11:24 AM Balloon inflated @ 16 emerald for 20 seconds twilson 11:24 AM Balloon inflated @ 16 emerald for 20 seconds twilson 11:25 AM Balloon inflated @ 16 emerald for 10 seconds twilson 11: AM Time: : Nitroglycerin 200 mcg Intracoronary Given by Bebeto Moya MD twilson 11:26 AM Recorded Pressure: Ao, HR=69, Condition=Condition 1 (Aorta) Ao 121/62/87 11:28 AM Guide wire removed intact. twilson 11:28 AM Balloon catheter removed intact. twilson 11:28 AM J-wire reinserted. twilson 11:28 AM HR=69 bpm, LAVO=898/75 mmhg, SpO2=98.0 % 11:28 AM Guide catheter removed intact. twilson 11:29 AM 5Fr Pigtail catheter inserted over the wire DNC twilson 11:29 AM Wire removed twilson 11:30 AM Recorded Pressure: LV, HR=70, Condition=Condition 1 (Left Ventricle) LV 138/-1/16 11:30 AM Catheter selectively placed in left ventricle. Wire removed. Pressures only. No LV gram. twilson 11:30 AM Recorded Pressure: LV, Ao, HR=67, Condition=Condition 1 (Left Ventricle) LV 133/1/18, (Aorta) Ao 130/59/88 11:30 AM Time: 11:30 Plavix 300 mg Orally Given by Camille Mattson RN twilson 11:30 AM Wire reinserted and wire and catheter removed. twilson 11:31 AM Drawing an ACT. twilson 11:32 AM Bolus angiogram of right Femoral complete: 2 ml/sec for a total of 4 mls twilson 11:33 AM Procedure completed at 11:33 twilson 11:33 AM Did you address JESÚS flow and Dominance? Yes twilson 11:33 AM HR=66 bpm, TPCF=369/68 mmhg, LcS8=908.0 % 11:34 AM ACT is 229. twilson 11:35 AM Isovue 370 - 200ml,1 Bottle(s) used. twilson 11:35 AM Sheath left in place to be pulled on floor/holding areaV+Pad twilson 11:35 AM Estimated Blood Loss: minimal twilson 11:35 AM Post ECG NSR twilson 11:35 AM Post Blood Pressure 131/68 twilson 11:35 AM 11:35 Post Pulses Bilateral DP & PT 1+ twilson 11:35 AM 11:35 Post Pulses Bilateral radial 2+ twilson 11:35 AM Information taught Cardiac Cath and PCI twilson 11:36 AM Time: 10:45 Patient comfortable and pain free: Yes twilson 11:36 AM Time: 10:45LOC: 4 = Oriented but drowsy twilson 11:36 AM Education needs Procedure, Plan of Care, and Responsibilities of Patient in Care twilson 11:36 AM Learning barriers :None twilson 11:36 AM Education Methods Verbal twilson 11:36 AM Education evaluation Able to repeat information twilson 11:36 AM Site status No bleeding/hematoma - Rt Groin as reported by Sherrill Hoffmann RT (R) at 11:36 twilson 11:36 AM Opsite applied twilson 11:36 AM Plavix, Effient or Brilinta given Yes twilson 11:36 AM No family present at this time. twilson 11:37 AM Delay to floor No twilson 11:38 AM Coronary Dominance: Left twilson 11:38 AM HR=60 bpm, HSJG=343/73 mmhg, WeS2=607.0 % 11:39 AM Sign out completed: Radiation Dose 648.24 mGy Fluoro Time: 11.1 Isovue 370 - 200ml contrast 175 ml given by Bebeto Moya MD, FACC. Complications: NoneCardiac Rehab Consult needed: YesConfirmed administered medications: Yes twilson 11:49 AM Report given to Maddison BLEVINS Pt taken to 2N Room #15. 11:48 twilson 11:50 AM Patient out of room: 11:50 twilson Complications Complication None Hemodynamics Pressures Site Systolic/A Wave Diastolic/V Wave Mean AO 94 53 71 AO 106 56 79 AO 128 62 89 AO 121 62 87 LV 138 -1 16 LV 133 1 18 AO 130 59 88 Post Procedure Information Blood Pressure: 131/68 mmHg Rhythm: NSR Post procedural instructions were given Site Checks Time Location Status Staff Sheath In? Note 11:36 AM Rt Groin No bleeding/hematoma Sherrill Hoffmann RT (R) Yes Pulses Time Site Pre-Procedure Post-Procedure Note 07/03/2017 10:39:00 AM Bilateral DP & PT 1+ 07/03/2017 10:39:00 AM Bilateral radial 2+ 11:35:00 AM Bilateral DP & PT 1+ 11:35:00 AM Bilateral radial 2+ Updated by Kaitlin Hdez RT (R) on 07/03/2017 11:54:07 AM electronically signed on 07/03/2017 11:55:20 AM with status of Final
[2017-07-03] MEDS ORDERED: *HR* Atropine Sulfate 1 MG/ML VIAL ONE (15:00)
[2017-07-03] MEDS ORDERED: *HR* Atropine Sulfate 1 MG/10 ML SYRINGE ONE (15:01)
[2017-07-03] MEDS: Nitroglycerin 25 MG/250 ML INFUS..BTL IVC SCH (15:54)
[2017-07-03] MEDS ORDERED: 0.9 % Sodium Chloride 1,000 ML IVC SCH (18:00)
[2017-07-03] MEDS: Cholecalciferol (D-3) 1,000 UNIT TABLET PO SCH (18:36)
[2017-07-04 04:59] LABS: Hematocrit 31.4 % (35.3-44.9); Hemoglobin 10.4 g/dL (11.5-15.4)
[2017-07-04 05:13] LABS: BUN/Creatinine Ratio 23 (6-26); Blood Urea Nitrogen 27 mg/dL (8-23); eGFR For African Americans 56 (> 60); eGFR For Non-African Americans 46 (> 60)
[2017-07-04] MEDS: *HR* Heparin 5,000 UNIT/ML VIAL SQ SCH ×2 (05:47→12:42)
[2017-07-04] MEDS ORDERED: Nitroglycerin 0.4 MG TAB.SUBL SL PRN (06:39)
--- NOTE | 2017-07-04 06:41 | Cardiology Progress Note ---
Date of Encounter: 07/04/17 Time of Encounter: 06:35 Assessment and Plan (1) CAD (coronary artery disease) Current Visit: Yes Status: Chronic Per Cardiology: Known CAD. S/p [facility] with DEBI x 2: Impressions: There is severe one vessel coronary artery disease. Patient had successful PTCA/Drug-Eluting Stent placement in the mid-distal LAD. Previous stents patent Has CR C/S. On Plavix, BB, Imdur, Ranexa. Will add asa and SL NTG. Intolerant to statins. Dual antiplatelet therapy reinforced. Post cath instructions provided. Cardiology will s/o, f/u arranged. Qualifiers: Coronary Disease-Associated Artery/Lesion type: [place] artery [place] vs. transplanted heart: [place] heart Associated angina: with unspecified angina Qualified Code(s): I25.119 - Atherosclerotic heart disease of [place] coronary artery with unspecified angina pectoris Discussion w patient/family: The assessment and plan as outlined above was discussed with the patient who expressed understanding and agreement. All questions were answered. Thank you for involving us in the care of your patient. Please call with any questions. Subjective Principal diagnosis: [place], CAD Interval history: Denies any CP. Objective Vital Signs, Last 4 Hours Temp Pulse Resp BP Pulse Ox 07/04/17 05:02 97.7 F 77 20 111/71 96 General: Conversant, No Apparent Distress HEENT: Atraumatic, Normocephaly, Mucus Membranes Moist Neck: No JVD, Normal carotid pulses Cardiac: Reg Rate and Rhythm, Normal S1 and S2, No Murmur Lungs: Normal Breath Sounds, No Wheeze, Rales, Rhonchi Neuro: Alert and responsive, No focal deficits noted Abdomen: Soft, Non-Tender Skin: No rashes noted on visualized skin, Other (R groin site D&I, no bleeding no hematoma, R PT/DP pulses 2+ palp) Musculoskeletal: No Chest Wall Tenderness Extremities: No Clubbing, No Cyanosis, No Edema, Normal Pulses Results 07/04/17 04:41 07/04/17 04:41 Lab Results Laboratory Tests 07/04/17 04:41 Creatinine 1.15 Est GFR (Non-Af Amer) 46 L Active Medications Acetaminophen (Tylenol) 650 mg PO Q6HR PRN PRN Reason: Mild Pain/Fever Stop: 01/01/18 00:49 Last Admin: 07/03/17 22:53 Dose: 650 mg Benzonatate (Tessalon) 200 mg PO TID PRN PRN Reason: Cough Stop: 01/01/18 22:04 Last Admin: 07/02/17 22:29 Dose: 200 mg Clopidogrel Bisulfate (Plavix) 75 mg PO QPM [facility] Stop: 01/01/18 01:01 Last Admin: 07/03/17 18:36 Dose: 75 mg Fluticasone Propionate (Flonase) 50 mcg NS BID PRN; Protocol PRN Reason: Allergy Symptoms Stop: 01/01/18 00:50 Heparin Sodium (Porcine) (Heparin) 5,000 unit SQ Q8HCO [facility] Stop: 01/01/18 06:01 Last Admin: 07/04/17 05:47 Dose: 5,000 unit Sodium Chloride (0.9 % Sodium Chloride) 1,000 mls @ 75 mls/hr IVC .[id number] [facility] Stop: 01/02/18 18:01 Last Admin: 07/03/17 18:36 Dose: 75 mls/hr Isosorbide Mononitrate (Imdur) 240 mg PO QAM [facility] Stop: 01/01/18 09:01 Last Admin: 07/03/17 08:13 Dose: 240 mg Menthol (Cough Drops) 9.1 mg PO Q2H PRN PRN Reason: Cough Stop: 01/01/18 20:19 Metoprolol Tartrate (Lopressor) 12.5 mg PO BID [facility] Stop: 01/01/18 01:01 Last Admin: 07/03/17 21:28 Dose: 12.5 mg Multivitamins/Calcium (Thera M Plus) 1 tab PO DAILY [facility] Stop: 01/01/18 09:01 Last Admin: 07/03/17 08:13 Dose: 1 tab Naloxone HCl (Narcan) 0.4 mg IVP Q2MIN PRN PRN Reason: SEE COMMENTS Stop: 01/01/18 00:49 Omeprazole (Prilosec) 20 mg PO 0630 [facility] Stop: 01/01/18 06:31 Last Admin: 07/04/17 05:47 Dose: 20 mg Ondansetron HCl (Zofran) 4 mg IVP Q6HR PRN; Protocol PRN Reason: Nausea And Vomiting Stop: 01/02/18 11:35 Ranolazine (Ranexa) 1,000 mg PO BID PRASANNA Stop: 01/01/18 21:01 Last Admin: 07/03/17 21:27 Dose: 1,000 mg Vitamin D (Vitamin D) 1,000 unit PO QPM PRASANNA Stop: 01/01/18 01:01 Last Admin: 07/03/17 18:36 Dose: 1,000 unit Vitamin E (Vitamin E) 400 unit PO DAILY PRASANNA Stop: 01/01/18 09:01 Last Admin: 07/03/17 08:13 Dose: 400 unit - Imaging and Cardiology Cardiac cath: report reviewed Consult Discharge Plan - Plan Referrals: Karen Perez, FURNITURE REPAIR TECHNICIAN [Primary Care Provider] -
[2017-07-04] MEDS ORDERED: Aspirin 81 MG TAB.CHEW PO SCH (09:00)
[2017-07-04] MEDS: Isosorbide MONOnitrate (24 HR) 60 MG TAB.ER.24H PO SCH (09:25)
[2017-07-04] MEDS: Ranolazine 500 MG TAB.ER.12H PO SCH (09:25)
[2017-07-04] MEDS: Multivit/Ca/Min/Fe/FA 1 TAB TABLET PO SCH (09:28)
--- NOTE | 2017-07-04 10:46 | Discharge Summary ---
- NOTES TO OUTPATIENT PROVIDER Notes to Outpatient Provider: Known history of CAD admitted for unstable angina , s/p [facility] with Stent w/ PTCA Single Major Vessel (mid distal LAD DEBI OL x 2). To continue uninterrupted DaPT-ASA and Plavix, intolerant to statin, on ARB, BB , Long acting nitro. Follow up with cardio Orders not resulted at time of discharge: Pending orders 07/03/17 11:34 ECG 12 lead ECG [ECG] Stat 07/04/17 06:00 ECG 12 lead ECG [ECG] AM 0600 Date of Encounter: 07/04/17 Time of Encounter: 09:00 - Discharge Diagnosis (1) Diabetes Priority: Secondary Status: Chronic Qualifiers: Diabetes mellitus type: type 2 Diabetes mellitus city letter carrier insulin use: without chcf use Diabetes mellitus complication status: with kidney complications Diabetes mellitus complication detail: with chronic kidney disease Chronic kidney disease stage: stage 3 (moderate) Qualified Code(s): E11.22 - Type 2 diabetes mellitus with diabetic chronic kidney disease; N18.3 - Chronic kidney disease, stage 3 (moderate); N18.3 - Chronic kidney disease, stage 3 (moderate) (2) CAD (coronary artery disease) Priority: Secondary Status: Chronic Qualifiers: Coronary Disease-Associated Artery/Lesion type: [place] artery [place] vs. transplanted heart: [place] heart Associated angina: with unspecified angina Qualified Code(s): I25.119 - Atherosclerotic heart disease of [place] coronary artery with unspecified angina pectoris (3) Hypertension Priority: Secondary Status: Chronic Qualifiers: Hypertension type: essential hypertension Qualified Code(s): I10 - Essential (primary) hypertension (4) CHF (congestive heart failure) Priority: Secondary Status: Chronic Qualifiers: Qualified Code(s): I50.32 - Chronic diastolic (congestive) heart failure (5) Chest pain Priority: Primary Status: Resolved Qualifiers: Chest pain type: unspecified Qualified Code(s): R07.9 - Chest pain, unspecified (6) CKD (chronic kidney disease) Priority: Secondary Status: Chronic Qualifiers: Chronic kidney disease stage: stage 3 (moderate) Qualified Code(s): N18.3 - Chronic kidney disease, stage 3 (moderate) Hospital course: Ms. Larkin is a 72 year old female with CKD III, DM, HTN, CAD, admitted for management of unstable angina. In this admission Troponins negative x 3. No ischemic EKG changes. Cardiac hx as follows: [facility] 05/26/17- long 60-70% stenosis in the Distal LAD. Medical management was recommeded. If despite maximal treatment continues having angina, distal LAD PCI . TTE 05/26/17 preserved EF Stress test 05/2017 negative for ischemia or infarct. s/p [facility] 07/03/17 with Stent w/ PTCA Single Major Vessel (mid distal LAD DEBI OL x 2 ). She is seen and evaluated at bedside, no new complains, chest pain free, ambulatory Clinically and hemodynamically stable to be discharged home To continue uninterrupted DaPT-ASA and Plavix, intolerant to statin, on ARB, BB , Long acting nitro. Follow up with cardio and PCP Discharge discussed with: patient - Time Spent with Patient Total time spent providing and/or coordinating discharge services: Less than 30 minutes - Discharge Medications Home Medications: Loratadine [Claritin] 10 mg PO QAM PRN #0 11/21/14 [History] Nitroglycerin [Nitrostat] 0.4 mg SL Q5M PRN #0 11/21/14 [History] Cholecalciferol (Vitamin D3) [Vitamin D3] 2,000 unit PO QPM 01/03/15 [History] Clopidogrel [Plavix] 75 mg PO QPM 01/03/15 [History] Albuterol Neb [Proventil Neb] 2.5 mg IH TID PRN 09/07/15 [History] Fluticasone Propionate Nasal [Flonase] 50 mcg NS BID PRN 12/03/15 [History] Acetaminophen [Tylenol] 1,000 mg PO BID PRN 03/23/16 [History] Mv, Min #36/Iron,Carbonyl/FA [Geritol Complete Tablet] 1 tab PO DAILY 07/06/16 [ History] Pantoprazole Sodium [Protonix] 40 mg PO DAILY 07/06/16 [History] Isosorbide MONOnitrate [Isosorbide Mononitrate ER] 240 mg PO QAM 08/11/16 [ History] Albuterol Sulfate [Ventolin Hfa] 2 puff IH Q4H PRN 05/25/17 [History] Vitamin E Acid Succinate [Vitamin E] 400 unit PO DAILY 05/25/17 [History] Losartan [Cozaar] 25 mg PO DAILY 06/08/17 [History] Metoprolol [Lopressor] 12.5 mg PO BID 30 Days #60 tablet 06/10/17 [Rx] Ranolazine [Ranexa] 500 mg PO BID 30 Days #60 tab.er.12h 06/10/17 [Rx] Allergies/Adverse Reactions: 3 Allergy/AdvReac Type Severity Reaction Status Date / Time codeine Allergy Difficulty Verified 05/25/17 15:23 Breathing prednisone Allergy Rash Verified 05/25/17 15:23 amlodipine AdvReac Swelling Verified 06/08/17 20:42 of the Eye clarithromycin AdvReac Vomiting Verified 05/25/17 15:23 Erythromycin Base AdvReac Vomiting Verified 05/25/17 15:23 hydrocodone [From Vicodin] AdvReac Dizziness Verified 05/25/17 15:23 propoxyphene AdvReac Vomiting Verified 05/25/17 15:23 [id number] Reductase AdvReac Muscle Pain Verified 05/25/17 15:23 Inhibitor [Statins] Date of admission: 07/01/17 22:23 Primary care physician: Karen Perez CNP Consults: 07/02/17 09:39 Consult to Cardiology [CONS] Routine Comment: Consulting Provider: Cardiology Rosanna Reason for Consult: CP, recent stress test, consider [facility] Time Notified: 09:40 Call Completed: Yes 07/03/17 11:34 Consult to Cardiac Rehabilitation-Phase1 [CONS] Routine Comment: Reason for Consult: post op PCI Call Completed: Yes Discharging clinician: Temo Jolly Anticipated date of discharge: 07/04/17 - Constitutional Vitals: Temp Pulse Resp BP Pulse Ox 97.8 F 60 18 109/83 98 07/04/17 07:44 07/04/17 07:44 07/04/17 07:44 07/04/17 07:44 07/04/17 09:34 General appearance: Present: A&O X 3, obese, answers questions appropriately - Head Head exam: Present: atraumatic, normocephalic - Eye Eye exam: Present: PERRL, conjuntiva pink, sclera anicteric Pupils: Present: PERRL - Neck Neck exam general surgery: Present: supple, trachea midline. Absent: lymphadenopathy - Respiratory Respiratory exam: Present: CTAB. Absent: accessory muscle use, rales, rhonchi, wheezes - Cardiovascular Cardiovascular exam: Present: RRR, +S1, +S2. Absent: diastolic murmur, gallop, rubs, systolic murmur - GI/Abdominal GI/Abdominal exam: Present: normal bowel sounds, soft, no peritoneal signs. Absent: distended, tenderness - Extremities Exam Extremities exam: Present: warm, radial pulses palpable and symmetrical. Absent : calf tenderness, cyanotic, pedal edema - Neurological Exam Neurological exam: Present: alert, CN II-XII intact, oriented X3, no focal deficits. Absent: pronater drift, facial droop, speech deficit - Skin Skin exam: Present: dry, intact - Patient Status Disposition: Home, Self-Care Condition: Good Functional capacity at discharge: independent ambulation Overall status at discharge: patient is back to baseline - Discharge Instructions Follow Up With: Karen Perez DIRECTOR [employer] [Primary Care Provider] - - Diet and Activity Activity: resume usual activities as tolerated Diet: low fat, low cholesterol, low salt diet
[2017-07-04 11:35] VITALS: BP 126/71
--- NOTE | 2017-07-06 16:01 | Electrocardiograph Report ---
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
== END 2017-07-04 14:21 | disposition home or self-care (01) ==
LOC: EMEROO 19:19 → 2NENU 19:19 → SUATTDRO 22:23 → 2NENU 23:23 → 2NNU 07-03 12:12
PROVIDERS: ADMIT Internal Medicine; ATTEND Internal Medicine

== ENCOUNTER 2018-07-17 04:02 | Observation (INO) ==
[2018-07-17] MEDS ORDERED: Nitroglycerin 1 INCH/GM PACKET TP ONE (04:09)
--- NOTE | 2018-07-17 04:28 | Emergency Department Note ---
Disposition Clinical Impression: Chest pain, rule out acute myocardial infarction CAD (coronary artery disease) Qualifiers: Coronary Disease-Associated Artery/Lesion type: unspecified vessel or lesion type [place] vs. transplanted heart: [place] heart Associated angina: angina presence unspecified Qualified Code(s): I25.10 - Atherosclerotic heart disease of [place] coronary artery without angina pectoris Hypertension Qualifiers: Hypertension type: unspecified Qualified Code(s): I10 - Essential (primary) hypertension Disposition: Admitted As Inpatient Condition: Good Forms: ED Satisfaction Letter Chest Pain HPI - General Chief Complaint: ED Chest Pain Stated Complaint: chest pain Time Seen by Provider: 07/17/18 04:09 Source: patient, EMS Mode of arrival: EMS Limitations: no limitations Vital Signs Reviewed: Yes Nursing Notes Reviewed: Yes - History of Present Illness HPI Narrative: 33-year-old female with a history of [place], CAD with 5 stents, A. fib presents emergency department for sudden onset chest pain that woke her up out of a sleep around 0100. She states at that time it is a 10 out of 10, his left chest and radiates up to her left neck and arm. Pain was a pressure type. Patient states she will had one nitroglycerin, she took it but it did not help her so she called EMS. She states his pain is worse with ambulation and movement, better when she is sitting. She states it is now 7/10. She states the pain when she first woke up did make her diaphoretic. Patient states she was short of breath when this initially started, however this has receded. She denies recent illness, fever, chills, palpitations, abdominal pain, nausea, vomiting. She denies any increasing edema, she states she always has some edema to bilateral lower shoulders, worse on the left but this has not changed from baseline. Patient states this feels exactly like the last time she had a myocardial infarction. Pt complaint: chest pain Onset (ago): hour(s) Time: 01:00 Duration: constant Onset: awoke with symptoms Pain Location: substernal, left chest Severity: moderate, severe Severity scale (1-10): 8 Quality: heaviness Pain Radiation: LUE, neck Improves with: rest Worsens with: exertion, movement Context: other Associated symptoms: Reports: diaphoresis Treatments prior to arrival chest pain: aspirin, nitroglycerin - Related Data On Oral Contraceptives: No Home Medications Medication Instructions Recorded Confirmed Cholecalciferol (Vitamin D3) 2,000 unit PO QPM 01/03/15 02/19/18 [Vitamin D3] Albuterol Neb [Proventil Neb] 2.5 mg IH TID PRN 09/07/15 02/19/18 Fluticasone Propionate Nasal 50 mcg NS BID PRN 12/03/15 02/19/18 [Flonase] Acetaminophen [Tylenol] 1,000 mg PO BID PRN 03/23/16 02/19/18 Mv, Min #36/Iron,Carbonyl/FA 1 tab PO DAILY 07/06/16 02/19/18 [Geritol Complete Tablet] Pantoprazole Sodium [Protonix] 40 mg PO DAILY 07/06/16 02/19/18 Isosorbide MONOnitrate [Isosorbide 240 mg PO QAM 08/11/16 02/19/18 Mononitrate ER] Albuterol Sulfate [Ventolin Hfa] 2 puff IH Q4H PRN 05/25/17 02/19/18 Vitamin E Acid Succinate [Vitamin 400 unit PO DAILY 05/25/17 02/19/18 E] Clopidogrel [Plavix] 75 mg PO DAILY 09/21/17 02/19/18 Loratadine [Allergy Relief] 10 mg PO DAILY 09/21/17 02/19/18 Previous Rx's Medication Instructions Recorded Aspirin 81 mg PO DAILY #30 tab.chew 02/21/18 Ondansetron ODT [Zofran ODT] 8 mg SL Q8HR PRN #15 tab.rapdis 04/18/18 Ranitidine HCl [Zantac] 300 mg PO HS #10 tablet 04/18/18 Atenolol [Tenormin] 50 mg PO DAILY tablet 05/05/18 Non-Formulary Medication 1 each PO Q6H each 05/05/18 Allergies Allergy/AdvReac Type Severity Reaction Status Date / Time codeine Allergy Difficulty Verified 04/18/18 14:51 Breathing prednisone Allergy Rash Verified 04/18/18 14:51 amlodipine AdvReac Swelling Verified 04/18/18 14:51 of the Eye clarithromycin AdvReac Vomiting Verified 04/18/18 14:51 Erythromycin Base AdvReac Vomiting Verified 04/18/18 14:51 hydrocodone [From Vicodin] AdvReac Dizziness Verified 04/18/18 14:51 propoxyphene AdvReac Vomiting Verified 04/18/18 14:51 Vzkqacg-Sov-Gkd Reductase AdvReac Muscle Pain Verified 04/18/18 14:51 Inhibitor [Statins] All systems ED: reviewed and negative except as stated. 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 - Social History Smoking Status: Never smoker Alcohol use: Reports: none Drug use: Reports: none Physical Exam - General Limitations: no limitations General appearance: alert, in no apparent distress - Head Head exam: atraumatic, normocephalic, normal inspection - Eye Eye exam: Present: normal appearance - ENT ENT exam: mucous membranes moist - Neck Neck exam: Present: normal inspection, full ROM, trachea midline - Chest Chest inspection: Present: normal inspection, symmetric chest wall rise - Respiratory Respiratory exam: Present: normal lung sounds bilaterally - Cardiovascular Cardiovascular exam: Present: irregular rhythm, normal heart sounds - Abdominal Exam Abdominal exam: Present: soft, Non-Tender, normal bowel sounds - Extremities Exam Extremities exam: Present: normal inspection, full ROM, normal capillary refill, other (BLE edema L>R) - Neurological Exam Neurological exam: Present: alert, oriented X3 - Psychiatric Psychiatric exam: Present: normal affect, normal mood - Skin Skin exam: Present: warm, dry, intact, normal color Course Course Narrative: Well-developed female no acute distress. Respirations are easy and even. Physical exam is unremarkable, neck due to croup. Upon arrival at 04:10 reveals an atrial fibrillation, ventricular rate 94 bpm, QTC 433 ms, there is no change from previous and 05/05/18. There is no evidence of ischemic morphology or ectopy. We will initiate chest pain workup, provide nitroglycerin for chest pain, had 324 mg of aspirin and EMS prior to arrival. Patient will most likely require admission for serial troponins and cardiology evaluation. Patient with known stable and unstable angina, awoke with symptoms, worsening symptoms with exertion, increasing shortness of breath. Cardiac history feel patient most recently admitted with new onset A. fib, at times there is some questioning whether to anticoagulate this patient is known falls, during this hospitalization DAPT was favored over lateral toe, patient states she is on a blood thinner, she did state it was Coumadin when asked when she came in. Patient had previous echo 02/15 which revealed a 65% EF; she does have 5 total stents from previous PCI's. She did have a nuclear stress test 02/15 that was nonischemic. - Reevaluation(s) Reevaluation #1: Patient has been resting quietly, chest pain now a 4-5 out of 10. Labs returned unremarkable, troponin is negative, chest x-ray negative HEART score is a 6. No evidence to indicate a dissection or pulmonary embolism. Given chest pain, effectiveness with nitroglycerin, history deep palpation benefit from admission, patient is agreeable with plan of care. Have spoken with the hospitalist Dr. Medina is agreeable to accept patient in patient status. Patient is agreeable to plan of care. We will continue to monitor patient while we transition to inpatient unit. Attending, Dr. Hi is a while on face, patient is agreeable plan of care. Time: 05:17 Vital Signs Temperature 98.3 F 07/17/18 04:05 Pulse Rate 88 07/17/18 04:05 Respiratory Rate 20 07/17/18 04:05 Blood Pressure 134/103 07/17/18 04:05 O2 Sat by Pulse Oximetry 95 07/17/18 04:05 Temperature 98.3 F 07/17/18 04:05 Pulse Rate 67 07/17/18 05:13 Respiratory Rate 16 07/17/18 05:13 Blood Pressure 130/76 07/17/18 05:13 O2 Sat by Pulse Oximetry 99 07/17/18 05:13 Oxygen Delivery Oxygen Delivery Room Air Chest Pain - Differential Diagnosis Likely: stable angina, unstable angina pectoris, chest pain. Unlikely: st elevation myocardial infraction, costalchondritis - Medical Records Medical records reviewed: Yes I reviewed the patient's medical records. - Lab Data Lab results reviewed: Yes I reviewed the patient's lab results. Result diagrams: 07/17/18 04:25 07/17/18 04:25 Lab Results 07/17/18 07/17/18 07/17/18 Range/Units 04:25 04:25 04:25 WBC 8.0 (4.3-11.1) K/mcL RBC 3.79 L (3.82-4.97) M/mcL Hgb 12.1 (11.5-15.4) g/dL Hct 36.0 (35.3-44.9) % MCV 95.0 (83.0-100.0) fL MCH 31.9 (28.0-33.3) pg MCHC 33.6 (31.6-35.5) g/dL RDW 12.9 (11.5-14.5) % Plt Count 172 (140-400) K/mcL MPV 11.7 (9.4-12.4) fL Immature Gran % 0.4 (0-4) % Seg Neutrophils % 55.9 % Lymphocytes % 26.5 % Monocytes % 12.2 % Eosinophils % 4.5 % Basophils % 0.5 % Neutrophils # 4.5 (1.6-8.9) K/mcL Lymphocytes # 2.1 (0.6-4.6) K/mcL Monocytes # 1.0 (0.0-1.3) K/mcL Eosinophils # 0.4 (0.0-0.6) K/mcL Basophils # 0.0 (0.0-0.2) K/mcL PT 11.2 (9.4-12.1) Seconds INR 1.0 APTT 30.9 (26.0-36.0) Seconds Sodium 139 (136-145) mEq/L Potassium 4.1 (3.5-5.1) mEq/L Chloride 107 (98-107) mEq/L Carbon Dioxide 21 L (23-29) mEq/L BUN 30 H (8-23) mg/dL Creatinine 1.08 (0.60-1.20) mg/dL Est GFR ( Amer) > 60 (> 60) Est GFR (Non-Af Amer) 50 L (> 60) BUN/Creatinine Ratio 28 H (6-26) Glucose 123 H (70-105) mg/dL Calculated Osmolality 296 (280-300) Calcium 9.7 (8.6-10.3) mg/dL Troponin I < 0.03 (< 0.04) ng/mL - Radiology Data Radiology results reviewed: Yes I reviewed the patient's radiology results. - EKG Data EKG attestation: Yes I reviewed and interpreted this EKG. Heart Score - Score History: Highly Suspicious EKG: Normal Age: Greater than 65 Risk Factors: Equal/Greater than 3 risk factor or history of atherosclerotic disease Troponin: Less than normal limit HEART Score Total: 6
[2018-07-17 04:44] LABS: Basophils % 0.5 %; Eosinophils # 0.4 K/mcL (0.0-0.6); Eosinophils % 4.5 %; Hemoglobin 12.1 g/dL (11.5-15.4); Immature Granulocytes % 0.4 % (0-4); Lymphocytes # 2.1 K/mcL (0.6-4.6); Lymphocytes % 26.5 %; Mean Corpuscular HGB Conc 33.6 g/dL (31.6-35.5); Mean Corpuscular Hemoglobin 31.9 pg (28.0-33.3); Mean Platelet Volume 11.7 fL (9.4-12.4); Monocytes % 12.2 %; Neutrophils # 4.5 K/mcL (1.6-8.9); Platelet Count 172 K/mcL (140-400); Red Blood Count 3.79 M/mcL (3.82-4.97); Red Cell Distribution Width 12.9 % (11.5-14.5); Segmented Neutrophils % 55.9 %
[2018-07-17 04:54] LABS: Prothrombin Time 11.2 Seconds (9.4-12.1)
[2018-07-17 04:56] LABS: Activated Partial Thrombo Time 30.9 Seconds (26.0-36.0)
[2018-07-17 05:01] LABS: BUN/Creatinine Ratio 28 (6-26); Blood Urea Nitrogen 30 mg/dL (8-23); Calcium 9.7 mg/dL (8.6-10.3); Carbon Dioxide 21 mEq/L (23-29); Chloride 107 mEq/L (98-107); Glucose 123 mg/dL (70-105); Osmolality,Calculated 296 (280-300); Potassium 4.1 mEq/L (3.5-5.1); Sodium 139 mEq/L (136-145); Troponin I < 0.03 ng/mL (< 0.04); eGFR For Non-African Americans 50 (> 60)
[2018-07-17] MEDS ORDERED: Naloxone 0.4 MG/ML INJ IVP PRN (05:16)
[2018-07-17] MEDS ORDERED: Nitroglycerin 0.4 MG TAB.SUBL SL PRN (05:23)
--- NOTE | 2018-07-17 05:25 | Internal Med History&Physical ---
<Bladimir Perez S - Last Filed: 07/17/18 05:56> Date of Encounter: 07/17/18 Time of Encounter: 05:56 Internal Medicine - H&P: HPI Chief complaint: chest pain Admitted From: Home Plans for Post Hospital Care: Home History of present illness: Ms. Larkin is a 73 year old female with PMH of NV, CAD, LHC and stent x5, CKD, and HTN. She is here with chest pain that awoke her out of bed and caused her to feel sick. She states that it was a crushing pain, radiating to her neck and arm and it felt similar to her last heart attack. She states that she felt like she was going to throw up and was very nauseous. She states that she tried to go back to bed and that she took a nitro SL but the pain started again when she tried to lay down. She states she feels SOB as well. Denies fevers, palpitations, or vomiting. Trying to go back to bed made her anxious and made her chest pain feel worse. She was recently here and was diagnosed with a fib. She wasn't started on AC due to history of easy bleeding and multiple falls. She states that she follows up with Dr Moya as an outpatient and that she last saw him about a month ago. She also states that last time she was here, they discussed LHC but then decided not to. In the ER she had an elevated BNP with a negative troponin. She had no acute EKG changes. XR was negative for acute process. She will be admitted for further evaluation and rule out of ACS/unstable angina. Past Med Surg Social Fam HX - Past Medical History Medical history: atrial fibrillation, COPD, hyperlipidemia, hypertension, myocardial infarction Additional medical history: stints x5 Psychiatric history: no psych history - Past Surgical History Surgical History: angioplasty/stent, appendectomy, cancer surgery, cholecystectomy, hysterectomy, orthopedic, other, other (tonsillectomy, left leg varicose vein stripping) Additional surgical history: Endometriosis, ankle sx, stents x5 (last stent June 2017) - Social History Smoking Status: Never smoker Smokeless Tobacco Status: No Alcohol use: none Drug use: none - Family History Father Family Member Ethnicity: Non- Twin of Family Member: Yes, Fraternal Living Status: Hx Family Cardiac Disorders: Yes Hx Family Respiratory Disorders: No Hx Family Cancer: Yes (Lung) Hx Family GI Disorders: No Hx Family Endocrine Disorder: No Hx Family Neuromuscular Disorders: No Hx Family Neurologic Disorders: No Hx Family HEENT Disorders: No Hx Family Autoimmune Disorders: No Mother Living Status: Hx Family Cardiac Disorders: Yes Hx Family Cancer: Yes Internal Medicine - H&P: Meds Cholecalciferol (Vitamin D3) [Vitamin D3] 2,000 unit PO QPM 01/03/15 [History] Albuterol Neb [Proventil Neb] 2.5 mg IH TID PRN 09/07/15 [History] Fluticasone Propionate Nasal [Flonase] 50 mcg NS BID PRN 12/03/15 [History] Acetaminophen [Tylenol] 1,000 mg PO BID PRN 03/23/16 [History] Mv, Min #36/Iron,Carbonyl/FA [Geritol Complete Tablet] 1 tab PO DAILY 07/06/16 [History] Isosorbide MONOnitrate [Isosorbide Mononitrate ER] 240 mg PO QAM 08/11/16 [History] Albuterol Sulfate [Ventolin Hfa] 2 puff IH Q4H PRN 05/25/17 [History] Vitamin E Acid Succinate [Vitamin E] 400 unit PO DAILY 05/25/17 [History] Clopidogrel [Plavix] 75 mg PO DAILY 09/21/17 [History] Loratadine [Allergy Relief] 10 mg PO DAILY 09/21/17 [History] Aspirin 81 mg PO DAILY #30 tab.chew 02/21/18 [Rx] Atenolol [Tenormin] 50 mg PO DAILY tablet 05/05/18 [Rx] Non-Formulary Medication 1 each PO Q6H each 05/05/18 [Rx] Allergy/AdvReac Type Severity Reaction Status Date / Time codeine Allergy Difficulty Verified 04/18/18 14:51 Breathing prednisone Allergy Rash Verified 04/18/18 14:51 amlodipine AdvReac Swelling Verified 04/18/18 14:51 of the Eye clarithromycin AdvReac Vomiting Verified 04/18/18 14:51 Erythromycin Base AdvReac Vomiting Verified 04/18/18 14:51 hydrocodone [From Vicodin] AdvReac Dizziness Verified 04/18/18 14:51 propoxyphene AdvReac Vomiting Verified 04/18/18 14:51 [id number] Reductase AdvReac Muscle Pain Verified 04/18/18 14:51 Inhibitor [Statins] All Systems PM: A 10-system review of systems was performed and is negative for pertinent findings except as documented above in the HPI. - Constitutional Constitutional: falls, weakness - EENT Eyes: no blurry vision, no change in vision Nose, mouth and throat: epistaxis - Cardiovascular Cardiovascular ROS IM: chest pain, dyspnea, dyspnea on exertion - Respiratory Respiratory: dyspnea, dyspnea on exertion, no pain on inspiration - Gastrointestinal Gastrointestinal: nausea, vomiting, no abdominal pain - Musculoskeletal Musculoskeletal ROS IM: no numbness, no tingling - Neurological Neurological ROS: frequent falls, weakness - Endocrine Endocrine IM: fatigue - Hematologic/Lymphatic Hematologic/Lymphatic: easy bleeding - Constitutional Vitals: Temp Pulse Resp BP Pulse Ox 98.3 F 67 16 130/76 99 07/17/18 04:05 07/17/18 05:13 07/17/18 05:13 07/17/18 05:13 07/17/18 05:13 General appearance: Present: cooperative, A&O X 3, pleasant, obese Exam: general - aox3, nad, laying in bed comfortable heent - ncat, MMM, no scleral icterus cardio- irregular irregular lungs - ctab, not in respiratory distress, speaking in full sentences without d ifficulty, no wheeze/rhonchi/crackles abd - obese, soft, nontender, nondistended, no peritoneal signs, no rebound or guarding extremities - strength 5/5, moves all extremities equally and w/o difficulty back- no bruising noted neuro - no fnd, sensation intact, follows command psych -appropriate mood/affect skin - warm,dry,intact Internal Med - H&P Results - Labs CBC & Chem 7: 07/17/18 04:25 07/17/18 04:25 Labs: Short CBC 07/17/18 Range/Units 04:25 WBC 8.0 (4.3-11.1) K/mcL Hgb 12.1 (11.5-15.4) g/dL Hct 36.0 (35.3-44.9) % Plt Count 172 (140-400) K/mcL Neutrophils # 4.5 (1.6-8.9) K/mcL BMP 07/17/18 04:25 Sodium 139 Potassium 4.1 Chloride 107 Carbon Dioxide 21 L BUN 30 H Creatinine 1.08 Glucose 123 H Calcium 9.7 Cardiac Enzymes 07/17/18 Range/Units 04:25 Troponin I < 0.03 (< 0.04) ng/mL - Impressions ITS Impressions Chest X-Ray 07/17/18 04:09 IMPRESSION: No acute disease. D/ / Yaakov Ambriz MD / Yaakov Ambriz MD Interpreting Provider: Yaakov Ambriz MD - Assessment and Plan (1) Chest pain Current Visit: Yes Status: Acute Assessment and plan: Pt who has chest pain that awoke her from sleep presents to [facility] [place] - has had multiple admissions for chest pain and has had stenting x 5 - does state this pain is like her last NV Previous ECHO from 01/2019: LVEF 60-65%. Normal LV chamber size, wall thickness and function. No segmental dysfunction. Limited echo to assess LV systolic function Stress testing negative for ischemia or infarct in 01/2018; gated EF >70% Last [facility] in 06/2017, DEBI placed There is severe one vessel coronary artery disease. Patient had successful PTCA/Drug-Eluting Stent placement in the mid-distal LAD. Previous stents patent Initial troponin negative BNP 102 EKG negative for ischemia/ST deviations JESÚS score of 5 Plan: - trend troponin x3 - cardiology consulted - start nitro drip due to intractable chest pain d/c nitro paste and start drip around 0700, nursing staff made aware - awaiting med reconciliation - telemetry monitoring - hold beta blockers in case of stress testing - FEN: NPO in case of cardiology intervention - DVT prophylaxis: SCDs - dispo: cardiology workup Qualifiers: Chest pain type: unspecified Qualified Code(s): R07.9 - Chest pain, unspecified (2) Obesity Current Visit: No Status: Chronic Assessment and plan: BMI 38.5, chronic. Qualifiers: Obesity type: unspecified obesity type Obesity classification: adult class 2 (BMI 35 - 39.9) Serious obesity comorbidity presence: with serious comorbidity Body mass index: BMI 38.0-38.9 Qualified Code(s): E66.01 - Morbid (severe) obesity due to excess calories; Z68.38 - Body mass index (BMI) 38.0-38.9, adult (3) CAD (coronary artery disease) Current Visit: No Status: Chronic Assessment and plan: Pt with extensive CAD, s/p stenting x5, on ASA/atenolol/plavix/isosorbide. Qualifiers: Coronary Disease-Associated Artery/Lesion type: [place] artery [place] vs. transplanted heart: [place] heart Associated angina: with unspecified angina Qualified Code(s): I25.119 - Atherosclerotic heart disease of [place] coronary artery with unspecified angina pectoris (4) Hypertension Current Visit: No Status: Chronic Assessment and plan: Chronic. On atenolol. Qualifiers: Hypertension type: essential hypertension Qualified Code(s): I10 - Essential (primary) hypertension (5) DVT prophylaxis Current Visit: Yes Status: Acute Assessment and plan: scd (6) Unstable angina Current Visit: Yes Status: Suspected Assessment and plan: Suspected. See above for chest pain. (7) CKD (chronic kidney disease) Current Visit: No Status: Chronic Assessment and plan: Stage 3. Chronic and at baseline. Continue to monitor. Qualifiers: Chronic kidney disease stage: stage 3 (moderate) Qualified Code(s): N18.3 - Chronic kidney disease, stage 3 (moderate) (8) Atrial fibrillation Current Visit: No Status: Chronic Assessment and plan: Diagnosed on last hospital admission in April. CHADVASc of 7. Not on AC due to hx of nosebleeds/fall risk. On beta yari. In atrial fib on auscultation/telemetry. Qualifiers: Atrial fibrillation type: unspecified Qualified Code(s): I48.91 - Unspecified atrial fibrillation - Time Spent With Patient Total time spent is greater than 50% in coordination of care (as documented) at patient's floor/unit and/or counseling patient: 25 - 35 minutes <Betty Godoy - Last Filed: 07/17/18 06:51> Date of Encounter: 07/17/18 Internal Medicine - H&P: HPI History of present illness: Ms. Larkin is a 73 year old female All Systems PM: A 10-system review of systems was performed and is negative for pertinent findings except as documented above in the HPI. - Constitutional Vitals: Temp Pulse Resp BP Pulse Ox 98.3 F 67 16 130/76 99 07/17/18 04:05 07/17/18 05:13 07/17/18 05:13 07/17/18 05:13 07/17/18 05:13 Internal Med - H&P Results - Labs CBC & Chem 7: 07/17/18 04:25 07/17/18 04:25 Labs: Short CBC 07/17/18 Range/Units 04:25 WBC 8.0 (4.3-11.1) K/mcL Hgb 12.1 (11.5-15.4) g/dL Hct 36.0 (35.3-44.9) % Plt Count 172 (140-400) K/mcL Neutrophils # 4.5 (1.6-8.9) K/mcL BMP 07/17/18 04:25 Sodium 139 Potassium 4.1 Chloride 107 Carbon Dioxide 21 L BUN 30 H Creatinine 1.08 Glucose 123 H Calcium 9.7 Cardiac Enzymes 07/17/18 Range/Units 04:25 Troponin I < 0.03 (< 0.04) ng/mL - Impressions ITS Impressions Chest X-Ray 07/17/18 04:09 IMPRESSION: No acute disease. D/ / Yaakov Ambriz MD / Yaakov Ambriz MD Interpreting Provider: Yaakov Ambriz MD - Assessment and Plan (1) Chest pain Current Visit: Yes Status: Acute Qualifiers: Chest pain type: unspecified Qualified Code(s): R07.9 - Chest pain, unspecified (2) CAD (coronary artery disease) Current Visit: No Status: Chronic Qualifiers: Coronary Disease-Associated Artery/Lesion type: [place] artery [place] vs. transplanted heart: [place] heart Associated angina: with unspecified angina Qualified Code(s): I25.119 - Atherosclerotic heart disease of [place] coronary artery with unspecified angina pectoris (3) Hypertension Current Visit: No Status: Chronic Qualifiers: Hypertension type: essential hypertension Qualified Code(s): I10 - Essential (primary) hypertension (4) DVT prophylaxis Current Visit: Yes Status: Acute (5) Unstable angina Current Visit: Yes Status: Suspected (6) CKD (chronic kidney disease) Current Visit: No Status: Chronic Qualifiers: Chronic kidney disease stage: stage 3 (moderate) Qualified Code(s): N18.3 - Chronic kidney disease, stage 3 (moderate) (7) Obesity Current Visit: No Status: Chronic Qualifiers: Obesity type: unspecified obesity type Obesity classification: adult class 2 (BMI 35 - 39.9) Serious obesity comorbidity presence: with serious comorbidity Body mass index: BMI 38.0-38.9 Qualified Code(s): E66.01 - Mor bid (severe) obesity due to excess calories; Z68.38 - Body mass index (BMI) 38.0-38.9, adult (8) Atrial fibrillation Current Visit: No Status: Chronic Qualifiers: Atrial fibrillation type: unspecified Qualified Code(s): I48.91 - Unspecified atrial fibrillation - Time Spent With Patient Total time spent is greater than 50% in coordination of care (as documented) at patient's floor/unit and/or counseling patient: - Attending Attestation I performed a history and physical examination of the patient and discussed her management with the resident. I reviewed the resident's note and agree with the assessment and plan. Patient is a 73 year old female with PMH of NV, CAD, LHC and stent x5, CKD, atrial fibrillation not on anticoagulation and HTN who presents with 10 out of 10 substernal chest pain radiating to the left shoulder which woke her up around 1 AM this morning. Patient has extensive history of coronary artery disease and was evaluated in April after presenting with atypical chest pain workup which was negative for ACS. Patient reports chest pain similar in nature to previous NV. Initial troponin negative. EKG shows atrial fibrillation in the absence of any ST or T-wave changes. Patient rec eived Nitropaste in the ED with minor improvement in chest pain. Currently 8 out of 10 in intensity. Differential includes unstable angina. Of note, patient has a significant history of nosebleeds and is not on anticoagulation for her A. fib because of this reason. Patient given a loading dose of aspirin. We will place patient on nitroglycerin drip. Cardiac consult to follow.
--- NOTE | 2018-07-17 05:29 | Emergency Department Note ---
Disposition Clinical Impression: Chest pain, rule out acute myocardial infarction CAD (coronary artery disease) Qualifiers: Coronary Disease-Associated Artery/Lesion type: unspecified vessel or lesion type [place] vs. transplanted heart: [place] heart Associated angina: angina presence unspecified Qualified Code(s): I25.10 - Atherosclerotic heart disease of [place] coronary artery without angina pectoris Hypertension Qualifiers: Hypertension type: unspecified Qualified Code(s): I10 - Essential (primary) hypertension Disposition: Admitted As Inpatient Condition: Fair General Adult HPI - General Chief complaint: ED Chest Pain Stated complaint: chest pain Time Seen by Provider: 07/17/18 04:09 Source: patient, EMS Mode of arrival: EMS Limitations: no limitations Nursing Notes Reviewed: Yes Vital Signs Reviewed: Yes - History of Present Illness Pain Scale: 8 - Related Data Home Medications Medication Instructions Recorded Confirmed Cholecalciferol (Vitamin D3) 2,000 unit PO QPM 01/03/15 02/19/18 [Vitamin D3] Albuterol Neb [Proventil Neb] 2.5 mg IH TID PRN 09/07/15 02/19/18 Fluticasone Propionate Nasal 50 mcg NS BID PRN 12/03/15 02/19/18 [Flonase] Acetaminophen [Tylenol] 1,000 mg PO BID PRN 03/23/16 02/19/18 Mv, Min #36/Iron,Carbonyl/FA 1 tab PO DAILY 07/06/16 02/19/18 [Geritol Complete Tablet] Pantoprazole Sodium [Protonix] 40 mg PO DAILY 07/06/16 02/19/18 Isosorbide MONOnitrate [Isosorbide 240 mg PO QAM 08/11/16 02/19/18 Mononitrate ER] Albuterol Sulfate [Ventolin Hfa] 2 puff IH Q4H PRN 05/25/17 02/19/18 Vitamin E Acid Succinate [Vitamin 400 unit PO DAILY 05/25/17 02/19/18 E] Clopidogrel [Plavix] 75 mg PO DAILY 09/21/17 02/19/18 Loratadine [Allergy Relief] 10 mg PO DAILY 09/21/17 02/19/18 Previous Rx's Medication Instructions Recorded Aspirin 81 mg PO DAILY #30 tab.chew 02/21/18 Ondansetron ODT [Zofran ODT] 8 mg SL Q8HR PRN #15 tab.rapdis 04/18/18 Ranitidine HCl [Zantac] 300 mg PO HS #10 tablet 04/18/18 Atenolol [Tenormin] 50 mg PO DAILY tablet 05/05/18 Non-Formulary Medication 1 each PO Q6H each 05/05/18 Allergies Allergy/AdvReac Type Severity Reaction Status Date / Time codeine Allergy Difficulty Verified 04/18/18 14:51 Breathing prednisone Allergy Rash Verified 04/18/18 14:51 amlodipine AdvReac Swelling Verified 04/18/18 14:51 of the Eye clarithromycin AdvReac Vomiting Verified 04/18/18 14:51 Erythromycin Base AdvReac Vomiting Verified 04/18/18 14:51 hydrocodone [From Vicodin] AdvReac Dizziness Verified 04/18/18 14:51 propoxyphene AdvReac Vomiting Verified 04/18/18 14:51 Ltqwooj-Fvo-Cos Reductase AdvReac Muscle Pain Verified 04/18/18 14:51 Inhibitor [Statins] Past Medical History - Past Medical History Medical history: Reports: atrial fibrillation, COPD, hyperlipidemia, hypertension, myocardial infarction Surgical history: Reports: angioplasty/stent, appendectomy, cancer surgery, cholecystectomy, hysterectomy, orthopedic, other, other (tonsillectomy, left leg varicose vein stripping) Psychiatric history: Reports: no psych history DENITRATOR OPERATOR history: Reports: no DENITRATOR OPERATOR history - Social History Smoking Status: Never smoker Smokeless Tobacco Status: No Alcohol use: Reports: none Drug use: Reports: none Physical Exam - General Limitations: no limitations General appearance: alert, in no apparent distress Course Vital Signs Temperature 98.3 F 07/17/18 04:05 Pulse Rate 88 07/17/18 04:05 Respiratory Rate 20 07/17/18 04:05 Blood Pressure 134/103 07/17/18 04:05 O2 Sat by Pulse Oximetry 95 07/17/18 04:05 Temperature 98.3 F 07/17/18 04:05 Pulse Rate 67 07/17/18 05:13 Respiratory Rate 16 07/17/18 05:13 Blood Pressure 130/76 07/17/18 05:13 O2 Sat by Pulse Oximetry 99 07/17/18 05:13 Oxygen Delivery Oxygen Delivery Room Air Medical Decision Making - Medical Records Medical records reviewed: Yes I reviewed the patient's medical records. - Lab Data Lab results reviewed: Yes I reviewed the patient's lab results. Result diagrams: 07/17/18 04:25 07/17/18 04:25 Lab Results 07/17/18 07/17/18 07/17/18 Range/Units 04:25 04:25 04:25 WBC 8.0 (4.3-11.1) K/mcL RBC 3.79 L (3.82-4.97) M/mcL Hgb 12.1 (11.5-15.4) g/dL Hct 36.0 (35.3-44.9) % MCV 95.0 (83.0-100.0) fL MCH 31.9 (28.0-33.3) pg MCHC 33.6 (31.6-35.5) g/dL RDW 12.9 (11.5-14.5) % Plt Count 172 (140-400) K/mcL MPV 11.7 (9.4-12.4) fL Immature Gran % 0.4 (0-4) % Seg Neutrophils % 55.9 % Lymphocytes % 26.5 % Monocytes % 12.2 % Eosinophils % 4.5 % Basophils % 0.5 % Neutrophils # 4.5 (1.6-8.9) K/mcL Lymphocytes # 2.1 (0.6-4.6) K/mcL Monocytes # 1.0 (0.0-1.3) K/mcL Eosinophils # 0.4 (0.0-0.6) K/mcL Basophils # 0.0 (0.0-0.2) K/mcL PT 11.2 (9.4-12.1) Seconds INR 1.0 APTT 30.9 (26.0-36.0) Seconds Sodium (136-145) mEq/L Potassium (3.5-5.1) mEq/L Chloride (98-107) mEq/L Carbon Dioxide (23-29) mEq/L BUN (8-23) mg/dL Creatinine (0.60-1.20) mg/dL Est GFR ( Amer) (> 60) Est GFR (Non-Af Amer) (> 60) BUN/Creatinine Ratio (6-26) Glucose (70-105) mg/dL Calculated Osmolality (280-300) Calcium (8.6-10.3) mg/dL Troponin I (< 0.04) ng/mL B-Natriuretic Peptide 102 H (Less than 100) pg/mL 07/17/18 Range/Units 04:25 WBC (4.3-11.1) K/mcL RBC (3.82-4.97) M/mcL Hgb (11.5-15.4) g/dL Hct (35.3-44.9) % MCV (83.0-100.0) fL MCH (28.0-33.3) pg MCHC (31.6-35.5) g/dL RDW (11.5-14.5) % Plt Count (140-400) K/mcL MPV (9.4-12.4) fL Immature Gran % (0-4) % Seg Neutrophils % % Lymphocytes % % Monocytes % % Eosinophils % % Basophils % % Neutrophils # (1.6-8.9) K/mcL Lymphocytes # (0.6-4.6) K/mcL Monocytes # (0.0-1.3) K/mcL Eosinophils # (0.0-0.6) K/mcL Basophils # (0.0-0.2) K/mcL PT (9.4-12.1) Seconds INR APTT (26.0-36.0) Seconds Sodium 139 (136-145) mEq/L Potassium 4.1 (3.5-5.1) mEq/L Chloride 107 (98-107) mEq/L Carbon Dioxide 21 L (23-29) mEq/L BUN 30 H (8-23) mg/dL Creatinine 1.08 (0.60-1.20) mg/dL Est GFR ( Amer) > 60 (> 60) Est GFR (Non-Af Amer) 50 L (> 60) BUN/Creatinine Ratio 28 H (6-26) Glucose 123 H (70-105) mg/dL Calculated Osmolality 296 (280-300) Calcium 9.7 (8.6-10.3) mg/dL Troponin I < 0.03 (< 0.04) ng/mL B-Natriuretic Peptide (Less than 100) pg/mL - Radiology Data Radiology results reviewed: Yes I reviewed the patient's radiology results. Chest X-Ray 07/17/18 04:09 IMPRESSION: No acute disease. D/ / Yaakov Ambriz MD / Yaakov Ambriz MD Interpreting Provider: Yaakov Ambriz MD - EKG Data EKG #1 EKG attestation: Yes I reviewed and interpreted this EKG. EKG results narrative: EKG shows atrial fibrillation with ventricular rate of 94. No ST segment elev ation or depression. No change from prior EKG dated 05/05/2018. Attestation Statement - Attestation Attestation: I, Guilherme Hi MD, personally evaluated this patient and discussed their management with the midlevel provicer, PAC/DUCK OPERATOR. I reviewed the midlevel provider's note and agree with the documented findings, medical decision making, and plan of care. 73-year-old female presents to the emergency department by EMS with a complaint of chest pain which awoke her from sleep about 2 hours prior to arrival. She describes the pain as a dull pressure. Pain is in the mid to upper substernal region and radiates up into the left upper chest. It also radiates up into the throat and left side of the neck. She did have shortness of breath and diaphoresis with the pain. Mild nausea. No vomiting. No palpitations. Patient took a nitroglycerin at home with no improvement. The pain is worse with walking and ambulating but improved with rest. She rated the pain a 10 out of 10 when she awoke. On arrival here she rates pain 8 out of 10. Patient states this feels the same as when she had a heart attack in the past. She does have chronic atrial fibrillation and takes Coumadin. On examination patient is a well-developed well-nourished well-appearing elderly female in no acute distress. She is alert and oriented 3. There is no cyanosis or diaphoresis. Chest is nontender to palpation. Breath sounds are clear and equal bilaterally. Heart irregularly irregular with a normal rate. Abdomen soft and nontender with normal bowel sounds. EKG shows atrial fibrillation with ventricular rate of 94. No ST segment elevation or depression. No change from prior EKG dated 05/05/2018. Chest x-ray negative. Labs reviewed. Troponin negative. The hospitalist, Dr. Oneill, was consulted and accepted admission of the patient.
[2018-07-17] MEDS ORDERED: Aspirin 81 MG TAB.CHEW PO ONE (06:51)
[2018-07-17] MEDS: Nitroglycerin 25 MG/250 ML INFUS..BTL IVC SCH (06:58)
--- NOTE | 2018-07-17 07:14 | Cardiology Consult Note ---
Date of Encounter: 07/17/18 Time of Encounter: 09:00 Assessment and Plan (1) Unstable angina Current Visit: Yes Status: Suspected A/R/B of [facility] dw pt including 1% chance of [place]//CVA/CABG. Pt aware and agreeable with proceeding. Recent stress test negative. (2) CAD (coronary artery disease) Current Visit: No Status: Chronic Continue medical management Qualifiers: Coronary Disease-Associated Artery/Lesion type: [place] artery [place] vs. transplanted heart: [place] heart Associated angina: with unspecified angina Qualified Code(s): I25.119 - Atherosclerotic heart disease of [place] coronary artery with unspecified angina pectoris (3) Chronic kidney disease (CKD) stage G3a/A1, moderately decreased glomerular filtration rate (GFR) between 45-59 mL/min/1.73 square meter and albuminuria creatinine ratio less than 30 mg/g Current Visit: No Status: Chronic BRAULIO prophylaxis with NS overnight Discussion w patient/family: The assessment and plan as outlined above was discussed with the patient and/or family members who expressed understanding and agreement. All questions were answered. Thank you for involving us in the care of your patient. Please call with any questions. History of Present Illness Consult date: 07/17/18 Consult reason: chest pain Chief complaint: chest pain History of present illness: Ms. Larkin is a 73 year old female w CAD sp [place] sp PCI w last beind mid/distal LAD 06/2017, CKD, and HTN. She is here with chest pain that awoke her out of bed and caused her to feel sick. She states that it was a crushing pain, radiating to her neck and arm and it felt similar to her last heart attack. She states that she felt like she was going to throw up and was very nauseous. She states that she tried to go back to bed and that she took a nitro SL but the pain started again when she tried to lay down, she only had 1 NTG. It is associated with dyspnea. She has had this pain intermittently and last seen in clinic, she deferred [facility]. She was recently here and was diagnosed with a fib. She wasn't started on AC due to history of easy bleeding and multiple falls. She has had difficulty taking medications in the past including BB - fatigue, Ranexa caused constipation, and statins. Insurance won't pay for cardiac rehab. Her AF sx in past was flutterring/neck tightness. She notes easy fatigue, daytime somnolence but she refuses PAP in past. 01/2018 stress nuclear - no ischemia 06/2017 [facility] PCI mid distal lad Past Med Surg Social Fam HX - Past Medical History Medical history: atrial fibrillation, COPD, hyperlipidemia, hypertension, myocardial infarction Additional medical history: stints x5 Psychiatric history: no psych history - Past Surgical History Surgical History: angioplasty/stent, appendectomy, cancer surgery, cholecystectomy, hysterectomy, orthopedic, other, other (tonsillectomy, left leg varicose vein stripping) Additional surgical history: Endometriosis, ankle sx, stents x5 (last stent June 2017) - Social History Smoking Status: Never smoker Smokeless Tobacco Status: No Alcohol use: none Drug use: none - Family History Father Family Member Ethnicity: Non- Twin of Family Member: Yes, Fraternal Living Status: Hx Family Cardiac Disorders: Yes Hx Family Respiratory Disorders: No Hx Family Cancer: Yes (Lung) Hx Family GI Disorders: No Hx Family Endocrine Disorder: No Hx Family Neuromuscular Disorders: No Hx Family Neurologic Disorders: No Hx Family HEENT Disorders: No Hx Family Autoimmune Disorders: No Mother Living Status: Hx Family Cardiac Disorders: Yes Hx Family Cancer: Yes Medications and Allergies Cholecalciferol (Vitamin D3) [Vitamin D3] 2,000 unit PO QPM 01/03/15 [History] Albuterol Neb [Proventil Neb] 2.5 mg IH TID PRN 09/07/15 [History] Fluticasone Propionate Nasal [Flonase] 50 mcg NS BID PRN 12/03/15 [History] Acetaminophen [Tylenol] 1,000 mg PO BID PRN 03/23/16 [History] Mv, Min #36/Iron,Carbonyl/FA [Geritol Complete Tablet] 1 tab PO DAILY 07/06/16 [History] Isosorbide MONOnitrate [Isosorbide Mononitrate ER] 240 mg PO QAM 08/11/16 [History] Albuterol Sulfate [Ventolin Hfa] 2 puff IH Q4H PRN 05/25/17 [History] Vitamin E Acid Succinate [Vitamin E] 400 unit PO DAILY 05/25/17 [History] Clopidogrel [Plavix] 75 mg PO DAILY 09/21/17 [History] Loratadine [Allergy Relief] 10 mg PO DAILY 09/21/17 [History] Aspirin 81 mg PO DAILY #30 tab.chew 02/21/18 [Rx] Atenolol [Tenormin] 50 mg PO DAILY tablet 05/05/18 [Rx] Non-Formulary Medication 1 each PO Q6H each 05/05/18 [Rx] Allergy/AdvReac Type Severity Reaction Status Date / Time codeine Allergy Difficulty Verified 04/18/18 14:51 Breathing prednisone Allergy Rash Verified 04/18/18 14:51 amlodipine AdvReac Swelling Verified 04/18/18 14:51 of the Eye clarithromycin AdvReac Vomiting Verified 04/18/18 14:51 Erythromycin Base AdvReac Vomiting Verified 04/18/18 14:51 hydrocodone [From Vicodin] AdvReac Dizziness Verified 04/18/18 14:51 propoxyphene AdvReac Vomiting Verified 04/18/18 14:51 Kmixnbq-Xob-Iuv Reductase AdvReac Muscle Pain Verified 04/18/18 14:51 Inhibitor [Statins] All Systems Review: The remainder of the systems were reviewed and are negative - Constitutional Constitutional: no chills, no fever(s) - EENT Eyes: no blurred vision, no loss of vision Nose, mouth and throat: no bleeding gums, no epistaxis - Cardiovascular Cardiovascular: chest pain at rest, chest pain with exertion - Respiratory Respiratory: no hemoptysis, no wheezing - Gastrointestinal Gastrointestinal: no hematemesis, no hematochezia - Genitourinary Genitourinary: no hematuria, no nocturia - Musculoskeletal Musculoskeletal: no arthralgias, no back pain - Integumentary Integumentary: no erythema, no unusual bruising - Neurological Neurological: no syncope, no tingling Physical Examination Vital Signs, Last 4 Hours Temp Pulse Resp BP Pulse Ox 07/17/18 05:13 67 16 130/76 99 07/17/18 04:05 98.3 F 88 20 134/103 95 General: Conversant HEENT: Atraumatic Neck: No JVD Cardiac: Reg Rate and Rhythm Lungs: Normal Breath Sounds Neuro: Alert and responsive Abdomen: Soft Skin: No rashes noted on visualized skin Musculoskeletal: No Chest Wall Tenderness Extremities: No Edema Results 07/17/18 04:25 07/17/18 04:25 Lab Results 07/17/18 07/17/18 07/17/18 04:25 04:25 04:25 WBC 8.0 Hgb 12.1 Hct 36.0 Plt Count 172 INR 1.0 APTT 30.9 Sodium Potassium Chloride Carbon Dioxide BUN Creatinine Glucose Calcium Troponin I B-Natriuretic Peptide 102 H 07/17/18 04:25 WBC Hgb Hct Plt Count INR APTT Sodium 139 Potassium 4.1 Chloride 107 Carbon Dioxide 21 L BUN 30 H Creatinine 1.08 Glucose 123 H Calcium 9.7 Troponin I < 0.03 B-Natriuretic Peptide - EKG Interpretation EKG results cardiology: personally reviewed, no diagnostic ischemia (af) Consult Discharge Plan - Plan Referrals: Karen Perez, [employer] [Primary Care Provider] -
--- NOTE | 2018-07-17 10:36 | Event Note ---
<Mahsa Hood - Last Filed: 07/17/18 13:02> Date of Encounter: 07/17/18 Time of Encounter: 10:36 Ms. farmer is a 73 F with hx of CAD with LHC and stents x 5, Afib, CKD HTN presenting with crushing chest pain that radiated into neck and arm, woke her from sleep, and was reminiscent of previous heart attack. <Nicolas Cabral - Last Filed: 07/17/18 18:28> Date of Encounter: 07/17/18 P/w CP, cardio consulted, taking pt for LHC tomorrow, [email or web address]
[2018-07-18] MEDS: Nitroglycerin 25 MG/250 ML INFUS..BTL IVC SCH (00:12)
[2018-07-18] MEDS ORDERED: Ondansetron 4 MG/2 ML VIAL IVP ONE (00:58)
[2018-07-18] MEDS: Isosorbide MONOnitrate (24 HR) 60 MG TAB.ER.24H PO SCH (09:13)
[2018-07-18] MEDS: Aspirin 81 MG TAB.CHEW PO SCH (09:14)
--- NOTE | 2018-07-18 10:12 | Electrocardiograph Report ---
[place] [id number] Test Date: 2018-07-17 Pat Name: Elly Larkin Department: EXAM4 Room: 3B48 Gender: F Library Media Assistant: : 1945 Requested By: Soila Lindsay Order Number: [id number] Reading MD: Jose Huggins Measurements Intervals [place] Rate: 94 P: [place]: QRS: 80 QRSD: 99 T: 43 QT: 346 QTc: 433 Interpretive Statements Atrial fibrillation RSR' in V1 or V2, right VCD or RVH Electronically Signed On 07-18-2018 10:10:37 EDT by Jose Huggins
[2018-07-18] MEDS ORDERED: Heparin 1,000 UNITS/500 mL 500 ML ONE (11:22)
[2018-07-18] MEDS ORDERED: 0.9 % Sodium Chloride 2,000 ML ONE (11:22)
[2018-07-18] MEDS ORDERED: ISOVUE-370 200 ML INFUS..BTL ONE (11:22)
[2018-07-18] MEDS ORDERED: *HR* Heparin 10,000 UNIT/10 ML VIAL ONE (11:22)
[2018-07-18] MEDS ORDERED: Nitroglycerin 1,000 MCG/10 ML VIAL IV ONE (11:23)
[2018-07-18] MEDS ORDERED: *HR* FentaNYL (PF) 100 MCG/2 ML VIAL ONE (11:32)
[2018-07-18] MEDS ORDERED: *HR* Midazolam HCl 2 MG/2 ML VIAL ONE (11:32)
--- NOTE | 2018-07-18 11:32 | Pre-Sedation Evaluation ---
Pre-sedation evaluation - Pre-sedation checklist Date of procedure: 07/18/18 Procedure: [facility] Recent Vitals: Last Vital Signs Temp 98.0 F 07/18/18 06:38 Pulse 60 07/18/18 06:38 Resp 16 07/18/18 06:38 BP 119/64 07/18/18 06:38 Pulse Ox 95 07/18/18 06:38 H&P (including ROS) documented in medical record: Yes Previous reaction to sedatives/anesthetics: No Dietary Status: NPO after Midnight Dentition: No loose teeth or bridges ASA Classification *see protocol: CLASS II-Mild systemic disease Plan of Care: Pt appropriate candidate for procedure/moderate/conscious sedation, Risks/benefits of procedure/sedation discussed w/ patient/family Cardiac Registry (Cardio Only) - Functional Capacity Functional Capacity: >=4 METS with symptoms - Clincal Frailty Scale Clinical Frailty Scale: Managing Well
--- NOTE | 2018-07-18 13:24 | Internal Med Progress Note ---
<Nicolas Cabral - Last Filed: 07/18/18 15:02> Hospitalist Progress Note - Encounter Date of Encounter: 07/18/18 Internal Medicine: Result - Labs CBC & Chem 7: 07/17/18 04:25 07/17/18 04:25 - ABG Interpretation ABG results: PT/INR, D-dimer PT 11.2 Seconds (9.4-12.1) 07/17/18 04:25 Consult Discharge Plan - Plan Referrals: Karen Perez, [employer] [Primary Care Provider] - 07/22/18 9:00 am - Attending Attestation Patient seen and examined independently, including review of objective data including labs. I agree with plan of care as documented above by the resident with the following comments: Pt's chest pain resolved yesterday on nitro gtt, and has not recurred. Did have episode of nausea last night improved w antiemetics. Plan for [facility] today. <Mahsa Hood - Last Filed: 07/18/18 20:07> Hospitalist Progress Note - Encounter Date of Encounter: 07/18/18 Time of Encounter: 13:30 - Subjective Interval History: No events overnight, nursing notes reviewed. No chest pain since admission. Admits to some nausea last night, improved after zofran. Denies emesis, abdominal pain, difficulty breathing. - Exam Vitals: Temp Pulse Resp BP Pulse Ox 98.0 F 60 16 119/64 95 07/18/18 06:38 07/18/18 06:38 07/18/18 06:38 07/18/18 06:38 07/18/18 06:38 Exam: Gen.: no acute distress, pleasant HEENT: Normocephalic/atraumatic, EOMI, PERRL, moist mucous membranes Neck: Supple, trachea midline Respiratory: normal inspiratory effort, CTAB. No Rales, rhonchi, wheezing Cardiovascular: RRR, + S1/S2; no murmurs Extremities: Normal inspection, full range of motion, no edema Neuro: Alert, cooperative, cranial nerves II -XII grossly intact, no focal neuro deficits Psych: Cooperative with exam, answers questions appropriately - Assessment and Plan (1) Unstable angina Current Visit: Yes Status: Suspected (2) CAD (coronary artery disease) Current Visit: No Status: Chronic (3) Hypertension Current Visit: No Status: Chronic (4) CKD (chronic kidney disease) stage 3, GFR 30-59 ml/min Current Visit: Yes Status: Acute - Summary of Assessment and Plan Summary of Assessment and Plan: Ms. Larkin is a 73 F with hx of CAD with LHC and stents x 5, Afib, CKD HTN presenting with crushing chest pain that radiated into neck and arm, woke her from sleep, and was reminiscent of previous heart attack. CXR negative for acute disease, trop neg x 2, BNP 102. Admitted for chest pain work up. A/P Unstable angina: [facility] 07/[address] Moya. Nitro available for relief of chest pain PRN. CAD: [facility] 07/[address] Moya, severe disease of distal LAD s/p successful DEBI. Continue CAT, plavix, BB. Afib: not on AC d/t hx of falls. Currently rate controlled on metoprolol 25 mg PO BID. HTN: Controlled. Imdur 90 mg PO daily. CKD stage III: eGFR 50 COPD: Appropriate oxygenation on room air Prophylaxis: IPCDs Diet: Cardiac Dispo: Anticipate d/c to home tomorrow - Time Spent with Patient Total time spent is greater than 50% in coordination of care (as documented) at patient's floor/unit and/or counseling patient: less than 15 minutes Internal Medicine: Result - Labs CBC & Chem 7: 07/17/18 04:25 07/17/18 04:25 - ABG Interpretation ABG results: PT/INR, D-dimer PT 11.2 Seconds (9.4-12.1) 07/17/18 04:25 __ <Mahsa Hood - Last Filed: 07/18/18 20:07> (2) CAD (coronary artery disease) Qualifiers: Coronary Disease-Associated Artery/Lesion type: [place] artery [place] vs. transplanted heart: [place] heart Associated angina: with unspecified angina Qualified Code(s): I25.119 - Atherosclerotic heart disease of [place] coronary artery with unspecified angina pectoris (3) Hypertension Qualifiers: Hypertension type: essential hypertension Qualified Code(s): I10 - Essential (primary) hypertension
--- NOTE | 2018-07-18 14:39 | Invasive Diagnostic Lab Proc ---
Name: Elly Larkin Date of Study: 07/18/2018 Date: 1945 Ht: 61.8in Medical Record#: [id number] Age: 73 Wt: 200.62lb Gender: Female BSA: 1.91 Order #: [id number] BMI: 36.92 Physicians Procedure Physician: Bebeto Moya MD, FACC Referring MD: Referring MD: Staff Name Position Time In Camille Mattson RN Monitor 11:33 AM González Rosen RN Small Brake Form Operator 11:33 AM Sherrill Hoffmann RT (R) Scrub 11:33 AM Indications Indication Unstable Angina Procedures Performed Procedure L HRT ARTERY/VENTRICLE ANGIO PRQ CARD DEBI STENT W/ANGIO 1 VSL Pre-Procedure Checklist Informed consent is complete signed and on chart. H&P is on chart. ID band is on and ID verified with patient. Patient NPO for procedure The procedure was described for the patient and questions were answered. Blood Pressure: 134/63 ECG is on chart. Rhythm: Sinus Bradycardia Plan of Care Patient will tolerate the procedure without complications. Adequate level of comfort will be maintained. Hemodynamics will remain stable Patient will recover from procedure without complications. Respiratory function will be maintained. Cardiac rhythm will remain stable. Patient temperature will be maintained. Patient and/or family have verbalized understanding of the procedure. Patient Education Chief Complaint/Reason for Test: Cardiac Cath Developmental Category: Geriatric (65+ years) Developmentally Appropriate for Age: Yes Learning Barriers: None Education Needs: Procedure Education Method: Verbal Information Taught: Cardiac Cath Educational Evaluation: Able to repeat information Intravenous Access Time IV Size Location DC'd Fluid/Drip Rate Units RN Started with 20g 1 1/4" 0.9NaCl ml/hr Allergies acetaminophen hydrocodone TAPE Statins Lbxhjop-Emd-Cyt Reductase Inhibitor codeine morphine propoxyphene Erythromycin prednisone CODEINE DARVOCET Vital Signs Time BP (mmHg) HR (bpm) O2 Sat. RR (bpm) LOC 11:34 AM / % 5 = Fully awake and oriented or at pre-proc level 11:34 AM / % 4 = Oriented but drowsy 11:51 AM / % 4 = Oriented but drowsy 11:38 AM 90 / 57 51 97 % 8 11:43 AM 134 / 63 60 99 % 12 11:48 AM 116 / 58 65 93 % 16 11:53 AM 117 / 62 55 96 % 17 11:58 AM 105 / 60 55 97 % 16 12:03 PM 104 / 59 51 97 % 14 12:08 PM 141 / 69 52 97 % 10 12:13 PM 144 / 63 49 97 % 25 12:19 PM 145 / 71 49 % 11 12:45 PM 126 / 64 54 95 % 14 5 = Fully awake and oriented or at pre-proc level 01:00 PM 124 / 68 48 96 % 16 5 = Fully awake and oriented or at pre-proc level 01:15 PM 124 / 68 55 96 % 16 5 = Fully awake and oriented or at pre-proc level 01:30 PM 114 / 60 59 96 % 18 5 = Fully awake and oriented or at pre-proc level 02:00 PM 129 / 68 51 96 % 16 5 = Fully awake and oriented or at pre-proc level 02:15 PM 133 / 67 57 98 % 14 5 = Fully awake and oriented or at pre-proc level Procedural Medications Time Medication Dose Units Method Given By 11:34 AM Oxygen 2 L/min nasal cannula González Rosen RN 11:39 AM Versed 1 mg Intravenous González Rosen RN 11:39 AM Fentanyl 25 mcg Intravenous González Rosen RN 11:42 AM Versed 1 mg Intravenous González Rosen RN 11:42 AM Fentanyl 25 mcg Intravenous González Rosen RN 11:52 AM Lidocaine 2% 20 ml Subcutaneous Bebeto Moya MD, FACC 12:22 PM Plavix 300 mg Orally Andrea Alexandre RN ASA Classification: CLASS II- Mild systemic disease (i.e. well-controlled diabetes, hypertension, asthma, cigarette smoking) Rhett Score Preprocedure Postprocedure Activity 2- Moves 4 extremities sustained head lift Activity 2- Moves 4 extremities sustained head lift Circulation 2- SBP +/= 20 points of pre-anesthetic level Circulation 2- SBP +/= 20 points of pre-anesthetic level Consciousness 2- Awake and alert oriented x 3 Consciousness 2- Awake and alert oriented x 3 O2 Saturation 2- Able to maintain O2 satruation of 92% on room air O2 Saturation 2- Able to maintain O2 satruation of 92% on room air Respiratory 2- Able to deep breathe and cough well Respiratory 2- Able to deep breathe and cough well Total Score 10 Total Score 10 Contrast Agent: Isovue Diagnostic Contrast: 104 ml Total Contrast: 104 ml Fluoro Dose: 11 mGy Activated Clotting Time Time Seconds to Clot 12:34 PM 231 01:30 PM 174 Procedure Log Time Note Enter By 11:31 AM CathStat 11:33 AM Pt arrived to clinical laboratory assistant 2 at 11:33 oumm 11:33 AM Camille Mattson RN Position: Monitor Time in: 11:33 mm 11:33 AM González Rosen RN Position: Small Brake Form Operator Time in: 11:33 mm 11:34 AM Sherrill Hoffmann RT (R) Position: Scrub Time in: :33 mm 11:34 AM Patient charges- Angio tray pack, Navilyst 3mm J, Pulse Oximetry and ACIST tubing and transducer 11:34 AM Case Delayed No oumm 11:34 AM Physician arrived :34 11:34 AM Meet and greet completed [facility] 11:34 AM Sign in performed according to hospital policy. Informed consent was obtained. 11:34 AM Procedure start :34 mm:34 AM Time: 11:34 Oxygen on at 2 L/min per nasal cannula by González Rosen RN [facility] :34 AM Time: 11:34 Patient comfortable and pain free: Yes 11:34 AM Time: 11:34LOC: 5 = Fully awake and oriented or at pre-proc level oumm 11:37 AM Vitals capture started with the following parameters, Patient=Adult, Interval=5 min, Initial Giescmmp=537 mmHg, Deflation Rate=5 mmHg, Cuff placed on Left Arm 11:38 AM HR=51 bpm, NIBP=90/57 mmhg, SpO2=97.0 %, Resp=8 B/min 11:39 AM Time: 11:39 Versed 1 mg Intravenous Given by González Rosen RN 11:39 AM Time: 11:39 Fentanyl 25 mcg Intravenous Given by González Rosen RN 11:40 AM Recorded ECG: HR=48 Condition=Condition 1 11:42 AM Time: 11:42 Versed 1 mg Intravenous Given by González Rosen RN 11:42 AM Time: 11:42 Fentanyl 25 mcg Intravenous Given by González Rosen RN 11:43 AM HR=60 bpm, VHSG=842/63 mmhg, SpO2=99.0 %, Resp=12 B/min, EtCO2=25 mmHg 11:45 AM Pressure channel 1 zeroed. 11:48 AM HR=65 bpm, MBRA=368/58 mmhg, SpO2=93.0 %, Resp=16 B/min 11:50 AM ASA Class CLASS II- Mild systemic disease (i.e. well-controlled diabetes, hypertension, asthma, cigarette smoking) tsoummers 11:50 AM Time out was performed according to hospital policy. Conscious sedation and anesthesia was achieved (see medication log with in this report above) tsoummers 11:50 AM Time: 11:34 Patient comfortable and pain free: Yes tsoummers 11:51 AM Time: 11:34LOC: 4 = Oriented but drowsy tsoummers 11:53 AM Time: 11:52 20 ml Lidocaine 2% to right groin Subcutaneous Given by Bebeto Moya MD, [facility] 11:53 AM Access obtained by percutaneous puncture. 5Fr 10cm Terum[employer] [place] sheath placed in right Femoral artery. [id number] [facility] 11:53 AM HR=55 bpm, WRSN=031/62 mmhg, SpO2=96.0 %, Resp=17 B/min, EtCO2=38 mmHg 11:53 AM 0.035 145cm Navilyst 3mmJ wire [id number] [facility] 11:53 AM 5Fr FL 4 catheter inserted over the wire [facility] 11:53 AM wire removed [facility] 11:54 AM Pressure channel 1 zeroed. 11:54 AM LCA angiography performed in multiple views. [facility] 11:54 AM Recorded Pressure: Ao, HR=49, Condition=Condition 1 (Aorta) Ao 95/46/65 11:55 AM Catheter removed [facility] 11:55 AM Lesion found in Proximal LAD. Pre Stenosis: 70 Pre JESÚS Flow: 3: Complete and Brisk [facility] AM Lesion found in Distal LAD. Pre Stenosis: 85 Pre JESÚS Flow: 3: Complete and Brisk Flow/Perfusion [facility] 11:56 AM 5Fr FR 4 catheter inserted over the wire [facility] 11:56 AM Proximal Left Anterior Descending Coronary Artery with 50% stenosis. If graft is supplying this territory, 0 % stenosis. tsoummers 11:56 AM Mid/Distal Left Anterior Descending Coronary Artery and diagonal branches with 85% stenosis. If graft is supplying this area, 0 % stenosis [facility] 11:57 AM RCA angiography performed in multiple views. 11:57 AM Catheter removed 11:58 AM Coronary Dominance: Left [facility] 11:58 AM 5Fr Pigtail [facility] 11:58 AM Catheter crossed the aortic valve and was selectively placed in the left ventricle. Pressures recorded on pullback for left heart catheterization. 11:58 AM HR=55 bpm, KQMR=136/60 mmhg, SpO2=97.0 %, Resp=16 B/min, EtCO2=39 mmHg 11:59 AM Recorded Pressure: LV, HR=57, Condition=Condition 1 (Left Ventricle) LV 106/0/13 11:59 AM Recorded Pressure: LV, Ao, HR=56, Condition=Condition 1 (Left Ventricle) LV 120/7/21, (Aorta) Ao 104/47/69 11:59 AM Bolus angiogram of left Ventricle complete: 10 ml/sec for a total of 30 mls 11:[address] [facility] 12:00 PM Sheath exchanged for a 6 Fr 11 cm Cordis Glendy sheath [id number] [facility] 12:00 PM PCI [facility] 12[facility] PM 6Fr CLS 3.5 Runway guide catheter was used to cannulate the PCI vessel successfully. reused? No tsoummers 12:02 PM .014 PT Graphix 182cm guide wire across target lesion- successful. reused? No [facility] 12:02 PM Inflation device was opened. tsmm 12:03 PM Recorded Pressure: Ao, HR=52, Condition=Condition 1 (Aorta) Ao 94/44/64 12:03 PM HR=51 bpm, YURP=069/59 mmhg, SpO2=97.0 %, Resp=14 B/min, EtCO2=32 mmHg 12:04 PM 2.25mm x 12mm Synergy drug-eluting stent across target lesion- successful [facility][id number] [facility] 12:06 PM Time: 11:51LOC: 4 = Oriented but drowsy ts[facility]ers 12:06 PM Time: 11:50 Patient comfortable and pain free: Yes [facility] 12[facility]06 PM Stent removed intact. Not deployed [facility] 12:06 PM 2.0 mm x 12 mm Emerge Monorail balloon across target lesion- successful. reused? No [facility] 12:08 PM Balloon inflated @ 10 emerald for 12 seconds [facility] 12:08 PM Balloon catheter removed intact. [facility] 12:08 PM HR=52 bpm, UPBU=508/69 mmhg, SpO2=97.0 %, Resp=10 B/min, EtCO2=38 mmHg 12:09 PM Recorded Pressure: Ao, HR=54, Condition=Condition 1 (Aorta) Ao 132/55/84 12:09 PM 2.25 x 12 Synergy reinserted [facility] 12:10 PM Stent deployed @ 14 emerald for 20 seconds [facility] 12:12 PM Stent delivery system removed intact. [facility] 12:13 PM Guide catheter removed intact. [facility] 12:13 PM HR=49 bpm, NYZO=065/63 mmhg, SpO2=97.0 %, Resp=25 B/min 12:14 PM Bolus angiogram of right Femoral complete: 4 ml/sec for a total of 7 mls [facility] 12:16 PM Left Main Coronary Artery with 0% stenosis [facility] 12:16 PM Procedure completed at 12:16 07/18/2018 [facility] 12:16 PM Did you address JESÚS flow and Dominance? YesCoronary Dominance: Left [facility] 12:18 PM Sign out completed: Radiation Dose 195.48 mGy, 11.2 mGy/cm2 Fluoro Time: 6.5 Isovue 370 - 200ml contrast 104 ml given by Bebeto Moya MD, [facility]. Complications: None. 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 Sedation minutes 39. Cardiac Rehab Consult needed: Yes. Confirmed administered medications: Yes [facility] 12:18 PM Isovue 370 - 200ml,1 Bottle(s) used. [facility] 12:18 PM Sheath left in place to be pulled on floor/holding area [facility] 12:18 PM Estimated Blood Loss: minimal [facility] 12:18 PM Post ECG Sinus Bradycardia [facility] 12:19 PM HR=49 bpm, VDUQ=222/71 mmhg, Resp=11 B/min 12:19 PM Post Blood Pressure 144/63 [facility] 12:19 PM 12:19 Post Pulses Bilateral DP & PT 1+ [facility] 12:[facility] PM Information taught Cardiac Cath and PCI [facility] 12:19 PM Education needs Procedure, Plan of Care, and Responsibilities of Patient in Care [facility] 12:19 PM Learning barriers :None [facility] 12:19 PM Education Methods Verbal [facility] 12:19 PM Education evaluation Able to repeat information [facility] 12:20 PM Site status No bleeding/hematoma - Rt Groin as reported by Sherrill Hoffmann RT (R) at 12:19 tsou[facility]ers 12:20 PM Opsite applied [facility] 12:20 PM Plavix, Effient or Brilinta given yes [facility] 12:20 PM Patient out of room: 12:20 [facility] 12[facility] PM no family at this time [facility] 12:[facility] PM Complications: None [facility] 12:22 PM Time: 12:22 Plavix 300 mg Orally Given by Andrea Alexandre RN [facility] 12:33 PM called report to Neelam. Pt will go to HR until 2 N9 is ready [facility] 12:33 PM Report given to Neelam BLEVINS Pt taken to Holding room Room #1. 12:33 [facility] 12:34 PM Delay to floor Bed availability [facility] 12:34 PM At 12:34 the ACT was 231 seconds. [facility] 01:45 PM Opsite applied [facility] 01:45 PM Site status No bleeding/hematoma - Rt Groin as reported by Chi Mcgee RN at 14:08 [facility] 01:45 PM Arterial sheath pulled using manual compression and V+ Pad for 15 minutes by [facility] 01:[facility] PM Hemostasis achieved [facility] 02:10 PM Patient voided large amount via bedpan mprater 02:25 PM Report called to [facility] on 3B mprater 02:28 PM Patient transferred to 3B mprater Complications Complication None None Hemodynamics Pressures Site Systolic/A Wave Diastolic/V Wave Mean AO 95 46 65 LV 106 0 13 LV 120 7 21 AO 104 47 69 AO 94 44 64 AO 132 55 84 Post Procedure Information Blood Pressure: 144/63 mmHg Rhythm: Sinus Bradycardia Post procedural instructions were given Site Checks Time Location Status Staff Sheath In? Note 12:19 PM Rt Groin No bleeding/hematoma Sherrill Hoffmann RT (R) Yes 12:45 PM Rt Groin No bleeding/ No Hematoma Chi Mcgee RN Yes 01:00 PM Rt Groin No bleeding/ No Hematoma Chi Mcgee RN Yes 01:15 PM Rt Groin No bleeding/ No Hematoma Chi Mcgee RN Yes 01:30 PM Rt Groin No bleeding/ No Hematoma Chi Mcgee RN Yes 01:45 PM Rt Groin No bleeding/ No Hematoma Chi Mcgee RN No Sheath pulled 02:08 PM Rt Groin No bleeding/hematoma Chi Mcgee RN 02:15 PM Rt Groin No bleeding/ No Hematoma Chi Mcgee RN Pulses Time Site Pre-Procedure Post-Procedure Note Bilateral DP & PT 1+ Bilateral radial 2+ 12:19:00 PM Bilateral DP & PT 1+ 07/18/2018 2:00:00 PM Bilateral DP & PT 1+ Updated by Neelam Gomez, RN on 07/18/2018 2:29:03 PM Neelam Gomez, RN electronically signed on 07/18/2018 2:29:53 PM with status of Final
[2018-07-19] MEDS: Aspirin 81 MG TAB.CHEW PO SCH (09:16)
[2018-07-19] MEDS: Isosorbide MONOnitrate (24 HR) 60 MG TAB.ER.24H PO SCH (09:16)
[2018-07-19 09:24] LABS: Hematocrit 37.2 % (35.3-44.9); Hemoglobin 12.3 g/dL (11.5-15.4); Mean Corpuscular HGB Conc 33.1 g/dL (31.6-35.5); Mean Corpuscular Hemoglobin 31.7 pg (28.0-33.3); Mean Corpuscular Volume 95.9 fL (83.0-100.0); Mean Platelet Volume 11.5 fL (9.4-12.4); Platelet Count 167 K/mcL (140-400); Red Blood Count 3.88 M/mcL (3.82-4.97)
[2018-07-19 09:43] LABS: BUN/Creatinine Ratio 25 (6-26); Blood Urea Nitrogen 26 mg/dL (8-23); Calcium 9.5 mg/dL (8.6-10.3); Carbon Dioxide 25 mEq/L (23-29); Chloride 108 mEq/L (98-107); Glucose 152 mg/dL (70-105); Osmolality,Calculated 298 (280-300); Potassium 4.5 mEq/L (3.5-5.1); Sodium 140 mEq/L (136-145); eGFR For Non-African Americans 51 (> 60)
--- NOTE | 2018-07-19 10:18 | Discharge Summary ---
<Mahsa Hood - Last Filed: 07/19/18 16:59> Orders not resulted at time of discharge: Pending orders 07/18/18 12:21 ECG 12 lead ECG [ECG] Routine Date of Encounter: 07/19/18 Time of Encounter: 10:18 - Discharge Diagnosis (1) Unstable angina Priority: Primary Status: Suspected (2) CAD (coronary artery disease) Priority: Secondary Status: Chronic Qualifiers: Coronary Disease-Associated Artery/Lesion type: [place] artery [place] vs. transplanted heart: [place] heart Associated angina: with unspecified angina Qualified Code(s): I25.119 - Atherosclerotic heart disease of [place] coronary artery with unspecified angina pectoris (3) Hypertension Priority: Secondary Status: Chronic Qualifiers: Hypertension type: essential hypertension Qualified Code(s): I10 - Essential (primary) hypertension (4) CKD (chronic kidney disease) stage 3, GFR 30-59 ml/min Priority: Secondary Status: Acute Hospital course: Ms. Larkin is a 73 F with hx of CAD with LHC and stents x 5, Afib, CKD HTN presenting with crushing chest pain that radiated into neck and arm, woke her from sleep, and was reminiscent of previous heart attack. CXR negative for acute disease, trop neg x 2, BNP 102. Admitted for chest pain work up. Diagnosed with unstable angina. LHC performed 07/[address] Moya with 1 stent placed in distal LAD. Patient tolerated procedure well. Procedure site examined at time of discharge and showed no signs of hematoma or active bleeding. Patient to continue ASA 81mg once daily and Plavix 75mg once daily for 1 year. Follow up at patient cardiology clinic has been arranged. Medication changes: - ASA 81mg once daily and Plavix 75mg once daily for 1 year - Atenolol discontinued, started metoprolol 25mg PO BID - Imdur 90mg PO daily - Time Spent with Patient Total time spent providing and/or coordinating discharge services: - Discharge Medications Prescriptions: New Isosorbide MONOnitrate (24 HR) [Imdur] 90 mg PO DAILY #45 tab.er.24h Metoprolol [Lopressor] 25 mg PO BID #60 tablet Nitroglycerin 0.4 mg SL Q5MIN PRN #9 tab.subl PRN Reason: Chest Pain Continued Cholecalciferol (Vitamin D3) [Vitamin D3] 2,000 unit PO QPM Albuterol Neb [Proventil Neb] 2.5 mg IH TID PRN PRN Reason: Shortness Of Breath Fluticasone Propionate Nasal [Flonase] 50 mcg NS BID PRN PRN Reason: Allergy Symptoms Acetaminophen [Tylenol] 1,000 mg PO BID PRN PRN Reason: Mild Pain Mv, Min #36/Iron,Carbonyl/FA [Geritol Complete Tablet] 1 tab PO DAILY Vitamin E Acid Succinate [Vitamin E] 400 unit PO DAILY Albuterol Sulfate [Ventolin Hfa] 2 puff IH Q4H PRN PRN Reason: Shortness Of Breath Loratadine [Allergy Relief] 10 mg PO DAILY Aspirin 81 mg PO DAILY #30 tab.chew Clopidogrel [Plavix] 75 mg PO QPM #30 tablet Discontinued Atenolol [Tenormin] 50 mg PO DAILY tablet Isosorbide MONOnitrate [Isosorbide Mononitrate ER] 240 mg PO DAILY Home Medications: Cholecalciferol (Vitamin D3) [Vitamin D3] 2,000 unit PO QPM 01/03/15 [History] Albuterol Neb [Proventil Neb] 2.5 mg IH TID PRN 09/07/15 [History] Fluticasone Propionate Nasal [Flonase] 50 mcg NS BID PRN 12/03/15 [History] Acetaminophen [Tylenol] 1,000 mg PO BID PRN 03/23/16 [History] Mv, Min #36/Iron,Carbonyl/FA [Geritol Complete Tablet] 1 tab PO DAILY 07/06/16 [History] Albuterol Sulfate [Ventolin Hfa] 2 puff IH Q4H PRN 05/25/17 [History] Vitamin E Acid Succinate [Vitamin E] 400 unit PO DAILY 05/25/17 [History] Loratadine [Allergy Relief] 10 mg PO DAILY 09/21/17 [History] Aspirin 81 mg PO DAILY #30 tab.chew 02/21/18 [Rx] Clopidogrel [Plavix] 75 mg PO QPM #30 tablet 07/19/18 [Rx] Isosorbide MONOnitrate (24 HR) [Imdur] 90 mg PO DAILY #45 tab.er.24h 07/19/18 [Rx] Metoprolol [Lopressor] 25 mg PO BID #60 tablet 07/19/18 [Rx] Nitroglycerin 0.4 mg SL Q5MIN PRN #9 tab.subl 07/19/18 [Rx] Allergies/Adverse Reactions: Allergy/AdvReac Type Severity Reaction Status Date / Time codeine Allergy Difficulty Verified 04/18/18 14:51 Breathing prednisone Allergy Rash Verified 04/18/18 14:51 amlodipine AdvReac Swelling Verified 04/18/18 14:51 of the Eye clarithromycin AdvReac Vomiting Verified 04/18/18 14:51 Erythromycin Base AdvReac Vomiting Verified 04/18/18 14:51 hydrocodone [From Vicodin] AdvReac Dizziness Verified 04/18/18 14:51 propoxyphene AdvReac Vomiting Verified 04/18/18 14:51 [id number]-Owf-Vgb Reductase AdvReac Muscle Pain Verified 04/18/18 14:51 Inhibitor [Statins] Date of admission: 07/17/18 05:19 Primary care physician: Karen Perez CNP Consults: 07/17/18 05:57 Consult to Cardiology [CONS] Routine Comment: Consulting Provider: Cardiology Rosanna Reason for Consult: ?unstable angina, chest pain, hx of extensive cad Call Completed: No 07/19/18 08:24 Consult to Cardiac Rehabilitation-Phase1 [CONS] Routine Comment: Reason for Consult: s/p PCI Call Completed: No Discharging clinician: Mhasa Hood Anticipated date of discharge: 07/19/18 - Constitutional Vitals: Temp Pulse Resp BP Pulse Ox 98.4 F 57 18 144/85 92 07/19/18 06:34 07/19/18 06:34 07/19/18 06:34 07/19/18 06:34 07/19/18 06:34 Exam: Gen.: no acute distress, pleasant HEENT: Normocephalic/atraumatic, EOMI, PERRL, moist mucous membranes Neck: Supple, trachea midline Respiratory: normal inspiratory effort, CTAB. No Rales, rhonchi, wheezing Cardiovascular: RRR, + S1/S2; no murmurs Extremities: Normal inspection, full range of motion, no edema, right groin cath site slightly tender to palpation but no active bleeding or hematoma appreciated Neuro: Alert, cooperative, cranial nerves II -XII grossly intact, no focal neuro deficits Psych: Cooperative with exam, answers questions appropriately - Patient Status Disposition: Home, Self-Care Condition: Good Functional capacity at discharge: independent ambulation Overall status at discharge: patient is progressing back to baseline - Discharge Instructions Instructions: Metoprolol (By mouth), Nitroglycerin, Rapid Release (By mouth), Isosorbide Mononitrate (By mouth), Clopidogrel (By mouth) Follow Up With: Bebeto Moya MD [Partnered Physician] - (Office will call to schedule follow up appointment) Karen Perez CNP [Primary Care Provider] - 07/22/18 9:00 am Additional Instructions: RISK FACTORS: STOP SMOKING: If you smoke, STOP. Smoking or tobacco use significantly increases your risk of heart disease because nicotine causes the arteries to narrow or constrict. It also causes fats to stick to the artery. Your chances of having a heart attack are greatly increased if you continue to smoke. For more information, call the education line for smoking cessation 8-532-EMWLTPB EAT A LOW FAT/CHOLESTEROL/SODIUM DIET: This diet may help reduce your chances of having a heart attack. LIFTING: Avoid lifting anything more than 10 pounds for 5-7 days Prior to straining, laughing, sneezing and/or coughing, apply manual pressure directly over insertion site. ACTIVITY: You may walk or climb stairs as tolerated You can resume sexual activity as tolerated In general, you are encouraged to engage in a minimum of 30 minutes or more of moderate intensity physical activity, such as brisk walking, daily or at least 3-4 times weekly BATHING Do not submerge the site into water (bath tub, hot tub, swimming pool) for 1 week. This can be a source for infection into the blood stream. You may shower after 24 hours SITE CARE: After 24 hours, you may remove the dressing and leave the site open to air. Keep the site clean and dry. Clean gently and pat dry. You can expect bruising and tenderness that gradually resolve within a week or two. Return to work as instructed per your physician Resume driving as instructed per physician Keep all scheduled follow up appointments Resume medications as instructed IMPORTANT: If prescribed a Platelet Aggregation Inhibitor such as, Plavix, Brilinta or Effient: Duration of therapy is minimum one year These medications are often used in combination with Aspirin in prevention of future heart attacks Never discontinue unless consult with your Import Export Agent STROKE (CVA) Risk factors for a stroke are: Age, cigarette smoking, diabetes, excessive alcohol consumption, family history, high blood pressure, overweight, physical inactivity, prior stroke, heart attack, diagnosis of carotid artery stenosis or other artery disease. Warning signs: Sudden numbness or weakness of the face, arm or leg; especially on one side of the body, sudden confusion, trouble speaking or understanding, sudden trouble seeing in one or both eyes, sudden trouble walking, dizziness, loss of balance or coordination, sudden severe headache with no cause. Call 911 or go to the Emergency Room. CONGESTIVE HEART FAILURE: If you have been diagnosed with Congestive Heart Failure (CHF) and your sympto ms return, make an appointment with your physician Weigh yourself daily. Notify your physician if you have a weight gain of two or more pounds in one day or five or more pounds in one week. If you experience any difficulty breathing, please call 911 BLEEDING: Although the risk of bleeding is minimal, it can happen. If you have any bleeding from the site, apply firm pressure above the puncture site for 10-15 minutes. If the bleeding does not stop, continue manual pressure and call 911 Contact your physician if: You develop a fever greater than 101 degrees Fahrenheit Your site becomes reddened or has any drainage You have an increase in pain or burning at the site or if a large knot forms at the site. If you experience chest pain, shortness of breath, dizziness, or extreme tiredness, stop the activity and rest. Please notify your physicians office if you experience any of these symptoms and they are not relieved by rest please call 911! - Diet and Activity Activity: increase activity as tolerated Diet: low fat, low cholesterol, low salt diet <Nicolas Cabral - Last Filed: 07/19/18 17:37> Date of Encounter: 07/19/18 Date of admission: 07/17/18 05:19 Primary care physician: Karen Perez CNP Consults: 07/17/18 05:57 Consult to Cardiology [CONS] Routine Comment: Consulting Provider: Cardiology Rosanna Reason for Consult: ?unstable angina, chest pain, hx of extensive cad Call Completed: No 07/19/18 08:24 Consult to Cardiac Rehabilitation-Phase1 [CONS] Routine Comment: Reason for Consult: s/p PCI Call Completed: No - Attending Attestation Patient seen and examined. I agree with the discharge plan as documented above by the resident. In summary, Elly Larkin is a pleasant 73 F w known hx CAD who p/w atypical chest pain requiring nitro gtt for relief. Cardio consulted who took pt for LHC; pt received stent x1 in dLAD. Pt tolerated well and groin site nontraumatic. Will be discharged on DAPT x1y. Follow up cardiology.
[2018-07-19 10:37] VITALS: BP 98/65
--- NOTE | 2018-07-19 11:17 | Cardiology Progress Note ---
Date of Encounter: 07/19/18 Time of Encounter: 09:30 Assessment and Plan (1) Unstable angina Current Visit: Yes Status: Suspected Per cardiology: -Admitted with unstable angina. -Troponins negative. -[facility] with 85% distal LAD lesion with DEBI placed. -Denies chest pain. -On asa, plavix, BB, imdur. Not on statin due to intolerance. Educated on importance of dual anti-platelet therapy uninterrupted for at least one year, states understanding. -Right groin access site without ecchymosis or hematoma. Right groin access site management education reviewed with patient, states understanding. -Cardiology will sign of. Will arrange close outpatient follow up. -Continue current medical therapy. (2) CAD (coronary artery disease) Current Visit: No Status: Chronic Per cardiology: -Continue medical management Qualifiers: Coronary Disease-Associated Artery/Lesion type: [place] artery [place] vs. transplanted heart: [place] heart Associated angina: with unspecified angina Qualified Code(s): I25.119 - Atherosclerotic heart disease of [place] coronary artery with unspecified angina pectoris Discussion w patient/family: The assessment and plan as outlined above was discussed with the patient who expressed understanding and agreement. All questions were answered. Thank you for involving us in the care of your patient. Please call with any questions. Discussed and reviewed with . Subjective Principal diagnosis: Unstable angina Interval history: Denies chest pain. Objective Vital Signs, Last 4 Hours Temp Pulse Resp BP Pulse Ox 07/19/18 10:35 98.1 F 64 18 98/65 96 General: Conversant, No Apparent Distress HEENT: Atraumatic, Normocephaly, Mucus Membranes Moist Neck: No JVD, Normal carotid pulses Cardiac: Reg Rate and Rhythm, Normal S1 and S2, No Murmur Lungs: Normal Breath Sounds, No Wheeze, Rales, Rhonchi Neuro: Alert and responsive, No focal deficits noted Abdomen: Soft, Non-Tender Skin: No rashes noted on visualized skin, Other (Right groin access site without ecchymosis or hematoma. ) Musculoskeletal: No Chest Wall Tenderness Extremities: No Clubbing, No Cyanosis, No Edema, Normal Pulses Results 07/19/18 09:05 07/19/18 09:05 Lab Results Active Medications Acetaminophen (Tylenol) 1,000 mg PO BID PRN PRN Reason: Mild Pain Stop: 01/16/19 18:23 Last Admin: 07/18/18 09:18 Dose: 1,000 mg Documented by: Aspirin (Aspirin) 81 mg PO DAILY [facility] Stop: 01/17/19 09:01 Last Admin: 07/19/18 09:16 Dose: 81 mg Documented by: Clopidogrel Bisulfate (Plavix) 75 mg PO DAILY@2100 [facility] Stop: 01/16/19 21:01 Last Admin: 07/18/18 20:24 Dose: 75 mg Documented by: Isosorbide Mononitrate (Imdur) 90 mg PO DAILY [facility] Stop: 01/17/19 09:01 Last Admin: 07/19/18 09:16 Dose: 90 mg Documented by: Metoprolol Tartrate (Lopressor) 25 mg PO BID [facility] Stop: 01/16/19 21:01 Last Admin: 07/19/18 09:16 Dose: 25 mg Documented by: Naloxone HCl (Narcan) 0.4 mg IVP Q2MPRN PRN PRN Reason: SEE COMMENTS Stop: 01/16/19 05:17 Nitroglycerin (Nitroglycerin) 0.4 mg SL Q5MIN PRN PRN Reason: Chest Pain Stop: 01/16/19 05:24 Laboratory Tests 07/17/18 07/17/18 07/19/18 04:25 04:25 09:05 Hgb 12.1 12.3 Creatinine 1.08 07/19/18 09:05 Hgb Creatinine 1.06 - Imaging and Cardiology Chest Xray: report reviewed Echo: report reviewed Cardiac cath: report reviewed - EKG Interpretation EKG results cardiology: other (Telemetry reviewed with average HR previous 12 hours noted to be 61, SR.) Consult Discharge Plan - Plan Referrals: Karen Perez, APPLIQUER ZIGZAG [Primary Care Provider] - 07/22/18 9:00 am
== END 2018-07-19 14:34 | disposition home or self-care (01) ==
LOC: 3BNU 04:02 → EMEROOARM 04:02 → SUATTDRO 05:19 → 3BNU 06:06
PROVIDERS: ADMIT Family Medicine; ATTEND Internal Medicine

== ENCOUNTER 2018-10-03 16:55 | Observation (INO) ==
[2018-10-03 18:32] LABS: Basophils % 0.6 %; Eosinophils # 0.3 K/mcL (0.0-0.6); Eosinophils % 3.7 %; Hematocrit 39.1 % (35.3-44.9); Hemoglobin 12.6 g/dL (11.5-15.4); Immature Granulocytes % 0.3 % (0-4); Lymphocytes # 1.8 K/mcL (0.6-4.6); Lymphocytes % 27.2 %; Mean Corpuscular HGB Conc 32.2 g/dL (31.6-35.5); Mean Corpuscular Hemoglobin 31.7 pg (28.0-33.3); Mean Corpuscular Volume 98.2 fL (83.0-100.0); Mean Platelet Volume 11.5 fL (9.4-12.4); Monocytes # 0.8 K/mcL (0.0-1.3); Monocytes % 11.6 %; Neutrophils # 3.8 K/mcL (1.6-8.9); Platelet Count 177 K/mcL (140-400); Red Blood Count 3.98 M/mcL (3.82-4.97); Red Cell Distribution Width 13.1 % (11.5-14.5); Segmented Neutrophils % 56.6 %; White Blood Count 6.7 K/mcL (4.3-11.1)
[2018-10-03 19:01] LABS: BUN/Creatinine Ratio 23 (6-26); Blood Urea Nitrogen 27 mg/dL (8-23); Calcium 9.4 mg/dL (8.6-10.3); Carbon Dioxide 23 mEq/L (23-29); Chloride 109 mEq/L (98-107); Glucose 105 mg/dL (70-105); Osmolality,Calculated 295 (280-300); Potassium 4.5 mEq/L (3.5-5.1); Sodium 140 mEq/L (136-145); Troponin I < 0.03 ng/mL (< 0.04); eGFR For African Americans 54 (> 60); eGFR For Non-African Americans 45 (> 60)
[2018-10-03] MEDS ORDERED: Nitroglycerin 1 INCH/GM PACKET TP ONE (19:26)
[2018-10-03] MEDS ORDERED: Ondansetron 4 MG/2 ML VIAL IVP ONE (19:26)
[2018-10-03] MEDS ORDERED: Aspirin 81 MG TAB.CHEW PO ONE (19:26)
[2018-10-03] MEDS ORDERED: Morphine Sulfate 2 MG/ML SYRINGE IVP ONE (19:26)
[2018-10-03] MEDS ORDERED: 0.9 % Sodium Chloride 500 ML IVC ONE (19:26)
[2018-10-03] MEDS ORDERED: Albuterol 2.5 MG/3 ML NEBULIZER IH PRN (22:02)
[2018-10-03] MEDS ORDERED: Fluticasone Propionate Nasal 50 MCG/SPRAY BOTTLE NS PRN (22:02)
[2018-10-04] MEDS: Metoprolol XL (24 HR) Succ 25 MG TAB.ER.24H PO SCH (09:32)
[2018-10-04] MEDS: Aspirin 81 MG TAB.CHEW PO SCH (09:33)
[2018-10-04] MEDS: Isosorbide MONOnitrate (24 HR) 60 MG TAB.ER.24H PO SCH (09:33)
[2018-10-04] MEDS: Nitroglycerin 0.4 MG TAB.SUBL SL PRN ×2 (16:11→16:18)
[2018-10-04] MEDS: Cholecalciferol (D-3) 1,000 UNIT (25MCG) TABLET PO SCH (17:26)
[2018-10-05] MEDS ORDERED: Ondansetron 4 MG/2 ML VIAL IVP ONE (05:54)
[2018-10-05] MEDS ORDERED: Regadenoson 0.4 MG/5 ML SYRINGE IVP ONE (06:21)
[2018-10-05] MEDS: Aspirin 81 MG TAB.CHEW PO SCH (10:45)
[2018-10-05] MEDS: Metoprolol XL (24 HR) Succ 25 MG TAB.ER.24H PO SCH ×2 (10:45→17:56)
[2018-10-05] MEDS: Isosorbide MONOnitrate (24 HR) 60 MG TAB.ER.24H PO SCH (10:45)
[2018-10-05] MEDS ORDERED: Sennosides/Docusate Sodium TABLET PO PRN (14:41)
[2018-10-05] MEDS: Cholecalciferol (D-3) 1,000 UNIT (25MCG) TABLET PO SCH (17:56)
[2018-10-06 04:48] LABS: Hematocrit 34.6 % (35.3-44.9); Hemoglobin 11.3 g/dL (11.5-15.4); Mean Corpuscular HGB Conc 32.7 g/dL (31.6-35.5); Mean Corpuscular Hemoglobin 31.7 pg (28.0-33.3); Mean Corpuscular Volume 96.9 fL (83.0-100.0); Mean Platelet Volume 11.6 fL (9.4-12.4); Platelet Count 160 K/mcL (140-400); Red Blood Count 3.57 M/mcL (3.82-4.97); White Blood Count 6.4 K/mcL (4.3-11.1)
[2018-10-06 05:07] LABS: Potassium 4.5 mEq/L (3.5-5.1)
[2018-10-06] MEDS ORDERED: ISOVUE-370 200 ML INFUS..BTL ONE (09:10)
[2018-10-06] MEDS ORDERED: *HR* Heparin 10,000 UNIT/10 ML VIAL ONE (09:10)
[2018-10-06] MEDS ORDERED: Heparin 1,000 UNITS/500 mL 500 ML ONE (09:10)
[2018-10-06] MEDS ORDERED: 0.9 % Sodium Chloride 1,000 ML ONE (09:10)
[2018-10-06] MEDS ORDERED: Nitroglycerin 1,000 MCG/10 ML VIAL IV ONE (09:10)
[2018-10-06] MEDS ORDERED: *HR* Midazolam HCl 2 MG/2 ML VIAL ONE (09:31)
[2018-10-06] MEDS: Aspirin 81 MG TAB.CHEW PO SCH (11:45)
[2018-10-06] MEDS: Isosorbide MONOnitrate (24 HR) 60 MG TAB.ER.24H PO SCH (11:45)
[2018-10-06] MEDS: Metoprolol XL (24 HR) Succ 25 MG TAB.ER.24H PO SCH (11:45)
[2018-10-06 15:54] VITALS: BP 131/78
== END 2018-10-06 16:18 | disposition home or self-care (01) ==
LOC: EMEROOARM 16:55 → 3BNU 16:55 → SUATTDRO 21:39 → 3BNU 22:15
PROVIDERS: ADMIT Internal Medicine; ATTEND Family Medicine